=== PATIENT | female | born 1990 ===

== ENCOUNTER 2023-06-24 20:07 | Emergency (ER) | payer OTHER, SELFPAY ==
[2023-06-24 20:19] VITALS: BP 135/95; PULSE 79; RESP 18; TEMP 36.3; O2SAT 100; BMI 30.3
--- NOTE | 2023-06-24 20:20 | ED.GENADULT ---
HPI - General Adult General Chief complaint: Dizziness Stated complaint: High blood pressure Time Seen by Provider: 06/24/23 23:07 Source: patient Mode of arrival: ambulatory Limitations: no limitations History of Present Illness HPI narrative: Patient presents with asymptomatic hypertension. Patient carries a diagnosis of hypertension she is on amlodipine and losartan. Over the past several days she has noted that her blood pressures been significantly elevated particularly her diastolic which has been about 105. She denies any significant headache, nausea, vomiting, chest pain, palpitations, lightheadedness. Patient does not pending salt on her food. She reports doing everything she switched to be doing. She is only eating 1 time per day. There is no clear relieving or exacerbating features. She is taking her medications appropriately. Related Data Allergies Allergy/AdvReac Type Severity Reaction Status Date / Time No Known Allergies Allergy Verified 06/24/23 20:19 [No Known Allergies*] Review of Systems Review of Systems: CONSTITUTIONAL: Denies weight loss, fever and chills. HEENT: Denies changes in vision and hearing. RESPIRATORY: Denies SOB and cough. CV: Denies palpitations no CP. GI: Denies abdominal pain, nausea, vomiting and diarrhea. : Denies dysuria and urinary frequency. MSK: Denies myalgia and joint pain. SKIN: Denies rash and pruritus. NEUROLOGICAL: Denies headache and syncope. PSYCHIATRIC: Denies recent changes in mood. Denies anxiety and depression. All other ROS are negative unless in HPI FORMERLY [facility], [facility]–1983 Social History Social History Alcohol intake: never Smoked in Last 30 Days: No Use of substances other than those prescribed or required for medical reasons: No Advance Directives: No Advance Directives Information Provided: Yes Patient : No Physical Exam ED Vital Signs: Vital Signs - 24 hr 06/24/23 20:19 06/24/23 22:50 Temperature 97.3 F Pulse Rate 79 70 Respiratory Rate 18 16 Blood Pressure 135/95 H 131/78 Pulse Oximetry 100 100 Oxygen Delivery Method Room Air Room Air BMI result Body Mass Index 30.3 GEN: Well developed, no acute distress, alert, oriented HEENT: Normocephalic, atraumatic, normal external ears, nose appears normal, no oropharyngeal edema or exudates Eyes: Normal to appearance Neck: Supple, no lymphadenopathy Respiratory: Talks in complete sentences, no respiratory distress, clear to auscultation bilaterally Cardiovascular: Regular rate and rhythm, no murmurs rubs or gallops Abdomen: Soft, nontender, nondistended, no guarding, no rebound Back: No CVA tenderness Extremities: No clubbing cyanosis or edema Neurologic: No focal neurologic deficits, cranial nerves 2-12 intact, strength is 5/5 bilaterally Skin: No rash Course Course Course Narrative: This is an RME: Additional HPI, ROS, PE not included below will be deferred to primary provider. This is a 8-nzuo-day-female, with a history of hypertension, presenting to the emergency department with complaints of elevated blood pressure readings x several weeks. Pt endorses some right eye blurred vision, and chest tightness. Reports that her blood pressure readings are 140s/110s. I explained had approximately take a blood pressure in she says states that she is very concerned as these are very high levels for her. Will get a basic labs, EKG and troponin given ?chest tightness?. Blood pressure 135/95 Plan: Labs UA. Reevaluation(s) Reevaluation #1: The workup is complete. There is no evidence of kidney damage, EKG is normal. Will slightly increase her losartan to 75 mg daily. She will will follow-up with her primary care provider. We discussed at length the appropriate way to measure blood pressure. Time: 23:36 Medical Decision Making Medical Decision Making [facility] Narrative: Patient presents with a symptomatic elevated blood pressure. She is taking her medications appropriately. Differential diagnosis includes essential hypertension, renovascular hypertension, anxiety, stress. Plan to check renal function. Monitor blood pressure, adjust medications as needed. Differential Diagnosis Differential Diagnoses: The differential diagnosis associated with the presentation includes (See above) Admission/Observation Consideration of admission/observation: Escalation of care including admission/observation considered Lab Data [facility] Lab Attestation statement: I reviewed the patient's lab results. 06/24/23 20:42 06/24/23 20:42 Labs: Lab Results 06/24/23 06/24/23 06/24/23 Range/Units 20:42 20:42 20:42 WBC 6.7 (4.8-10.8) X10*3/uL RBC 4.19 L (4.20-5.50) X10*6/uL Hgb 11.0 L (12.0-16.0) g/dl Hct 32.0 L (37.0-47.0) % MCV 76.4 L (80.0-98.0) fL MCH 26.3 L (27.0-33.0) pg MCHC 34.4 (31.0-35.0) g/dl RDW 13.7 (11.0-16.0) % Plt Count 334 (160-400) X10*3/uL MPV 9.2 L (9.4-12.3) fL Immature Gran % (Auto) 0.3 (0.0-0.4) % Neut % (Auto) 48.9 (45-73) % Lymph % (Auto) 40.6 H (20-40) % Armstrong % (Auto) 7.1 (2-11) % Eos % (Auto) 2.7 (0-4) % Baso % (Auto) 0.4 (0-2) % Lymph # (Auto) 2.7 (1.2-4.9) X10*3/uL Armstrong # (Auto) 0.5 (0.1-1.2) X10*3/uL Eos # (Auto) 0.2 (0.0-0.4) X10*3/uL Baso # (Auto) 0.0 (0.0-0.2) X10*3/uL Abs Immat Gran (auto) 0.02 (0.00-0.03) X10*3/uL Absolute Neuts (auto) 3.3 (2.0-8.3) x10*3/uL Absolute Nucleated RBC 0.000 (0.0-0.012) X10*3/uL Nucleated RBC % (auto) 0.0 (0.0-0.2) /100WBC Sodium 136 (135-145) mmol/L Potassium 3.9 (3.3-5.1) mmol/L Chloride 102 (96-108) mmol/L Carbon Dioxide 22 (22-29) mmol/L Anion Gap 16 (12-20) BUN 9 (9-16) mg/dL Creatinine 0.66 (0.5-1.4) mg/dL Estim Creat Clear Calc 127.4 Estimated GFR > 60 Random Glucose 109 (60-115) mg/dL Calcium 9.7 (8.4-10.2) mg/dL Total Bilirubin 0.5 (0.0-1.0) mg/dL Direct Bilirubin 0.2 (0.0-0.5) mg/dL AST 16 (5-31) U/L ALT 18 (0-31) U/L Alkaline Phosphatase 54 (39-117) U/L Troponin I High Sens < 2.7 (<3.5-17.0) ng/L Total Protein 7.5 (6.5-8.0) g/dL Albumin 4.1 (3.5-5.0) g/dL Urine Color Urine Appearance Urine pH (5.0-9.0) Ur Specific Landrum (1.005-1.025) Urine Protein (Neg-Trace) mg/dL Urine Glucose (UA) (Negative) mg/dL Urine Ketones (Negative) mg/dL Urine Blood (Negative) Urine Nitrite (Negative) Ur Leukocyte Esterase (Negative) Urine RBC (0-2) /HPF Urine WBC (0-5) /HPF Ur Squamous Epith Cells (0-2) /HPF Urine Bacteria (None Seen) Hyaline Casts (0-2) /LPF 06/24/23 Range/Units 20:49 WBC (4.8-10.8) X10*3/uL RBC (4.20-5.50) X10*6/uL Hgb (12.0-16.0) g/dl Hct (37.0-47.0) % MCV (80.0-98.0) fL MCH (27.0-33.0) pg MCHC (31.0-35.0) g/dl RDW (11.0-16.0) % Plt Count (160-400) X10*3/uL MPV (9.4-12.3) fL Immature Gran % (Auto) (0.0-0.4) % Neut % (Auto) (45-73) % Lymph % (Auto) (20-40) % Armstrong % (Auto) (2-11) % Eos % (Auto) (0-4) % Baso % (Auto) (0-2) % Lymph # (Auto) (1.2-4.9) X10*3/uL Armstrong # (Auto) (0.1-1.2) X10*3/uL Eos # (Auto) (0.0-0.4) X10*3/uL Baso # (Auto) (0.0-0.2) X10*3/uL Abs Immat Gran (auto) (0.00-0.03) X10*3/uL Absolute Neuts (auto) (2.0-8.3) x10*3/uL Absolute Nucleated RBC (0.0-0.012) X10*3/uL Nucleated RBC % (auto) (0.0-0.2) /100WBC Sodium (135-145) mmol/L Potassium (3.3-5.1) mmol/L Chloride (96-108) mmol/L Carbon Dioxide (22-29) mmol/L Anion Gap (12-20) BUN (9-16) mg/dL Creatinine (0.5-1.4) mg/dL Estim Creat Clear Calc Estimated GFR Random Glucose (60-115) mg/dL Calcium (8.4-10.2) mg/dL Total Bilirubin (0.0-1.0) mg/dL Direct Bilirubin (0.0-0.5) mg/dL AST (5-31) U/L ALT (0-31) U/L Alkaline Phosphatase (39-117) U/L Troponin I High Sens (<3.5-17.0) ng/L Total Protein (6.5-8.0) g/dL Albumin (3.5-5.0) g/dL Urine Color Yellow Urine Appearance Clear Urine pH 6.0 (5.0-9.0) Ur Specific Landrum 1.010 (1.005-1.025) Urine Protein Negative (Neg-Trace) mg/dL Urine Glucose (UA) Negative (Negative) mg/dL Urine Ketones Negative (Negative) mg/dL Urine Blood Moderate (2+) H (Negative) Urine Nitrite Negative (Negative) Ur Leukocyte Esterase Trace H (Negative) Urine RBC 6-10 H (0-2) /HPF Urine WBC 0-5 (0-5) /HPF Ur Squamous Epith Cells 0-2 (0-2) /HPF Urine Bacteria None Seen (None Seen) Hyaline Casts 0-2 (0-2) /LPF Independent Interpretation I performed an independent interpretation of an: EKG (Normal sinus rhythm heart rate 67, normal intervals, no acute ST elevations or depressions) Discharge Plan Discharge Clinical Impression: Essential hypertension Patient Disposition: Home, Self-Care Instructions: DASH Eating Plan (ED), Chronic Hypertension (DC), How to Take a Blood Pressure (ED) Additional Instructions: Continue amlodipine at 5 mg daily. Increase your losartan to 75 mg daily. Referrals: Maribell Jain MD [Primary Care Provider] - 1 week
--- NOTE | 2023-06-24 20:26 | ECG_ITS ---
Test Reason : dizziness Blood Pressure : / mmHG Vent. Rate : 067 BPM Atrial Rate : 067 BPM P-R Int : 166 ms QRS Dur : 088 ms QT Int : 416 ms P-R-T Axes : 074 035 037 degrees QTc Int : 439 ms Normal sinus rhythm Normal ECG No previous ECGs available Referred By: Yeimy Ponce Electronically Signed By:SILVANO LEONG
--- NOTE | 2023-06-24 20:45 | MHC.EDTECH ---
PATIENT EKG TAKEN AND WAS READ BY PROVIDER ,BLOOD DRAWN AND SENT TO LAB .
[2023-06-24 20:46] LABS: MANUAL DIFF FLAG NO
--- OUTSIDE RECORDS SUMMARY | 2023-06-24 20:48 | XMS_ITS | Continuity of Care Document ---
Author Name Unknown Organization [facility] Address [address] [place] [address]- Care Team Providers Care Chemotherapist Name Role Phone Maribell Jain MD Primary Care Physician [phone] Encounter [facility] Date(s): 05/03/23 - 06/02/23 [facility] [address] [place], [place] [address] Allergies, Adverse Reactions, Alerts Substance Reaction Severity Status Nuts Active Watermelon Active Immunizations Given and Recorded Vaccine Date Status Refusal Reason SARS-CoV-2 mRNA (nxvxhjy-wyls-qlxod) vax 11/23/21 Recorded SARS-CoV-2 (COVID-19) mRNA BNT-162b2 vac 11/02/21 Recorded pneumococcal 23-valent vaccine 1 09/14/19 Given Influenza Virus Vaccine (oldterm) 08/24/19 Recorde d influenza virus vaccine, inactivated 2 07/17/18 Gi danita influenza virus vaccine, inactivated 3 09/30/17 Gi danita influenza virus vaccine, inactivated 4 11/13/10 Gi danita tetanus/diphtheria/pertussis, acel(Tdap) 12/30/16 Given tetanus-diphtheria toxoids (Td) 5 06/19/09 Given Diphth/Pertussis,Acel/Tetanus (oldterm) 89 G iven 1Result Comment: [facility] [id number] 2Result Comment: [07/17/2018] givne /out incident ncd: [id number] 3Result Comment: [09/30/2017] [facility] [id number] 4Admin Note: pt declined 5Admin Note: vis given Medications amLODIPine 5 mg oral tablet 1 tablet, By Mouth, Daily, # 90 tablet, 1 Refills, Maintenance, 05/16/23 23:07:00 EDT, [id number], 165, cm, 05/13/23 16:14:00 EDT, Height, 85.7, kg, 05/04/23 6:01:00 EDT, Dry Weight Start Date: 05/16/23 Status: Ordered Aspirin Enteric Coated 81 mg oral delayed release tablet 1 tablet, By Mouth, Daily, # 90 tablet, 3 Refills, Maintenance, 01/13/23 11:23:00 EDT, [facility]/pharmacy#[id number], 165, cm, 01/13/23 10:56:00 EDT, Height, 88.8, kg, 12/28/22 22:36:00 EST, Dry Weight Start Date: 01/13/23 Stop Date: 01/08/24 Status: Ordered CPAP Machine See Instructions, # 1 each, Maintenance, AutoBiPAP max IPAP 15 min EPAP 5, PS 8 with heated humidification and compliance data to be followed. tubing, mask and supplies, 06/18/16 11:56:34 EDT, Compound Start Date: 06/18/16 Status: Ordered Freestyle Lite Lancets See Instructions, # 100 each, Refills 3, Tot. Refills 3, Maintenance, dx- E11.9 check sugars once daily 28 G lancets, 01/13/23 11:23:00 EDT, Compound, 165, cm, 01/13/23 10:56:00 EDT, Height, 88.8, kg, 12/28/22 22:36:00 EST, Dry Weight Start Date: 01/13/23 Status: Ordered Freestyle Lite Monitor See Instructions, # 1 units, Maintenance, dx- E11.9 check sugars once daily, 10/26/19 11:47:00 EST,Compound Start Date: 10/26/19 Status: Ordered Freestyle Lite Test Strips See Instructions, # 100 each, Refills 3, Tot. Refills 3, Maintenance, dx- E11.9 check sugars once daily, 03/30/21 12:58:00 EDT, Compound, 165, cm, 06/23/20 13:39:00 EDT, Height Start Date: 03/30/21 Status: Ordered losartan 50 mg oral tablet 1 tablet = 50 mg, By Mouth, Daily, # 90 tablet, 1 Refills, Maintenance, 12/10/22 17:16:00 EST, Tablet, [id number], Partial fill upon patient request if the prescription is for a schedule II opioid drug., 165, cm, 11/10/22 11:18:00 EST, Height,... Start Date: 12/10/22 Stop Date: 06/08/23 Status: Ordered MetFORMIN (Eqv-Glucophage XR) 500 mg oral tablet, extended release 2 tablet, By Mouth, Daily, # 180 tablet, 1 Refills, Maintenance, 05/16/23 23:07:00 EDT, [facility], 165, cm, 05/13/23 16:14:00 EDT, Height, 85.7, kg, 05/04/23 6:01:00 EDT, Dry Weight Start Date: 05/16/23 Status: Ordered Multivitamin Daily, 0 Refills, Maintenance, 08/04/21 9:36:00 EDT, Partial fill upon patient request if the prescription is for a schedule II opioid drug. Start Date: 08/04/21 Status: Ordered ondansetron 4 mg oral tablet, disintegrating 1 tablet = 4 mg, By Mouth, Every 8 hours, PRN as needed for nausea/vomiting, # 12 tablet, 0 Refills, Maintenance, 05/04/23 5:50:00 EDT, DIS Tablet, [id number], Partial fill upon patient request if the prescription is for a schedule II opioid d... Start Date: 05/04/23 Status: Ordered Ventolin HFA 108 mcg/inh inhalation aerosol with adapter 2 puffs, Inhalation, Every 6 hours, PRN NEEDED FOR WHEEZING/SHORTNESS OF BREATH, # 18 each, 5 Refills, Maintenance, 05/13/23 17:02:00 EDT, [id number], 165, cm, 05/13/23 16:14:00 EDT, Height, 85.7, kg, 05/04/23 6:01:00 EDT, Dry Weight Start Date: 05/13/23 Status: Ordered Problem List Condition Confirmation Course Effective Dates Status Health St atus Informant Asthma Confirmed Active Depressive Disorder, Not Elsewhere Classified Confirmed 06/17/10 Active Diabetes mellitus Confirmed Active Esophageal reflux (GERD) Confirmed Active Hypertension Confirmed Active Narcolepsy Confirmed Active Obese class I Confirmed Active Obstructive sleep apnea Confirmed Active Sickle cell trait Confirmed Active Social History Social History Type Response Smoking Status Never smoker; Tobacc o user in household: No entered on: 05/09/14 Sex Patient Care team information Care Team Personnel Name: Maribell Jain MD Position: [facility] Physician - Primary Care Member Role: PCP Address: Address: [address] [place] [address] Adult & [place] [address]- Care Team Related Persons Name: JJ NORMAN Address: home [address] [place] [address] Name: RISHABH CASTELLON Address: [place] [address] Name: YEIMY CASTELLON Address: home [address] [place] [address] Name: DONNA ZELAYA Address: home [address] [place] [address] Name: JOSE RAFAEL VINCENT Address: [place] [address] Name: ABHAY SPAULDING Name: SAMANTHA TINEO Address: home [address] [place] [address]
--- OUTSIDE RECORDS SUMMARY | 2023-06-24 20:48 | XMS_ITS | Continuity of Care Document ---
Author Name Unknown Organization [facility] Address [address] [place] [address]- Care Team Providers Care Work Distributor Name Role Phone Maribell Jain MD Primary Care Physician [phone] Encounter [facility] Date(s): 01/06/21 - 02/05/21 [facility] Medicine [address] [place] [id number] Attending Physician: AdmMay coker Admitting Physician: AdmtrMay Referring Physician: Admtr, Ar8 Allergies, Adverse Reactions, Alerts Substance Reaction Severity Status Nuts Active Watermelon Active Immunizations Given and Recorded Vaccine Date Status Refusal Reason pneumococcal 23-valent vaccine 1 09/14/19 Given Influenza Virus Vaccine (oldterm) 08/24/19 Recorde d influenza virus vaccine, inactivated 2 07/17/18 Gi danita influenza virus vaccine, inactivated 3 09/30/17 Gi danita influenza virus vaccine, inactivated 4 11/13/10 Gi danita tetanus/diphtheria/pertussis, acel(Tdap) 12/30/16 Given tetanus-diphtheria toxoids (Td) 5 06/19/09 Given Diphth/Pertussis,Acel/Tetanus (oldterm) 89 G julián 1Result Comment: [facility] [id number] 2Result Comment: [07/17/2018] givne /out incident ncd: [id number] 3Result Comment: [09/30/2017] [facility] [id number] 4Admin Note: pt declined 5Admin Note: vis given Medications albuterol CFC free 90 mcg/inh inhalation aerosol 2, puffs, Inhalation, Every 6 hours, PRN, # 1 each, Refills 0, Tot. Refills 0, Maintenance, 01/06/21 13:55:00 EDT, Aerosol, Route to Pharmacy Electronically, [id number], [facility]/pharmacy #[id number], 165, cm, 06/23/20 13:39:00 EDT, Height Start Date: 01/06/21 Stop Date: 02/05/21 Status: Ordered amLODIPine 5 mg oral tablet 5 mg, 1, tablet, By Mouth, Daily, # 30 tablet, Refills 2, Tot. Refills 2, Maintenance, 12/06/18 14:00:07 EST, Route to Pharmacy Electronically, [id number], [id number] Start Date: 12/06/18 Status: Ordered aspirin 81 mg oral tablet 1 tablet = 81 mg, By Mouth, Daily, # 90 tablet, 3 Refills, Maintenance, 04/23/20 15:01:00 EDT, [id number], 165, cm, 04/23/20 14:42:00 EDT, Height, 93.5, kg, 07/06/18 23:42:00 EDT, Dry Weight Start Date: 04/23/20 Stop Date: 04/18/21 Status: Ordered Azithromycin 5 Day Dose Pack 250 mg oral tablet 1 pack/packet, By Mouth, Once, # 6 tablet, 0 Refills, Soft Stop, 01/06/21 13:55:00 EDT, Tablet, [id number], Partial fill upon patient request if the prescription is for a schedule II opioid drug., 165, cm, 06/23/20 13:39:00 EDT, Height Start Date: 01/06/21 Status: Ordered CPAP Machine See Instructions, # 1 each, Maintenance, AutoBiPAP max IPAP 15 min EPAP 5, PS 8 with heated humidification and compliance data to be followed. tubing, mask and supplies, 06/18/16 11:56:34 EDT, Compound Start Date: 06/18/16 Status: Ordered diclofenac sodium 75 mg oral delayed release tablet 1 tablet = 75 mg, By Mouth, 2 times a day, with food, # 20 tablet, 0 Refills, Maintenance, 12/22/2110:32:00 EST, Tablet, [id number], 165, cm, 06/23/20 13:39:00 EDT, Height Start Date: 12/22/20 Stop Date: 01/01/21 Status: Ordered Freestyle Lite Lancets See Instructions, # 100 each, Maintenance, dx- E11.9 check sugars once daily, 10/26/19 11:47:00 EST, Compound Start Date: 10/26/19 Status: Ordered Freestyle Lite Monitor See Instructions, # 1 units, Maintenance, dx- E11.9 check sugars once daily, 10/26/19 11:47:00 EST,Compound Start Date: 10/26/19 Status: Ordered Freestyle Lite Test Strips See Instructions, # 100 each, Refills 3, Tot. Refills 3, Maintenance, dx- E11.9 check sugars once daily, 03/21/20 10:24:00 EDT, Compound, 165, cm, 12/17/19 8:59:00 EST, Height, 93.5, kg, 07/06/18 23:42:00 EDT, Dry Weight Start Date: 03/21/20 Status: Ordered Glucophage XR 500 mg oral tablet, extended release 2 tablet = 1,000 mg, By Mouth, Daily, # 180 tablet, 0 Refills, Maintenance, 11/25/20 14:53:00 EST, ER Tablet, [facility]/pharmacy #[id number], metformin ER not covered. patient cannot tolerate regular metformin due to GI side effects, 165, cm, 06/23/20 13:39:00 ED... Start Date: 11/25/20 Stop Date: 02/23/21 Status: Ordered Problem List Condition Effective Dates Status Health Status Inform ant Asthma(Confirmed) Active Depressive Disorder, Not Els ewhere Classified(Confirmed) 06/17/10 Active Diabetes mellitus(Confirmed) Active Esophageal reflux (GERD)(Confirmed) Active Hypertension(Confirmed) Active Impaired fasting glucose(Confirmed) Active Narcolepsy(Confirmed) Active Obstructive sleep apnea(Confirmed) Active Sickle cell trait(Confirmed) Active Social History Social History Type Response Smoking Status Never smoker; Tobacc o user in household: No entered on: 05/09/14 Sex
--- OUTSIDE RECORDS SUMMARY | 2023-06-24 20:48 | XMS_ITS | Continuity of Care Document ---
Author Name Unknown Organization [facility] Address [address] [place] [address]- Care Team Providers Care Spanish Moss Picker Name Role Phone Cristobal ROSARIO, Maribell Weldon Primary Care Physician [phone] Encounter [facility] Date(s): 12/17/21 - 12/24/21 [facility] [address] [place], [place] [address] Attending Physician: Natalia TRANSIT SPECIALIST, Jazzy Allergies, Adverse Reactions, Alerts Substance Reaction Severity [...] Diphth/Pertussis,Acel/Tetanus (oldterm) 89 G julián 1Result Comment: [facility] [id number] 2Result Comment: [07/17/2018] givne /out incident ncd: [id number] 3Result Comment: [09/30/2017] [facility] [id number] 4Admin Note: pt declined 5Admin Note: vis given Medications albuterol CFC free 90 mcg/inh inhalation aerosol 2, puffs, Inhalation, Every 6 hours, PRN, # 1 each, Refills 0, Tot. Refills 0, Maintenance, 12/11/21 12:09:00 EST, Aerosol, Route to Pharmacy Electronically, [id number], [id number], 165, cm, 09/27/21 19:50:00 EST, Hei... Start Date: 12/11/21 Stop Date: 01/10/22 Status: Ordered amLODIPine 5 mg oral tablet 5 mg, 1, tablet, By Mouth, Daily, # 30 tablet, Refills 2, Tot. Refills 2, Maintenance, 12/06/18 14:00:07 EST, Route to Pharmacy Electronically, [id number], [facility]/pharmacy #[id number] Start Date: 12/06/18 Status: Ordered Aspirin Enteric Coated 81 mg oral delayed release tablet 1 tablet, By Mouth, Daily, # 90 tablet, 3 Refills, Maintenance, 03/25/21 21:47:00 EDT, [facility], 165, cm, 06/23/20 13:39:00 EDT, Height Start Date: 03/25/21 Status: Ordered CPAP Machine See Instructions, # [...] EDT, Height Start Date: 03/30/21 Status: Ordered Glucophage XR 500 mg oral tablet, extended release 2 tablet = 1,000 mg, By Mouth, Daily, # 180 tablet, 1 Refills, Maintenance, 07/02/21 12:28:00 EDT, ER Tablet, [facility]/pharmacy #[id number], metformin ER not covered. patient cannot tolerate regular metformin due to GI side effects, 165, cm, 06/23/20 13:39:00 ED... Start Date: 07/02/21 Stop Date: 12/29/21 Status: Ordered Hair, Skin, & Nails Gummies Daily, 0 Refills, Maintenance, 08/04/21 9:37:00 EDT, Partial fill upon patient request if the prescription is for a schedule II opioid drug. Start Date: 08/04/21 Status: Ordered Multivitamin Daily, 0 Refills, Maintenance, 08/04/21 9:36:00 EDT, Partial fill upon patient request if the prescription is for a schedule II opioid drug. Start Date: 08/04/21 Status: Ordered VITAMIN D3 2,000 UNIT TABLET Maintenance, 08/04/21 9:36:00 EDT, Supply Start Date: 08/04/21 Status: Ordered Problem List Condition Effective Dates Status Health Status Inform ant Asthma(Confirmed) Active Depressive Disorder, Not Els ewhere Classified(Confirmed) 06/17/10 Active Diabetes mellitus(Confirmed) Active Esophageal reflux (GERD)(Confirmed) Active Hypertension(Confirmed) Active Narcolepsy(Confirmed) Active Obstructive sleep apnea(Confirmed) Active Sickle cell trait(Confirmed) Active Social History Social History Type Response Smoking Status Never smoker; Tobacc o user in household: No entered on: 05/09/14 Sex
--- OUTSIDE RECORDS SUMMARY | 2023-06-24 20:48 | XMS_ITS | Continuity of Care Document ---
Author Name Unknown Organization [facility] Address [address] [place] [address]- Care Team Providers Care It Engineer Name Role Phone Maribell Jain MD Primary Care Physician [facility]): [facility]23 - 02/15/23 [facility] [address] [place], [place] [address] Allergies, Adverse Reactions, Alerts Substance Reaction Severity Status Nuts Active Watermelon Active Immunizations Given and Recorded Vaccine Date Status Refusal Reason SARS-CoV-2 mRNA (rtsjlsi-zxej-ijfkz) vax 11/23/21 Recorded SARS-CoV-2 (COVID-19) mRNA BNT-162b2 [...] Diphth/Pertussis,Acel/Tetanus (oldterm) 89 G julián 1Result Comment: [facility] [id number] 2Result Comment: [07/17/2018] givne /out incident ncd: [id number] 3Result Comment: [09/30/2017] [facility] [id number] 4Admin Note: pt declined 5Admin Note: vis given Medications amLODIPine 5 mg oral tablet 1 tablet = 5 mg, By Mouth, Daily, # 90 tablet, 1 Refills, Maintenance, 12/14/22 10:33:00 EST, Tablet, [facility]/pharmacy #1291, in addition to losartan, 165, cm, 12/14/22 10:08:00 EST, Height, 85, kg, 09/12/22 4:32:00 EST, Dry Weight Start Date: 12/14/22 Stop Date: 06/12/23 Status: Ordered Aspirin Enteric Coated 81 mg oral delayed release tablet 1 tablet, By Mouth, Daily, # 90 tablet, 3 Refills, Maintenance, 01/13/23 11:23:00 EDT, [facility]/pharmacy#1291, 165, cm, 01/13/23 10:56:00 EDT, Height, [...] 1 Refills, Maintenance, 12/10/22 17:16:00 EST, Tablet, [facility]/pharmacy #1291, Partial fill upon patient request if the prescription is for a schedule II opioid drug., 165, cm, 11/10/22 11:18:00 EST, Height,... Start Date: 12/10/22 Stop Date: 06/08/23 Status: Ordered metFORMIN 500 mg oral tablet, extended release 2 tablet = 1,000 mg, By Mouth, Daily, # 180 tablet, 1 Refills, Maintenance, 12/09/22 12:15:00 EST, ER Tablet, [facility]/pharmacy #1291, stop synjardy, 165, cm, 11/10/22 11:18:00 EST, Height, 85, kg, 09/12/22 4:32:00 EST, Dry Weight Start Date: 12/09/22 Stop Date: 06/07/23 Status: Ordered Multivitamin Daily, 0 Refills, Maintenance, 08/04/21 9:36:00 EDT, Partial fill upon patient request if the prescription is for a schedule II opioid drug. Start Date: 08/04/21 Status: Ordered Ventolin HFA 108 mcg/inh inhalation aerosol with adapter 2 puffs, Inhalation, Every 6 hours, PRN NEEDED FOR WHEEZING/SHORTNESS OF BREATH, # 18 each, 5 Refills, Maintenance, 01/14/23 8:57:00 EDT, [facility], 165, cm, 01/13/23 10:56:00 EDT, Height, 88.8, kg, 12/28/22 22:36:00 EST, Dry Weight Start Date: 01/14/23 Status: Ordered VITAMIN D3 2,000 UNIT TABLET VITAMIN D3 2,000 UNIT TABLET, 0 Refills, Maintenance, 09/13/22 9:30:00 EST Start Date: 09/13/22 Status: Ordered Problem List Condition Confirmation Course [...] Care team information Care Team Personnel Name: Cristobal ROSARIO, Maribell Weldon Position: [facility] Primary Care Physician Member Role: PCP Address: Address: [address] [place] [address] Adult [place] [address]- Care Team Related Persons Name: JJ NORMAN Address: home [address] [place] [address] Name: RISHABH CASTELLON Address: [place] [address] Name: YEIMY CASTELLON Address: home [address] [place] [address] Name: DONNA ZELAYA Address: home [address] [place] [address] Name: JOSE RAFAEL VINCENT Address: [place] [address] Name: ABHAY SPAULDING Name: SAMANTHA TINEO Address: home [address] [place] [address]
--- OUTSIDE RECORDS SUMMARY | 2023-06-24 20:48 | XMS_ITS | Continuity of Care Document ---
Author Name Unknown Organization [facility] Address [address] [place] [address]- Care Team Providers Care Undercollar Baster Name Role Phone Maribell Jain MD Primary Care Physician Encounter [facility] R [id number] Date(s): 09/09/21 - 10/09/21 [facility] [address] [address] Attending Physician: Admjohn paul, May Admitting Physician: Admtr, Ar8 Referring Physician: Admtr, Ar8 Allergies, Adverse Reactions, [...] Diphth/Pertussis,Acel/Tetanus (oldterm) 89 G julián 1Result Comment: [facility] [id number] 2Result Comment: [07/17/2018] givne /out incident ncd: [id number] 3Result Comment: [09/30/2017] [facility] [id number] 4Admin Note: pt declined 5Admin Note: vis given Medications albuterol CFC free 90 mcg/inh inhalation aerosol 2, puffs, Inhalation, Every 6 hours, PRN, # 1 each, Refills 0, Tot. Refills 0, Maintenance, 01/06/21 13:55:00 EDT, Aerosol, Route to Pharmacy Electronically, [id number], [facility]/pharmacy #1291, 165, cm, 06/23/20 13:39:00 EDT, Height Start Date: 01/06/21 Stop Date: 02/05/21 Status: Ordered amLODIPine 5 mg oral tablet 5 mg, 1, tablet, By Mouth, Daily, # 30 tablet, Refills 2, Tot. Refills 2, Maintenance, 12/06/18 14:00:07 EST, Route to Pharmacy Electronically, [id number], [facility]/pharmacy #1291 Start Date: 12/06/18 Status: Ordered Aspirin Enteric Coated 81 mg oral delayed release tablet 1 tablet, By Mouth, Daily, # 90 tablet, 3 Refills, Maintenance, 03/25/21 21:47:00 EDT, [facility], 165, cm, 06/23/20 13:39:00 EDT, Height Start [...] Refills, Maintenance, 07/02/21 12:28:00 EDT, ER Tablet, [facility]/pharmacy #1291, metformin ER not covered. patient cannot [...]
--- OUTSIDE RECORDS SUMMARY | 2023-06-24 20:48 | XMS_ITS | Continuity of Care Document ---
Author Name Unknown Organization [facility] Address [address] [place] [address]- Care Team Providers Care Incubator Operator Name Role Phone Cristobal ROSARIO, Maribell Weldon Primary Care Physician [facility]): 10[facility]11[facility]22 - 10/18/22 [facility] [address] [place], [place] [address] Attending Physician: Maribell Jain MD Allergies, Adverse Reactions, Alerts Substance Reaction Severity Status Nuts Active Watermelon Active Immunizations Given and Recorded Vaccine Date Status Refusal Reason SARS-CoV-2 mRNA ([id number]) vax 11/23/21 Recorded SARS-CoV-2 (COVID-19) mRNA BNT-162b2 [...] Diphth/Pertussis,Acel/Tetanus (oldterm) 89 G iven 1Result Comment: [facility] [id number] 2Result Comment: [07/17/2018] givne /out incident ncd: [id number] 3Result Comment: [09/30/2017] [facility] [id number] 4Admin Note: pt declined 5Admin Note: vis given Medications amLODIPine 5 mg oral tablet 1 tablet = 5 mg, By Mouth, Daily, # 90 tablet, 0 Refills, Maintenance, 10/11/22 12:24:00 EST, Tablet, [facility]/pharmacy #1291, in addition to losartan, 165, cm, 10/11/22 11:54:00 EST, Height, 85, kg, 09/12/22 4:32:00 EST, Dry Weight Start Date: 10/11/22 Stop Date: 01/09/23 Status: Ordered Aspirin Enteric Coated 81 mg oral delayed release tablet 1 tablet, By Mouth, Daily, # 90 tablet, 1 Refills, Maintenance, 04/22/22 9:02:00 EDT, [facility]/pharmacy #1291, Please cancel previous order for 3 refills. Pt is only allowed 1 refill, 165, cm, 04/09/22 9:11:00 EDT, Height, 85.8, kg, 04/09/22 9:11:00 EDT, D... Start Date: 04/22/22 Status: Ordered CPAP Machine See Instructions, # 1 each, Maintenance, AutoBiPAP max IPAP 15 min EPAP 5, PS 8 with heated humidification and compliance data to be followed. tubing, mask and supplies, 06/18/16 11:56:34 EDT, Compound Start Date: 06/18/16 Status: Ordered FREESTYLE 28G LANCETS FREESTYLE 28G LANCETS, See Instructions, # 100 Unknown, 0 Refills, Maintenance, CHECK SUGARS ONCE DAILY, 08/01/22 18:43:00 EDT, 165, cm, 05/24/22 13:56:00 EDT, Height, 82.1, kg, 05/24/22 13:56:00 EDT, Dry Weight Start Date: 08/01/22 Status: Ordered Freestyle Lite Monitor See Instructions, [...] Status: Ordered losartan 50 mg oral tablet 0 Refills, Maintenance, 09/13/22 9:30:00 EST, Partial fill upon patient request if the prescriptionis for a schedule II opioid drug. Start Date: 09/13/22 Status: Ordered metFORMIN 500 mg oral tablet, extended release 2 tablet = 1,000 mg, By Mouth, Daily, # 180 tablet, 0 Refills, Maintenance, 09/13/22 9:47:00 EST, ER Tablet, [facility]/pharmacy #1291, stop synjardy, 165, cm, 09/13/22 9:05:00 EST, Height, 85, kg, 224:32:00 EST, Dry Weight Start Date: 09/13/22 Stop Date: 12/12/22 Status: Ordered Multivitamin Daily, 0 Refills, Maintenance, 08/04/21 9:36:00 EDT, Partial fill upon patient request if the prescription is for a schedule II opioid drug. Start Date: 08/04/21 Status: Ordered ProAir HFA 90 mcg/inh inhalation aerosol with adapter 2, puffs, Inhalation, Every 6 hours, PRN, WHEEZING/SHORTNESS OF BREATH., # 8.5 each, Refills 0, Route to Pharmacy Electronically, [id number], [facility], 165, cm, 09/27/21 19:50:00 EST, Height, 89.9, kg, 09/27/21 19:50:0... Start Date: 02/12/22 Status: Ordered VITAMIN D3 2,000 UNIT TABLET [...] Confirmed Active Sickle cell trait Confirmed Active Vital Signs Most recent to oldest [Reference Range]: 1 Height 165 cm (10/11/22 11:54 AM) Weight 86.9 kg (10/11/22 11:54 AM) Oxygen Saturation [94-100 %] 98 % (10/11/22 11:54 AM) Pulse Rate [55-90 bpm] 81 bpm (10/11/22 11:54 AM) Body Mass Index [18.5-24.99 kg/m2] 31.92 kg/m2 *>HHI* (10/11/22 11:54 AM) Blood Pressure [90-138/55-84 mm Hg] 122/ 78mm Hg (10/11/22 11:54 AM) Mode of Delivery (Oxygen) Room air (10/11/22 11:54 AM) Blood pressure sites Arm, left (10/11/22 11:54 AM) Weight Obtained Via Standing scale (10/11/22 11:54 AM) Social History Social History Type Response Smoking Status Never smoker; Tobacc o user in household: No entered on: 05/09/14 Sex Note * Liz Grayson: PERFORM, SIGN, VERIFY Event Display: Patient Education/Instruction Authored Date: [id number] [facility] *[facility] Clinical Summary Name CAROL REDMAN Age 32 Years 1990 PCP Cristobal ROSARIO, Maribell Weldon PCP Visit Date 10/11/2022 11:45:00 Patient Instructions take aspirin 81 mg losartan 50 mg amlodipine 5 mg metformin 2 tab once daily set alarm/ reminder to take all at same time avoid missing doses check suagrs daily check BP 1-2 times a week, goal < 130/80. Additional Instructions: Scheduled Appointments?? Future Appointments ?No Future Appointments Scheduled Follow-Up Instructions ?? Diagnosis Medications: Please continue your medications until treatment is completed or stopped by your provider. Discuss any questions related to medications with your provider. Medications to Continue Taking That Have [facility]anged [id number] [address], [place] [id number], [phone] - Amlodipine (amLODIPine 5 mg oral tablet) 1 tab(s) Oral Daily for 90 Days. Refills: 0. Next Dose: Medications to Continue with No Changes These medications were not printed or sent to your pharmacy Albuterol (ProAir HFA 90 mcg/inh inhalation aerosol with adapter) 2 puff(s) Inhalation every 6 hours as needed. WHEEZING/SHORTNESS OF BREATH.. Refills: 0. Next Dose: Aspirin (Aspirin Enteric Coated 81 mg oral delayed release tablet) 1 tab(s) Oral Daily. Refills: 1. Next Dose: Durable Medical Equipment (CPAP Machine) AutoBiPAP max IPAP 15 min EPAP 5, PS 8 with heated humidification and compliance data to be followed. tubing, mask and supplies. Refills: 0. Next Dose: Durable Medical Equipment (Freestyle Lite Monitor) dx- E11.9 check sugars once daily. Refills: 0. Next Dose: Durable Medical Equipment (Freestyle Lite Test Strips) dx- E11.9 check sugars once daily. Refills: 3. Next Dose: Losartan (losartan 50 mg oral tablet) Next Dose: Metformin (metFORMIN 500 mg oral tablet, extended release) 2 tab(s) Oral Daily for 90 Days. Refills: 0. Next Dose: Miscellaneous Rx (FREESTYLE 28G LANCETS) CHECK SUGARS ONCE DAILY. Refills: 0. Next Dose: Miscellaneous Rx (VITAMIN D3 2,000 UNIT TABLET) Next Dose: Multivitamin Daily. Next Dose: Allergy Info:?? Watermelon; Nuts Medications Given This Visit Future Orders ?Microalbumin Urine? Order Date:10/11/22?- Complete on or after?10/11/22 ?Hemoglobin A1C (Monitoring)? Order Date:10/11/22?- Complete on or after?10/11/22 ?ALT? Order Date:10/11/22?- Complete on or after?10/11/22 ?Renal Panel? Order Date:10/11/22?- Complete on or after?10/11/22 ?AST? Order Date:10/11/22?- Complete on or after?10/11/22 ?Glucose Level? Order Date:10/11/22?- Complete on or after?10/11/22 ?Lipid Panel? Order Date:10/11/22?- Complete on or after?10/11/22 Vital Signs Height 165 cm Weight 86.9 kg BMI 31.92 kg/m2 Blood Pressure 122 mm Hg/78 mm Hg Temperature Pulse Rate 81 bpm Respiratory Rate 02 Sat Mode of Delivery 98 %/Room air You can now view a summary of your hospital visit from the comfort of your home through a free online portal called [employer]. [employer] is a website that allows you to securely view your medical information including discharge summary, medications and follow-up visits. ??You can alsosend a secure electronic message to your doctor???s office to request appointments, renew medications or just ask a question. You can enroll at [email or web address] or register during your next office visit. Disclaimer:?? The information provided is of a general nature and is intended to be used in conjunction with the recommendations and advice of your health care practitioner. ??Every effort has been made to ensure that the information provided is accurate and complete at the time it is provided to you however, as your needs change, or, as new ??information becomes available, different or additional instructions may be required. If you have questions, please consult with your primary care provider or pharmacist, as appropriate. ??This information is not intended to serve as substitution for assessment and evaluation by a qualified health care provider. If you do not have a primary care provider, you may find a [facility] provider by calling [facility] at [phone]. For information about the plan of care including goals and instructions for your diagnosis, please see the patient education orders section of this document. Patient Education Materials?? The content of this educational material or handout may have been modified, supplemented, or adapted from its original content and format to support your individualized medical care. Patient Care team information Care Team Personnel Name: Cristobal ROSARIO, Maribell Weldon Position: [facility] Primary Care Physician Member Role: PCP Address: Address: [address] [place] [address] Adult & [place] [address]- Care Team Related Persons Name: JJ NORMAN Address: home [address] [place] [address] Name: RISHABH CASTELLON Address: [place] [address] Name: YEIMY CASTELLON Address: home [address] [place] [address] Name: DONNA ZELAYA Address: home [address] [place] [address] Name: JOSE RAFAEL VINCENT Address: [place] [address] Name: ABHAY SPAULDING Name: SAMANTHA TINEO Address: home [address] [place] [address]
--- OUTSIDE RECORDS SUMMARY | 2023-06-24 20:48 | XMS_ITS | Continuity of Care Document ---
Author Name Unknown Organization [facility] Address [address] [place] [address]- Care Team Providers Care Licensed Practical Nurse Name Role Phone Cristobal ROSARIO, Maribell Weldon Primary Care Physician [facility]): 10[facility]20 - 11/15/20 [facility] [address] [place], [place] [address] Attending Physician: May Braswell Admitting Physician: AdmMay coker Referring Physician: AdmtrMay Allergies, Adverse Reactions, Alerts Substance Reaction Severity [...] Diphth/Pertussis,Acel/Tetanus (oldterm) 89 G julián 1Result Comment: [facility] [id number] 2Result Comment: [07/17/2018] givne /out incident ncd: [id number] 3Result Comment: [09/30/2017] [facility] [id number] 4Admin Note: pt declined 5Admin Note: vis given Medications albuterol CFC free 90 mcg/inh inhalation aerosol 2, puffs, Inhalation, Every 6 hours, PRN, # 1 each, Refills 0, Tot. Refills 0, Maintenance, 12/19/18 18:17:12 EST, Aerosol, Route to Pharmacy Electronically, [id number], [facility]/pharmacy #[id number] Start Date: 12/19/18 Stop Date: 01/18/19 Status: Ordered amLODIPine 5 mg oral tablet 5 mg, 1, tablet, By Mouth, Daily, # 30 tablet, Refills 2, Tot. Refills 2, Maintenance, 12/06/18 14:00:07 EST, Route to Pharmacy Electronically, [id number], [facility]/pharmacy #[id number] Start Date: 12/06/18 Status: Ordered aspirin 81 mg oral tablet 1 tablet = 81 mg, By Mouth, Daily, # 90 tablet, 3 Refills, Maintenance, 04/23/20 15:01:00 EDT, [facility]/pharmacy #1291, 165, cm, 04/23/20 14:42:00 EDT, Height, 93.5, kg, 07/06/18 23:42:00 EDT, Dry Weight Start Date: 04/23/20 Stop Date: 04/18/21 Status: Ordered CPAP Machine See Instructions, # [...] 07/06/18 23:42:00 EDT, Dry Weight Start Date: 5/29/20 Status: Ordered metFORMIN 1000 mg oral tablet, extended release 1 tablet = 1,000 mg, By Mouth, Daily, with evening meal, # 90 tablet, 3 Refills, Maintenance, 10/19/20 15:59:00 EST, ER Tablet, [id number], dose increased from 500 mg, 165, cm, 06/23/20 13:39:00 EDT, Height Start Date: 10/19/20 Stop Date: 10/14/21 Status: Ordered Problem List Condition Effective Dates [...]
--- OUTSIDE RECORDS SUMMARY | 2023-06-24 20:48 | XMS_ITS | Continuity of Care Document ---
Author Name Unknown Organization [facility] Address [address] [place] [address]- Care Team Providers Care Museum Security Chief Name Role Phone Cristobal ROSARIO, Maribell Weldon Primary Care Physician [phone] [facility] 02[facility]22 - 03/07/22 [facility] [address] [place], [place] [address] Allergies, Adverse Reactions, Alerts Substance Reaction Severity [...] (Td) 5 06/19/09 Given Diphth/Pertussis,Acel/Tetanus (oldterm) 89 Regan gallego 1Result Comment: [facility] [id number] 2Result Comment: [07/17/2018] givne /out incident ncd: [id number] 3Result Comment: [09/30/2017] [facility] [id number] 4Admin Note: pt declined 5Admin Note: vis given Medications amLODIPine 5 mg oral tablet 5 mg, 1, tablet, By Mouth, Daily, # 30 tablet, Refills 2, Tot. Refills 2, Maintenance, 12/06/18 14:00:07 EST, Route to Pharmacy Electronically, [id number], [id number] Start Date: 12/06/18 Status: Ordered Aspirin Enteric Coated 81 mg oral delayed release tablet 1 tablet, By Mouth, Daily, # 90 tablet, 3 Refills, Maintenance, 03/25/21 21:47:00 EDT, [facility], 165, cm, 06/23/20 13:39:00 EDT, Height Start [...] EDT, Height Start Date: 03/30/21 Status: Ordered Hair, Skin, & Nails Gummies Daily, 0 Refills, Maintenance, 08/04/21 9:37:00 EDT, Partial fill upon patient request if the prescription is for a schedule II opioid drug. Start Date: 08/04/21 Status: Ordered MetFORMIN (Eqv-Glucophage XR) 500 mg oral tablet, extended release 2 tablet, By Mouth, Daily, # 180 tablet, 0 Refills, [facility], 165, cm, 09/27/21 19:50:00 EST, Height, 89.9, kg, 09/27/21 19:50:00 EST, Dry Weight Start Date: 01/07/22 Status: Ordered Multivitamin Daily, 0 Refills, Maintenance, 08/04/21 9:36:00 EDT, Partial fill upon patient request if the prescription is for a schedule II opioid drug. Start Date: 08/04/21 Status: Ordered ProAir HFA 90 mcg/inh inhalation aerosol with adapter 2, puffs, Inhalation, Every 6 hours, PRN, WHEEZING/SHORTNESS OF BREATH., # 8.5 each, Refills 0, Route to Pharmacy Electronically, [id number], [facility], 165, cm, 09/27/21 19:50:00 EST, Height, 89.9, [...]
--- OUTSIDE RECORDS SUMMARY | 2023-06-24 20:48 | XMS_ITS | Continuity of Care Document ---
Author Name Unknown Organization [facility] Address [address] [place] [address]- Care Team Providers Care Tape Stringer Name Role Phone Maribell Jain MD Primary Care Physician [phone] [facility] 12[facility]15[facility]22 - 04/14/23 [facility] [address] [place], [place] [address] Attending Physician: Maribell Jain MD Allergies, Adverse Reactions, Alerts Substance Reaction Severity Status Nuts Active Watermelon Active Immunizations Given and Recorded Vaccine Date Status Refusal Reason SARS-CoV-2 mRNA (tpfxong-qtmw-nqjxv) vax 11/23/21 Recorded SARS-CoV-2 (COVID-19) mRNA BNT-162b2 vac 11/02/21 Recorded pneumococcal 23-valent vaccine 1 09/14/19 Given Influenza Virus Vaccine (oldterm) 08/24/19 Recorde d influenza virus vaccine, inactivated 2 07/17/18 Gi danita influenza virus vaccine, inactivated 3 09/30/17 Gi danita influenza virus vaccine, inactivated 4 11/13/10 Gi danita tetanus/diphtheria/pertussis, acel(Tdap) 12/30/16 Given tetanus-diphtheria toxoids (Td) 5 06/19/09 Given Diphth/Pertussis,Acel/Tetanus (oldterm) 89 G ezeen 1Result Comment: [facility] [id number] 2Result Comment: [07/17/2018] givne /out incident ncd: [id number] 3Result Comment: [09/30/2017] [facility] [id number] 4Admin Note: pt declined 5Admin Note: vis given Medications amLODIPine 5 mg oral tablet 1 tablet = 5 mg, By Mouth, Daily, # 90 tablet, 1 Refills, Maintenance, 12/14/22 10:33:00 EST, Tablet, [facility]/pharmacy #1291, in addition to losartan, 165, cm, 12/14/22 10:08:00 EST, Height, 85, kg, 09/12/22 4:32:00 EST, Dry Weight Start Date: 12/14/22 Stop Date: 06/12/23 Status: Ordered Aspirin Enteric Coated 81 mg oral delayed release tablet 1 tablet, By Mouth, Daily, # 90 tablet, 3 Refills, Maintenance, 01/13/23 11:23:00 EDT, [facility]/pharmacy#1291, 165, cm, 01/13/23 10:56:00 EDT, Height, 88.8, [...] 1 Refills, Maintenance, 12/10/22 17:16:00 EST, Tablet, [facility]/pharmacy #1291, Partial fill upon patient request if the prescription is for a schedule II opioid drug., 165, cm, 11/10/22 11:18:00 EST, Height,... Start Date: 12/10/22 Stop Date: 06/08/23 Status: Ordered metFORMIN 500 mg oral tablet, extended release 2 tablet = 1,000 mg, By Mouth, Daily, # 180 tablet, 1 Refills, Maintenance, 12/09/22 12:15:00 EST, ER Tablet, [facility]/pharmacy #1291, stop synjardy, 165, cm, 11/10/22 11:18:00 [...] Refills, Maintenance, 01/14/23 8:57:00 EDT, [facility], 165, cm, 01/13/23 10:56:00 EDT, Height, 88.8, [...] Personnel Name: Cristobal ROSARIO, Maribell Weldon Position: [facility] Physician - Primary Care Member Role: PCP Address: Address: [address] [place] [address] Adult & [place] [address]- Care Team Related Persons Name: JJ NORMAN Address: home [address] [place] [address] Name: RISHABH CASTELLON Address: [place] [address] Name: YEIMY CASTELLON Address: [address] [place] [address] Name: DONNA ZELAYA Address: home [address] [place] [address] Name: JOSE RAFAEL VINCENT Address: [place] [address] Name: ABHAY SPAULDING Name: SAMANTHA TINEO Address: home [address] [place] [address]
--- OUTSIDE RECORDS SUMMARY | 2023-06-24 20:48 | XMS_ITS | Continuity of Care Document ---
Author Name Unknown Organization [facility] Address [address] [place] [address]- Care Team Providers Care Aquatic Instructor Name Role Phone Maribell Jain MD Primary Care Physician [facility] Date(s): 01/14/21 - 02/13/21 [facility] [address], [place] [address] Allergies, Adverse Reactions, Alerts Substance Reaction [...] (oldterm) 89 G julián 1Result Comment: [facility] [id number] 2Result Comment: [07/17/2018] givne /out incident ncd: [id number] 3Result Comment: [09/30/2017] [facility] [id number] 4Admin Note: pt declined 5Admin Note: vis given Medications albuterol CFC free 90 mcg/inh inhalation aerosol 2, puffs, Inhalation, Every 6 hours, PRN, # 1 each, Refills 0, Tot. Refills 0, Maintenance, 01/06/21 13:55:00 EDT, Aerosol, Route to Pharmacy Electronically, [id number], [facility]/pharmacy #[id number], 165, cm, 06/23/20 13:39:00 EDT, Height Start Date: 01/06/21 Stop Date: 02/05/21 Status: Ordered amLODIPine 5 mg oral tablet 5 mg, 1, tablet, By Mouth, Daily, # 30 tablet, Refills 2, Tot. Refills 2, Maintenance, 12/06/18 14:00:07 EST, Route to Pharmacy Electronically, [id number], [facility]/pharmacy #[id number] Start Date: 12/06/18 Status: Ordered aspirin 81 mg oral tablet 1 tablet = 81 mg, By Mouth, Daily, # 90 tablet, 3 Refills, Maintenance, 04/23/20 15:01:00 EDT, [facility]/pharmacy #[id number], 165, cm, 04/23/20 14:42:00 EDT, Height, 93.5, kg, 07/06/18 23:42:00 EDT, Dry Weight Start Date: 04/23/20 Stop Date: 04/18/21 Status: Ordered Azithromycin 5 Day Dose Pack 250 mg oral tablet 1 pack/packet, By Mouth, Once, # 6 tablet, 0 Refills, Soft Stop, 01/06/21 13:55:00 EDT, Tablet, [facility]/pharmacy #[id number], Partial fill upon patient request if [...] tablet, 0 Refills, Maintenance, 12/22/2110:32:00 EST, Tablet, [facility]/pharmacy #[id number], 165, cm, 06/23/20 13:39:00 EDT, Height [...] Refills, Maintenance, 11/25/20 14:53:00 EST, ER Tablet, [facility]/pharmacy #[id number], metformin ER not covered. patient cannot [...]
--- OUTSIDE RECORDS SUMMARY | 2023-06-24 20:48 | XMS_ITS | Continuity of Care Document ---
Author Name Unknown Organization [facility] Address [address] [place] [address]- Care Team Providers Care Front Office Secretary Name Role Phone Maribell Jain MD Primary Care Physician [place] [facility] Date(s): 02/13/21 - 03/15/[address] [address] Attending Physician: AdmMay coker Admitting Physician: AdmtrMay [...] Diphth/Pertussis,Acel/Tetanus (oldterm) 89 G julián 1Result Comment: [facility] [id number] 2Result Comment: [07/17/2018] givne /out incident ncd: [id number] 3Result Comment: [09/30/2017] [facility] [id number] 4Admin Note: pt declined 5Admin Note: vis given Medications albuterol CFC free 90 mcg/inh inhalation aerosol 2, puffs, Inhalation, Every 6 hours, PRN, # 1 each, Refills 0, Tot. Refills 0, Maintenance, 01/06/21 13:55:00 EDT, Aerosol, Route to Pharmacy Electronically, [id number], [facility]/pharmacy #[id number], 165, cm, 06/23/20 13:39:00 EDT, Height Start Date: 01/06/21 Stop Date: 02/05/21 Status: Ordered amLODIPine 5 mg oral tablet 5 mg, 1, tablet, By Mouth, Daily, # 30 tablet, Refills 2, Tot. Refills 2, Maintenance, 12/06/18 14:00:07 EST, Route to Pharmacy Electronically, [id number], [facility]/pharmacy #[id number] Start Date: 12/06/18 Status: Ordered aspirin 81 mg oral tablet 1 tablet = 81 mg, By Mouth, Daily, # 90 tablet, 3 Refills, Maintenance, 04/23/20 15:01:00 EDT, [facility]/pharmacy #[id number], 165, cm, 04/23/20 14:42:00 EDT, Height, 93.5, kg, 07/06/18 23:42:00 EDT, Dry Weight Start Date: 04/23/20 Stop Date: 04/18/21 Status: Ordered Azithromycin 5 Day Dose Pack 250 mg oral tablet 1 pack/packet, By Mouth, Once, # 6 tablet, 0 Refills, Soft Stop, 01/06/21 13:55:00 EDT, Tablet, [facility]/pharmacy #[id number], Partial fill upon patient request if [...] Refills, Maintenance, 11/25/20 14:53:00 EST, ER Tablet, [facility]/pharmacy #[id number], metformin ER not covered. patient cannot [...]
--- OUTSIDE RECORDS SUMMARY | 2023-06-24 20:48 | XMS_ITS | Continuity of Care Document ---
Author Name Unknown Organization [facility] Address [address] [place] [address]- Care Team Providers Care Kelly Machine Operator Name Role Phone Maribell Jain MD Primary Care Physician [phone] [facility]counter [facility] Date(s): 01/18/23 - 02/17/23 [facility] [address] [place], [place] [address] Allergies, Adverse Reactions, Alerts Substance Reaction Severity Status Nuts Active Watermelon Active Immunizations Given and Recorded Vaccine Date Status Refusal Reason SARS-CoV-2 mRNA (blbxtei-qnmh-tfyac) vax 11/23/21 Recorded SARS-CoV-2 (COVID-19) mRNA BNT-162b2 [...] Diphth/Pertussis,Acel/Tetanus (oldterm) 89 G julián 1Result Comment: [facility] [id number] 2Result Comment: [07/17/2018] givne /out incident ncd: [id number] 3Result Comment: [09/30/2017] [facility] [id number] 4Admin Note: pt declined 5Admin Note: vis given Medications amLODIPine 5 mg oral tablet 1 tablet = 5 mg, By Mouth, Daily, # 90 tablet, 1 Refills, Maintenance, 12/14/22 10:33:00 EST, Tablet, [facility]/pharmacy #[id number], in addition to losartan, 165, cm, 12/14/22 10:08:00 EST, Height, 85, kg, 09/12/22 4:32:00 EST, Dry Weight Start Date: 12/14/22 Stop Date: 06/12/23 Status: Ordered Aspirin Enteric Coated 81 mg oral delayed release tablet 1 tablet, By Mouth, Daily, # 90 tablet, 3 Refills, Maintenance, 01/13/23 11:23:00 EDT, [facility]/pharmacy#1291, 165, cm, 01/13/23 10:56:00 EDT, Height, 88.8, [...] 1 Refills, Maintenance, 12/10/22 17:16:00 EST, Tablet, [facility]/pharmacy #1291, Partial fill upon patient request if the prescription is for a schedule II opioid drug., 165, cm, 11/10/22 11:18:00 EST, Height,... Start Date: 12/10/22 Stop Date: 06/08/23 Status: Ordered metFORMIN 500 mg oral tablet, extended release 2 tablet = 1,000 mg, By Mouth, Daily, # 180 tablet, 1 Refills, Maintenance, 12/09/22 12:15:00 EST, ER Tablet, [facility]/pharmacy #1291, stop synjardy, 165, cm, 11/10/22 11:18:00 [...] Refills, Maintenance, 01/14/23 8:57:00 EDT, [id number], 165, cm, 01/13/23 10:56:00 EDT, Height, 88.8, [...] Personnel Name: Cristobal ROSARIO, Maribell Weldon Position: [facility] Primary Care Physician Member Role: PCP Address: Address: [address] [place] [address] Adult & [place] [address]- Care Team Related Persons Name: JJ NORMAN Address: home [address] [place] [address] Name: RISHABH CASTELLON Address: [place] [address] Name: YEIMY CASTELLON Address: home [address] [place] [address] Name: DONNA ZELAYA Address: home [address] [place] [address] Name: JOSE RAFAEL VINCENT Address: [place] [address] Name: ABHAY SPAULDING Name: SAMANTHA TINEO Address: home [address] [place] [address]
--- OUTSIDE RECORDS SUMMARY | 2023-06-24 20:48 | XMS_ITS | Continuity of Care Document ---
Author Name Unknown Organization [facility] Address [address] [place] [address]- Care Team Providers Care Advertising Specialist Name Role Phone Cristobal ROSARIO, Maribell Weldon Primary Care Physician [phone] Encounter [facility] Date(s): 11/10/22 - 12/10/22 [facility] [address] [place], [place] [address] Attending Physician: May Braswell Admitting Physician: AdmMay coker Referring Physician: AdmtrMay Allergies, Adverse Reactions, Alerts Substance Reaction Severity Status Nuts Active Watermelon Active Immunizations Given and Recorded Vaccine Date Status Refusal Reason SARS-CoV-2 mRNA (lpygjue-aoga-dpify) vax 11/23/21 Recorded SARS-CoV-2 (COVID-19) mRNA BNT-162b2 [...] Diphth/Pertussis,Acel/Tetanus (oldterm) 89 G julián 1Result Comment: [facility] [id number] 2Result Comment: [07/17/2018] givne /out incident ncd: [id number] 3Result Comment: [09/30/2017] [facility] [id number] 4Admin Note: pt declined 5Admin Note: vis given Medications amLODIPine 5 mg oral tablet 1 tablet = 5 mg, By Mouth, Daily, # 90 tablet, 0 Refills, Maintenance, 10/11/22 12:24:00 EST, Tablet, [id number], in addition to losartan, 165, cm, 10/11/22 11:54:00 EST, Height, 85, kg, 09/12/22 4:32:00 EST, Dry Weight Start Date: 10/11/22 Stop Date: 01/09/23 Status: Ordered Aspirin Enteric Coated 81 mg oral delayed release tablet 1 tablet, By Mouth, Daily, # 90 tablet, 1 Refills, Maintenance, 04/22/22 9:02:00 EDT, [id number], Please cancel previous order for 3 [...] Start Date: 06/18/16 Status: Ordered diclofenac sodium 50 mg oral delayed release tablet 1 tablet = 50 mg, By Mouth, 2 times a day, with food, # 28 tablet, 0 Refills, Maintenance, 11/10/2310:57:00 EST, [facility], Partial fill upon patient request if the prescription is for a schedule II opioid drug., 165, cm, 11/10/22 11:18:00 E... Start Date: 11/10/22 Stop Date: 11/24/22 Status: Ordered FREESTYLE 28G LANCETS FREESTYLE 28G LANCETS, See Instructions, # 100 Unknown, 0 Refills, Maintenance, CHECK SUGARS ONCE DAILY, 08/01/22 18:43:00 EDT, 165, cm, 05/24/22 13:56:00 EDT, Height, 82.1, kg, 05/24/22 13:56:00 EDT, Dry Weight Start Date: 08/01/22 Status: Ordered Freestyle Lite Lancets See Instructions, # 100 each, Refills 3, Tot. Refills 3, Maintenance, dx- E11.9 check sugars once daily 28 G lancets, 10/22/22 17:06:00 EST, Compound, 165, cm, 10/11/22 11:54:00 EST, Height, 85, kg, 09/12/22 4:32:00 EST, Dry Weight Start Date: 10/22/22 Status: Ordered Freestyle Lite Monitor See Instructions, [...] 1 Refills, Maintenance, 12/10/22 17:16:00 EST, Tablet, [facility]/pharmacy #1291, Partial fill upon patient request if the prescription is for a schedule II opioid drug., 165, cm, 11/10/22 11:18:00 EST, Height,... Start Date: 12/10/22 Stop Date: 06/08/23 Status: Ordered metFORMIN 500 mg oral tablet, extended release 2 tablet = 1,000 mg, By Mouth, Daily, # 180 tablet, 1 Refills, Maintenance, 12/09/22 12:15:00 EST, ER Tablet, [facility]/pharmacy #1291, stop synjardy, 165, cm, 11/10/22 11:18:00 [...] each, Refills 0, Route to Pharmacy Electronically, [id number], [facility], 165, cm, 09/27/21 19:50:00 EST, Height, 89.9, [...] in household: No entered on: 05/09/14 Sex EKG study * Event Display: EKG Authored Date: Note * Event Display: Laboratory Result Scanned Authored Date: * Event Display: Cardiology Office Note, Non-BH Authored Date: * Maribell Jain MD: PERFORM, SIGN, VERIFY Event Display: Patient Education/Instruction Authored Date: [id number] [facility] Clinical Summary Person Information Visit Date 12/06/2018 1:00 PM Name CAROL REDMAN Age 28 Years 1990 12:00 AM PCP Maribell Jain MD PCP Sex Female Race Black Ethnicity Non-/Non- Language Ugandan You can now view a summary of your hospital visit from the comfort of your home through a free online portal called [employer]. [employer] is a website that allows you to securely view your medical information including discharge summary, medications and follow-up visits. You can also send a secure electronic message to your doctor???s office to request appointments, renew medicationsor just ask a question. You can enroll at [email or web address] or register during your next office visit. Smoking can increase your chances of developing chronic health problems and can cause harmful effects to other family members in your house. If you smoke, you are strongly encouraged to quit. Please call the [place] Smokers??? Helpline at 9-427-TTMZNOW (or ) or log on to [email or web address] for more information. The National Suicide Prevention Hotline is available 16/05 if you or someone you know needs to find a reason to keep living. By calling 9-432-983-Health Integrated (1660) you'll be connected to a skilled, trained counselor at a crisis center in your area. Reason for Visit: Allergy Info: Watermelon; Nuts Smoking Status Never smoker Vital Signs Height Weight BMI Blood Pressure / Temperature Pulse Rate Respiratory Rate 02 Sat Mode of Delivery / Medication Information Albuterol (albuterol CFC free 90 mcg/inh inhalation aerosol) 2 puff(s) Inhalation every 6 hours as needed Wheezing/Shortness of Breath for 30 Days. Refills: 0. Amlodipine (amLODIPine 5 mg oral tablet) 1 tab(s) Oral Daily. Cholecalciferol (Vitamin D3 2000 intl units oral capsule) 1 capsule Oral Daily. Durable Medical Equipment (CPAP Machine) BiPAP 15/5 with heated humidification and compliance data to be followed. tubing, mask and supplies. Refills: 0. Modafinil (modafinil 100 mg oral tablet) 1 tab(s) Oral Daily in the morning. Start with 1/2 pill and increase to 1 pill if needed. Refills: 5. Future Orders No future orders Orders Completed this Visit No visit orders documented Problem List Problem Depressive Disorder, Not Elsewhere Classified Asthma Sickle cell trait Esophageal reflux (GERD) Obstructive sleep apnea syndrome Narcolepsy Hypertensive disorder Impaired fasting glycaemia Diagnosis Procedures No Procedures Documented If the following labs have been performed in the last year, the most recent result is displayed below. Diagnostic Results Lab Result Value Date Lead Hemoglobin A1C 7.1 06/14/18 LDL HDL Triglycerides Total Cholesterol Disclaimer: The information provided is of a general nature and is intended to be used in conjunction with the recommendations and advice of your health care practitioner. Every effort has been made to ensure that the information provided is accurate and complete at the time it is provided to you however, as your needs change, or, as new information becomes available, different or additional instructions may be required. If you have questions, please consult with your primary care provider or pharmacist, as appropriate. This information is not intended to serve as substitution for assessment and evaluation by a qualified health care provider. If you do not have a primary care provider, you may find a [facility] provider by calling [facility] at [phone]. For information about the plan of care including goals and instructions for your diagnosis, please see the patient education orders section of this document. Patient Visit Summary: Future Appointments: Follow-Up Instructions Patient Education Materials 379 Metformin Hydrochloride Oral tablet What is this medicine? METFORMIN (met FOR min) is used to treat type 2 diabetes. It helps to control blood sugar. Treatment is combined with diet and exercise. This medicine can be used alone or with other medicines for diabetes. This medicine may be used for other purposes; ask your health care provider or pharmacist if you have questions. What should I tell my health care provider before I take this medicine? They need to know if you have any of these conditions: ??? anemia ??? frequently drink alcohol-containing beverages ??? become easily dehydrated ??? heart attack ??? heart failure that is treated with medications ??? kidney disease ??? liver disease ??? polycystic ovary syndrome ??? serious infection or injury ??? vomiting ??? an unusual or allergic reaction to metformin, other medicines, foods, dyes, or preservatives ??? or trying to get ??? breast-feeding How should I use this medicine? Take this medicine by mouth. Take it with meals. Swallow the tablets with a drink of water. Follow the directions on the prescription label. Take your medicine at regular intervals. Do not take your medicine more often than directed. Talk to your chro regarding the use of this medicine in children. While this drug may be prescribed for children as young as 10 years of age for selected conditions, precautions do apply. Overdosage: If you think you have taken too much of this medicine contact a poison control center or emergency room at once. NOTE: This medicine is only for you. Do not share this medicine with others. What if I miss a dose? If you miss a dose, take it as soon as you can. If it is almost time for your next dose, take only that dose. Do not take double or extra doses. What may interact with this medicine? Do not take this medicine with any of the following medications: ??? dofetilide ??? gatifloxacin ??? certain contrast medicines given before X-rays, CT scans, MRI, or other procedures This medicine may also interact with the following medications: ??? digoxin ??? diuretics ??? female hormones, like estrogens or progestins and control pills ??? isoniazid ??? medicines for blood pressure, heart disease, irregular heart beat ??? morphine ??? nicotinic acid ??? phenothiazines like chlorpromazine, mesoridazine, prochlorperazine, thioridazine ??? phenytoin ??? procainamide ??? quinidine ??? quinine ??? ranitidine ??? steroid medicines like prednisone or cortisone ??? stimulant medicines for attention disorders, weight loss, or to stay awake ??? thyroid medicines ??? trimethoprim ??? vancomycin This list may not describe all possible interactions. Give your health care provider a list of all the medicines, herbs, non-prescription drugs, or dietary supplements you use. Also tell them if you smoke, drink alcohol, or use illegal drugs. Some items may interact with your medicine. What should I watch for while using this medicine? Visit your doctor or health school child care attendant for regular checks on your progress. Learn how to check your blood sugar. Learn the symptoms of low and high blood sugar and how to manage them. If you have low blood sugar, eat or drink something that has sugar. Make sure others know to get medical help quickly if you have serious symptoms of low blood sugar, like if you become unconscious or have a seizure. If you need surgery or if you will need a procedure with contrast drugs, tell your doctor or healthcare professional that you are taking this medicine. Wear a medical identification bracelet or chain to say you have diabetes, and carry a card that lists all your medications. What side effects may I notice from receiving this medicine? Side effects that you should report to your doctor or health school child care attendant as soon as possible: ??? allergic reactions like skin rash, itching or hives, swelling of the face, lips, or tongue ??? breathing problems ??? feeling faint or lightheaded, falls ??? low blood sugar (ask your doctor or health school child care attendant for a list of these symptoms) ??? muscle aches or pains ??? slow or irregular heartbeat ??? unusual stomach pain or discomfort ??? unusually tired or weak Side effects that usually do not require medical attention (report to your doctor or health school child care attendant if they continue or are bothersome): ??? diarrhea ??? headache ??? heartburn ??? metallic taste in mouth ??? nausea ??? stomach gas, upset This list may not describe all possible side effects. Call your doctor for medical advice about side effects. You may report side effects to FDA at 5-696-OQR-0087. Where should I keep my medicine? Keep out of the reach of children. Store at room temperature between 15 and 30 degrees C (59 and 86 degrees F). Protect from moisture and light. Throw away any unused medicine after the expiration date. NOTE:This sheet is a summary. It may not cover all possible information. If you have questions about this medicine, talk to your doctor, pharmacist, or health care provider. Copyright?? 2012 Gold Standard Additional Instructions: * Event Display: Laboratory Result Scanned Authored Date: * Event Display: X-Ray Chest, Non- BH Authored Date: * Event Display: X-Ray Chest, Non- BH Authored Date: * Event Display: X-Ray Chest, Non- BH Authored Date: * Event Display: Laboratory Result Scanned Authored Date: * Balwinder Mcghee: PERFORM Event Display: Radiology Results Scanned Authored Date: [id number] * Cesia Shelton: PERFORM Event Display: Radiology Results Scanned Authored Date: * Haydee Ovalle: PERFORM Event Display: Radiology Results Scanned Authored Date: [id number] Patient Care team information Care Team Personnel Name: Maribell Jain MD Position: [facility] Primary Care Physician Member Role: PCP Address: Address: [facility] Adult [place] [address]- [place] Care Team Related Persons Name: ESTERNELLYGACande Address: home [address] [place] [address] Name: RISHABH CASTELLON Address: [place] [address] Name: YEIMY CASTELLON Address: home [address] [place] [address] Name: DONNA ZELAYA Address: home [address] [place] [address] Name: JOSE RAFAEL VINCENT Address: [place] [address] Name: ABHAY SPAULDING Name: SAMANTHA TINEO Address: home [address] [place] [address]
--- OUTSIDE RECORDS SUMMARY | 2023-06-24 20:48 | XMS_ITS | Continuity of Care Document ---
Author Name Unknown Organization [facility] Address [address] [place] [address]- Care Team Providers Care Nailing Machine Operator Automatic Name Role Phone Cristobal ROSARIO, Maribell Weldon Primary Care Physician [phone] [facility] Date(s): 07/26/21 - 08/25/21 [facility] [address] [place], [place] [address] Allergies, Adverse Reactions, Alerts Substance Reaction Severity [...] Diphth/Pertussis,Acel/Tetanus (oldterm) 89 G julián 1Result Comment: [facility] [id number] 2Result Comment: [07/17/2018] givne /out incident ncd: [id number] 3Result Comment: [09/30/2017] [facility] [id number] 4Admin Note: pt declined 5Admin Note: vis given Medications albuterol CFC free 90 mcg/inh inhalation aerosol 2, puffs, Inhalation, Every 6 hours, PRN, # 1 each, Refills 0, Tot. Refills 0, Maintenance, 01/06/21 13:55:00 EDT, Aerosol, Route to Pharmacy Electronically, [id number], [facility]/pharmacy #1291, 165, cm, 06/23/20 13:39:00 EDT, Height Start Date: 01/06/21 Stop Date: 02/05/21 Status: Ordered amLODIPine 5 mg oral tablet 5 mg, 1, tablet, By Mouth, Daily, # 30 tablet, Refills 2, Tot. Refills 2, Maintenance, 12/06/18 14:00:07 EST, Route to Pharmacy Electronically, [id number], [facility]/pharmacy #1291 Start Date: 12/06/18 Status: Ordered Aspirin Enteric Coated 81 mg oral delayed release tablet 1 tablet, By Mouth, Daily, # 90 tablet, 3 Refills, Maintenance, 03/25/21 21:47:00 EDT, [facility], 165, cm, 06/23/20 13:39:00 EDT, Height Start [...] Refills, Maintenance, 07/02/21 12:28:00 EDT, ER Tablet, [facility]/pharmacy #1291, metformin ER not covered. patient [...]
--- OUTSIDE RECORDS SUMMARY | 2023-06-24 20:48 | XMS_ITS | Continuity of Care Document ---
Author Name Unknown Organization [facility] Address [address] [place] [address]- Care Team Providers Care Vocational Rehabilitation Supervisor Name Role Phone Maribell Jain MD Primary Care Physician [facility] Date[facility]): 07/02/21 - 08/01/21 [facility] [address] [place], [place] [address] Allergies, Adverse Reactions, Alerts Substance Reaction [...] Diphth/Pertussis,Acel/Tetanus (oldterm) 89 G julián 1Result Comment: [facility] [id number] 2Result Comment: [07/17/2018] givne /out incident ncd: [id number] 3Result Comment: [09/30/2017] [facility] [id number] 4Admin Note: pt declined 5Admin Note: vis given Medications albuterol CFC free 90 mcg/inh inhalation aerosol 2, puffs, Inhalation, Every 6 hours, PRN, # 1 each, Refills 0, Tot. Refills 0, Maintenance, 01/06/21 13:55:00 EDT, Aerosol, Route to Pharmacy Electronically, [id number], [id number], 165, cm, 06/23/20 13:39:00 EDT, Height Start Date: 01/06/21 Stop Date: 02/05/21 Status: Ordered amLODIPine 5 mg oral tablet 5 mg, 1, tablet, By Mouth, Daily, # 30 tablet, Refills 2, Tot. Refills 2, Maintenance, 12/06/18 14:00:07 EST, Route to Pharmacy Electronically, [id number], [facility]/pharmacy #[id number] Start Date: 12/06/18 Status: Ordered Aspirin Enteric Coated 81 mg oral delayed release tablet 1 tablet, By Mouth, Daily, # 90 tablet, 3 Refills, Maintenance, 03/25/21 21:47:00 EDT, [facility] STORE [id number], 165, cm, 06/23/20 13:39:00 EDT, Height Start Date: 03/25/21 Status: Ordered Azithromycin 5 Day Dose Pack 250 mg oral tablet 1 pack/packet, By Mouth, Once, # 6 tablet, 0 Refills, Soft Stop, 01/06/21 13:55:00 EDT, Tablet, [facility]/pharmacy #[id number], Partial fill upon patient [...] tablet, 0 Refills, Maintenance, 12/22/2110:32:00 EST, Tablet, [facility]/pharmacy #1291, 165, cm, 06/23/20 13:39:00 EDT, Height [...] Refills, Maintenance, 07/02/21 12:28:00 EDT, ER Tablet, [facility], metformin ER not covered. patient cannot tolerate regular metformin due to GI side effects, 165, cm, 06/23/20 13:39:00 ED... Start Date: 07/02/21 Stop Date: 12/29/21 Status: Ordered Problem List Condition Effective Dates [...]
--- OUTSIDE RECORDS SUMMARY | 2023-06-24 20:48 | XMS_ITS | Continuity of Care Document ---
Author Name Unknown Organization [facility] Address [address] [place] [address]- Care Team Providers Care Surface Plate Inspector Name Role Phone Maribell Jain MD Primary Care Physician [facility] Date[facility]s): 12/28/20 - 01/27/21 [facility] [address] [place], [place] [address] Allergies, Adverse Reactions, Alerts Substance Reaction [...] Diphth/Pertussis,Acel/Tetanus (oldterm) 89 G julián 1Result Comment: [facility] [id number] 2Result Comment: [07/17/2018] givne /out incident ncd: [id number] 3Result Comment: [09/30/2017] [facility] [id number] 4Admin Note: pt declined 5Admin Note: vis given Medications albuterol CFC free 90 mcg/inh inhalation aerosol 2, puffs, Inhalation, Every 6 hours, PRN, # 1 each, Refills 0, Tot. Refills 0, Maintenance, 01/06/21 13:55:00 EDT, Aerosol, Route to Pharmacy Electronically, [id number], [facility]pharm[facility] #1291, 165, cm, 06/23/20 13:39:00 EDT, Height Start Date: 01/06/21 Stop Date: 02/05/21 Status: Ordered amLODIPine 5 mg oral tablet 5 mg, 1, tablet, By Mouth, Daily, # 30 tablet, Refills 2, Tot. Refills 2, Maintenance, 12/06/18 14:00:07 EST, Route to Pharmacy Electronically, [id number], [facility]/pharmacy #1291 Start Date: 12/06/18 Status: Ordered aspirin 81 mg oral tablet 1 tablet = 81 mg, By Mouth, Daily, # 90 tablet, 3 Refills, Maintenance, 04/23/20 15:01:00 EDT, [facility]/pharmacy #1291, 165, cm, 04/23/20 14:42:00 EDT, Height, 93.5, kg, 07/06/18 23:42:00 EDT, Dry Weight Start Date: 04/23/20 Stop Date: 04/18/21 Status: Ordered Azithromycin 5 Day Dose Pack 250 mg oral tablet 1 pack/packet, By Mouth, Once, # 6 tablet, 0 Refills, Soft Stop, 01/06/21 13:55:00 EDT, Tablet, [facility]/pharmacy #1291, Partial fill upon patient request [...] Refills, Maintenance, 11/25/20 14:53:00 EST, ER Tablet, [facility]/pharmacy #1291, metformin ER not covered. patient [...]
--- OUTSIDE RECORDS SUMMARY | 2023-06-24 20:49 | XMS_ITS | Continuity of Care Document ---
Author Name Unknown Organization [facility] Address [address] [place] [address]- Care Team Providers Care Sales And Operations Trainee Name Role Phone Maribell Jain MD Primary Care Physician [phone] [facility] Date[facility]s): 01/18/23 - 02/17/23 [facility] [address] [address] Allergies, Adverse Reactions, Alerts Substance Reaction Severity Status Nuts Active Watermelon Active Immunizations Given and Recorded Vaccine Date Status Refusal Reason SARS-CoV-2 mRNA (jiqossv-snlb-jrafy) vax 11/23/21 Recorded SARS-CoV-2 (COVID-19) mRNA BNT-162b2 [...] Diphth/Pertussis,Acel/Tetanus (oldterm) 89 G julián 1Result Comment: [facility] [id number] 2Result Comment: [07/17/2018] givne /out incident ncd: [id number] 3Result Comment: [09/30/2017] [facility] [id number] 4Admin Note: pt declined 5Admin Note: vis given Medications amLODIPine 5 mg oral tablet 1 tablet = 5 mg, By Mouth, Daily, # 90 tablet, 1 Refills, Maintenance, 12/14/22 10:33:00 EST, Tablet, [facility]/pharmacy #[id number], in addition to losartan, 165, cm, 12/14/22 10:08:00 EST, Height, 85, kg, 09/12/22 4:32:00 EST, Dry Weight Start Date: 12/14/22 Stop Date: 06/12/23 Status: Ordered Aspirin Enteric Coated 81 mg oral delayed release tablet 1 tablet, By Mouth, Daily, # 90 tablet, 3 Refills, Maintenance, 01/13/23 11:23:00 EDT, [facility]/pharmacy#1291, 165, cm, 01/13/23 10:56:00 EDT, [...] 1 Refills, Maintenance, 12/10/22 17:16:00 EST, Tablet, [facility]/pharmacy #1291, Partial fill upon patient request if the prescription is for a schedule II opioid drug., 165, cm, 11/10/22 11:18:00 EST, Height,... Start Date: 12/10/22 Stop Date: 06/08/23 Status: Ordered metFORMIN 500 mg oral tablet, extended release 2 tablet = 1,000 mg, By Mouth, Daily, # 180 tablet, 1 Refills, Maintenance, 12/09/22 12:15:00 EST, ER Tablet, [facility]/pharmacy #1291, stop synjardy, 165, cm, [...] Refills, Maintenance, 01/14/23 8:57:00 EDT, [facility], 165, cm, 01/13/23 10:56:00 EDT, Height, 88.8, [...] Personnel Name: Cristobal ROSARIO, Maribell Weldon Position: [facility] Primary Care Physician Member Role: PCP Address: Address: [address] [place] [address] Adult & [place] [address]- Care Team Related Persons Name: JJ NORMAN Address: home [address] [place] [address] Name: RISHABH CASTELLON Address: [place] [address] Name: YEIMY CASTELLON Address: home [address] [place] [address] Name: DONNA ZELAYA Address: home [address] [place] [address] Name: JOSE RAFAEL VINCENT Address: [place] [address] Name: ABHAY SPAULDING Name: SAMANTHA TINEO Address: home [address] [place] [address]
--- OUTSIDE RECORDS SUMMARY | 2023-06-24 20:49 | XMS_ITS | Continuity of Care Document ---
Author Name Unknown Organization [facility] Address [address] [place] [address]- Care Team Providers Care Director Of Outpatient Services Name Role Phone Maribell Jain MD Primary Care Physician [place] [facility] [place]s): 10/29/20 - 11/28/20 [facility] [address] [place] [address] Attending Physician: May Braswell Admitting Physician: May Braswell Referring Physician: AdmtrMay Allergies, Adverse Reactions, Alerts [...] (oldterm) 89 G julián 1Result Comment: [facility] [id number] 2Result Comment: [07/17/2018] givne /out incident ncd: [id number] 3Result Comment: [09/30/2017] [facility] [id number] 4Admin Note: pt declined 5Admin Note: vis given Medications albuterol CFC free 90 mcg/inh inhalation aerosol 2, puffs, Inhalation, Every 6 hours, PRN, # 1 each, Refills 0, Tot. Refills 0, Maintenance, 12/19/18 18:17:12 EST, Aerosol, Route to Pharmacy Electronically, [id number], [facility]/pharmacy #1291 Start Date: 12/19/18 Stop Date: 01/18/19 Status: Ordered amLODIPine 5 mg oral tablet 5 mg, 1, tablet, By Mouth, Daily, # 30 tablet, Refills 2, Tot. Refills 2, Maintenance, 12/06/18 14:00:07 EST, Route to Pharmacy Electronically, [id number], [facility]/pharmacy #1291 Start Date: 12/06/18 Status: Ordered aspirin 81 mg oral tablet 1 tablet = 81 mg, By Mouth, Daily, # 90 tablet, 3 Refills, Maintenance, 04/23/20 15:01:00 EDT, [facility]/pharmacy #1291, 165, cm, 04/23/20 14:42:00 EDT, Height, [...] Refills, Maintenance, 11/25/20 14:53:00 EST, ER Tablet, [facility], metformin ER not [...]
--- OUTSIDE RECORDS SUMMARY | 2023-06-24 20:49 | XMS_ITS | Continuity of Care Document ---
Author Name Unknown Organization [facility] Address [address] [place] [address]- Care Team Providers Care Waterproofing Supervisor Name Role Phone Maribell Jain MD Primary Care Physician [phone] Encounter [facility] Date(s): 12/28/22 - 12/29/[address] [address]- Discharge Disposition: A-D/C Home Attending Physician: Shilo Nj MD Admitting Physician: Shilo Nj MD Referring Physician: Not on Staff, Referring MD Allergies, Adverse Reactions, Alerts Substance Reaction Severity Status Nuts Active Watermelon Active Immunizations Given and Recorded Vaccine Date Status Refusal Reason SARS-CoV-2 mRNA (qnzheeb-ldgj-vfqhp) vax 11/23/21 Recorded SARS-CoV-2 (COVID-19) mRNA BNT-162b2 [...] (oldterm) 89 G iven 1Result Comment: [facility] [id number] 2Result Comment: [07/17/2018] givne /out incident ncd: [id number] 3Result Comment: [09/30/2017] [facility] [id number] 4Admin Note: pt declined 5Admin Note: vis given Medications albuterol CFC free 90 mcg/inh inhalation aerosol 2, puffs, Inhalation, Every 6 hours, PRN, # 8.5 Gm, Refills 0, Tot. Refills 0, Maintenance, 12/14/22 10:33:00 EST, Aerosol, Route to Pharmacy Electronically, [id number], [facility]/pharmacy #1291, 165, cm, 12/14/22 10:08:00 EST, Hei... Start Date: 12/14/22 Status: Ordered amLODIPine 5 mg oral tablet 1 tablet = 5 mg, By Mouth, Daily, # 90 tablet, 1 Refills, Maintenance, 12/14/22 10:33:00 EST, Tablet, [facility]/pharmacy #1291, in addition to losartan, 165, cm, 12/14/22 10:08:00 EST, Height, 85, kg, 09/12/22 4:32:00 EST, Dry Weight Start Date: 12/14/22 Stop Date: 06/12/23 Status: Ordered Aspirin Enteric Coated 81 mg oral delayed release tablet 1 tablet, By Mouth, Daily, # 90 tablet, 1 Refills, Maintenance, 04/22/22 9:02:00 EDT, [facility]/pharmacy #1291, Please cancel previous order for 3 refills. Pt is only allowed 1 refill, 165, cm, 04/09/22 9:11:00 EDT, Height, 85.8, kg, 04/09/22 9:11:00 EDT, DKumar.. Start Date: 04/22/22 Status: Ordered CPAP Machine [...] 1 Refills, Maintenance, 12/10/22 17:16:00 EST, Tablet, [facility]/pharmacy #[id number], Partial fill upon patient request if the prescription is for a schedule II opioid drug., 165, cm, 11/10/22 11:18:00 EST, Height,... Start Date: 12/10/22 Stop Date: 06/08/23 Status: Ordered metFORMIN 500 mg oral tablet, extended release 2 tablet = 1,000 mg, By Mouth, Daily, # 180 tablet, 1 Refills, Maintenance, 12/09/22 12:15:00 EST, ER Tablet, [facility]/pharmacy #1291, stop synjardy, 165, cm, 11/10/22 [...] Most recent to oldest [Reference Range]: 1 2 Height 165 cm (12/28/22 10:36 PM) 165 cm (12/28/22 10:04 PM) Weight 88.8 kg (12/28/22 10:36 PM) 88.8 kg (12/28/22 10:04 PM) Oxygen Saturation [94-100 %] 100 % (12/28/22 10:36 PM) 99 % (12/28/22 10:03 PM) Pulse Rate [55-90 bpm] 78 bpm (12/28/22 10:03 PM) Body Mass Index [18.5-24.99 kg/m2] 32.62 kg/m2 *>HHI* (12/28/22 10:36 PM) Blood Pressure [90-138/55-84 mm Hg] 130/ 84mm Hg (12/28/22 10:36 PM) Temperature [96.8-100.4 DegF] 97.9 DegF (12/28/22 10:36 PM) Mode of Delivery (Oxygen) Room air (12/28/22 10:03 PM) Blood pressure sites Arm, left (12/28/22 10:36 PM) Dry Weight 88.8 kg (12/28/22 10:36 PM) 88.8 kg (12/28/22 10:04 PM) Weight Obtained Via Standing scale (12/28/22 10:04 PM) Dry Weight Obtained Via Standing scale (12/28/22 10:04 PM) Social History Social History Type Response Smoking Status Never smoker; Tobacc o user in household: No entered on: 05/09/14 Sex EKG study * Event Display: ECG 12-Lead Authored Date: [id number] Please click on pdf link to open report * Event Display: ECG 12-Lead Authored Date: [id number] Ventricular Rate: 68 BPM Atrial Rate: 68 BPM P-R Interval: 164 ms QRS Duration: 92 ms Q-T Interval: 434 ms QTC Calculation(Bazett): 461 ms P [place]: 59 degrees R [place]: 47 degrees T [place]: 41 degrees Normal sinus rhythm Normal ECG When compared with ECG of 27-SEP-2021 19:53, T wave inversion no longer evident in Anterior leads Confirmed by LAURA ROWELL MD ([id number]) on 12/29/2022 5:57:53 PM [place]: LAURA ROWELL MD Note * Shilo Nj MD: PERFORM Event Display: Patient Education Leaflets Authored Date: [id number] Near-Fainting with Uncertain Cause ?? [id number] Near-Fainting with Uncertain Cause Fainting (syncope) is a temporary loss of consciousness. It's often called passing out. It happens when blood flow to the brain is reduced. Near-fainting (near-syncope) is like fainting, but you don't fully pass out. Instead, you feel like you are going to pass out, but don't actually lose consciousness. Signs and symptoms These are symptoms of near-fainting or symptoms that can be associated with near-fainting: ??? Feeling lightheaded or??like you are going to faint ??? Weak pulse ??? Nausea ??? Sweating ??? Blurred vision or feeling like your vision is fading ??? Palpitations ??? Chest pain ??? Trouble breathing ??? Feeling cool and clammy ?? Causes Fainting typically happens when your blood pressure or heart rate suddenly drops, and not enough blood flows to your brain. Common minor causes include: ??? Sudden emotional stress such as fear, pain, panic, or the sight of blood ??? Straining or overexertion, such as straining while using the toilet, vomiting, coughing, or sneezing ??? Standing up too quickly, or standing up for too long a time More serious causes include: ??? Very slow, fast, or irregular heart rate (arrhythmia) ??? Dehydration ??? Significant blood loss ??? Medicines, or a recent change in medicines. Medicines that can cause fainting include blood pressure or heart medicines. ??? Heart attack ??? Heart valve problems Remember, even minor causes can become serious if you fall and injure yourself, or are driving. Youmay need more tests. It's very important that you follow up with your doctor as advised. ?? Home care These guidelines will help you care for yourself at home: ??? Rest today. You can resume most of your normal activities as soon as you are feeling back to normal. ??? If you become lightheaded or dizzy, lie down right away or sit with your head between yourknees. ??? Drink plenty of fluids and don't skip meals. Because the exact cause of your near fainting spell is not known, another spell could occur withoutwarning. To stay safe, don't drive a car or use dangerous equipment. Don't take a bath alone. Don'tswim alone. You can resume these activities when your healthcare provider says that you are no longer in danger of having a near-fainting spell. ?? Follow-up care Follow up with your healthcare provider, or as advised. Call 911 Call 911 or get emergency care if any of the following occur: ??? Another near- fainting or full fainting spell occurs, and it's not explained by the common minor causes listed above ??? Chest, arm, neck, jaw, back or abdominal pain ??? Shortness of breath ??? Weakness, tingling, or numbness in one side of the face, or in one arm or leg ??? Slurred speech, confusion, trouble walking or seeing ??? Seizure ?? When to get medical advice Call your healthcare provider for advice if any of these occur: ??? Changes in your medicines ??? You start to have near fainting on a more frequent basis ?? Last Reviewed Date: 2021 ?? 3109-4951 The [employer]. All rights reserved. This information is not intended as a substitute for professional medical care. Always follow your healthcare professional's instructions. ?? Patient Care team information Care Team Personnel Name: Maribell Jain MD Position: [facility] Primary Care Physician Member Role: PCP Address: Address: [address] [facility] [place] [address]- [place] Name: Shilo Nj MD Position: [facility] ED Medicine MD Member Role: ED Attending Physician Address: Address: [address] [place] [address]- [place] [address]- Name: Aileen Mason Position: [facility] ED OA Name: [address] RN Position: [facility] ED RN W/OE and Tasks Member Role: Patient Care Provider Care Team Related Persons Name: JJ NORMAN Address: home [address] [place] [address] Name: RISHABH CASTELLON Address: [place] [address] Name: YEIMY CASTELLON Address: home [address] [place] [address] Name: DONNA ZELAYA Address: home [address] [place] [address] Name: JOSE RAFAEL VINCENT Address: [place] [address] Name: ABHAY SPAULDING Name: SAMANTHA TINEO Address: home [address] [place] [address]
--- OUTSIDE RECORDS SUMMARY | 2023-06-24 20:49 | XMS_ITS | Continuity of Care Document ---
Author Name Unknown Organization [facility] Address [address] [place] [address]- Care Team Providers Care Motor Express Clerk Name Role Phone Cristobal ROSARIO, Maribell Weldon Primary Care Physician [phone] [facility] Date(s): 10/16/20 - 10/23/20 [facility] [address] [place] [address]- Encounter Diagnosis Diabetes mellitus(Discharge Diagnosis) - 10/19/20 Hypertension(Discharge Diagnosis) - 10/19/20 Narcolepsy(Discharge Diagnosis) - 10/19/20 Obstructive sleep apnea(Discharge Diagnosis) - 10/19/20 Attending Physician: Maribell Jain MD Allergies, Adverse [...] Diphth/Pertussis,Acel/Tetanus (oldterm) 89 G iven 1Result Comment: [facility] [id number] 2Result Comment: [07/17/2018] givne /out incident ncd: [id number] 3Result Comment: [09/30/2017] [facility] [id number] 4Admin Note: pt declined 5Admin Note: vis given Medications albuterol CFC free 90 mcg/inh inhalation aerosol 2, puffs, Inhalation, Every 6 hours, PRN, # 1 each, Refills 0, Tot. Refills 0, Maintenance, 12/19/18 18:17:12 EST, Aerosol, Route to Pharmacy Electronically, [id number], [facility]/pharmacy #1291 Start Date: 12/19/18 Stop Date: 01/18/19 Status: Ordered amLODIPine 5 mg oral tablet 5 mg, 1, tablet, By Mouth, Daily, # 30 tablet, Refills 2, Tot. Refills 2, Maintenance, 12/06/18 14:00:07 EST, Route to Pharmacy Electronically, [id number], [facility]/pharmacy #1291 Start Date: 12/06/18 Status: Ordered aspirin 81 mg oral tablet 1 tablet = 81 mg, By Mouth, Daily, # 90 tablet, 3 Refills, Maintenance, 04/23/20 15:01:00 EDT, [facility]/pharmacy #1291, 165, cm, 04/23/20 14:42:00 EDT, Height, [...] Dry Weight Start Date: 03/21/20 Status: Ordered metFORMIN 1000 mg oral tablet, extended release 1 tablet = 1,000 mg, By Mouth, Daily, with evening meal, # 90 tablet, 3 Refills, Maintenance, 10/19/20 15:59:00 EST, ER Tablet, [facility]/pharmacy #1291, dose increased from 500 mg, 165, cm, 06/23/20 13:39:00 EDT, Height Start Date: 10/19/20 Stop Date: 10/14/21 Status: Ordered Problem List Condition Effective Dates Status Health Status Inform ant Asthma(Confirmed) Active Depressive Disorder, Not Els ewhere Classified(Confirmed) 06/17/10 Active Diabetes mellitus(Confirmed) Active Esophageal reflux (GERD)(Confirmed) Active Hypertension(Confirmed) Active Impaired fasting glucose(Confirmed) Active Narcolepsy(Confirmed) Active Obstructive sleep apnea(Confirmed) Active Sickle cell trait(Confirmed) Active Diagnosis Diagnosis Type Effective Dates Health Status Clinical Service Informant Diabetes mellitus Discharge Diagnosis 10/19/20 Hypertension Discharge Diagnosis 10/19/20 Narcolepsy Discharge Diagnosis 10/19/20 Obstructive sleep apnea Discharge Diagnosis 10/19/20 Social History Social History Type Response Smoking Status Never smoker; Tobacc o user in household: No entered on: 05/09/14 Sex
--- OUTSIDE RECORDS SUMMARY | 2023-06-24 20:49 | XMS_ITS | Continuity of Care Document ---
Author Name Unknown Organization [facility] Address [address] [place] [address]- Care Team Providers Care Assistant Auditor Name Role Phone Maribell Jain MD Primary Care Physician [phone] Encounter [facility] Date(s): 01/13/23 - 01/20/23 [facility] [address] [place], [place] [address] Attending Physician: Maribell Jain MD Allergies, Adverse Reactions, Alerts Substance Reaction Severity Status Nuts Active Watermelon Active Immunizations Given and Recorded Vaccine Date Status Refusal Reason SARS-CoV-2 mRNA (sfudtvi-auqp-khrvm) vax 11/23/21 Recorded SARS-CoV-2 (COVID-19) mRNA BNT-162b2 [...] Diphth/Pertussis,Acel/Tetanus (oldterm) 89 G ezeen 1Result Comment: [facility] [id number] 2Result Comment: [07/17/2018] givne /out incident ncd: [id number] 3Result Comment: [09/30/2017] [facility] [phone] 4Admin Note: pt declined 5Admin Note: vis given Medications amLODIPine 5 mg oral tablet 1 tablet = 5 mg, By Mouth, Daily, # 90 tablet, 1 Refills, Maintenance, 12/14/22 10:33:00 EST, Tablet, [facility]/pharmacy #[id number], in addition to losartan, 165, cm, 12/14/22 10:08:00 EST, Height, 85, kg, 09/12/22 4:32:00 EST, Dry Weight Start Date: 12/14/22 Stop Date: 06/12/23 Status: Ordered Aspirin Enteric Coated 81 mg oral delayed release tablet 1 tablet, By Mouth, Daily, # 90 tablet, 3 Refills, Maintenance, 01/13/23 11:23:00 EDT, [facility]/pharmacy#1291, 165, cm, 01/13/23 10:56:00 EDT, [...] 1 Refills, Maintenance, 12/10/22 17:16:00 EST, Tablet, [facility]/pharmacy #[id number], Partial fill upon patient request if the prescription is for a schedule II opioid drug., 165, cm, 11/10/22 11:18:00 EST, Height,... Start Date: 12/10/22 Stop Date: 06/08/23 Status: Ordered metFORMIN 500 mg oral tablet, extended release 2 tablet = 1,000 mg, By Mouth, Daily, # 180 tablet, 1 Refills, Maintenance, 12/09/22 12:15:00 EST, ER Tablet, [facility]/pharmacy #[id number], stop synjardy, 165, cm, [...] Refills, Maintenance, 01/14/23 8:57:00 EDT, [id number], 165, cm, 01/13/23 10:56:00 EDT, Height, 88.8, [...] oldest [Reference Range]: 1 Height 165 cm (01/13/23 10:56 AM) Weight 87.5 kg (01/13/23 10:56 AM) Oxygen Saturation [94-100 %] 96 % (01/13/23 10:56 AM) Pulse Rate [55-90 bpm] 88 bpm (01/13/23 10:56 AM) Body Mass Index [18.5-24.99 kg/m2] 32.14 kg/m2 *>HHI* (01/13/23 10:56 AM) Blood Pressure [90-138/55-84 mm Hg] 120/ 84mm Hg (01/13/23 10:56 AM) Mode of Delivery (Oxygen) Room air (01/13/23 10:56 AM) Blood pressure sites Arm, left (01/13/23 10:56 AM) Weight Obtained Via Standing scale (01/13/23 10:56 AM) Social History Social History Type Response Smoking Status Never smoker; Tobacc o user in household: No entered on: 05/09/14 Sex Patient Care team information Care Team Personnel Name: Cristobal ROSARIO, Maribell Weldon Position: [facility] Primary Care Physician Member Role: PCP Address: Address: [address] [place] [address] Adult & [place] [address]- Care Team Related Persons Name: JJ NORMAN Address: home [address] [place] [address] Name: RISHABH CASTELLON Address: [place] [address] Name: YEIMY CASTELLON Address: home [address] [place] [address] Name: DONNA ZELAYA Address: home [address] [place] [address] Name: JOSE RAFAEL VINCENT Address: [place] [address] Name: ABHAY SPAULDING Name: SAMANTHA TINEO Address: home [address] [place] [address]
--- OUTSIDE RECORDS SUMMARY | 2023-06-24 20:49 | XMS_ITS | Continuity of Care Document ---
Author Name Unknown Organization [facility] Address [address] [place] [address]- Care Team Providers Care Motor Polarizer Name Role Phone Cristobal ROSARIO, Maribell Weldon Primary Care Physician [phone] Encounter [facility] Date(s): 01/22/21 - 03/09/[address] [address] Discharge Disposition: A-D/C Home Attending Physician: Maribell Jain MD Admitting Physician: Maribell Jain MD Referring Physician: Maribell Jain MD Allergies, Adverse Reactions, [...] Diphth/Pertussis,Acel/Tetanus (oldterm) 89 G ezeen 1Result Comment: [facility] [id number] 2Result Comment: [07/17/2018] givne /out incident ncd: [id number] 3Result Comment: [09/30/2017] [facility] [id number] 4Admin Note: pt declined 5Admin Note: vis given Medications albuterol CFC free 90 mcg/inh inhalation aerosol 2, puffs, Inhalation, Every 6 hours, PRN, # 1 each, Refills 0, Tot. Refills 0, Maintenance, 01/06/21 13:55:00 EDT, Aerosol, Route to Pharmacy Electronically, [id number], [facility]/pharmacy #[id number], 165, cm, 06/23/20 13:39:00 EDT, Height Start Date: 01/06/21 Stop Date: 02/05/21 Status: Ordered amLODIPine 5 mg oral tablet 5 mg, 1, tablet, By Mouth, Daily, # 30 tablet, Refills 2, Tot. Refills 2, Maintenance, 12/06/18 14:00:07 EST, Route to Pharmacy Electronically, [id number], [id number] Start Date: 12/06/18 Status: Ordered [...] Refills, Maintenance, 11/25/20 14:53:00 EST, ER Tablet, [facility]/pharmacy #[id number], metformin ER not covered. patient [...]
--- OUTSIDE RECORDS SUMMARY | 2023-06-24 20:49 | XMS_ITS | Continuity of Care Document ---
Author Name Unknown Organization [facility] Address [address] [place] [address]- Care Team Providers Care Safety Associate Name Role Phone Cristobal ROSARIO, Maribell Weldon Primary Care Physician Encounter [facility] Date(s): 02/24/23 - 03/26/23 [facility] [address] [place], [place] [address] Attending Physician: Admjohn paul, May Admitting Physician: Admtr, May Referring Physician: Admtr, Ar8 Allergies, Adverse Reactions, Alerts Substance Reaction Severity Status Nuts Active Watermelon Active Immunizations Given and Recorded Vaccine Date Status Refusal Reason SARS-CoV-2 mRNA (qpvkezl-jyey-mjxpz) vax 11/23/21 Recorded SARS-CoV-2 (COVID-19) mRNA BNT-162b2 [...] Diphth/Pertussis,Acel/Tetanus (oldterm) 89 G iven 1Result Comment: [facility] [id number] 2Result Comment: [07/17/2018] givne /out incident ncd: [id number] 3Result Comment: [09/30/2017] [facility] [id number] 4Admin Note: pt declined 5Admin Note: vis given Medications amLODIPine 5 mg oral tablet 1 tablet = 5 mg, By Mouth, Daily, # 90 tablet, 1 Refills, Maintenance, 12/14/22 10:33:00 EST, Tablet, [id number], in addition to losartan, 165, cm, 12/14/22 10:08:00 EST, Height, 85, kg, 09/12/22 4:32:00 EST, Dry Weight Start Date: 12/14/22 Stop Date: 06/12/23 Status: Ordered Aspirin Enteric Coated 81 mg oral delayed release tablet 1 tablet, By Mouth, Daily, # 90 tablet, 3 Refills, Maintenance, 01/13/23 11:23:00 EDT, [facility], 165, cm, 01/13/23 10:56:00 EDT, Height, 88.8, [...] Refills, Maintenance, 12/10/22 17:16:00 EST, Tablet, [facility]/pharmacy #1291, Partial fill upon patient request if the prescription is for a schedule II opioid drug., 165, cm, 11/10/22 11:18:00 EST, Height,... Start Date: 12/10/22 Stop Date: 06/08/23 Status: Ordered metFORMIN 500 mg oral tablet, extended release 2 tablet = 1,000 mg, By Mouth, Daily, # 180 tablet, 1 Refills, Maintenance, 12/09/22 12:15:00 EST, ER Tablet, [facility]/pharmacy #1291, stop synjardy, 165, cm, 11/10/22 11:18:00 [...] each, 5 Refills, Maintenance, 01/14/23 8:57:00 EDT, [facility] STORE [facility]45[facility], 165, cm, 01/13/23 10:56:00 EDT, Height, 88.8, [...] Team Personnel Name: Maribell Jain MD Position: [facility] Physician - Primary Care Member Role: PCP Address: Address: [address] [place] [address] Adult & [place] [address]- Care Team Related Persons Name: JJ NORMAN Address: home [address] [place] [address] Name: RISHABH CASTELLON Address: [place] [address] Name: YEIMY CASTELLON Address: home [address] [place] [address] Name: DONNA ZELAYA Address: home [address] [place] [address] Name: JOSE RAFAEL VINCENT Address: [place] [address] Name: ABHAY SPAULDING Name: SAMANTHA TINEO Address: home [address] [place] [address]
--- OUTSIDE RECORDS SUMMARY | 2023-06-24 20:49 | XMS_ITS | Continuity of Care Document ---
Author Name Unknown Organization [facility] Address [address] [place] [address]- Care Team Providers Care Dean Of Faculty Name Role Phone Maribell Jain MD Primary Care Physician [phone] Encounter [facility] Date(s): 09/12/22 - 09/12/[address] [address]- Encounter Diagnosis Encounter for removal of nasal packing(Final) - 09/12/22 Discharge Disposition: A-D/C Home Attending Physician: Joseph Cruz DO Admitting Physician: Joseph Cruz DO Referring Physician: Not on Staff, Referring MD Allergies, Adverse Reactions, Alerts Substance Reaction Severity Status Nuts Active Watermelon Active Immunizations Given and Recorded Vaccine Date Status Refusal Reason SARS-CoV-2 mRNA ([id number]-mufr-yowxz) vax 11/23/21 Recorded SARS-CoV-2 (COVID-19) mRNA BNT-162b2 [...] Diphth/Pertussis,Acel/Tetanus (oldterm) 89 G iven 1Result Comment: [facility] [id number] 2Result Comment: [07/17/2018] givne /out incident ncd: [id number] 3Result Comment: [09/30/2017] [facility] [id number] 4Admin Note: pt declined 5Admin Note: vis given Medications Aspirin Enteric Coated 81 mg oral delayed release tablet 1 tablet, By Mouth, Daily, # 90 tablet, 1 Refills, Maintenance, 04/22/22 9:02:00 EDT, [facility]/pharmacy #[id number], Please cancel previous order for 3 [...] EDT, Compound Start Date: 06/18/16 Status: Ordered Diflucan 150 mg oral tablet 1 tablet = 150 mg, By Mouth, Once, May be repeat in 48 hours, if needed, # 2 tablet, 0 Refills, Soft Stop, 05/24/22 14:17:00 EDT, Tablet, [facility]/pharmacy #[id number], Partial fill upon patient request if the prescription is for a schedule II opioid drug., 165,... Start Date: 05/24/22 Status: Ordered FREESTYLE 28G LANCETS FREESTYLE 28G LANCETS, See Instructions, # 100 Unknown, 0 Refills, Maintenance, CHECK SUGARS ONCE DAILY, 08/01/22 18:43:00 EDT, 165, cm, 05/24/22 13:56:00 EDT, Height, 82.1, kg, 05/24/22 13:56:00 EDT, Dry Weight Start Date: 08/01/22 Status: Ordered Freestyle Lite Lancets See Instructions, # 100 each, Refills 0, Tot. Refills 0, Maintenance, dx- E11.9 check sugars once daily, 06/10/22 13:17:00 EDT, Compound, 165, cm, 05/24/22 13:56:00 EDT, Height, 82.1, kg, 05/24/22 13:56:00 EDT, Dry Weight Start Date: 06/10/22 Status: Ordered Freestyle Lite Monitor See Instructions, # 1 units, Maintenance, dx- E11.9 check sugars once daily, 10/26/19 11:47:00 EST,Compound Start Date: 10/26/19 Status: Ordered FREESTYLE LITE TEST STRIP FREESTYLE LITE TEST STRIP, See Instructions, # 100 Unknown, 3 Refills, DX- E11.9 CHECK SUGARS ONCE DAILY, 165, cm, 04/09/22 9:11:00 EDT, Height, 85.8, kg, 04/09/22 9:11:00 EDT, Dry Weight Start Date: 04/13/22 Status: Ordered Freestyle Lite Test Strips See [...] opioid drug. Start Date: 08/04/21 Status: Ordered Losartan By Mouth, Daily, 0 Refills, Maintenance, 04/09/22 9:28:00 EDT, Partial fill upon patient request ifthe prescription is for a schedule II opioid drug. Start Date: 04/09/22 Status: Ordered Multivitamin Daily, 0 Refills, Maintenance, 08/04/21 9:36:00 EDT, Partial fill upon patient request if the prescription is for a schedule II opioid drug. Start Date: 08/04/21 Status: Ordered ProAir HFA 90 mcg/inh inhalation aerosol with adapter 2, puffs, Inhalation, Every 6 hours, PRN, WHEEZING/SHORTNESS OF BREATH., # 8.5 each, Refills 0, Route to Pharmacy Electronically, [id number], [facility] STORE 61417, 165, cm, 09/27/21 19:50:00 EST, Height, 89.9, kg, 09/27/21 19:50:0... Start Date: 02/12/22 Status: Ordered Vitamin D 27891 iu oral capsule 50,000 International_Units, By Mouth, Daily, Refills 0, Maintenance, 04/09/22 9:36:00 EDT, Partial fill upon patient request if the prescription is for a schedule II opioid drug. Start Date: 04/09/22 Status: Ordered VITAMIN D3 2,000 UNIT TABLET Maintenance, 08/04/21 9:36:00 EDT, Supply Start Date: 08/04/21 Status: Ordered Problem List Condition Confirmation Course [...] [Reference Range]: 1 2 Height 165 cm (09/12/22 4:32 AM) 165 cm (09/12/22 4:30 AM) Weight 85 kg (09/12/22 4:32 AM) 85 kg (09/12/22 4:30 AM) Oxygen Saturation [94-100 %] 93 % *L* (09/12/22 4:30 AM) Pulse Rate [55-90 bpm] 80 bpm (09/12/22 4:30 AM) Body Mass Index [18.5-24.99 kg/m2] 31.22 kg/m2 *>HHI* (09/12/22 4:30 AM) Blood Pressure [90-138/55-84 mm Hg] 166/ 121mm Hg *H* (09/12/22 4:54 AM) 180/128mm Hg *H* (09/12/22 4:32 AM) Respiratory Rate [16-30 br/min] 18 br/mi n (09/12/22 4:30 AM) Temperature [96.8-100.4 DegF] 97.7 DegF (09/12/22 4:30 AM) Mode of Delivery (Oxygen) Room air (09/12/22 4:30 AM) Temperature Route Temporal (09/12/22 4:30 AM) Dry Weight 85 kg (09/12/22 4:32 AM) 85 kg (09/12/22 4:30 AM) Weight Obtained Via Standing scale (09/12/22 4:30 AM) Social History Social History Type Response Smoking Status Never smoker; Tobacc o user in household: No entered on: 05/09/14 Sex Patient Care team information Care Team Personnel Name: Cristobal ROSARIO, Maribell Weldon Position: [facility] Primary Care Physician Member Role: PCP Address: Address: [address] [place] [address] Adult & [place] [address]- Name: Fabienne Pardeep Position: [facility] ED OA Member Role: Patient Care Provider Name: Giulia LOPEZ, Alisha Position: [facility] ED RN W/OE and Tasks Member Role: Patient Care Provider Name: Joseph Cruz DO Position: [facility] ED Medicine MD Member Role: Admitting Physician Address: Address: [address] [place] [address] [place] [address]- Care Team Related Persons Name: JJ NORMAN Address: home [address] [place] [address] Name: RISHABH CASTELLON Address: [place] [address] Name: YEIMY CASTELLON Address: home [address] [place] [address] Name: DONNA ZELAYA Address: home [address] [place] [address] Name: JOSE RAFAEL VINCENT Address: [place] [address] Name: ABHAY SPAULDING Name: SAMANTHA TINEO Address: home [address] [place] [address]
--- OUTSIDE RECORDS SUMMARY | 2023-06-24 20:49 | XMS_ITS | Continuity of Care Document ---
Author Name Unknown Organization [facility] Address [address] [place] [address]- Care Team Providers Care Receptionist Name Role Phone Cristobal ROSARIO, Maribell Weldon Primary Care Physician Encounter [facility] Date(s): 08/25/21 - 09/24/21 [facility] [address] [place], [place] [address] Allergies, Adverse Reactions, Alerts Substance [...] (oldterm) 89 G julián 1Result Comment: [facility] [id number] 2Result Comment: [07/17/2018] givne /out incident ncd: [id number] 3Result Comment: [09/30/2017] [facility] [id number] 4Admin Note: pt declined 5Admin Note: vis given Medications albuterol CFC free 90 mcg/inh inhalation aerosol 2, puffs, Inhalation, Every 6 hours, PRN, # 1 each, Refills 0, Tot. Refills 0, Maintenance, 01/06/21 13:55:00 EDT, Aerosol, Route to Pharmacy Electronically, [id number], [facility]/pharmacy #1291, 165, cm, 06/23/20 13:39:00 EDT, Height Start Date: 01/06/21 Stop Date: 02/05/21 Status: Ordered amLODIPine 5 mg oral tablet 5 mg, 1, tablet, By Mouth, Daily, # 30 tablet, Refills 2, Tot. Refills 2, Maintenance, 12/06/18 14:00:07 EST, Route to Pharmacy Electronically, [id number], [facility]/pharmacy #1291 Start Date: 12/06/18 Status: Ordered Aspirin Enteric Coated 81 mg oral delayed release tablet 1 tablet, By Mouth, Daily, # 90 tablet, 3 Refills, Maintenance, 03/25/21 21:47:00 EDT, [facility] STORE 40782, 165, cm, 06/23/20 13:39:00 EDT, Height Start [...] Refills, Maintenance, 07/02/21 12:28:00 EDT, ER Tablet, [facility]/pharmacy #1291, metformin ER not covered. [...]
--- OUTSIDE RECORDS SUMMARY | 2023-06-24 20:49 | XMS_ITS | Continuity of Care Document ---
Author Name Unknown Organization [facility] Address [address] [place] [address]- Care Team Providers Care Gis Database Administrator Name Role Phone Maribell Jain MD Primary Care Physician Encounter [facility] Date(s): 04/23/20 - 04/30/20 [facility] [address] [place] [address]- [facility] Encounter Diagnosis Back pain(Discharge Diagnosis) - 04/23/20 Unprotected sex(Discharge Diagnosis) - 04/23/20 Dysuria(Discharge Diagnosis) - 04/23/20 Attending Physician: Maribell Jain MD Allergies, Adverse [...] 89 G iven 1Result Comment: [facility] [id number] 2Result Comment: [07/17/2018] givne /out incident ncd: [id number] 3Result Comment: [09/30/2017] [facility] [id number] 4Admin Note: pt declined 5Admin Note: vis given Medications albuterol CFC free 90 mcg/inh inhalation aerosol 2, puffs, Inhalation, Every 6 hours, PRN, # 1 each, Refills 0, Tot. Refills 0, Maintenance, 12/19/18 18:17:12 EST, Aerosol, Route to Pharmacy Electronically, [id number], [facility]/pharmacy #1291 Start Date: 12/19/18 Stop Date: 01/18/19 Status: Ordered amLODIPine 5 mg oral tablet 5 mg, 1, tablet, By Mouth, Daily, # 30 tablet, Refills 2, Tot. Refills 2, Maintenance, 12/06/18 14:00:07 EST, Route to Pharmacy Electronically, [id number], [facility]/pharmacy #1291 Start Date: 12/06/18 Status: Ordered aspirin 81 mg oral tablet 1 tablet = 81 mg, By Mouth, Daily, # 90 tablet, 3 Refills, Maintenance, 04/23/20 15:01:00 EDT, [facility]/pharmacy #1291, 165, cm, 04/23/20 14:42:00 EDT, Height, 93.5, kg, 07/06/18 23:42:00 EDT, Dry Weight Start Date: 04/23/20 Stop Date: 04/18/21 Status: Ordered CPAP Machine See Instructions, # 1 each, Maintenance, BiPAP 15/ with heated humidification and compliance data to be followed. tubing, mask and supplies, 06/18/16 11:56:34, Compound Start Date: 06/18/16 Status: Ordered Freestyle [...] Weight Start Date: 03/21/20 Status: Ordered metFORMIN 500 mg oral tablet 1 tablet = 500 mg, By Mouth, 2 times a day, # 60 tablet, 5 Refills, Maintenance, 01/16/20 9:40:00 EDT, [facility]t, [id number], 165, cm, 12/17/19 8:59:00 EST, Height, 93.5, kg, 07/06/18 23:42:00 EDT, Dry Weight Start Date: 01/16/20 Status: Ordered Morning After 1.5 mg oral tablet 1 tablet = 1.5 mg, By Mouth, Once, # 1 tablet, 0 Refills, Soft Stop, 04/23/20 15:02:00 EDT, [id number], 165, cm, 04/23/20 14:42:00 EDT, Height, 93.5, kg, 07/06/18 23:42:00 EDT, Dry Weight Start Date: 04/23/20 Status: Ordered Problem List Condition Effective Dates Status Health Status Inform ant Asthma(Confirmed) Active Depressive Disorder, Not Els ewhere Classified(Confirmed) 06/17/10 Active Diabetes mellitus(Confirmed) Active Esophageal reflux (GERD)(Confirmed) Active Hypertension(Confirmed) Active Impaired fasting glucose(Confirmed) Active Narcolepsy(Confirmed) Active Obstructive sleep apnea(Confirmed) Active Sickle cell trait(Confirmed) Active Diagnosis Diagnosis Type Effective Dates Health Status Cl inical Service Informant Back pain Discharge Diagnosis 04/23/20 Unprotected sex Discharge Diagnosis 04/23/20 Dysuria Discharge Diagnosis 04/23/20 Vital Signs Most recent to oldest [Reference Range]: 1 Height 165 cm (04/23/20 2:42 PM) Weight 90.5 kg (04/23/20 2:42 PM) Oxygen Saturation [94-100 %] 98 % (04/23/20 2:42 PM) Pulse Rate [55-90 bpm] 74 bpm (04/23/20 2:42 PM) Body Mass Index [18.5-24.99] 33.24 *>HHI* (04/23/20 2:42 PM) Blood Pressure [90-138/55-84 mm Hg] 118/ 72mm Hg (04/23/20 2:42 PM) Temperature [96.8-100.4 DegF] 96.7 DegF *L* (04/23/20 2:42 PM) Mode of Delivery (Oxygen) Room air (04/23/20 2:42 PM) Blood pressure sites Arm, left (04/23/20 2:42 PM) Temperature Route Temporal (04/23/20 2:42 PM) Weight Obtained Via Standing scale (04/23/20 2:42 PM) Social History Social History Type Response Smoking Status Never smoker; Tobacc o user in household: No entered on: 05/09/14 Sex
--- OUTSIDE RECORDS SUMMARY | 2023-06-24 20:49 | XMS_ITS | Continuity of Care Document ---
Author Name Unknown Organization [facility] Address [address] [place] [address]- Care Team Providers Care Robotic Machine Tender Production Name Role Phone Maribell Jain MD Primary Care Physician Encounter [facility] Date(s): 09/03/21 - 09/03/[address] [address]- Discharge Disposition: A-D/C Home Attending Physician: Shilo [...] Diphth/Pertussis,Acel/Tetanus (oldterm) 89 G julián 1Result Comment: [facility] [id number] 2Result Comment: [07/17/2018] givne /out incident ncd: [id number] 3Result Comment: [09/30/2017] [facility] [id number] 4Admin Note: pt declined 5Admin Note: vis given Medications albuterol CFC free 90 mcg/inh inhalation aerosol 2, puffs, Inhalation, Every 6 hours, PRN, # 1 each, Refills 0, Tot. Refills 0, Maintenance, 01/06/21 13:55:00 EDT, Aerosol, Route to Pharmacy Electronically, [id number], [facility]/pharmacy #1291, 165, cm, 06/23/20 13:39:00 EDT, Height Start Date: 01/06/21 Stop Date: 02/05/21 Status: Ordered amLODIPine 5 mg oral tablet 5 mg, 1, tablet, By Mouth, Daily, # 30 tablet, Refills 2, Tot. Refills 2, Maintenance, 12/06/18 14:00:07 EST, Route to Pharmacy Electronically, [id number], [facility]/pharmacy #[id number] Start Date: 12/06/18 Status: Ordered Aspirin Enteric Coated 81 mg oral delayed release tablet 1 tablet, By Mouth, Daily, # 90 tablet, 3 Refills, Maintenance, 03/25/21 21:47:00 EDT, [facility], 165, cm, 06/23/20 13:39:00 EDT, Height Start [...] Refills, Maintenance, 07/02/21 12:28:00 EDT, ER Tablet, [facility]/pharmacy #[id number], metformin ER not covered. patient cannot [...] sleep apnea(Confirmed) Active Sickle cell trait(Confirmed) Active Results Radiology Reports * Exam Date Time Procedure Performing Provider Status 09/03/21 3:13 PM Chest 2 Views Frontal and Lat Ami Ott; Auth (Verified) Notes: (Chest 2 Views Frontal and Lat) Reason For Exam: Shortness of Breath RESULT: Chest 2 Views Frontal and Lat Chest 2 Views Frontal and Lat Hx of Present Illness: SOB, upper back pain with cough and headache. Similar to Hx pneumonia. Had covid last december; Reason: Shortness of Breath; Clinical Question(s): Pneumonia COMPARISON: Chest radiograph 09/22/2018 FINDINGS: LINES AND TUBES: None. LUNGS AND PLEURA: Clear lungs. Normal pulmonary vascularity. No pleural effusion. No pneumothorax. HEART, MEDIASTINUM AND COURTNEY: Heart is normal in size. Normal upper mediastinal and hilar contour. BONES AND SOFT TISSUES: No acute abnormality. IMPRESSION: No acute abnormality. WSN: [id number] Ordering Physician: Shilo Nj Dictated By: Deb Mooney MD Dictated Date/Time: 09/03/21 3:22 pm Reviewed By: Deb Mooney MD Signed By: Deb Mooney MD Signed Date/Time: 09/03/21 3:22 pm Transcribed By: TAMMIE Transcribed Date/Time: 09/03/21 3:22 pm Vital Signs Most recent to oldest [Reference Range]: 1 Height 165 cm (09/03/21 2:49 PM) Weight 90 kg (09/03/21 2:49 PM) Oxygen Saturation [94-100 %] 99 % (09/03/21 2:49 PM) Pulse Rate [55-90 bpm] 90 bpm (09/03/21 2:49 PM) Blood Pressure [90-138/55-84 mm Hg] 134/ 83mm Hg (09/03/21 2:49 PM) Respiratory Rate [16-30 br/min] 18 br/mi n (09/03/21 2:49 PM) Temperature [96.8-100.4 DegF] 99.1 DegF (09/03/21 2:49 PM) Mode of Delivery (Oxygen) Room air (09/03/21 2:49 PM) Blood pressure sites Arm, left (09/03/21 2:49 PM) Temperature Route Temporal (09/03/21 2:49 PM) Dry Weight 90 kg (09/03/21 2:49 PM) Dry Weight Obtained Via Standing scale (09/03/21 2:49 PM) Social History Social History Type Response Smoking Status Never smoker; Tobacc o user in household: No entered on: 05/09/14 Sex
--- OUTSIDE RECORDS SUMMARY | 2023-06-24 20:49 | XMS_ITS | Continuity of Care Document ---
Author Name Unknown Organization [facility] Address [address] [place] [address]- Care Team Providers Care Pharmaceutical Detailer Name Role Phone Maribell Jain MD Primary Care Physician [facility] Date(s): 06/14/20 - 07/14/20 [facility] [address] [place] [address]- [facility] Allergies, Adverse Reactions, Alerts Substance Reaction Severity [...] Diphth/Pertussis,Acel/Tetanus (oldterm) 89 G julián 1Result Comment: [facility] [id number] 2Result Comment: [07/17/2018] givne /out incident ncd: [id number] 3Result Comment: [09/30/2017] [facility] [id number] 4Admin Note: pt declined 5Admin Note: vis given Medications albuterol CFC free 90 mcg/inh inhalation aerosol 2, puffs, Inhalation, Every 6 hours, PRN, # 1 each, Refills 0, Tot. Refills 0, Maintenance, 12/19/18 18:17:12 EST, Aerosol, Route to Pharmacy Electronically, [id number], [facility]/pharmacy #[id number] Start Date: 12/19/18 Stop Date: 01/18/19 Status: Ordered amLODIPine 5 mg oral tablet 5 mg, 1, tablet, By Mouth, Daily, # 30 tablet, Refills 2, Tot. Refills 2, Maintenance, 12/06/18 14:00:07 EST, Route to Pharmacy Electronically, [id number], [facility]/pharmacy #[id number] Start Date: 12/06/18 Status: Ordered aspirin 81 mg oral tablet 1 tablet = 81 mg, By Mouth, Daily, # 90 tablet, 3 Refills, Maintenance, 04/23/20 15:01:00 EDT, [facility]/pharmacy #1291, 165, cm, 04/23/20 14:42:00 EDT, Height, [...] 5 Refills, Maintenance, 01/16/20 9:40:00 EDT, Tablet, [facility]/pharmacy #1291, 165, cm, 12/17/19 8:59:00 EST, Height, 93.5, kg, 07/06/18 23:42:00 EDT, Dry Weight Start Date: 01/16/20 Status: Ordered metFORMIN 500 mg oral tablet, extended release 1 tablet = 500 mg, By Mouth, Daily, # 30 tablet, 0 Refills, Maintenance, 06/23/20 14:41:00 EDT, ER Tablet, [facility]/pharmacy #[id number], metformin caused diarrhea/ bloating, 165, cm, 06/23/20 13:39:00 EDT, Height, 93.5, kg, 07/06/18 23:42:00 EDT, Dry Weight Start Date: 06/23/20 Stop Date: 07/23/20 Status: Ordered Problem List Condition Effective Dates [...]
--- OUTSIDE RECORDS SUMMARY | 2023-06-24 20:49 | XMS_ITS | Continuity of Care Document ---
Author Name Unknown Organization [facility] Address [address] [place] [address]- Care Team Providers Care Director Of Knowledge Management Name Role Phone Maribell Jain MD Primary Care Physician [phone] [facility]counter [facility] Date(s): 06/23/20 - 07/23/20 [facility] [address] [address]- [facility] Allergies, Adverse Reactions, Alerts Substance Reaction Severity [...] Diphth/Pertussis,Acel/Tetanus (oldterm) 89 G julián 1Result Comment: [facility] [id number] 2Result Comment: [07/17/2018] givne /out incident ncd: [id number] 3Result Comment: [09/30/2017] [facility] [id number] 4Admin Note: pt declined 5Admin Note: vis given Medications albuterol CFC free 90 mcg/inh inhalation aerosol 2, puffs, Inhalation, Every 6 hours, PRN, # 1 each, Refills 0, Tot. Refills 0, Maintenance, 12/19/18 18:17:12 EST, Aerosol, Route to Pharmacy Electronically, [id number], [facility]/pharmacy #1291 Start Date: 12/19/18 Stop Date: 01/18/19 Status: Ordered amLODIPine 5 mg oral tablet 5 mg, 1, tablet, By Mouth, Daily, # 30 tablet, Refills 2, Tot. Refills 2, Maintenance, 12/06/18 14:00:07 EST, Route to Pharmacy Electronically, [id number], [facility]/pharmacy #1291 Start Date: 12/06/18 Status: Ordered aspirin 81 mg oral tablet 1 tablet = 81 mg, By Mouth, Daily, # 90 tablet, 3 Refills, Maintenance, 04/23/20 15:01:00 EDT, [facility]/pharmacy #1291, 165, cm, 04/23/20 14:42:00 EDT, [...] Weight Start Date: 5/29/20 Status: Ordered metFORMIN 500 mg oral tablet, extended release 1 tablet = 500 mg, By Mouth, Daily, # 30 tablet, 11 Refills, Maintenance, 07/22/20 15:22:00 EDT, ERTablet, [facility]/pharmacy #1291, metformin caused diarrhea/ bloating, 165, cm, 06/23/20 13:39:00 EDT, Height, Dry Weight Start Date: 07/22/20 Stop Date: 07/17/21 Status: Ordered Problem List Condition Effective Dates [...]
--- OUTSIDE RECORDS SUMMARY | 2023-06-24 20:49 | XMS_ITS | Continuity of Care Document ---
Author Name Unknown Organization [facility] Address [address] [place] [address]- Care Team Providers Care Machine Ironer Name Role Phone Cristobal ROSARIO, Maribell Weldon Primary Care Physician [facility] Date[facility]s): 09/19/22 - 10/19/22 [facility] [address] [place], [place] [address] Allergies, Adverse Reactions, Alerts Substance Reaction Severity Status Nuts Active Watermelon Active Immunizations Given and Recorded Vaccine Date Status Refusal Reason SARS-CoV-2 mRNA (nmpimjq-xboz-uorls) vax 11/23/21 Recorded SARS-CoV-2 (COVID-19) mRNA BNT-162b2 [...] (oldterm) 89 G iven 1Result Comment: [facility] [id number] 2Result Comment: [07/17/2018] givne /out incident ncd: [id number] 3Result Comment: [09/30/2017] [facility] [id number] 4Admin Note: pt declined 5Admin Note: vis [...] tablet, 1 Refills, Maintenance, 04/22/22 9:02:00 EDT, [facility]/pharmacy #1291, Please cancel previous order for [...] Refills, Maintenance, 09/13/22 9:47:00 EST, ER Tablet, [facility]/pharmacy #1291, stop synjardy, 165, cm, 09/13/22 9:05:00 EST, Height, 85, kg, :32:00 EST, Dry Weight Start Date: 09/13/22 Stop [...] each, Refills 0, Route to Pharmacy Electronically, [id number], [facility], 165, cm, 09/27/21 19:50:00 EST, Height, 89.9, [...] Team Personnel Name: Maribell Jain MD Position: S Primary Care Physician Member Role: PCP Address: Address: [facility] [place], [place] [address] Care Team Related Persons Name: JJ NORMAN Address: home [address] [place] [address] Name: RISHABH CASTELLON Address: [place] [address] Name: YEIMY CASTELLON Address: home [address] [place] [address] Name: DONNA ZELAYA Address: home [address] [place] [address] Name: JOSE RAFAEL VINCENT Address: [place] [address] Name: ABHAY SPAULDING Name: SAMANTHA TINEO Address: home [address] [place] [address]
--- OUTSIDE RECORDS SUMMARY | 2023-06-24 20:49 | XMS_ITS | Continuity of Care Document ---
Author Name Unknown Organization [facility] Address [address] [place] [address]- Care Team Providers Care Day Care Teacher Name Role Phone Cristobal ROSARIO, Maribell Weldon Primary Care Physician [phone] [facility] Date[facility]s): 07/07/21 - 08/06/21 [facility] [address] [place], [place] [address] Allergies, Adverse Reactions, Alerts Substance [...] Diphth/Pertussis,Acel/Tetanus (oldterm) 89 G julián 1Result Comment: [facility] [id number] 2Result Comment: [07/17/2018] givne /out incident ncd: [id number] 3Result Comment: [09/30/2017] [facility] [id number] 4Admin Note: pt declined 5Admin Note: vis given Medications albuterol CFC free 90 mcg/inh inhalation aerosol 2, puffs, Inhalation, Every 6 hours, PRN, # 1 each, Refills 0, Tot. Refills 0, Maintenance, 01/06/21 13:55:00 EDT, Aerosol, Route to Pharmacy Electronically, [id number], [facility]/pharmacy #1291, 165, cm, 06/23/20 13:39:00 EDT, Height Start Date: 01/06/21 Stop Date: 02/05/21 Status: Ordered amLODIPine 5 mg oral tablet 5 mg, 1, tablet, By Mouth, Daily, # 30 tablet, Refills 2, Tot. Refills 2, Maintenance, 12/06/18 14:00:07 EST, Route to Pharmacy Electronically, [id number], [facility]/pharmacy #1291 Start Date: 12/06/18 Status: Ordered Aspirin Enteric Coated 81 mg oral delayed release tablet 1 tablet, By Mouth, Daily, # 90 tablet, 3 Refills, Maintenance, 03/25/21 21:47:00 EDT, [facility], 165, cm, 06/23/20 13:39:00 EDT, Height Start [...] Refills, Maintenance, 07/02/21 12:28:00 EDT, ER Tablet, [facility]/pharmacy #1291, metformin ER not covered. patient cannot [...]
--- OUTSIDE RECORDS SUMMARY | 2023-06-24 20:49 | XMS_ITS | Continuity of Care Document ---
Author Name Unknown Organization [facility] Address [address] [place] [address]- Care Team Providers Care Electric Serviceman Name Role Phone Maribell Jain MD Primary Care Physician [phone] Encounter [facility] Date(s): 06/14/23 - 06/21/23 [facility] [address] [place], [place] [address] Encounter Diagnosis Chest tightness(Discharge Diagnosis) - 06/14/23 Asthma(Discharge Diagnosis) - 06/14/23 Attending Physician: Maribell Jain MD Allergies, Adverse Reactions, Alerts Substance Reaction Severity Status Nuts Active Watermelon Active Immunizations Given and Recorded Vaccine Date Status Refusal Reason SARS-CoV-2 mRNA (miplzca-alnb-fdihs) vax 11/23/21 Recorded SARS-CoV-2 (COVID-19) mRNA BNT-162b2 [...] Diphth/Pertussis,Acel/Tetanus (oldterm) 89 G iven 1Result Comment: [facility] [id number] 2Result Comment: [07/17/2018] givne /out incident ncd: [id number] 3Result Comment: [09/30/2017] [facility] [id number] 4Admin Note: pt declined 5Admin Note: vis given Medications albuterol CFC free 90 mcg/inh inhalation aerosol 2, puffs, Inhalation, Every 6 hours, PRN, # 8.5 Gm, Refills 0, Tot. Refills 0, Maintenance, 06/14/23 11:59:00 EDT, Aerosol, Route to Pharmacy Electronically, [id number], [facility]/pharmacy #1291, 165, cm, 06/14/23 11:27:00 EDT, Hei... Start Date: 06/14/23 Status: Ordered amLODIPine 5 mg oral tablet 1 tablet, By Mouth, Daily, # 90 tablet, 1 Refills, Maintenance, 05/16/23 23:07:00 EDT, [facility], 165, cm, 05/13/23 16:14:00 EDT, Height, 85.7, kg, 05/04/23 6:01:00 EDT, Dry Weight Start Date: 05/16/23 Status: Ordered Aspirin Enteric Coated 81 mg oral delayed release tablet 1 tablet, By Mouth, Daily, # 90 tablet, 3 Refills, Maintenance, 01/13/23 11:23:00 EDT, [facility]/pharmacy#1291, 165, cm, 01/13/23 10:56:00 EDT, [...] 1 Refills, Maintenance, 12/10/22 17:16:00 EST, Tablet, [facility]/pharmacy #1291, Partial fill upon patient request if the prescription is for a schedule II opioid drug., 165, cm, 11/10/22 11:18:00 EST, Height,... Start Date: 12/10/22 Stop Date: 06/08/23 Status: Ordered MetFORMIN (Eqv-Glucophage XR) 500 mg oral tablet, extended release 2 tablet, By Mouth, Daily, # 180 tablet, 1 Refills, Maintenance, 05/16/23 23:07:00 EDT, [facility], 165, cm, 05/13/23 16:14:00 EDT, Height, 85.7, [...] Confirmed Active Sickle cell trait Confirmed Active Diagnosis Diagnosis Type Effective Dates Health Status inical Service Informant Chest tightness Discharge Diagnosis 06/14/23 Asthma Discharge Diagnosis 06/14/23 Vital Signs Most recent to oldest [Reference Range]: 1 Height 165 cm (06/14/23 11:27 AM) Weight 83.5 kg (06/14/23 11:27 AM) Oxygen Saturation [94-100 %] 100 % (06/14/23 11:27 AM) Pulse Rate [55-90 bpm] 76 bpm (06/14/23 11:27 AM) Body Mass Index [18.5-24.99 kg/m2] 30.67 kg/m2 *>HHI* (06/14/23 11:27 AM) Blood Pressure [90-138/55-84 mm Hg] 130/ 90mm Hg (06/14/23 11:27 AM) Mode of Delivery (Oxygen) Room air (06/14/23 11:27 AM) Blood pressure sites Arm, left (06/14/23 11:27 AM) Weight Obtained Via Standing scale (06/14/23 11:27 AM) Social History Social History Type Response Smoking Status Never smoker; Tobacc o user in household: No entered on: 05/09/14 Sex Note * Elsa Masters: PERFORM, SIGN, VERIFY Event Display: Patient Education/Instruction Authored Date: [id number] [facility] Clinical Summary Name CAROL REDMAN Age 33 Years 1990 PCP Cristobal ROSARIO, Maribell Weldon PCP Visit Date 06/14/2023 11:18:00 Patient Instructions push fluids low salt continue diet plan as you are sleep hygiene and use of cpap check potassium today use inhaler when chest tightness occurs plan for echo/ stress if flushing/ chest tightness are nor better Additional Instructions: Scheduled Appointments?? Future Appointments ?*[place] ?Phone:??--?Fax:??-- ?Appt. Date:??06/17/2023?9:30 AM ?Scheduled Provider:??Bam FIGHTING VEHICLE SYSTEMS MAINTAINER , Arleth Levy Follow-Up Instructions ?? Diagnosis Medications: Please continue your medications until treatment is completed or stopped by your provider. Discuss any questions related to medications with your provider. Medications to Continue Taking That Have [facility]anged [id number] [address], [place] [id number], [phone] - Albuterol (albuterol CFC free 90 mcg/inh inhalation aerosol) 2 puff(s) Inhalation every 6 hours as needed Wheezing/Shortness of Breath. Refills: 0. Next Dose: These medications were not printed or sent to your pharmacy - Albuterol (Ventolin HFA 108 mcg/inh inhalation aerosol with adapter) 2 puff(s) Inhalation every 6hours as needed NEEDED FOR WHEEZING/SHORTNESS OF BREATH. Refills: 5. Next Dose: Medications to Continue with No Changes These medications were not printed or sent to your pharmacy Amlodipine (amLODIPine 5 mg oral tablet) 1 tab(s) Oral Daily. Refills: 1. Next Dose: Aspirin (Aspirin Enteric Coated 81 mg oral delayed release tablet) 1 tab(s) Oral Daily for 90 Days.Refills: 3. Next Dose: Durable Medical Equipment (CPAP Machine) AutoBiPAP max IPAP 15 min EPAP 5, PS 8 with heated humidification and compliance data to be followed. tubing, mask and supplies. Refills: 0. Next Dose: Durable Medical Equipment (Freestyle Lite Lancets) dx- E11.9 check sugars once daily 28 G lancets. Refills: 3. Next Dose: Durable Medical Equipment (Freestyle Lite Monitor) dx- E11.9 check sugars once daily. Refills: 0. Next Dose: Durable Medical Equipment (Freestyle Lite Test Strips) dx- E11.9 check sugars once daily. Refills: 3. Next Dose: Losartan (losartan 50 mg oral tablet) 1 tab(s) Oral Daily for 90 Days. Refills: 1. Next Dose: Metformin (MetFORMIN (Eqv-Glucophage XR) 500 mg oral tablet, extended release) 2 tab(s) Oral Daily.Refills: 1. Next Dose: Multivitamin Daily. Next Dose: Ondansetron (ondansetron 4 mg oral tablet, disintegrating) 1 tab(s) Oral every 8 hours as needed asneeded for nausea/vomiting. Refills: 0. Next Dose: Allergy Info:?? Watermelon; Nuts Medications Given This Visit Future Orders ?No future orders Vital Signs Height 165 cm Weight 83.5 kg BMI 30.67 kg/m2 Blood Pressure 130 mm Hg/90 mm Hg Temperature Pulse Rate 76 bpm Respiratory Rate 02 Sat Mode of Delivery 100 %/Room air You can now view a summary of your hospital visit from the comfort of your home through a free online portal called [facility] Me. [facility] Me is a website that allows you to securely view your medical information including discharge summary, medications and follow-up visits. ??You can alsosend a secure electronic message to your doctor???s office to request appointments, renew medications or just ask a question. You can enroll at [email or web address] or register during your next office visit. [...] primary care provider, you may find a [facility] provider by calling [facility] Link at [phone]. For information about the plan of care [...] Personnel Name: Cristobal ROSARIO, Maribell Weldon Position: [facility] Physician - Primary Care Member Role: PCP Address: Address: [address] [place] [address] Adult & [place] [address]- Care Team Related Persons Name: JJ NORMAN Address: home [address] [place] [address] Name: RISHABH CASTELLON Address: [place] [address] Name: YEIMY CASTELLON Address: home [address] [place] [address] Name: DONNA ZELAYA Address: home [address] [place] [address] Name: JOSE RAFAEL VINCENT Address: [place] [address] Name: ABHAY SPAULDING Name: SAMANTHA TINEO Address: home [address] [place] [address]
--- OUTSIDE RECORDS SUMMARY | 2023-06-24 20:49 | XMS_ITS | Continuity of Care Document ---
Author Name Unknown Organization [facility] Address [address] [place] [address]- Care Team Providers Care Drier And Grinder Tender Name Role Phone Maribell Jain MD Primary Care Physician [phone] [facility] Date[facility]s): 01/08/21 - 02/07/21 [facility] [address] [place], [place] [address] Allergies, Adverse Reactions, Alerts [...] (oldterm) 89 G julián 1Result Comment: [facility] [id number] 2Result Comment: [07/17/2018] givne /out incident ncd: [id number] 3Result Comment: [09/30/2017] [facility] [id number] 4Admin Note: pt declined 5Admin Note: vis given Medications albuterol CFC free 90 mcg/inh inhalation aerosol 2, puffs, Inhalation, Every 6 hours, PRN, # 1 each, Refills 0, Tot. Refills 0, Maintenance, 01/06/21 13:55:00 EDT, Aerosol, Route to Pharmacy Electronically, [id number], [facility]/pharmacy #1291, 165, cm, 06/23/20 13:39:00 EDT, Height Start Date: 01/06/21 Stop Date: 02/05/21 Status: Ordered amLODIPine 5 mg oral tablet 5 mg, 1, tablet, By Mouth, Daily, # 30 tablet, Refills 2, Tot. Refills 2, Maintenance, 12/06/18 14:00:07 EST, Route to Pharmacy Electronically, [id number], [facility]/pharmacy #1291 Start Date: 12/06/18 Status: Ordered aspirin 81 mg oral tablet 1 tablet = 81 mg, By Mouth, Daily, # 90 tablet, 3 Refills, Maintenance, 04/23/20 15:01:00 EDT, [facility]/pharmacy #1291, 165, cm, 04/23/20 14:42:00 [...] Refills, Maintenance, 11/25/20 14:53:00 EST, ER Tablet, [facility]/pharmacy #1291, metformin ER not covered. [...]
--- OUTSIDE RECORDS SUMMARY | 2023-06-24 20:49 | XMS_ITS | Continuity of Care Document ---
Author Name Unknown Organization [facility] Address [address] [place] [address]- Care Team Providers Care Occupational Therapy Professor Name Role Phone Maribell Jain MD Primary Care Physician [facility] Date[facility]s): 01/18/23 - 02/17/23 [facility] [address] [address] [[email or web address]] Allergies, Adverse Reactions, Alerts Substance Reaction Severity Status Nuts Active Watermelon Active Immunizations Given and Recorded Vaccine Date Status Refusal Reason SARS-CoV-2 mRNA (qxfkvtr-mjxr-ahssg) vax 11/23/21 Recorded SARS-CoV-2 (COVID-19) mRNA BNT-162b2 [...] julián 1Result Comment: [facility] [id number] 2Result Comment: [07/17/2018] givne /out incident ncd: [id number] 3Result Comment: [09/30/2017] [facility] [id number] 4Admin Note: pt declined 5Admin Note: vis given Medications amLODIPine 5 mg oral tablet 1 tablet = 5 mg, By Mouth, Daily, # 90 tablet, 1 Refills, Maintenance, 12/14/22 10:33:00 EST, Tablet, [facility]/pharmacy #1291, in addition to losartan, 165, cm, 12/14/22 10:08:00 EST, Height, 85, kg, 09/12/22 4:32:00 EST, Dry Weight Start Date: 12/14/22 Stop Date: 06/12/23 Status: Ordered Aspirin Enteric Coated 81 mg oral delayed release tablet 1 tablet, By Mouth, Daily, # 90 tablet, 3 Refills, Maintenance, 01/13/23 11:23:00 EDT, [facility]/pharmacy#1291, 165, cm, 01/13/23 10:56:00 EDT, Height, [...] 1 Refills, Maintenance, 12/10/22 17:16:00 EST, Tablet, [facility]/pharmacy #1291, Partial fill upon patient request if the prescription is for a schedule II opioid drug., 165, cm, 11/10/22 11:18:00 EST, Height,... Start Date: 12/10/22 Stop Date: 06/08/23 Status: Ordered metFORMIN 500 mg oral tablet, extended release 2 tablet = 1,000 mg, By Mouth, Daily, # 180 tablet, 1 Refills, Maintenance, 12/09/22 12:15:00 EST, ER Tablet, [facility]/pharmacy #1291, stop synjardy, 165, cm, [...] Refills, Maintenance, 01/14/23 8:57:00 EDT, [facility], 165, cm, 01/13/23 10:56:00 EDT, Height, 88.8, [...] Personnel Name: Cristobal ROSARIO, Maribell Weldon Position: [facility] Primary Care Physician Member Role: PCP Address: Address: [address] [place] [address] Adult [place] [address]- Care Team Related Persons Name: JJ NORMAN Address: home [address] [place] [address] Name: RISHABH CASTELLON Address: [place] [address] Name: YEIMY CASTELLON Address: home [address] [place] [address] Name: DONNA ZELAYA Address: home [address] [place] [address] Name: JOSE RAFAEL VINCENT Address: [place] [address] Name: ABHAY SPAULDING Name: SAMANTHA TINEO Address: home [address] [place] [address]
--- OUTSIDE RECORDS SUMMARY | 2023-06-24 20:49 | XMS_ITS | Continuity of Care Document ---
Author Name Unknown Organization [facility] Address [address] [place] [address]- Care Team Providers Care Locate Technician Name Role Phone Maribell Jain MD Primary Care Physician [facility] Date(s): 12/29/20 - 01/28/21 [facility] [address] [place], [place] [address] Allergies, Adverse Reactions, Alerts Substance [...] Diphth/Pertussis,Acel/Tetanus (oldterm) 89 G julián 1Result Comment: [facility] [id number] 2Result Comment: [07/17/2018] givne /out incident ncd: [id number] 3Result Comment: [09/30/2017] [facility] [id number] 4Admin Note: pt declined 5Admin Note: vis given Medications albuterol CFC free 90 mcg/inh inhalation aerosol 2, puffs, Inhalation, Every 6 hours, PRN, # 1 each, Refills 0, Tot. Refills 0, Maintenance, 01/06/21 13:55:00 EDT, Aerosol, Route to Pharmacy Electronically, [id number], [facility]/pharmacy #1291, 165, cm, 06/23/20 13:39:00 EDT, Height Start Date: 01/06/21 Stop Date: 02/05/21 Status: Ordered amLODIPine 5 mg oral tablet 5 mg, 1, tablet, By Mouth, Daily, # 30 tablet, Refills 2, Tot. Refills 2, Maintenance, 12/06/18 14:00:07 EST, Route to Pharmacy Electronically, [id number], [facility]/pharmacy #1291 Start Date: 12/06/18 Status: Ordered aspirin 81 mg oral tablet 1 tablet = 81 mg, By Mouth, Daily, # 90 tablet, 3 Refills, Maintenance, 04/23/20 15:01:00 EDT, [facility]/pharmacy #1291, 165, cm, 04/23/20 14:42:00 EDT, Height, 93.5, kg, 07/06/18 23:42:00 EDT, Dry Weight Start Date: 04/23/20 Stop Date: 04/18/21 Status: Ordered Azithromycin 5 Day Dose Pack 250 mg oral tablet 1 pack/packet, By Mouth, Once, # 6 tablet, 0 Refills, Soft Stop, 01/06/21 13:55:00 EDT, Tablet, [facility]/pharmacy #1291, Partial fill upon patient request [...] tablet, 0 Refills, Maintenance, 12/22/2110:32:00 EST, Tablet, [facility]/pharmacy #1291, 165, cm, 06/23/20 13:39:00 EDT, [...] Refills, Maintenance, 11/25/20 14:53:00 EST, ER Tablet, [facility]/pharmacy #1291, metformin ER not [...]
--- OUTSIDE RECORDS SUMMARY | 2023-06-24 20:49 | XMS_ITS | Continuity of Care Document ---
Author Name Unknown Organization [facility] Jonathon Turner [facility] Address [address], [address] [place] [address]- Care Team Providers Care Product Merchandiser Name Role Phone Maribell Jain MD Primary Care Physician Encounter [facility] Date(s): 09/27/22 - 10/27/22 [facility] Jon[facility] [address], [address] [place], [place] [address] Attending Physician: Admtr, Fer8 Admitting Physician: Admtr, Ar8 Referring Physician: Admtr, Ar8 Allergies, Adverse Reactions, Alerts Substance Reaction Severity Status Nuts Active Watermelon Active Immunizations Given and Recorded Vaccine Date Status Refusal Reason SARS-CoV-2 mRNA (ccolouv-bhhi-pyjiv) vax 11/23/21 Recorded SARS-CoV-2 (COVID-19) mRNA BNT-162b2 [...] Diphth/Pertussis,Acel/Tetanus (oldterm) 89 G iven 1Result Comment: [facility] [id number] 2Result Comment: [07/17/2018] givne /out incident ncd: [id number] 3Result Comment: [09/30/2017] [facility] [id number] 4Admin Note: pt declined 5Admin Note: vis [...] Refills, Maintenance, 09/13/22 9:47:00 EST, ER Tablet, [facility]/pharmacy #1291, stop synjardy, 165, cm, 09/13/22 [...] each, Refills 0, Route to Pharmacy Electronically, [id number], [facility], 165, cm, 09/27/21 19:50:00 EST, Height, 89.9, [...] Personnel Name: Cristobal ROSARIO, Maribell Weldon Position: [facility] Primary Care Physician Member Role: PCP Address: Address: [address] [place] [address] Adult & [place] [address]- Care Team Related Persons Name: JJ NORMAN Address: home [address] [place] [address] Name: RISHABH CASTELLON Address: [place] [address] Name: YEIMY CASTELLON Address: home [address] [place] [address] Name: DONNA ZELAYA Address: home [address] [place] [address] Name: JOSE RAFAEL VINCENT Address: [place] [address] Name: ABHAY SPAULDING Name: SAMANTHA TINEO Address: home [address] [place] [address]
--- OUTSIDE RECORDS SUMMARY | 2023-06-24 20:49 | XMS_ITS | Continuity of Care Document ---
Author Name Unknown Organization [facility] Address [address] [place] [address]- Care Team Providers Care Chief Operator Hydroformer Name Role Phone Cristobal ROSARIO, Maribell Weldon Primary Care Physician [phone] [facility]counter [facility] Date(s): 09/27/22 - 10/27/22 [facility] [address] [place], [place] [address] Allergies, Adverse Reactions, Alerts Substance Reaction Severity Status Nuts Active Watermelon Active Immunizations Given and Recorded Vaccine Date Status Refusal Reason SARS-CoV-2 mRNA (buavvee-omga-blhoh) vax 11/23/21 Recorded SARS-CoV-2 (COVID-19) mRNA BNT-162b2 [...] Diphth/Pertussis,Acel/Tetanus (oldterm) 89 G julián 1Result Comment: [facility] [id number] 2Result Comment: [07/17/2018] givne /out incident ncd: [id number] 3Result Comment: [09/30/2017] [facility] [id number] 4Admin Note: pt declined 5Admin Note: vis [...] tablet, 1 Refills, Maintenance, 04/22/22 9:02:00 EDT, [facility]/pharmacy #1291, Please cancel previous order for [...] once daily, 10/26/19 11:47:00 EST,Compound Start Date: 1/3/20 Status: Ordered Freestyle Lite Test Strips See [...] Refills, Maintenance, 09/13/22 9:47:00 EST, ER Tablet, [facility]/pharmacy #1291, stop synjardy, 165, cm, 09/13/22 [...] each, Refills 0, Route to Pharmacy Electronically, [id number], [facility], 165, cm, 09/27/21 19:50:00 EST, Height, 89.9, [...] Team Personnel Name: Maribell Jain MD Position: [facility] Primary Care Physician Member Role: PCP Address: Address: [address] [place] [address] Adult [place] [address]- Care Team Related Persons Name: JJ NORMAN Address: home [address] [place] [address] Name: RISHABH CASTELLON Address: [place] [address] Name: YEIMY CASTELLON Address: home [address] [place] [address] Name: DONNA ZELAYA Address: home [address] [place] [address] Name: JOSE RAFAEL VINCENT Address: [place] [address] Name: ABHAY SPAULDING Name: SAMANTHA TINEO Address: home [address] [place] [address]
--- OUTSIDE RECORDS SUMMARY | 2023-06-24 20:49 | XMS_ITS | Continuity of Care Document ---
Author Name Unknown Organization [facility] Jonathon holley's [facility] Address [address], [address] [address]- Care Team Providers Care Sugar Boiler Name Role Phone Maribell Jain MD Primary Care Physician Encounter [facility] Date(s): 04/21/22 - [facility] [address], [address] [place], [place] [address] Allergies, Adverse Reactions, Alerts Substance Reaction [...] [facility] [id number] 2Result Comment: [07/17/2018] givne /out incident ncd: [id number] 3Result Comment: [09/30/2017] [facility] [id number] 4Admin Note: pt declined 5Admin Note: vis [...] each, Refills 0, Route to Pharmacy Electronically, [id number], [facility], 165, cm, 09/27/21 19:50:00 EST, Height, 89.9, kg, 09/27/21 19:50:0... Start Date: 02/12/22 Status: Ordered Vitamin D 93308 iu oral capsule 50,000 International_Units, By Mouth, [...] reflux (GERD)(Confirmed) Active Hypertension(Confirmed) Active Narcolepsy(Confirmed) Active Obese class I(Confirmed) Active Obstructive sleep apnea(Confirmed) Active Sickle cell trait(Confirmed) Active Social History Social History Type Response Smoking Status Never smoker; Tobacc o user in household: No entered on: 05/09/14 Sex
--- OUTSIDE RECORDS SUMMARY | 2023-06-24 20:49 | XMS_ITS | Continuity of Care Document ---
Author Name Unknown Organization [facility] Address [address] [place] [address]- Care Team Providers Care Summer Babysitter Name Role Phone Maribell Jain MD Primary Care Physician Encounter [facility] Date(s): 07/16/20 - 07/23/20 [facility] [address] [address] [facility] Attending Physician: Leidy Sinclair MD Admitting Physician: Leidy Sinclair MD Referring Physician: Maribell Jain MD Allergies, [...] 1Result Comment: [facility] [id number] 2Result Comment: [07/17/2018] givne /out incident ncd: [id number] 3Result Comment: [09/30/2017] [facility] [id number] 4Admin Note: pt declined 5Admin Note: vis given Medications albuterol CFC free 90 mcg/inh inhalation aerosol 2, puffs, Inhalation, Every 6 hours, PRN, # 1 each, Refills 0, Tot. Refills 0, Maintenance, 12/19/18 18:17:12 EST, Aerosol, Route to Pharmacy Electronically, [id number], [facility]/pharmacy #1291 Start Date: 12/19/18 Stop Date: 01/18/19 Status: Ordered amLODIPine 5 mg oral tablet 5 mg, 1, tablet, By Mouth, Daily, # 30 tablet, Refills 2, Tot. Refills 2, Maintenance, 12/06/18 14:00:07 EST, Route to Pharmacy Electronically, [id number], [facility]/pharmacy #1291 Start Date: 12/06/18 Status: Ordered aspirin 81 mg oral tablet 1 tablet = 81 mg, By Mouth, Daily, # 90 tablet, 3 Refills, Maintenance, 04/23/20 15:01:00 EDT, [facility]/pharmacy #1291, 165, cm, 04/23/20 14:42:00 [...] 03/21/20 Status: Ordered metFORMIN 500 mg oral tablet, extended release 1 tablet = 500 mg, By Mouth, Daily, # 30 tablet, 11 Refills, Maintenance, 07/22/20 15:22:00 EDT, [facility]t, [facility], metformin caused diarrhea/ bloating, 165, cm, [...]
--- OUTSIDE RECORDS SUMMARY | 2023-06-24 20:49 | XMS_ITS | Continuity of Care Document ---
Author Name Unknown Organization [facility] Address [address] [place] [address]- Care Team Providers Care Edge Plugger Name Role Phone Cristobal ROSARIO, Maribell Weldon Primary Care Physician [facility] Date(s): 12/19/22 - 01/18/23 [facility] [address] [place], [place] [address] Allergies, Adverse Reactions, Alerts Substance Reaction Severity Status Nuts Active Watermelon Active Immunizations Given and Recorded Vaccine Date Status Refusal Reason SARS-CoV-2 mRNA (eqyvsdx-jzzz-wuhgg) vax 11/23/21 Recorded SARS-CoV-2 (COVID-19) mRNA BNT-162b2 [...] Diphth/Pertussis,Acel/Tetanus (oldterm) 89 G iven 1Result Comment: [facility] [id number] 2Result Comment: [07/17/2018] givne /out incident ncd: [id number] 3Result Comment: [09/30/2017] [facility] [id number] 4Admin Note: pt declined 5Admin Note: vis given Medications amLODIPine 5 mg oral tablet 1 tablet = 5 mg, By Mouth, Daily, # 90 tablet, 1 Refills, Maintenance, 12/14/22 10:33:00 EST, Tablet, [facility]/pharmacy #1291, in addition to losartan, 165, cm, 12/14/22 10:08:00 EST, Height, 85, kg, 09/12/22 4:32:00 EST, Dry Weight Start Date: 12/14/22 Stop Date: 06/12/23 Status: Ordered Aspirin Enteric Coated 81 mg oral delayed release tablet 1 tablet, By Mouth, Daily, # 90 tablet, 3 Refills, Maintenance, 01/13/23 11:23:00 EDT, [facility]/pharmacy#1291, 165, cm, 01/13/23 10:56:00 [...] 1 Refills, Maintenance, 12/10/22 17:16:00 EST, Tablet, [facility]/pharmacy #1291, Partial fill upon patient request if the prescription is for a schedule II opioid drug., 165, cm, 11/10/22 11:18:00 EST, Height,... Start Date: 12/10/22 Stop Date: 06/08/23 Status: Ordered metFORMIN 500 mg oral tablet, extended release 2 tablet = 1,000 mg, By Mouth, Daily, # 180 tablet, 1 Refills, Maintenance, 12/09/22 12:15:00 EST, ER Tablet, [facility]/pharmacy #1291, stop synjardy, 165, [...] Refills, Maintenance, 01/14/23 8:57:00 EDT, [facility], 165, cm, 01/13/23 10:56:00 EDT, Height, 88.8, [...] Personnel Name: Cristobal ROSARIO, Maribell Weldon Position: [facility] Primary Care Physician Member Role: PCP Address: Address: [address] [place] [address] Adult [place] [address]- Care Team Related Persons Name: JJ NORMAN Address: home [address] [place] [address] Name: RISHABH CASTELLON Address: [place] [address] Name: YEIMY CASTELLON Address: home [address] [place] [address] Name: DONNA ZELAYA Address: home [address] [place] [address] Name: JOSE RAFAEL VINCENT Address: [place] [address] Name: ABHAY SPAULDING Name: SAMANTHA TINEO Address: home [address] [place] [address]
--- OUTSIDE RECORDS SUMMARY | 2023-06-24 20:50 | XMS_ITS | Continuity of Care Document ---
Author Name Unknown Organization [facility] Address [address] [place] [address]- Care Team Providers Care Vegetable Ii Farmworker Name Role Phone Cristobal ROSARIO, Maribell Weldon Primary Care Physician Encounter [facility] Date(s): 04/22/22 - 05/22/[address] [facility] [place] [address] [place], [place] [address] Allergies, Adverse Reactions, Alerts Substance [...] G julián 1Result Comment: [facility] [id number] 2Result Comment: [07/17/2018] givne /out incident ncd: [id number] 3Result Comment: [09/30/2017] [facility] [id number] 4Admin Note: pt declined 5Admin Note: vis [...] each, Refills 0, Route to Pharmacy Electronically, [id number], [facility], 165, cm, 09/27/21 19:50:00 EST, Height, 89.9, kg, 09/27/21 19:50:0... Start Date: 02/12/22 Status: Ordered Vitamin D 21714 iu oral capsule 50,000 International_Units, By Mouth, [...]
--- OUTSIDE RECORDS SUMMARY | 2023-06-24 20:50 | XMS_ITS | Continuity of Care Document ---
Author Name Unknown Organization [facility] Address [address] [place] [address]- Care Team Providers Care Db2 Developer Name Role Phone Maribell Jain MD Primary Care Physician [phone] [facility] Date(s): 05/30/20 - 06/29/20 [facility] [address] [place] [address]- [facility] Allergies, Adverse Reactions, Alerts Substance Reaction [...] Diphth/Pertussis,Acel/Tetanus (oldterm) 89 G julián 1Result Comment: [facility] [id number] 2Result Comment: [07/17/2018] givne /out incident ncd: [id number] 3Result Comment: [09/30/2017] [facility] [id number] 4Admin Note: pt declined 5Admin Note: vis given Medications albuterol CFC free 90 mcg/inh inhalation aerosol 2, puffs, Inhalation, Every 6 hours, PRN, # 1 each, Refills 0, Tot. Refills 0, Maintenance, 12/19/18 18:17:12 EST, Aerosol, Route to Pharmacy Electronically, [id number], [facility]/pharmacy #1291 Start Date: 12/19/18 Stop Date: 01/18/19 Status: Ordered amLODIPine 5 mg oral tablet 5 mg, 1, tablet, By Mouth, Daily, # 30 tablet, Refills 2, Tot. Refills 2, Maintenance, 12/06/18 14:00:07 EST, Route to Pharmacy Electronically, [id number], [facility]/pharmacy #1291 Start Date: 12/06/18 Status: Ordered aspirin 81 mg oral tablet 1 tablet = 81 mg, By Mouth, Daily, # 90 tablet, 3 Refills, Maintenance, 04/23/20 15:01:00 EDT, [facility]/pharmacy #1291, 165, cm, 04/23/20 14:42:00 EDT, [...] 5 Refills, Maintenance, 01/16/20 9:40:00 EDT, Tablet, [facility]/pharmacy #1291, 165, cm, 12/17/19 8:59:00 EST, Height, 93.5, kg, 07/06/18 23:42:00 EDT, Dry Weight Start Date: 01/16/20 Status: Ordered metFORMIN 500 mg oral tablet, extended release 1 tablet = 500 mg, By Mouth, Daily, # 30 tablet, 0 Refills, Maintenance, 06/23/20 14:41:00 EDT, ER Tablet, [facility]/pharmacy #1291, metformin caused diarrhea/ bloating, 165, [...]
--- OUTSIDE RECORDS SUMMARY | 2023-06-24 20:50 | XMS_ITS | Continuity of Care Document ---
Author Name Unknown Organization [facility] Address [address] [place] [address]- Care Team Providers Care Senior Solutions Engineer Name Role Phone Cristobal ROSARIO, Maribell Weldon Primary Care Physician [facility] Date[facility]s): 12/22/20 - 12/29/20 [facility] [address] [place], [place] [address] Encounter Diagnosis Left knee pain(Discharge Diagnosis) - 12/22/20 Dysuria(Discharge Diagnosis) - 12/22/20 Attending Physician: Maribell Jain MD Allergies, Adverse [...] 89 G julián 1Result Comment: [facility] [id number] 2Result Comment: [07/17/2018] givne /out incident ncd: [id number] 3Result Comment: [09/30/2017] [facility] [id number] 4Admin Note: pt declined 5Admin Note: vis given Medications albuterol CFC free 90 mcg/inh inhalation aerosol 2, puffs, Inhalation, Every 6 hours, PRN, # 1 each, Refills 0, Tot. Refills 0, Maintenance, 12/19/18 18:17:12 EST, Aerosol, Route to Pharmacy Electronically, [id number], [facility]/pharmacy #1291 Start Date: 12/19/18 Stop Date: 01/18/19 Status: Ordered amLODIPine 5 mg oral tablet 5 mg, 1, tablet, By Mouth, Daily, # 30 tablet, Refills 2, Tot. Refills 2, Maintenance, 12/06/18 14:00:07 EST, Route to Pharmacy Electronically, [id number], [facility]/pharmacy #1291 Start Date: 12/06/18 Status: Ordered aspirin [...] Maintenance, 11/25/20 14:53:00 EST, ER Tablet, [facility]/pharmacy #1291, metformin ER not covered. patient cannot [...] Dates Health Status Cl inical Service Informant Left knee pain Discharge Diagnosis 12/22/20 Dysuria Discharge Diagnosis 12/22/20 Social History Social History Type Response Smoking Status Never smoker; Tobacc o user in household: No entered on: 05/09/14 Sex
--- OUTSIDE RECORDS SUMMARY | 2023-06-24 20:50 | XMS_ITS | Continuity of Care Document ---
Author Name Unknown Organization [facility] Address [address] [place] [address]- Care Team Providers Care Investigation Specialist Name Role Phone Cristobal ROSARIO, Maribell Weldon Primary Care Physician [phone] [facility]counter [facility] Date(s): 08/02/22 - 09/01/22 [facility] [address] [place], [place] [address] Attending Physician: Teja Monteiro MD Allergies, Adverse Reactions, Alerts Substance Reaction Severity Status Nuts Active Watermelon Active Immunizations Given and Recorded Vaccine Date Status Refusal Reason SARS-CoV-2 mRNA (gatpimw-iwnn-rvevc) vax 11/23/21 Recorded SARS-CoV-2 (COVID-19) mRNA BNT-162b2 [...] Diphth/Pertussis,Acel/Tetanus (oldterm) 89 G iven 1Result Comment: [facility] [id number] 2Result Comment: [07/17/2018] givne /out incident ncd: [id number] 3Result Comment: [09/30/2017] [facility] [id number] 4Admin Note: pt declined 5Admin Note: vis given Medications Aspirin Enteric Coated 81 mg oral delayed release tablet 1 tablet, By Mouth, Daily, # 90 tablet, 1 Refills, Maintenance, 04/22/22 9:02:00 EDT, [facility]/pharmacy #1291, Please cancel previous order [...] Refills, Soft Stop, 05/24/22 14:17:00 EDT, Tablet, [facility]/pharmacy #1291, Partial fill upon [...] each, Refills 0, Route to Pharmacy Electronically, [id number], [facility] 18987, 165, cm, 09/27/21 19:50:00 EST, Height, 89.9, kg, 09/27/21 19:50:0... Start Date: 02/12/22 Status: Ordered Vitamin D 44906 iu oral capsule 50,000 International_Units, By Mouth, [...] Personnel Name: Cristobal ROSARIO, Maribell Weldon Position: [facility] Primary Care Physician Member Role: PCP Address: Address: [address] [place] [address] Adult & [place] [address]- Care Team Related Persons Name: JJ NORMAN Address: home [address] [place] [address] Name: RISHABH CASTELLON Address: [place] [address] Name: YEIMY CASTELLON Address: home [address] [place] [address] Name: DONNA ZELAYA Address: home [address] [place] [address] Name: JOSE RAFAEL VINCENT Address: [place] [address] Name: ABHAY SPAULDING Name: SAMANTHA TINEO Address: home [address] [place] [address]
--- OUTSIDE RECORDS SUMMARY | 2023-06-24 20:50 | XMS_ITS | Continuity of Care Document ---
Author Name Unknown Organization [facility] Address [address] [place] [address]- Care Team Providers Care Computer Networking Instructor Adjunct Name Role Phone Maribell Jain MD Primary Care Physician [facility]): 10[facility]/19 - 11/02/19 [facility] [address] [place] [address]- [facility] Attending Physician: Maribell Jain MD Allergies, Adverse [...] Comment: [facility] [id number] 2Result Comment: [07/17/2018] givne /out incident ncd: [id number] 3Result Comment: [09/30/2017] [facility] [id number] 4Admin Note: pt declined 5Admin Note: vis given Medications albuterol CFC free 90 mcg/inh inhalation aerosol 2, puffs, Inhalation, Every 6 hours, PRN, # 1 each, Refills 0, Tot. Refills 0, Maintenance, 12/19/18 18:17:12 EST, Aerosol, Route to Pharmacy Electronically, [id number], [facility]/pharmacy #1291 Start Date: 12/19/18 Stop Date: 01/18/19 Status: Ordered amLODIPine 5 mg oral tablet 5 mg, 1, tablet, By Mouth, Daily, # 30 tablet, Refills 2, Tot. Refills 2, Maintenance, 12/06/18 14:00:07 EST, Route to Pharmacy Electronically, [id number], [facility]/pharmacy #[id number] Start Date: 12/06/18 Status: Ordered aspirin 81 mg oral tablet 1 tablet = 81 mg, By Mouth, Daily, # 30 tablet, 2 Refills, Maintenance, 09/14/19 14:06:20 EST Start Date: 09/14/19 Status: Ordered CPAP Machine See Instructions, # [...] Lite Test Strips See Instructions, # 100 strip(s), Maintenance, dx- E11.9 check sugars once daily, 10/26/19 11:47:00EST, Compound Start Date: 10/26/19 Status: Ordered metFORMIN 500 mg oral tablet 1 tablet = 500 mg, By Mouth, 2 times a day, # 60 tablet, 2 Refills, Maintenance, 09/14/19 14:06:08 EST, Tablet Start Date: 09/14/19 Status: Ordered Problem List Condition Effective Dates Status Health Status Inform ant Asthma(Confirmed) Active Depressive Disorder, Not Els ewhere Classified(Confirmed) 06/17/10 Active Diabetes mellitus(Confirmed) Active Esophageal reflux (GERD)(Confirmed) Active Hypertension(Confirmed) Active Impaired fasting glucose(Confirmed) Active Narcolepsy(Confirmed) Active Obstructive sleep apnea(Confirmed) Active Sickle cell trait(Confirmed) Active Vital Signs Most recent to oldest [Reference Range]: 1 Height 165 cm (10/26/19 11:26 AM) Weight 88.5 kg (10/26/19 11:26 AM) Oxygen Saturation [94-100 %] 98 % (10/26/19 11:26 AM) Pulse Rate [55-90 bpm] 76 bpm (10/26/19 11:26 AM) Body Mass Index [18.5-24.99] 32.51 *>HHI* (10/26/19 11:26 AM) Blood Pressure [90-138/55-84 mm Hg] 120/ 82mm Hg (10/26/19 11:26 AM) Mode of Delivery (Oxygen) Room air (10/26/19 11:26 AM) Blood pressure sites Arm, left (10/26/19 11:26 AM) Social History Social History Type Response Smoking Status Never smoker; Tobacc o user in household: No entered on: 05/09/14 Sex
--- OUTSIDE RECORDS SUMMARY | 2023-06-24 20:50 | XMS_ITS | Continuity of Care Document ---
Author Name Unknown Organization [facility] Address [address] [place] [address]- Care Team Providers Care Superintendent Radio Communications Name Role Phone Maribell Jain MD Primary Care Physician [phone] Encounter [facility] Date(s): 01/05/23 - 02/04/23 [facility] [address] [place] [address]- [place] Allergies, Adverse Reactions, Alerts Substance Reaction Severity Status Nuts Active Watermelon Active Immunizations Given and Recorded Vaccine Date Status Refusal Reason SARS-CoV-2 mRNA (xtjiaiw-umsi-quqbk) vax 11/23/21 Recorded SARS-CoV-2 (COVID-19) mRNA BNT-162b2 [...] Diphth/Pertussis,Acel/Tetanus (oldterm) 89 G julián 1Result Comment: [facility] [id number] 2Result Comment: [07/17/2018] givne /out incident ncd: [id number] 3Result Comment: [09/30/2017] [facility] [id number] 4Admin Note: pt declined 5Admin Note: vis [...] 1 Refills, Maintenance, 12/10/22 17:16:00 EST, Tablet, [facility]/pharmacy #[id number], Partial fill upon patient request if the prescription is for a schedule II opioid drug., 165, cm, 11/10/22 11:18:00 EST, Height,... Start Date: 12/10/22 Stop Date: 06/08/23 Status: Ordered metFORMIN 500 mg oral tablet, extended release 2 tablet = 1,000 mg, By Mouth, Daily, # 180 tablet, 1 Refills, Maintenance, 12/09/22 12:15:00 EST, ER Tablet, [facility]/pharmacy #[id number], stop synjardy, 165, cm, 11/10/22 [...] Refills, Maintenance, 01/14/23 8:57:00 EDT, [facility], 165, cm, 01/13/23 10:56:00 EDT, Height, 88.8, [...] Team Personnel Name: Maribell Jain MD Position: [facility] Primary Care Physician Member Role: PCP Address: Address: [address] [place] [address] Adult [place] [address]- [place] Care Team Related Persons Name: JJ NORMAN Address: home [address] [place] [address] Name: RISHABH CASTELLON Address: [place] [address] Name: YEIMY CASTELLON Address: home [address] [place] [address] Name: DONNA ZELAYA Address: home [address] [place] [address] Name: JOSE RAFAEL VINCENT Address: [place] [address] Name: ABHAY SPAULDING Name: SAMANTHA TINEO Address: home [address] [place] [address]
--- OUTSIDE RECORDS SUMMARY | 2023-06-24 20:50 | XMS_ITS | Continuity of Care Document ---
Author Name Unknown Organization [facility] Address [address] [place] [address]- Care Team Providers Care Canopy Inspector Name Role Phone Cristobal ROSARIO, Maribell Weldon Primary Care Physician [facility] Date[facility]s): 12/22/20 - 01/21/21 [facility] [address] [place], [place] [address] Attending Physician: May Braswell Admitting Physician: [...] Diphth/Pertussis,Acel/Tetanus (oldterm) 89 G julián 1Result Comment: [facility] [id number] 2Result Comment: [07/17/2018] givne /out incident ncd: [id number] 3Result Comment: [09/30/2017] [facility] [id number] 4Admin Note: pt declined 5Admin Note: vis given Medications albuterol CFC free 90 mcg/inh inhalation aerosol 2, puffs, Inhalation, Every 6 hours, PRN, # 1 each, Refills 0, Tot. Refills 0, Maintenance, 01/06/21 13:55:00 EDT, Aerosol, Route to Pharmacy Electronically, [id number], [facility]/pharmacy #1291, 165, cm, 06/23/20 13:39:00 EDT, Height Start Date: 01/06/21 Stop Date: 02/05/21 Status: Ordered amLODIPine 5 mg oral tablet 5 mg, 1, tablet, By Mouth, Daily, # 30 tablet, Refills 2, Tot. Refills 2, Maintenance, 12/06/18 14:00:07 EST, Route to Pharmacy Electronically, [id number], [facility]/pharmacy #1291 Start Date: 12/06/18 Status: [...] Refills, Soft Stop, 01/06/21 13:55:00 EDT, Tablet, [facility]/pharmacy #1291, Partial fill [...] Refills, Maintenance, 11/25/20 14:53:00 EST, ER Tablet, [facility]/pharmacy #1291, metformin ER not covered. [...]
--- OUTSIDE RECORDS SUMMARY | 2023-06-24 20:50 | XMS_ITS | Continuity of Care Document ---
Author Name Unknown Organization [facility] Address [address] [place] [address]- Care Team Providers Care Cloth Grader Supervisor Name Role Phone Cristobal ROSARIO, Maribell Weldon Primary Care Physician [facility] Date(s): 07/23/20 - 07/30/20 [facility] [address] [place] [address]- [facility] Encounter Diagnosis Depressive Disorder, Not Elsewhere Classified(Discharge Diagnosis) - 07/24/20 Diabetes mellitus(Discharge Diagnosis) - 07/24/20 Esophageal reflux (GERD)(Discharge Diagnosis) - 07/24/20 Narcolepsy(Discharge Diagnosis) - 07/24/20 Obstructive sleep apnea(Discharge Diagnosis) - 07/24/20 Obesity(Discharge Diagnosis) - 07/24/20 Attending Physician: Maribell Jain MD Allergies, Adverse [...] Diphth/Pertussis,Acel/Tetanus (oldterm) 89 G iven 1Result Comment: [facility] [id number] 2Result Comment: [07/17/2018] givne /out incident ncd: [id number] 3Result Comment: [09/30/2017] [facility] [phone] 4Admin Note: pt declined 5Admin Note: vis given Medications albuterol CFC free 90 mcg/inh inhalation aerosol 2, puffs, Inhalation, Every 6 hours, PRN, # 1 each, Refills 0, Tot. Refills 0, Maintenance, 12/19/18 18:17:12 EST, Aerosol, Route to Pharmacy Electronically, [id number], [facility]/pharmacy #1291 Start Date: 12/19/18 Stop Date: 01/18/19 Status: Ordered amLODIPine 5 mg oral tablet 5 mg, 1, tablet, By Mouth, Daily, # 30 tablet, Refills 2, Tot. Refills 2, Maintenance, 12/06/18 14:00:07 EST, Route to Pharmacy Electronically, [id number], [facility]/pharmacy #1291 Start Date: 12/06/18 Status: Ordered aspirin 81 mg oral tablet 1 tablet = 81 mg, By Mouth, Daily, # 90 tablet, 3 Refills, Maintenance, 04/23/20 15:01:00 EDT, [facility]/pharmacy #1291, 165, cm, 04/23/20 14:42:00 EDT, [...] Effective Dates Health Status Clinical Service Informant Depressive Disorder, Not Elsewhere Classified Discharge Diagnosis 07/24/20 Diabetes mellitus Discharge Diagnosis 07/24/20 Esophageal reflux (GERD) Discharge Diagnosis 07/24/20 Narcolepsy Discharge Diagnosis 07/24/20 Obstructive sleep apnea Discharge Diagnosis 07/24/20 Obesity Discharge Diagnosis 07/24/20 Social History Social History Type Response Smoking Status Never smoker; Tobacc o user in household: No entered on: 05/09/14 Sex
--- OUTSIDE RECORDS SUMMARY | 2023-06-24 20:50 | XMS_ITS | Continuity of Care Document ---
Author Name Unknown Organization [facility] Address [address] [place] [address]- Care Team Providers Care Steam Conditioner Filling Name Role Phone Maribell Jain MD Primary Care Physician [phone] [facility]counter [facility] Date(s): 08/04/21 - 08/11/21 [facility] [address] [place], [place] [address] Attending Physician: Maribell Jain MD Allergies, [...] Comment: [facility] [id number] 2Result Comment: [07/17/2018] givne /out incident ncd: [id number] 3Result Comment: [09/30/2017] [facility] [id number] 4Admin Note: pt declined 5Admin Note: vis given Medications albuterol CFC free 90 mcg/inh inhalation aerosol 2, puffs, Inhalation, Every 6 hours, PRN, # 1 each, Refills 0, Tot. Refills 0, Maintenance, 01/06/21 13:55:00 EDT, Aerosol, Route to Pharmacy Electronically, [id number], [facility]/pharmacy #1291, 165, cm, 06/23/20 13:39:00 EDT, Height Start Date: 01/06/21 Stop Date: 02/05/21 Status: Ordered amLODIPine 5 mg oral tablet 5 mg, 1, tablet, By Mouth, Daily, # 30 tablet, Refills 2, Tot. Refills 2, Maintenance, 12/06/18 14:00:07 EST, Route to Pharmacy Electronically, [id number], [facility]/pharmacy #1291 Start Date: 12/06/18 Status: Ordered Aspirin Enteric Coated 81 mg oral delayed release tablet 1 tablet, By Mouth, Daily, # 90 tablet, 3 Refills, Maintenance, 03/25/21 21:47:00 EDT, [facility], 165, cm, 06/23/20 13:39:00 EDT, Height Start [...] Refills, Maintenance, 07/02/21 12:28:00 EDT, ER Tablet, [facility]/pharmacy #1291, metformin ER not covered. [...] oldest [Reference Range]: 1 Height 165 cm (08/04/21 9:05 AM) Weight 88.1 kg (08/04/21 9:05 AM) Oxygen Saturation [94-100 %] 98 % (08/04/21 9:05 AM) Pulse Rate [55-90 bpm] 80 bpm (08/04/21 9:05 AM) Body Mass Index [18.5-24.99] 32.36 *>HHI* (08/04/21 9:05 AM) Blood Pressure [90-138/55-84 mm Hg] 122/ 82mm Hg (08/04/21 9:05 AM) Temperature [96.8-100.4 DegF] 98 DegF (08/04/21 9:05 AM) Mode of Delivery (Oxygen) Room air (08/04/21 9:05 AM) Blood pressure sites Arm, left (08/04/21 9:05 AM) Temperature Route Temporal (08/04/21 9:05 AM) Weight Obtained Via Standing scale (08/04/21 9:05 AM) Social History Social History Type Response Smoking Status Never smoker; Tobacc o user in household: No entered on: 05/09/14 Sex
--- OUTSIDE RECORDS SUMMARY | 2023-06-24 20:50 | XMS_ITS | Continuity of Care Document ---
Author Name Unknown Organization [facility] Address [address] [place] [address]- Care Team Providers Care Machine Heddle Cleaner Name Role Phone Maribell Jain MD Primary Care Physician [phone] Encounter [facility] Date(s): 06/07/23 - 06/08/[address] [address]- Discharge Disposition: A-D/C Home Attending Physician: Joseph Cruz DO Admitting Physician: Joseph Cruz DO Referring Physician: Not on Staff, Referring MD Allergies, Adverse Reactions, Alerts Substance Reaction Severity Status Nuts Active Watermelon Active Immunizations Given and Recorded Vaccine Date Status Refusal Reason SARS-CoV-2 mRNA (fpcyatj-zria-jzasw) vax 11/23/21 Recorded SARS-CoV-2 (COVID-19) mRNA BNT-162b2 vac 11/02/21 Recorded pneumococcal 23-valent vaccine 1 09/14/19 Given Influenza Virus Vaccine (oldterm) 08/24/19 Recorde d influenza virus vaccine, inactivated 2 07/17/18 Gi danita influenza virus vaccine, inactivated 3 09/30/17 Gi dnaita influenza virus vaccine, inactivated 4 11/13/10 Gi danita tetanus/diphtheria/pertussis, acel(Tdap) 12/30/16 Given tetanus-diphtheria toxoids (Td) 5 06/19/09 Given Diphth/Pertussis,Acel/Tetanus (oldterm) 89 G iven 1Result Comment: [facility] [id number] 2Result Comment: [07/17/2018] givne /out incident ncd: [id number] 3Result Comment: [09/30/2017] [facility] [id number] 4Admin Note: pt declined 5Admin Note: vis given Medications amLODIPine 5 mg oral tablet 1 tablet, By Mouth, Daily, # 90 tablet, 1 Refills, Maintenance, 05/16/23 23:07:00 EDT, [facility], 165, cm, 05/13/23 16:14:00 EDT, Height, 85.7, kg, 05/04/23 6:01:00 EDT, Dry Weight Start Date: 05/16/23 Status: Ordered Aspirin Enteric Coated 81 mg oral delayed release tablet 1 tablet, By Mouth, Daily, # 90 tablet, 3 Refills, Maintenance, 01/13/23 11:23:00 EDT, [facility]/pharmacy#1291, 165, cm, 01/13/23 10:56:00 EDT, Height, [...] Refills, Maintenance, 05/16/23 23:07:00 EDT, [facility], 165, cm, 05/13/23 16:14:00 EDT, Height, 85.7, [...] Confirmed Active Sickle cell trait Confirmed Active Results Radiology Reports * Exam Date Time Procedure Performing Provider Status 06/07/23 11:41 PM Chest 2 Views Frontal and Lat Gin Haile; Olvin (Verified) Notes: (Chest 2 Views Frontal and Lat) Reason For Exam: Shortness of Breath RESULT: Chest 2 Views Frontal and Lat Chest 2 Views Frontal and Lat Hx of Present Illness: Chest tightness starting tonight x couple hours, with feeling fo SOB. COMPARISON: 08/02/2022 FINDINGS: LINES AND TUBES: None. LUNGS AND PLEURA: Clear lungs. Normal pulmonary vascularity. No pleural effusion. No pneumothorax. HEART, MEDIASTINUM AND COURTNEY: Heart is normal in size. Normal mediastinal and hilar contour. BONES AND SOFT TISSUES: Normal. IMPRESSION: Normal. WSN: [id number] Ordering Physician: Joseph Cruz Dictated By: Garret Hill MD Dictated Date/Time: 06/07/23 11:44 p Reviewed By: Garret Hill MD Signed By: Garret Hill MD Signed Date/Time: 06/07/23 11:44 pm Transcribed By: TAMMIE Transcribed Date/Time: 06/07/23 11:44 pm Vital Signs Most recent to oldest [Reference Range]: 1 Height 165 cm (06/07/23 9:13 PM) Weight 86.1 kg (06/07/23 9:13 PM) Oxygen Saturation [94-100 %] 100 % (06/07/23 9:13 PM) Pulse Rate [55-90 bpm] 84 bpm (06/07/23 9:13 PM) Blood Pressure [90-138/55-84 mm Hg] 153/ 95mm Hg *H* (06/07/23 9:13 PM) Respiratory Rate [16-30 br/min] 16 br/mi n (06/07/23 9:13 PM) Temperature [96.8-100.4 DegF] 97.5 DegF (06/07/23 9:13 PM) Mode of Delivery (Oxygen) Room air (06/07/23 9:13 PM) Blood pressure sites Arm, right (06/07/23 9:13 PM) Temperature Route Temporal (06/07/23 9:13 PM) Dry Weight 86.1 kg (06/07/23 9:13 PM) Weight Obtained Via Standing scale (06/07/23 9:13 PM) Dry Weight Obtained Via Standing scale (06/07/23 9:13 PM) Social History Social History Type Response Smoking Status Never smoker; Tobacc o user in household: No entered on: 05/09/14 Sex Patient Care team information Care Team Personnel Name: Maribell Jain MD Position: [facility] Physician - Primary Care Member Role: PCP Address: Address: [address] [place] [address] Adult & [place] [address]- Name: Nelson RN, Sebas Position: [facility] ED RN W/OE and Tasks Member Role: Patient Care Provider Name: Mahogany Melendez Position: [facility] ED OA Name: Lorrie Ness Position: [facility] ED TA [facility] Member Role: Patient Care Provider Name: Joseph Cruz DO Position: [facility] ED Medicine MD Member Role: ED Attending Physician Address: Address: [address] [place] [address] [place] [address]- Care Team Related Persons Name: JJ NORMAN Address: home [address] [place] [address] Name: RISHABH CASTELLON Address: [place] [address] Name: YEIMY CASTELLON Address: home [address] [place] [address] Name: DONNA ZELAYA Address: home [address] [place] [address] Name: JOSE RAFAEL VINCENT Address: [place] [address] Name: ABHAY SPAULDING Name: SAMANTHA TINEO Address: home [address] [place] [address]
--- OUTSIDE RECORDS SUMMARY | 2023-06-24 20:50 | XMS_ITS | Continuity of Care Document ---
Author Name Unknown Organization [facility] Address [address] [place] [address]- Care Team Providers Care Building Analyst/Supervisor Name Role Phone Cristobal ROSARIO, Maribell Weldon Primary Care Physician [facility] Date[facility]s): 09/19/22 - 10/19/22 [facility] [address] [place], [place] [address] Allergies, Adverse Reactions, Alerts Substance Reaction Severity Status Nuts Active Watermelon Active Immunizations Given and Recorded Vaccine Date Status Refusal Reason SARS-CoV-2 mRNA (deycoxs-mnqe-evvdf) vax 11/23/21 Recorded SARS-CoV-2 (COVID-19) mRNA BNT-162b2 [...] Diphth/Pertussis,Acel/Tetanus (oldterm) 89 G julián 1Result Comment: [facility] [id number] 2Result Comment: [07/17/2018] givne /out incident ncd: [id number] 3Result Comment: [09/30/2017] [facility] [id number] 4Admin Note: pt declined 5Admin Note: vis [...] tablet, 1 Refills, Maintenance, 04/22/22 9:02:00 EDT, [facility]/pharmacy #1291, Please cancel previous order for [...] Refills, Maintenance, 09/13/22 9:47:00 EST, ER Tablet, [facility]/pharmacy #1291, stop synjardy, 165, cm, 09/13/22 9:05:00 [...] each, Refills 0, Route to Pharmacy Electronically, [id number], [facility], 165, cm, 09/27/21 19:50:00 EST, Height, 89.9, [...] Care Physician Member Role: PCP Address: Address: [address] [place] [address] Adult & Pediatric [place], [place] [address] Care Team Related Persons Name: JJ NORMAN Address: home [address] [place] [address] Name: RISHABH CASTELLON Address: [place] [address] Name: YEIMY CASTELLON Address: home [address] [place] [address] Name: DONNA ZELAYA Address: home [address] [place] [address] Name: JOSE RAFAEL VINCENT Address: [place] [address] Name: ABHAY SPAUDLING Name: SAMANTHA TINEO Address: home [address] [place] [address]
--- OUTSIDE RECORDS SUMMARY | 2023-06-24 20:50 | XMS_ITS | Continuity of Care Document ---
Author Name Unknown Organization [facility] Address [address] [place] [address]- Care Team Providers Care Facing Grinder Name Role Phone Maribell Jain MD Primary Care Physician [phone] Encounter [facility] Date(s): 09/09/21 - 09/16/[address] [address]- Attending Physician: Arleth Kuhn NP Admitting Physician: Arleth Kuhn NP Referring Physician: Maribell Jain MD Allergies, Adverse [...] Diphth/Pertussis,Acel/Tetanus (oldterm) 89 G julián 1Result Comment: [facility] [id number] 2Result Comment: [07/17/2018] givne /out incident ncd: [id number] 3Result Comment: [09/30/2017] [facility] [id number] 4Admin Note: pt declined 5Admin Note: vis given Medications albuterol CFC free 90 mcg/inh inhalation aerosol 2, puffs, Inhalation, Every 6 hours, PRN, # 1 each, Refills 0, Tot. Refills 0, Maintenance, 01/06/21 13:55:00 EDT, Aerosol, Route to Pharmacy Electronically, [id number], [facility]/pharmacy #1291, 165, cm, 06/23/20 13:39:00 EDT, Height Start Date: 01/06/21 Stop Date: 02/05/21 Status: Ordered amLODIPine 5 mg oral tablet 5 mg, 1, tablet, By Mouth, Daily, # 30 tablet, Refills 2, Tot. Refills 2, Maintenance, 12/06/18 14:00:07 EST, Route to Pharmacy Electronically, [id number], [facility]/pharmacy #1291 Start Date: 12/06/18 Status: Ordered Aspirin Enteric Coated 81 mg oral delayed release tablet 1 tablet, By Mouth, Daily, # 90 tablet, 3 Refills, Maintenance, 03/25/21 21:47:00 EDT, [facility], 165, cm, 06/23/20 13:39:00 EDT, Height Start [...] Refills, Maintenance, 07/02/21 12:28:00 EDT, ER Tablet, [facility]/pharmacy #1291, metformin ER [...]
--- OUTSIDE RECORDS SUMMARY | 2023-06-24 20:50 | XMS_ITS | Continuity of Care Document ---
Author Name Unknown Organization [facility] Address [address] [place] [address]- Care Team Providers Care Biomedical Equipment Specialist Name Role Phone Maribell Jain MD Primary Care Physician [facility] Date(s): 04/24/23 - 05/24/23 [facility] [address] [place], [place] [address] Allergies, Adverse Reactions, Alerts Substance Reaction Severity Status Nuts Active Watermelon Active Immunizations Given and Recorded Vaccine Date Status Refusal Reason SARS-CoV-2 mRNA (dnnxliq-qteb-yxcpc) vax 11/23/21 Recorded SARS-CoV-2 (COVID-19) mRNA BNT-162b2 [...] Diphth/Pertussis,Acel/Tetanus (oldterm) 89 G iven 1Result Comment: [facility] [id number] 2Result Comment: [07/17/2018] givne /out incident ncd: [id number] 3Result Comment: [09/30/2017] [facility] [id number] 4Admin Note: pt declined 5Admin Note: vis given Medications amLODIPine 5 mg oral tablet 1 tablet, By Mouth, Daily, # 90 tablet, 1 Refills, Maintenance, 05/16/23 23:07:00 EDT, [facility] STORE [address]3810, 165, cm, 05/13/23 16:14:00 EDT, Height, 85.7, kg, 05/04/23 6:01:00 EDT, Dry Weight Start Date: 05/16/23 Status: Ordered Aspirin Enteric Coated 81 mg oral delayed release tablet 1 tablet, By Mouth, Daily, # 90 tablet, 3 Refills, Maintenance, 01/13/23 11:23:00 EDT, [facility]/pharmacy#1291, 165, cm, 01/13/23 10:56:00 EDT, [...] Refills, Maintenance, 05/16/23 23:07:00 EDT, [facility], 165, cm, 05/13/23 16:14:00 EDT, Height, 85.7, [...] Team Personnel Name: Maribell Jain MD Position: [facility] Physician - Primary Care Member Role: PCP Address: Address: [address] [place] [address] Adult & [place] [address]- Care Team Related Persons Name: JJ NORMAN Address: home [address] [place] [address] Name: RISHABH CASTELLON Address: [place] [address] Name: YEIMY CASTELLON Address: home [address] [place] [address] Name: DONNA ZELAYA Address: home [address] [place] [address] Name: JOSE RAFAEL VINCENT Address: [place] [address] Name: ABHAY SPAULDING Name: SAMANTHA TINEO Address: home [address] [place] [address]
--- OUTSIDE RECORDS SUMMARY | 2023-06-24 20:50 | XMS_ITS | Continuity of Care Document ---
Author Name Unknown Organization [facility] Address [address] [place] [address]- Care Team Providers Care Wind Farm Engineer Name Role Phone Maribell Jain MD Primary Care Physician [phone] [facility] Date[facility]): 04/[facility]/21 - 05/06/21 [facility] [address] [place], [place] [address] Allergies, Adverse Reactions, Alerts [...] [facility] [id number] 2Result Comment: [07/17/2018] givne /out incident ncd: [id number] 3Result Comment: [09/30/2017] [facility] [id number] 4Admin Note: pt declined 5Admin Note: vis given Medications albuterol CFC free 90 mcg/inh inhalation aerosol 2, puffs, Inhalation, Every 6 hours, PRN, # 1 each, Refills 0, Tot. Refills 0, Maintenance, 01/06/21 13:55:00 EDT, Aerosol, Route to Pharmacy Electronically, [id number], [facility], 165, cm, 06/23/20 13:39:00 EDT, Height Start Date: 01/06/21 Stop Date: 02/05/21 Status: Ordered amLODIPine 5 mg oral tablet 5 mg, 1, tablet, By Mouth, Daily, # 30 tablet, Refills 2, Tot. Refills 2, Maintenance, 12/06/18 14:00:07 EST, Route to Pharmacy Electronically, [id number], [facility]1291 Start Date: 12/06/18 Status: Ordered Aspirin Enteric Coated 81 mg oral delayed release tablet 1 tablet, By Mouth, Daily, # 90 tablet, 3 Refills, Maintenance, 03/25/21 21:47:00 EDT, [facility] STORE [facility], 165, cm, 06/23/20 13:39:00 EDT, Height Start Date: 03/25/21 Status: Ordered Azithromycin 5 Day Dose Pack 250 mg oral tablet 1 pack/packet, By Mouth, Once, # 6 tablet, 0 Refills, Soft Stop, 01/06/21 13:55:00 EDT, Tablet, [facility]acy #1291, Partial fill upon patient request if [...] tablet, 0 Refills, Maintenance, 12/22/2110:32:00 EST, Tablet, [facility] #1291, 165, cm, 06/23/20 13:39:00 EDT, Height [...]
--- OUTSIDE RECORDS SUMMARY | 2023-06-24 20:50 | XMS_ITS | Continuity of Care Document ---
Author Name Unknown Organization [facility] Address [address] [place] [address]- Care Team Providers Care Advertising Writer Name Role Phone Cristobal ROSARIO, Maribell Weldon Primary Care Physician [phone] [facility] Date[facility]s): 06/11/22 - 08/25/22 [facility] [address] [place], [place] [address] Attending Physician: Maribell Jain MD Allergies, Adverse Reactions, Alerts Substance Reaction Severity Status Nuts Active Watermelon Active Immunizations Given and Recorded Vaccine Date Status Refusal Reason SARS-CoV-2 mRNA (ezsmcqw-omen-mjwst) vax 11/23/21 Recorded SARS-CoV-2 (COVID-19) mRNA BNT-162b2 [...] iven 1Result Comment: [facility] [id number] 2Result Comment: [07/17/2018] givne /out incident ncd: [id number] 3Result Comment: [09/30/2017] [facility] [id number] 4Admin Note: pt declined 5Admin Note: vis given Medications Aspirin Enteric Coated 81 mg oral delayed release tablet 1 tablet, By Mouth, Daily, # 90 tablet, 1 Refills, Maintenance, 04/22/22 9:02:00 EDT, [facility] #1291, Please cancel previous order for 3 [...] Refills, Soft Stop, 05/24/22 14:17:00 EDT, Tablet, [facility]/pharm[facility] #1291, Partial fill upon patient request if [...] each, Refills 0, Route to Pharmacy Electronically, [id number], [facility] STORE 8[facility]26, 165, cm, 09/27/21 19:50:00 EST, Height, 89.9, kg, 09/27/21 19:50:0... Start Date: 02/12/22 Status: Ordered Vitamin D 97333 iu oral capsule 50,000 International_Units, By Mouth, [...] on: 05/09/14 Sex Patient Care team information Personnel Name: Cristobal ROSARIO, Maribell Weldon Address: Address: [address] [place] [address] Adult & Pediatric Med [place], [place] [address]
--- OUTSIDE RECORDS SUMMARY | 2023-06-24 20:50 | XMS_ITS | Continuity of Care Document ---
Author Name Unknown Organization [facility] Address [address] [place] [address]- Care Team Providers Care Oracle Adf Consultant Name Role Phone Cristobal ROSARIO, Maribell Weldon Primary Care Physician [facility] 09/10/22 - 10/10/22 [facility] [address] [place], [place] [address] Allergies, Adverse Reactions, Alerts Substance Reaction Severity Status Nuts Active Watermelon Active Immunizations Given and Recorded Vaccine Date Status Refusal Reason SARS-CoV-2 mRNA (wdcsqng-ghsq-fbhtx) vax 11/23/21 Recorded SARS-CoV-2 (COVID-19) mRNA BNT-162b2 [...] Diphth/Pertussis,Acel/Tetanus (oldterm) 89 G ezeen 1Result Comment: [facility] [id number] 2Result Comment: [07/17/2018] givne /out incident ncd: [id number] 3Result Comment: [09/30/2017] [facility] [id number] 4Admin Note: pt declined 5Admin Note: vis given Medications amLODIPine 5 mg oral tablet 1 tablet = 5 mg, By Mouth, Daily, # 30 tablet, 0 Refills, Maintenance, 09/13/22 9:49:00 EST, Tablet, [facility], in addition to losartan, 165, cm, 09/13/22 9:05:00 EST, Height, 85, kg, 09/12/22 4:32:00 EST, Dry Weight Start Date: 09/13/22 Stop Date: 10/13/22 Status: Ordered Aspirin Enteric Coated 81 mg [...] 1 tablet = 150 mg, By Mouth, Every week, for 4 week(s), # 4 tablet, 0 Refills, Acute 10/11/22 9:44:00 EST, 09/13/22 9:44:00 EST, Tablet, [facility]/pharmacy #1291, Partial fill upon patient request if the prescription is for a schedule II opioid drug., 165,... Start Date: 09/13/22 Stop Date: 10/11/22 Status: Ordered FREESTYLE 28G LANCETS FREESTYLE 28G [...] Refills, Maintenance, 09/13/22 9:47:00 EST, ER Tablet, [facility]/pharmacy #1291, stop synjardy, 165, cm, 09/13/22 [...] each, Refills 0, Route to Pharmacy Electronically, [id number], [facility] STORE 72056, 165, cm, 09/27/21 19:50:00 EST, Height, 89.9, [...] Personnel Name: Cristobal ROSARIO, Maribell Weldon Position: S Primary Care Physician Member Role: PCP Address: Address: [address] [place] [address] Adult [place] [address]- Care Team Related Persons Name: JJ NORMAN Address: home [address] [place] [address] Name: RISHABH CASTELLON Address: [place] [address] Name: YEIMY CASTELLON Address: home [address] [place] [address] Name: DONNA ZELAYA Address: home [address] [place] [address] Name: JOSE RAFAEL VINCENT Address: [place] [address] Name: ABHAY SPAULDING Name: SAMANTHA TINEO Address: home [address] [place] [address]
--- OUTSIDE RECORDS SUMMARY | 2023-06-24 20:50 | XMS_ITS | Continuity of Care Document ---
Author Name Unknown Organization [facility] Address [address] [place] [address]- Care Team Providers Care Spool Sander Name Role Phone Maribell Jain MD Primary Care Physician [phone] En[facility] Date(s): 05/19/20 - 05/26/20 [facility] [address] [place] [address]- [facility] Attending Physician: Maribell Jain MD Allergies, [...] julián 1Result Comment: [facility] [id number] 2Result Comment: [07/17/2018] givne /out incident ncd: [id number] 3Result Comment: [09/30/2017] [facility] [id number] 4Admin Note: pt declined 5Admin Note: vis given Medications albuterol CFC free 90 mcg/inh inhalation aerosol 2, puffs, Inhalation, Every 6 hours, PRN, # 1 each, Refills 0, Tot. Refills 0, Maintenance, 12/19/18 18:17:12 EST, Aerosol, Route to Pharmacy Electronically, [id number], [facility]/pharmacy #1291 Start Date: 12/19/18 Stop Date: 01/18/19 Status: Ordered amLODIPine 5 mg oral tablet 5 mg, 1, tablet, By Mouth, Daily, # 30 tablet, Refills 2, Tot. Refills 2, Maintenance, 12/06/18 14:00:07 EST, Route to Pharmacy Electronically, [id number], [facility]/pharmacy #1291 Start Date: 12/06/18 Status: Ordered aspirin 81 mg oral tablet 1 tablet = 81 mg, By Mouth, Daily, # 90 tablet, 3 Refills, Maintenance, 04/23/20 15:01:00 EDT, [facility]/pharmacy #1291, 165, cm, 04/23/20 14:42:00 EDT, Height, [...] 5 Refills, Maintenance, 01/16/20 9:40:00 EDT, Tablet, [facility]/pharmacy #1291, 165, cm, 12/17/19 8:59:00 EST, Height, 93.5, kg, 07/06/18 23:42:00 EDT, Dry Weight Start Date: 01/16/20 Status: Ordered Problem List Condition Effective Dates Status Health Status Inform ant Asthma(Confirmed) Active Depressive Disorder, Not Els ewhere Classified(Confirmed) 06/17/10 Active Diabetes mellitus(Confirmed) Active Esophageal reflux (GERD)(Confirmed) Active Hypertension(Confirmed) Active Impaired fasting glucose(Confirmed) Active Narcolepsy(Confirmed) Active Obstructive sleep apnea(Confirmed) Active Sickle cell trait(Confirmed) Active Vital Signs Most recent to oldest [Reference Range]: 1 Height 165 cm (05/19/20 3:08 PM) Weight 91.7 kg (05/19/20 3:08 PM) Oxygen Saturation [94-100 %] 97 % (05/19/20 3:08 PM) Pulse Rate [55-90 bpm] 85 bpm (05/19/20 3:08 PM) Body Mass Index [18.5-24.99] 33.68 *>HHI* (05/19/20 3:08 PM) Blood Pressure [90-138/55-84 mm Hg] 118/ 74mm Hg (05/19/20 3:08 PM) Temperature [96.8-100.4 DegF] 97.7 DegF (05/19/20 3:08 PM) Mode of Delivery (Oxygen) Room air (05/19/20 3:08 PM) Blood pressure sites Arm, left (05/19/20 3:08 PM) Temperature Route Temporal (05/19/20 3:08 PM) Weight Obtained Via Standing scale (05/19/20 3:08 PM) Social History Social History Type Response Smoking Status Never smoker; Tobacc o user in household: No entered on: 05/09/14 Sex
--- OUTSIDE RECORDS SUMMARY | 2023-06-24 20:50 | XMS_ITS | Continuity of Care Document ---
Author Name Unknown Organization [facility] Address [address] [place] [address]- Care Team Providers Care Insulation Cupola Operator Name Role Phone Maribell Jain MD Primary Care Physician [place] [facility] [place] 06/09[place]20 - 06/16/20 [facility] [address] [place] [address]- [facility] Attending Physician: Not on Staff, Attending MD Allergies, Adverse Reactions, Alerts Substance Reaction [...] julián 1Result Comment: [facility] [id number] 2Result Comment: [07/17/2018] givne /out incident ncd: [id number] 3Result Comment: [09/30/2017] [facility] [id number] 4Admin Note: pt declined 5Admin Note: vis given Medications albuterol CFC free 90 mcg/inh inhalation aerosol 2, puffs, Inhalation, Every 6 hours, PRN, # 1 each, Refills 0, Tot. Refills 0, Maintenance, 12/19/18 18:17:12 EST, Aerosol, Route to Pharmacy Electronically, [id number], [facility]/pharmacy #1291 Start Date: 12/19/18 Stop Date: 01/18/19 Status: Ordered amLODIPine 5 mg oral tablet 5 mg, 1, tablet, By Mouth, Daily, # 30 tablet, Refills 2, Tot. Refills 2, Maintenance, 12/06/18 14:00:07 EST, Route to Pharmacy Electronically, [id number], [facility]/pharmacy #1291 Start Date: 12/06/18 Status: Ordered aspirin 81 mg oral tablet 1 tablet = 81 mg, By Mouth, Daily, # 90 tablet, 3 Refills, Maintenance, 04/23/20 15:01:00 EDT, [facility]/pharmacy #1291, 165, cm, 04/23/20 14:42:00 EDT, Height, 93.5, kg, 07/06/18 23:42:00 EDT, Dry Weight Start Date: 04/23/20 Stop Date: 04/18/21 Status: Ordered CPAP Machine See Instructions, # 1 each, Maintenance, BiPAP / with heated humidification and compliance data to [...] 5 Refills, Maintenance, 01/16/20 9:40:00 EDT, Tablet, [facility]/pharmacy #1291, 165, cm, 12/17/19 8:59:00 EST, Height, [...]
--- OUTSIDE RECORDS SUMMARY | 2023-06-24 20:50 | XMS_ITS | Continuity of Care Document ---
Author Name Unknown Organization [facility] Address [address] [place] [address]- Care Team Providers Care Lamp Shade Sewer Name Role Phone Maribell Jain MD Primary Care Physician [phone] Encounter [facility] Date(s): 01/06/21 - 01/13/21 [facility] [address] [place] [address]- Encounter Diagnosis Cough(Discharge Diagnosis) - 01/06/21 Attending Physician: Alex Ramirez MD Admitting Physician: Alex Ramirez MD Allergies, Adverse Reactions, Alerts Substance Reaction [...] Diphth/Pertussis,Acel/Tetanus (oldterm) 89 G julián 1Result Comment: [facility] [id number] 2Result Comment: [07/17/2018] givne /out incident ncd: [id number] 3Result Comment: [09/30/2017] [facility] [id number] 4Admin Note: pt declined 5Admin Note: vis given Medications albuterol CFC free 90 mcg/inh inhalation aerosol 2, puffs, Inhalation, Every 6 hours, PRN, # 1 each, Refills 0, Tot. Refills 0, Maintenance, 01/06/21 13:55:00 EDT, Aerosol, Route to Pharmacy Electronically, [id number], [facility]/pharmacy #1291, 165, cm, 06/23/20 13:39:00 EDT, Height Start Date: 01/06/21 Stop Date: 02/05/21 Status: Ordered amLODIPine 5 mg oral tablet 5 mg, 1, tablet, By Mouth, Daily, # 30 tablet, Refills 2, Tot. Refills 2, Maintenance, 12/06/18 14:00:07 EST, Route to Pharmacy Electronically, [id number], [facility] Start Date: 12/06/18 Status: Ordered [...] Refills, Soft Stop, 01/06/21 13:55:00 EDT, Tablet, [facility]/pharmacy #1291, Partial fill upon patient request [...] Diagnosis Diagnosis Type Effective Dates Health Status Clini atul Service Informant Cough Discharge Diagnosis 01/06/21 Social History Social History Type Response Smoking Status Never smoker; Tobacc o user in household: No entered on: 05/09/14 Sex
--- OUTSIDE RECORDS SUMMARY | 2023-06-24 20:50 | XMS_ITS | Continuity of Care Document ---
Author Name Unknown Organization [facility] Address [address] [place] [address]- Care Team Providers Care Mathematics Technician Name Role Phone Cristobal ROSARIO, Maribell Weldon Primary Care Physician [facility]): 08/[facility]/22 - 09/05/22 [facility] [address] [place], [place] [address] Allergies, Adverse Reactions, Alerts Substance Reaction Severity Status Nuts Active Watermelon Active Immunizations Given and Recorded Vaccine Date Status Refusal Reason SARS-CoV-2 mRNA (mktmfer-jfoi-kqnno) vax 11/23/21 Recorded SARS-CoV-2 (COVID-19) mRNA BNT-162b2 [...] Diphth/Pertussis,Acel/Tetanus (oldterm) 89 G iven 1Result Comment: [facility] [id number] 2Result Comment: [07/17/2018] givne /out incident ncd: [id number] 3Result Comment: [09/30/2017] [facility] [id number] 4Admin Note: pt declined 5Admin Note: vis [...] Refills, Soft Stop, 05/24/22 14:17:00 EDT, Tablet, [facility]/pharmacy #1291, Partial fill upon patient [...] each, Refills 0, Route to Pharmacy Electronically, [id number], [facility] STORE 54134, 165, cm, 09/27/21 19:50:00 EST, Height, 89.9, kg, 09/27/21 19:50:0... Start Date: 02/12/22 Status: Ordered Vitamin D 94390 iu oral capsule 50,000 International_Units, By Mouth, [...] Personnel Name: Cristobal ROSARIO, Maribell Weldon Position: [facility] Primary Care Physician Member Role: PCP Address: Address: [address] [place] [address] Adult & [place] [address]- Care Team Related Persons Name: JJ NORMAN Address: home [address] [place] [address] Name: RISHABH CASTELLON Address: [place] [address] Name: YEIMY CASTELLON Address: home [address] [place] [address] Name: DONNA ZELAYA Address: home [address] [place] [address] Name: JOSE RAFAEL VINCENT Address: [place] [address] Name: ABHAY SPAULDING Name: SAMANTHA TINEO Address: home [address] [place] [address]
--- OUTSIDE RECORDS SUMMARY | 2023-06-24 20:50 | XMS_ITS | Continuity of Care Document ---
Author Name Unknown Organization [facility] Address [address] [place] [address]- Care Team Providers Care Swim Instructor Name Role Phone Cristobal ROSARIO, Maribell Weldon Primary Care Physician [phone] [facility]s): 12/16/21 - 01/15/22 [facility] [address] [place], [place] [address] Allergies, Adverse Reactions, Alerts Substance Reaction [...] Diphth/Pertussis,Acel/Tetanus (oldterm) 89 Regan gallego 1Result Comment: [facility] [id number] 2Result Comment: [07/17/2018] givne /out incident ncd: [id number] 3Result Comment: [09/30/2017] [facility] [id number] 4Admin Note: pt declined 5Admin Note: vis given Medications amLODIPine 5 mg oral tablet 5 mg, 1, tablet, By Mouth, Daily, # 30 tablet, Refills 2, Tot. Refills 2, Maintenance, 12/06/18 14:00:07 EST, Route to Pharmacy Electronically, [id number], [facility]/pharmacy #1291 Start Date: 12/06/18 Status: Ordered Aspirin Enteric Coated 81 mg oral delayed release tablet 1 tablet, By Mouth, Daily, # 90 tablet, 3 Refills, Maintenance, 03/25/21 21:47:00 EDT, [facility], 165, cm, 06/23/20 13:39:00 EDT, Height Start [...] Mouth, Daily, # 180 tablet, 0 Refills, [facility] STORE 04777, 165, cm, 09/27/21 19:50:00 EST, Height, 89.9, [...] each, Refills 0, Route to Pharmacy Electronically, [id number], [facility], 165, cm, 09/27/21 19:50:00 EST, Height, 89.9, kg, 09/27/21 19:50:0... Start Date: 01/06/22 Status: Ordered VITAMIN D3 2,000 UNIT TABLET [...]
--- OUTSIDE RECORDS SUMMARY | 2023-06-24 20:50 | XMS_ITS | Continuity of Care Document ---
Author Name Unknown Organization [facility][1] Adult and Ped[facility] Address [address] [place] [address]- Care Team Providers Care Writer Editor Name Role Phone Maribell Jain MD Primary Care Physician [phone] [facility] Date(s): 01/16/23 - 02/15/23 [facility][1] Adult and Ped[facility] [address] [place], [place] [address] Allergies, Adverse Reactions, Alerts Substance Reaction Severity Status Nuts Active Watermelon Active Immunizations Given and Recorded Vaccine Date Status Refusal Reason SARS-CoV-2 mRNA (ictljhg-gsxd-dahju) vax 11/23/21 Recorded SARS-CoV-2 (COVID-19) mRNA BNT-162b2 [...] Diphth/Pertussis,Acel/Tetanus (oldterm) 89 G julián 1Result Comment: [facility] [id number] 2Result Comment: [07/17/2018] givne /out incident ncd: [id number] 3Result Comment: [09/30/2017] [facility] [id number] 4Admin Note: pt declined 5Admin Note: vis given Medications amLODIPine 5 mg oral tablet 1 tablet = 5 mg, By Mouth, Daily, # 90 tablet, 1 Refills, Maintenance, 12/14/22 10:33:00 EST, Tablet, [facility]/pharmacy #1291, in addition to losartan, 165, cm, 12/14/22 10:08:00 EST, Height, 85, kg, 09/12/22 4:32:00 EST, Dry Weight Start Date: 12/14/22 Stop Date: 06/12/23 Status: Ordered Aspirin Enteric Coated 81 mg oral delayed release tablet 1 tablet, By Mouth, Daily, # 90 tablet, 3 Refills, Maintenance, 01/13/23 11:23:00 EDT, [facility]/pharmacy#1291, 165, cm, 01/13/23 10:56:00 EDT, Height, [...] Maintenance, 12/10/22 17:16:00 EST, Tablet, [facility]/pharmacy #1291, Partial fill upon patient request if the prescription is for a schedule II opioid drug., 165, cm, 11/10/22 11:18:00 EST, Height,... Start Date: 12/10/22 Stop Date: 06/08/23 Status: Ordered metFORMIN 500 mg oral tablet, extended release 2 tablet = 1,000 mg, By Mouth, Daily, # 180 tablet, 1 Refills, Maintenance, 12/09/22 12:15:00 EST, ER Tablet, [facility]/pharmacy #1291, stop synjardy, 165, cm, 11/10/22 [...] Refills, Maintenance, 01/14/23 8:57:00 EDT, [facility], 165, cm, 01/13/23 10:56:00 EDT, Height, 88.8, [...] Personnel Name: Cristobal ROSARIO, Maribell Weldon Position: [facility] Primary Care Physician Member Role: PCP Address: Address: [address] [place] [address] Adult & [place] [address]- Care Team Related Persons Name: JJ NORMAN Address: home [address] [place] [address] Name: RISHABH CASTELLON Address: [place] [address] Name: YEIMY CASTELLON Address: home [address] [place] [address] Name: DONNA ZELAYA Address: home [address] [place] [address] Name: JOSE RAFAEL VINCENT Address: [place] [address] Name: ABHAY SPAULDING Name: SAMANTHA TINEO Address: home [address] [place] [address]
--- OUTSIDE RECORDS SUMMARY | 2023-06-24 20:50 | XMS_ITS | Continuity of Care Document ---
Author Name Unknown Organization [facility] Address [address] [place] [address]- Care Team Providers Care Helper Animal Laboratory Name Role Phone Maribell Jain MD Primary Care Physician [phone] Encounter [facility] Date(s): 05/13/23 - 05/20/23 [facility] [address] [place], [place] [address] Attending Physician: Maribell Jain MD Allergies, Adverse Reactions, Alerts Substance Reaction Severity Status Nuts Active Watermelon Active Immunizations Given and Recorded Vaccine Date Status Refusal Reason SARS-CoV-2 mRNA (htstkfz-fgvr-ygewn) vax 11/23/21 Recorded SARS-CoV-2 (COVID-19) mRNA BNT-162b2 [...] Diphth/Pertussis,Acel/Tetanus (oldterm) 89 G julián 1Result Comment: [facility] [id number] 2Result Comment: [07/17/2018] givne /out incident ncd: [id number] 3Result Comment: [09/30/2017] [facility] [id number] 4Admin Note: pt declined 5Admin Note: vis given Medications amLODIPine 5 mg oral tablet 1 tablet, By Mouth, Daily, # 90 tablet, 1 Refills, Maintenance, 05/16/23 23:07:00 EDT, [facility], 165, cm, 05/13/23 16:14:00 EDT, Height, 85.7, kg, 05/04/23 6:01:00 EDT, Dry Weight Start Date: 05/16/23 Status: Ordered Aspirin Enteric Coated 81 mg oral delayed release tablet 1 tablet, By Mouth, Daily, # 90 tablet, 3 Refills, Maintenance, 01/13/23 11:23:00 EDT, [facility]/pharmacy#1291, 165, cm, 01/13/23 10:56:00 EDT, Height, [...] Refills, Maintenance, 05/16/23 23:07:00 EDT, [facility], 165, cm, 05/13/23 16:14:00 EDT, Height, 85.7, [...] oldest [Reference Range]: 1 Height 165 cm (05/13/23 4:14 PM) Weight 85 kg (05/13/23 4:14 PM) Oxygen Saturation [94-100 %] 100 % (05/13/23 4:14 PM) Pulse Rate [55-90 bpm] 70 bpm (05/13/23 4:14 PM) Body Mass Index [18.5-24.99 kg/m2] 31.22 kg/m2 *>HHI* (05/13/23 4:14 PM) Blood Pressure [90-138/55-84 mm Hg] 129/ 87mm Hg (05/13/23 4:14 PM) Mode of Delivery (Oxygen) Room air (05/13/23 4:14 PM) Blood pressure sites Arm, left (05/13/23 4:14 PM) Weight Obtained Via Standing scale (05/13/23 4:14 PM) Social History Social History Type Response Smoking Status Never smoker; Tobacc o user in household: No entered on: 05/09/14 Sex Patient Care team information Care Team Personnel Name: Cristobal ROSARIO, Maribell Weldon Position: [facility] Physician - Primary Care Member Role: PCP Address: Address: [address] [place] [address] [place] [address]- Care Team Related Persons Name: JJ NORMAN Address: home [address] [place] [address] Name: RISHABH CASTELLON Address: [place] [address] Name: YEIMY CASTELLON Address: home [address] [place] [address] Name: DONNA ZELAYA Address: home [address] [place] [address] Name: JOSE RAFAEL VINCENT Address: [place] [address] Name: ABHAY SPAULDING Name: SAMANTHA TINEO Address: home [address] [place] [address]
--- OUTSIDE RECORDS SUMMARY | 2023-06-24 20:50 | XMS_ITS | Continuity of Care Document ---
Author Name Unknown Organization [facility] Address [address] [place] [address]- Care Team Providers Care Bricklayer Apprentice Name Role Phone Maribell Jain MD Primary Care Physician [phone] [facility] Date[facility]): 04/26/20 - 05/26/20 [facility] [address] [place] [address]- [facility] Allergies, Adverse Reactions, Alerts Substance Reaction [...] Diphth/Pertussis,Acel/Tetanus (oldterm) 89 G julián 1Result Comment: [facility] [id number] 2Result Comment: [07/17/2018] givne /out incident ncd: [id number] 3Result Comment: [09/30/2017] [facility] [id number] 4Admin Note: pt declined 5Admin Note: vis given Medications albuterol CFC free 90 mcg/inh inhalation aerosol 2, puffs, Inhalation, Every 6 hours, PRN, # 1 each, Refills 0, Tot. Refills 0, Maintenance, 12/19/18 18:17:12 EST, Aerosol, Route to Pharmacy Electronically, [id number], [facility]/pharmacy #[id number] Start Date: 12/19/18 Stop Date: 01/18/19 Status: Ordered amLODIPine 5 mg oral tablet 5 mg, 1, tablet, By Mouth, Daily, # 30 tablet, Refills 2, Tot. Refills 2, Maintenance, 12/06/18 14:00:07 EST, Route to Pharmacy Electronically, [id number], [facility]/pharmacy #[id number] Start Date: 12/06/18 Status: Ordered aspirin 81 mg oral tablet 1 tablet = 81 mg, By Mouth, Daily, # 90 tablet, 3 Refills, Maintenance, 04/23/20 15:01:00 EDT, [facility]/pharmacy #[id number], 165, cm, 04/23/20 [...]
--- OUTSIDE RECORDS SUMMARY | 2023-06-24 20:50 | XMS_ITS | Continuity of Care Document ---
Author Name Unknown Organization [facility] Address [address] [place] [address]- Care Team Providers Care Collar Setter Name Role Phone Maribell Jain MD Primary Care Physician [phone] [id number] Date(s): 11/10/22 - 11/17/22 [facility] [address] [place] [address]- Attending Physician: Maribell Jain MD Allergies, Adverse Reactions, Alerts Substance Reaction Severity Status Nuts Active Watermelon Active Immunizations Given and Recorded Vaccine Date Status Refusal Reason SARS-CoV-2 mRNA (jzzsraz-hkur-gispf) vax 11/23/21 Recorded SARS-CoV-2 (COVID-19) mRNA BNT-162b2 [...] Diphth/Pertussis,Acel/Tetanus (oldterm) 89 G iven 1Result Comment: [facility] [id number] 2Result Comment: [07/17/2018] givne /out incident ncd: [id number] 3Result Comment: [09/30/2017] [facility] [id number] 4Admin Note: pt declined 5Admin Note: vis [...] Refills, Maintenance, 09/13/22 9:47:00 EST, ER Tablet, [facility]/pharmacy #[id number], stop synjardy, 165, cm, 09/13/22 9:05:00 EST, Height, 85, kg, 09/12/224:32:00 EST, Dry Weight Start Date: 09/13/22 Stop [...] each, Refills 0, Route to Pharmacy Electronically, [id number], [facility], 165, cm, 09/27/21 19:50:00 EST, Height, 89.9, [...] oldest [Reference Range]: 1 Height 165 cm (11/10/22 11:18 AM) Weight 85.9 kg (11/10/22 11:18 AM) Oxygen Saturation [94-100 %] 99 % (11/10/22 11:18 AM) Pulse Rate [55-90 bpm] 91 bpm *H* (11/10/22 11:18 AM) Body Mass Index [18.5-24.99 kg/m2] 31.55 kg/m2 *>HHI* (11/10/22 11:18 AM) Blood Pressure [90-138/55-84 mm Hg] 124/ 74mm Hg (11/10/22 11:18 AM) Mode of Delivery (Oxygen) Room air (11/10/22 11:18 AM) Blood pressure sites Arm, right (11/10/22 11:18 AM) Weight Obtained Via Standing scale (11/10/22 11:18 AM) Social History Social History Type Response Smoking Status Never smoker; Tobacc o user in household: No entered on: 05/09/14 Sex Note * Jacquelin Beckman: PERFORM, SIGN, VERIFY Event Display: Patient Education/Instruction Authored Date: [id number] [facility] *[facility] Clinical Summary Name CAROL REDMAN Age 32 Years 1990 PCP Cristobal ROSARIO, Maribell [place] PCP Visit Date 11/10/2022 11:14:00 Patient Instructions use bipap get sleep routine to regular pattenr first continue medications do fasting blood work before next visit home exercise for neck and back pain Additional Instructions: Scheduled Appointments?? Future Appointments ?*No??[facility] ?[address]??[place],??[place],??[address] ?Phone:??--?Fax:??-- ?Appt. Date:??12/14/2022?9:50 AM ?Scheduled Provider:??Cristobal ROSARIO , Maribell [place] Follow-Up Instructions ?? Diagnosis Body mass index [BMI] 30.0-30.9, adult; Low back pain, unspecified; Cervicalgia Medications: Please continue your medications until treatment is completed or stopped by your provider. Discuss any questions related to medications with your provider. New Medications [id number] [address], [place] [id number], [phone] Diclofenac (diclofenac sodium 50 mg oral delayed release tablet) 1 tab(s) Oral twice a day for 14 Days. with food. Refills: 0. Next Dose: Medications to Continue with No Changes These medications were not printed or sent to your pharmacy Albuterol (ProAir HFA 90 mcg/inh inhalation aerosol with adapter) 2 puff(s) Inhalation every 6 hours as needed. WHEEZING/SHORTNESS OF BREATH.. Refills: 0. Next Dose: Amlodipine (amLODIPine 5 mg oral tablet) 1 tab(s) Oral Daily for 90 Days. Refills: 0. Next Dose: Aspirin (Aspirin Enteric [...] Nuts Medications Given This Visit Future Orders ?Vitamin D 25 Hydroxy Level? Order Date:11/10/22?- Complete on or after?11/10/22 ?Renal Panel? Order Date:11/10/22?- Complete on or after?11/10/22 ?Lyme Disease Ab Screen? Order Date:11/10/22?- Complete on or after?11/10/22 ?RAPHAEL Screen? Order Date:11/10/22?- Complete on or after?11/10/22 ?Rheumatoid Factor Qual? Order Date:11/10/22?- Complete on or after?11/10/22 ?CPK w/ Reflex CKMB? Order Date:11/10/22?- Complete on or after?11/10/22 ?Sedimentation Rate? Order Date:11/10/22?- Complete on or after?11/10/22 Vital Signs Height 165 cm Weight 85.9 kg BMI 31.55 kg/m2 Blood Pressure 124 mm Hg/74 mm Hg Temperature Pulse Rate 91 bpm Respiratory Rate 02 Sat Mode of Delivery 99 %/Room air You can now view a summary of your hospital visit from the comfort of your home through a free online portal called [employer]. [employer] is a website that allows you to securely view your medical information including discharge summary, medications and follow-up visits. ??You can alsosend a secure electronic message to your doctor???s office to request appointments, renew medications or just ask a question. You can enroll at [email or web address] or register during your next office visit. [...] primary care provider, you may find a [facility] provider by calling [facility] [employer] [facility] at [phone]. For information about the plan of care [...] Personnel Name: Cristobal ROSARIO, Maribell [place] Position: [facility] Primary Care Physician Member Role: PCP Address: Address: [address] [place] [address] Adult [place] [address]- Care Team Related Persons Name: JJ NORMAN Address: home [address] [place] [address] Name: RISHABH CASTELLON Address: [place] [address] Name: YEIMY CASTELLON Address: home [address] [place] [address] Name: DONNA ZELAYA Address: home [address] [place] [address] Name: JOSE RAFAEL VINCENT Address: [place] [address] Name: ABHAY SPAULDING Name: SAMANTHA TINEO Address: home [address] [place] [address]
--- OUTSIDE RECORDS SUMMARY | 2023-06-24 20:51 | XMS_ITS | Continuity of Care Document ---
Author Name Unknown Organization [facility] Address [address] [place] [address]- Care Team Providers Care Service And Repair Supervisor Name Role Phone Maribell Jain MD Primary Care Physician [facility] Date[facility]s): 06/14/20 - 07/14/20 [facility] [address] [place] [address]- [facility] Allergies, Adverse Reactions, Alerts Substance Reaction [...] julián 1Result Comment: [facility] [id number] 2Result Comment: [07/17/2018] givne /out incident ncd: [id number] 3Result Comment: [09/30/2017] [facility] [id number] 4Admin Note: pt declined 5Admin Note: vis given Medications albuterol CFC free 90 mcg/inh inhalation aerosol 2, puffs, Inhalation, Every 6 hours, PRN, # 1 each, Refills 0, Tot. Refills 0, Maintenance, 12/19/18 18:17:12 EST, Aerosol, Route to Pharmacy Electronically, [id number], [facility]/pharmacy #[id number] Start Date: 12/19/18 Stop Date: 01/18/19 Status: Ordered amLODIPine 5 mg oral tablet 5 mg, 1, tablet, By Mouth, Daily, # 30 tablet, Refills 2, Tot. Refills 2, Maintenance, 12/06/18 14:00:07 EST, Route to Pharmacy Electronically, [id number], [facility]/pharmacy #1291 Start Date: 12/06/18 Status: Ordered aspirin 81 mg oral tablet 1 tablet = 81 mg, By Mouth, Daily, # 90 tablet, 3 Refills, Maintenance, 04/23/20 15:01:00 EDT, [facility]/pharmacy #1291, 165, cm, 04/23/20 14:42:00 EDT, Height, [...] 5 Refills, Maintenance, 01/16/20 9:40:00 EDT, Tablet, [facility]/pharmacy #1291, 165, cm, 12/17/19 8:59:00 EST, Height, 93.5, kg, 07/06/18 23:42:00 EDT, Dry Weight Start Date: 01/16/20 Status: Ordered metFORMIN 500 mg oral tablet, extended release 1 tablet = 500 mg, By Mouth, Daily, # 30 tablet, 0 Refills, Maintenance, 06/23/20 14:41:00 EDT, ER Tablet, [facility]/pharmacy #1291, metformin caused diarrhea/ bloating, 165, cm, [...]
--- OUTSIDE RECORDS SUMMARY | 2023-06-24 20:51 | XMS_ITS | Continuity of Care Document ---
Author Name Unknown Organization [facility] Address [address] [place] [address]- Care Team Providers Care Realty Specialist Name Role Phone Maribell Jain MD Primary Care Physician [phone] [facility] Date[facility]s): 09/10/21 - 10/10/21 [facility] [address] [address] Allergies, Adverse Reactions, Alerts Substance Reaction Severity [...] G julián 1Result Comment: [facility] [id number] 2Result Comment: [07/17/2018] givne /out incident ncd: [id number] 3Result Comment: [09/30/2017] [facility] [id number] 4Admin Note: pt declined 5Admin Note: vis given Medications albuterol CFC free 90 mcg/inh inhalation aerosol 2, puffs, Inhalation, Every 6 hours, PRN, # 1 each, Refills 0, Tot. Refills 0, Maintenance, 01/06/21 13:55:00 EDT, Aerosol, Route to Pharmacy Electronically, [id number], [facility]/pharmacy #1291, 165, cm, 06/23/20 13:39:00 EDT, Height Start Date: 01/06/21 Stop Date: 02/05/21 Status: Ordered amLODIPine 5 mg oral tablet 5 mg, 1, tablet, By Mouth, Daily, # 30 tablet, Refills 2, Tot. Refills 2, Maintenance, 12/06/18 14:00:07 EST, Route to Pharmacy Electronically, [id number], [facility]/pharmacy #1291 Start Date: 12/06/18 Status: Ordered Aspirin Enteric Coated 81 mg oral delayed release tablet 1 tablet, By Mouth, Daily, # 90 tablet, 3 Refills, Maintenance, 03/25/21 21:47:00 EDT, [facility], 165, cm, 06/23/20 13:39:00 EDT, Height Start [...] Refills, Maintenance, 07/02/21 12:28:00 EDT, ER Tablet, [facility]/pharmacy #1291, metformin ER not covered. patient [...]
--- OUTSIDE RECORDS SUMMARY | 2023-06-24 20:51 | XMS_ITS | Continuity of Care Document ---
Author Name Unknown Organization [facility] Address [address] [place] [address]- Care Team Providers Care Mechanical Maintenance Supervisor Name Role Phone Maribell Jain MD Primary Care Physician Encounter [facility] Date(s): 01/31/23 - 03/02/23 [facility] [address] [place], [place] [address] Allergies, Adverse Reactions, Alerts Substance Reaction Severity Status Nuts Active Watermelon Active Immunizations Given and Recorded Vaccine Date Status Refusal Reason SARS-CoV-2 mRNA (wxoemxk-vwwo-pakcq) vax 11/23/21 Recorded SARS-CoV-2 (COVID-19) mRNA BNT-162b2 [...] 1Result Comment: [facility] [id number] 2Result Comment: [07/17/2018] givne /out incident ncd: [id number] 3Result Comment: [09/30/2017] [facility] [id number] 4Admin Note: pt declined 5Admin Note: vis given Medications amLODIPine 5 mg oral tablet 1 tablet = 5 mg, By Mouth, Daily, # 90 tablet, 1 Refills, Maintenance, 12/14/22 10:33:00 EST, Tablet, [facility]/pharmacy #[id number], in addition to losartan, 165, cm, 12/14/22 10:08:00 EST, Height, 85, kg, 09/12/22 4:32:00 EST, Dry Weight Start Date: 12/14/22 Stop Date: 06/12/23 Status: Ordered Aspirin Enteric Coated 81 mg oral delayed release tablet 1 tablet, By Mouth, Daily, # 90 tablet, 3 Refills, Maintenance, 01/13/23 11:23:00 EDT, [facility]/pharmacy#1291, 165, cm, 01/13/23 10:56:00 EDT, Height, 88.8, [...] 1 Refills, Maintenance, 12/10/22 17:16:00 EST, Tablet, [facility]/pharmacy #1291, Partial fill upon patient request if the prescription is for a schedule II opioid drug., 165, cm, 11/10/22 11:18:00 EST, Height,... Start Date: 12/10/22 Stop Date: 06/08/23 Status: Ordered metFORMIN 500 mg oral tablet, extended release 2 tablet = 1,000 mg, By Mouth, Daily, # 180 tablet, 1 Refills, Maintenance, 12/09/22 12:15:00 EST, ER Tablet, [facility]/pharmacy #1291, stop synjardy, 165, cm, 11/10/22 11:18:00 [...] Refills, Maintenance, 01/14/23 8:57:00 EDT, [facility], 165, cm, 01/13/23 10:56:00 EDT, Height, 88.8, [...] Personnel Name: Cristobal ROSARIO, Maribell [place] Position: [facility] Primary Care Physician Member Role: PCP Address: Address: [address] [place] [address] Adult [place] [address]- Care Team Related Persons Name: CHLOE NORMANCande Address: home [address] [place] [address] Name: RISHABH CASTELLON Address: [place] [address] Name: YEIMY CASTELLON Address: home [address] [place] [address] Name: DONNA ZELAYA Address: home [address] [place] [address] Name: JOSE RAFAEL VINCENT Address: [place] [address] Name: ABHAY SPAULDING Name: SAMANTHA TINEO Address: home [address] [place] [address]
--- OUTSIDE RECORDS SUMMARY | 2023-06-24 20:51 | XMS_ITS | Continuity of Care Document ---
Author Name Unknown Organization [facility] Address [address] [place] [address]- Care Team Providers Care Teletypesetter Monitor Name Role Phone Maribell Jain MD Primary Care Physician Encounter [facility] Date(s): 08/02/22 - 08/02/[address] [address]- Discharge Disposition: A-D/C Home Attending Physician: Ace Finley DO Admitting Physician: Ace Finley DO Referring Physician: Not on Staff, Referring MD Allergies, Adverse Reactions, Alerts Substance Reaction Severity Status Nuts Active Watermelon Active Immunizations Given and Recorded Vaccine Date Status Refusal Reason SARS-CoV-2 mRNA (etdyroi-xvea-mssgf) vax 11/23/21 Recorded SARS-CoV-2 (COVID-19) mRNA BNT-162b2 [...] G julián 1Result Comment: [facility] [id number] 2Result Comment: [07/17/2018] givne /out incident ncd: [id number] 3Result Comment: [09/30/2017] [facility] [id number] 4Admin Note: pt declined 5Admin Note: vis given Medications acetaminophen 325 mg oral tablet 650 mg, 2, tablet, By Mouth, Every 4 hours, PRN, for 5 days, not to exceed 4000 mg/day, # 50 tablet, Refills 0, Tot. Refills 0, Acute 08/07/22 18:04:00 EDT, as needed for pain, 08/02/22 18:04:00 EDT,Route to Pharmacy Electronically, [facility]/pharmacy #129... Start Date: 08/02/22 Stop Date: 08/07/22 Status: Ordered Aspirin Enteric Coated 81 mg oral delayed release tablet 1 tablet, By Mouth, Daily, # 90 tablet, 1 Refills, Maintenance, 04/22/22 9:02:00 EDT, [facility]/pharmacy #1291, Please cancel previous order for 3 [...] Refills, Soft Stop, 05/24/22 14:17:00 EDT, Tablet, [facility]/pharmacy #1291, Partial fill upon patient request if [...] opioid drug. Start Date: 08/04/21 Status: Ordered penicillin V potassium 500 mg oral tablet 1 tablet = 500 mg, By Mouth, 3 times a day, for 10 days, # 30 tablet, 0 Refills, Acute 08/12/22 18:04:00 EDT, 08/02/22 18:04:00 EDT, [facility]/pharmacy #1291, Partial fill upon patient request if the prescription is for a schedule II opioid drug., 166, cm,... Start Date: 08/02/22 Stop Date: 08/12/22 Status: Ordered ProAir HFA 90 mcg/inh inhalation aerosol with adapter 2, puffs, Inhalation, Every 6 hours, PRN, WHEEZING/SHORTNESS OF BREATH., # 8.5 each, Refills 0, Route to Pharmacy Electronically, [id number], [facility], 165, cm, 09/27/21 19:50:00 EST, Height, 89.9, kg, 09/27/21 19:50:0... Start Date: 02/12/22 Status: Ordered Toradol Inj 15 mg, Injection, IV Push Slowly, Once, STAT, 08/02/22 15:57:00 EDT, Stop date 08/02/22 15:57:00 EDT Start Date: 08/02/22 Stop Date: 08/02/22 Status: Completed Vitamin D 88775 iu oral capsule 50,000 International_Units, By Mouth, [...] Active Sickle cell trait Confirmed Active Results Orders for Microbiology Reports Name Date Group A Strep Screen and Culture 2 Microbiology Reports TEST:Group A Strep Screen and Culture STATUS:Unauthenticated BODY SITE: SOURCE:THROAT COLLECTED DATE/TIME:08/02/22 1:33 PM Group A Strep Screen and Culture SPECIMEN DESCRIPTION : THROAT SWAB SPECIAL REQUESTS : NONE DIRECT EXAM : RAPID GROUP A RESULT IS NEGATIVE, REFER TO CULTURE RESULT. REPORT STATUS : PRELIMINARY REPORT Radiology Reports * Exam Date Time Procedure Performing Provider Status 08/02/22 1:42 PM Chest 2 Views Frontal and Lat Wesley Bella; Auth (Verified) Notes: (Chest 2 Views Frontal and Lat) Reason For Exam: Cough RESULT: Chest 2 Views Frontal and Lat Chest 2 Views Frontal and Lat INDICATION/CLINICAL QUESTION: Hx of Present Illness: pt reports sore throat, fever, chills for 2 days. pt has been exposed to COVID; Reason: Cough; Clinical Question(s): Pneumonia / Pneumonia TECHNIQUE: Frontal and lateral views of the chest. COMPARISON: 09/27/2021. FINDINGS: LINES AND TUBES: None. LUNGS AND PLEURA: RIGHT CHEST: The right lung is clear and there is no right effusion. LEFT CHEST: The left lung is clear and there is no left effusion. HEART, MEDIASTINUM AND GRACE: The heart is of normal size. The mediastinum and grace are normal. BONES AND SOFT TISSUES: No acute bony abnormality. IMPRESSION: 1. No active disease in chest. WSN: [id number] Ordering Physician: Denise Parada Dictated By: Jae Esposito MD Dictated Date/Time: 08/02/22 1:50 pm Reviewed By: Jae Esposito MD Signed By: Jae Esposito MD Signed Date/Time: 08/02/22 1:50 pm Transcribed By: TAMMIE Transcribed Date/Time: 08/02/22 1:50 pm Vital Signs Most recent to oldest [Reference Range]: 1 2 3 Height 166 cm (08/02/22 1:30 PM) Weight 83.1 kg (08/02/22 1:30 PM) Oxygen Saturation [94-100 %] 99 % (08/02/22 6:00 PM) 100 % (08/02/22 1:30 PM) Pulse Rate [55-90 bpm] 89 bpm (08/02/22 6:00 PM) 115 bpm *H* (08/02/22 1:30 PM) Blood Pressure [90-138/55-84 mm Hg] 135/79mm Hg (08/02/22 6:00 PM) 126/75mm Hg (08/02/22 1:30 PM) Respiratory Rate [16-30 br/min] 16 br/min (08/02/22 6:00 PM) 16 br/min (08/02/22 5:09 PM) 18 br/min (08/02/22 1:30 PM) Temperature [96.8-100.4 DegF] 98.9 DegF (08/02/22 1:30 PM) Mode of Delivery (Oxygen) Room air (08/02/22 6:00 PM) Temperature Route Oral (08/02/22 1:30 PM) Dry Weight 83.1 kg (08/02/22 1:30 PM) Dry Weight Obtained Via Standing scale (08/02/22 1:30 PM) Social History Social History Type Response Smoking Status Never smoker; Tobacc o user in household: No entered on: 05/09/14 Sex Note * [employer] , CIS S: TRANSCRIBE Jae Esposito MD: VERIFY Event Display: Result: Authored Date: [id number] Chest 2 Views Frontal and Lat INDICATION/CLINICAL QUESTION: Hx of Present Illness: pt reports sore throat, fever, chills for 2 days. pt has been exposed to COVID; Reason: Cough; Clinical Question(s): Pneumonia / Pneumonia TECHNIQUE: Frontal and lateral views of the chest. COMPARISON: 09/27/2021. FINDINGS: LINES AND TUBES: None. LUNGS AND PLEURA: RIGHT CHEST: The right lung is clear and there is no right effusion. LEFT CHEST: The left lung is clear and there is no left effusion. HEART, MEDIASTINUM AND GRACE: The heart is of normal size. The mediastinum and grace are normal. BONES AND SOFT TISSUES: No acute bony abnormality. IMPRESSION: 1. No active disease in chest. WSN: [id number] Ordering Physician: Denise Parada Dictated By: Jae Esposito MD Dictated Date/Time: 08/02/22 1:50 pm Reviewed By: Jae Esposito MD Signed By: Jae Esposito MD Signed Date/Time: 08/02/22 1:50 pm Transcribed By: TAMMIE Transcribed Date/Time: 08/02/22 1:50 pm Patient Care team information Personnel Name: Maribell Jain MD Address: Address: [address] [place] [address] Adult & Pediatric [address]
--- OUTSIDE RECORDS SUMMARY | 2023-06-24 20:51 | XMS_ITS | Continuity of Care Document ---
Author Name Unknown Organization [facility] Address [address] [place] [address]- Care Team Providers Care Preschool Program Director Name Role Phone Maribell Jain MD Primary Care Physician [phone] [facility] Date(s): 04/21/23 - 05/21/23 [facility] [address] [place], [place] [address] Allergies, Adverse Reactions, Alerts Substance Reaction Severity Status Nuts Active Watermelon Active Immunizations Given and Recorded Vaccine Date Status Refusal Reason SARS-CoV-2 mRNA (ndfqaox-mffp-bpfyq) vax 11/23/21 Recorded SARS-CoV-2 (COVID-19) mRNA BNT-162b2 [...] Diphth/Pertussis,Acel/Tetanus (oldterm) 89 G ezeen 1Result Comment: [facility] [id number] 2Result Comment: [07/17/2018] givne /out incident ncd: [id number] 3Result Comment: [09/30/2017] [facility] [id number] 4Admin Note: pt declined 5Admin Note: vis given Medications amLODIPine 5 mg oral tablet 1 tablet, By Mouth, Daily, # 90 tablet, 1 Refills, Maintenance, 05/16/23 23:07:00 EDT, [facility], 165, cm, 05/13/23 16:14:00 EDT, Height, 85.7, kg, 05/04/23 6:01:00 EDT, Dry Weight Start Date: 05/16/23 Status: Ordered Aspirin Enteric Coated 81 mg oral delayed release tablet 1 tablet, By Mouth, Daily, # 90 tablet, 3 Refills, Maintenance, 01/13/23 11:23:00 EDT, [facility]/pharmacy#1291, 165, cm, 01/13/23 10:56:00 EDT, Height, [...] Refills, Maintenance, 05/16/23 23:07:00 EDT, [facility], 165, cm, 05/13/23 16:14:00 EDT, Height, 85.7, [...] Team Personnel Name: Maribell Jain MD Position: [facility] Physician - Primary Care Member Role: PCP Address: Address: [address] [place] [address] Adult [place] [address]- Care Team Related Persons Name: JJ NORMAN Address: home [address] [place] [address] Name: RISHABH CASTELLON Address: [place] [address] Name: YEIMY CASTELLON Address: home [address] [place] [address] Name: DONNA ZELAYA Address: home [address] [place] [address] Name: JOSE RAFAEL VINCENT Address: [place] [address] Name: ABHAY SPAULDING Name: SAMANTHA TINEO Address: home [address] [place] [address]
--- OUTSIDE RECORDS SUMMARY | 2023-06-24 20:51 | XMS_ITS | Continuity of Care Document ---
Author Name Unknown Organization [facility] Address [address] [place] [address]- Care Team Providers Care Supply Tech Name Role Phone Maribell Jain MD Primary Care Physician [facility] Date[facility]): 05/[facility]/20 - 06/11/20 [facility] [address] [place] [address]- [facility] Allergies, Adverse Reactions, Alerts Substance [...] Diphth/Pertussis,Acel/Tetanus (oldterm) 89 G julián 1Result Comment: [facility] [id number] 2Result Comment: [07/17/2018] givne /out incident ncd: [id number] 3Result Comment: [09/30/2017] [facility] [id number] 4Admin Note: pt declined 5Admin Note: vis given Medications albuterol CFC free 90 mcg/inh inhalation aerosol 2, puffs, Inhalation, Every 6 hours, PRN, # 1 each, Refills 0, Tot. Refills 0, Maintenance, 12/19/18 18:17:12 EST, Aerosol, Route to Pharmacy Electronically, [id number], [facility]/pharmacy #1291 Start Date: 12/19/18 Stop Date: 01/18/19 Status: Ordered amLODIPine 5 mg oral tablet 5 mg, 1, tablet, By Mouth, Daily, # 30 tablet, Refills 2, Tot. Refills 2, Maintenance, 12/06/18 14:00:07 EST, Route to Pharmacy Electronically, [id number], [facility]/pharmacy #1291 Start Date: 12/06/18 Status: Ordered aspirin 81 mg oral tablet 1 tablet = 81 mg, By Mouth, Daily, # 90 tablet, 3 Refills, Maintenance, 04/23/20 15:01:00 EDT, [facility]/pharmacy #1291, 165, cm, 04/23/20 14:42:00 [...]
--- OUTSIDE RECORDS SUMMARY | 2023-06-24 20:51 | XMS_ITS | Continuity of Care Document ---
Author Name Unknown Organization [facility] Address [address] [place] [address]- Care Team Providers Care Veneer Repairer Machine Name Role Phone Maribell Jain MD Primary Care Physician [facility] Date[facility]s): 09/15/21 - 02/04/22 [facility] [address] [place], [place] [address] Attending Physician: Maribell Jain MD Allergies, [...] Diphth/Pertussis,Acel/Tetanus (oldterm) 89 G julián 1Result Comment: [facility] [id number] 2Result Comment: [07/17/2018] givne /out incident ncd: [id number] 3Result Comment: [09/30/2017] [facility] [id number] 4Admin Note: pt declined 5Admin Note: vis given Medications amLODIPine 5 mg oral tablet 5 mg, 1, tablet, By Mouth, Daily, # 30 tablet, Refills 2, Tot. Refills 2, Maintenance, 12/06/18 14:00:07 EST, Route to Pharmacy Electronically, [id number], [facility]/pharmacy #1291 Start Date: 12/06/18 Status: Ordered Aspirin Enteric Coated 81 mg oral delayed release tablet 1 tablet, By Mouth, Daily, # 90 tablet, 3 Refills, Maintenance, 03/25/21 21:47:00 EDT, [facility], 165, cm, 06/23/20 13:39:00 EDT, Height Start [...] Mouth, Daily, # 180 tablet, 0 Refills, [facility] ST[facility] 310[facility], 165, cm, 09/27/21 19:50:00 EST, Height, 89.9, [...] each, Refills 0, Route to Pharmacy Electronically, [id number], [facility], 165, cm, 09/27/21 19:50:00 EST, Height, 89.9, [...]
--- OUTSIDE RECORDS SUMMARY | 2023-06-24 20:51 | XMS_ITS | Continuity of Care Document ---
Author Name Unknown Organization [facility] Address [address] [place] [address]- Care Team Providers Care Account Executive Metalworking Name Role Phone Maribell Jain MD Primary Care Physician Encounter [facility] Date(s): 01/18/23 - 02/17/23 [facility] [address] [place] [address] Allergies, Adverse Reactions, Alerts Substance Reaction Severity Status Nuts Active Watermelon Active Immunizations Given and Recorded Vaccine Date Status Refusal Reason SARS-CoV-2 mRNA (hottexv-gfki-ulbgc) vax 11/23/21 Recorded SARS-CoV-2 (COVID-19) mRNA BNT-162b2 [...] Diphth/Pertussis,Acel/Tetanus (oldterm) 89 G julián 1Result Comment: [facility] [id number] 2Result Comment: [07/17/2018] givne /out incident ncd: [id number] 3Result Comment: [09/30/2017] [facility] [id number] 4Admin Note: pt declined 5Admin Note: vis [...] 1 Refills, Maintenance, 12/10/22 17:16:00 EST, Tablet, [facility]/pharmacy #1291, Partial fill upon patient request if the prescription is for a schedule II opioid drug., 165, cm, 11/10/22 11:18:00 EST, Height,... Start Date: 12/10/22 Stop Date: 06/08/23 Status: Ordered metFORMIN 500 mg oral tablet, extended release 2 tablet = 1,000 mg, By Mouth, Daily, # 180 tablet, 1 Refills, Maintenance, 12/09/22 12:15:00 EST, ER Tablet, [facility]/pharmacy #1291, stop synjardy, 165, [...] Refills, Maintenance, 01/14/23 8:57:00 EDT, [facility], 165, cm, 01/13/23 10:56:00 EDT, Height, 88.8, [...] Team Personnel Name: Maribell Jain MD Position: [facility] Primary Care Physician Member Role: PCP Address: Address: [address] [place] [address] Adult [place] [address]- [place] Care Team Related Persons Name: JJ NORMAN Address: [address] [place] [address] Name: RISHABH CASTELLON Address: [place] [address] Name: YEIMY CASTELLON Address: home [address] [place] [address] Name: DONNA ZELAYA Address: home [address] [place] [address] Name: JOSE RAFAEL VINCENT Address: [place] [address] Name: ABHAY SPAULDING Name: SAMANTHA TINEO Address: home [address] [place] [address]
--- OUTSIDE RECORDS SUMMARY | 2023-06-24 20:51 | XMS_ITS | Continuity of Care Document ---
Author Name Unknown Organization [facility] Address [address] [place] [address]- Care Team Providers Care Electrical Lineworker Name Role Phone Cristobal ROSARIO, Maribell Weldon Primary Care Physician [phone] [facility] Date[facility]s): 10/05/21 - 11/04/21 [facility] [address] [place], [place] [address] Allergies, Adverse Reactions, Alerts Substance Reaction [...] G julián 1Result Comment: [facility] [id number] 2Result Comment: [07/17/2018] givne /out incident ncd: [id number] 3Result Comment: [09/30/2017] [facility] [id number] 4Admin Note: pt declined 5Admin Note: vis given Medications albuterol CFC free 90 mcg/inh inhalation aerosol 2, puffs, Inhalation, Every 6 hours, PRN, # 1 each, Refills 0, Tot. Refills 0, Maintenance, 01/06/21 13:55:00 EDT, Aerosol, Route to Pharmacy Electronically, [id number], [facility]/pharmacy #1291, 165, cm, 06/23/20 13:39:00 EDT, Height Start Date: 01/06/21 Stop Date: 02/05/21 Status: Ordered amLODIPine 5 mg oral tablet 5 mg, 1, tablet, By Mouth, Daily, # 30 tablet, Refills 2, Tot. Refills 2, Maintenance, 12/06/18 14:00:07 EST, Route to Pharmacy Electronically, [id number], [facility]/pharmacy #1291 Start Date: 12/06/18 Status: Ordered Aspirin Enteric Coated 81 mg oral delayed release tablet 1 tablet, By Mouth, Daily, # 90 tablet, 3 Refills, Maintenance, 03/25/21 21:47:00 EDT, [facility] STORE 24891, 165, cm, 06/23/20 13:39:00 EDT, Height Start [...] Refills, Maintenance, 07/02/21 12:28:00 EDT, ER Tablet, [facility]/pharmacy #1291, metformin ER not covered. patient cannot [...]
--- OUTSIDE RECORDS SUMMARY | 2023-06-24 20:51 | XMS_ITS | Continuity of Care Document ---
Author Name Unknown Organization [facility] Address [address] [place] [address]- Care Team Providers Care Retail Sales Merchandiser Development Name Role Phone Cristobal ROSARIO, Maribell Weldon Primary Care Physician [phone] [facility] Date[facility]s): 01/05/22 - 02/04/22 [facility] [address] [place], [place] [address] Attending Physician: May Braswell Admitting Physician: May [...] (oldterm) 89 G julián 1Result Comment: [facility] [id number] 2Result Comment: [07/17/2018] givne /out incident ncd: [id number] 3Result Comment: [09/30/2017] [facility] [id number] 4Admin Note: pt declined 5Admin Note: vis given Medications amLODIPine 5 mg oral tablet 5 mg, 1, tablet, By Mouth, Daily, # 30 tablet, Refills 2, Tot. Refills 2, Maintenance, 12/06/18 14:00:07 EST, Route to Pharmacy Electronically, [id number], [facility]/pharmacy #1291 Start Date: 12/06/18 Status: Ordered Aspirin Enteric Coated 81 mg oral delayed release tablet 1 tablet, By Mouth, Daily, # 90 tablet, 3 Refills, Maintenance, 03/25/21 21:47:00 EDT, [facility], 165, cm, 06/23/20 13:39:00 EDT, Height Start [...] Mouth, Daily, # 180 tablet, 0 Refills, [facility], 165, cm, 09/27/21 19:50:00 EST, Height, 89.9, [...] each, Refills 0, Route to Pharmacy Electronically, [id number], [facility], 165, cm, 09/27/21 19:50:00 EST, Height, 89.9, [...]
--- OUTSIDE RECORDS SUMMARY | 2023-06-24 20:51 | XMS_ITS | Continuity of Care Document ---
Author Name Unknown Organization [facility] Address [address] [place] [address]- Care Team Providers Care Microcomputer Technician Name Role Phone Cristobal ROSARIO, Maribell Weldon Primary Care Physician [facility] Date[facility]s): 10/09/20 - 11/08/20 [facility] [address] [place], [place] [address] Allergies, Adverse Reactions, Alerts Substance Reaction Severity [...] Diphth/Pertussis,Acel/Tetanus (oldterm) 89 G julián 1Result Comment: [facility] [id number] 2Result Comment: [07/17/2018] givne /out incident ncd: [id number] 3Result Comment: [09/30/2017] [facility] [id number] 4Admin Note: pt declined 5Admin Note: vis given Medications albuterol CFC free 90 mcg/inh inhalation aerosol 2, puffs, Inhalation, Every 6 hours, PRN, # 1 each, Refills 0, Tot. Refills 0, Maintenance, 12/19/18 18:17:12 EST, Aerosol, Route to Pharmacy Electronically, [id number], [facility] Start Date: 12/19/18 Stop Date: 01/18/19 Status: Ordered amLODIPine 5 mg oral tablet 5 mg, 1, tablet, By Mouth, Daily, # 30 tablet, Refills 2, Tot. Refills 2, Maintenance, 12/06/18 14:00:07 EST, Route to Pharmacy Electronically, [id number], [facility]/pharmacy #1291 Start Date: 12/06/18 Status: Ordered aspirin 81 mg oral tablet 1 tablet = 81 mg, By Mouth, Daily, # 90 tablet, 3 Refills, Maintenance, 04/23/20 15:01:00 EDT, [facility]/pharmacy #1291, 165, cm, 04/23/20 14:42:00 [...]
--- OUTSIDE RECORDS SUMMARY | 2023-06-24 20:51 | XMS_ITS | Continuity of Care Document ---
Author Name Unknown Organization [facility] Address [address] [place] [address]- Care Team Providers Care Director Check Name Role Phone Maribell Jain MD Primary Care Physician [phone] Encounter [facility] Date(s): 03/21/20 - 04/20/20 [facility] [address] [place] [address]- [facility] Attending Physician: aMy Braswell Admitting Physician: AdmMay coker Referring Physician: [...] Diphth/Pertussis,Acel/Tetanus (oldterm) 89 G ezeen 1Result Comment: [facility] [id number] 2Result Comment: [07/17/2018] givne /out incident ncd: [id number] 3Result Comment: [09/30/2017] [facility] [id number] 4Admin Note: pt declined 5Admin Note: vis given Medications albuterol CFC free 90 mcg/inh inhalation aerosol 2, puffs, Inhalation, Every 6 hours, PRN, # 1 each, Refills 0, Tot. Refills 0, Maintenance, 12/19/18 18:17:12 EST, Aerosol, Route to Pharmacy Electronically, [id number], [facility]/pharmacy #1291 Start Date: 12/19/18 Stop Date: 01/18/19 Status: Ordered amLODIPine 5 mg oral tablet 5 mg, 1, tablet, By Mouth, Daily, # 30 tablet, Refills 2, Tot. Refills 2, Maintenance, 12/06/18 14:00:07 EST, Route to Pharmacy Electronically, [id number], [facility]/pharmacy #1291 Start Date: 12/06/18 Status: Ordered aspirin 81 mg oral tablet 1 tablet = 81 mg, By Mouth, Daily, # 30 tablet, 5 Refills, Maintenance, 01/21/20 7:15:00 EDT, [facility]/pharmacy #1291, 165, cm, 12/17/19 8:59:00 EST, Height, 93.5, kg, 07/06/18 23:42:00 EDT, Dry Weight Start Date: 01/21/20 Stop Date: 07/19/20 Status: Ordered CPAP Machine See Instructions, # 1 each, Maintenance, BiPAP 07/03 with heated humidification and compliance data to [...]
--- OUTSIDE RECORDS SUMMARY | 2023-06-24 20:51 | XMS_ITS | Continuity of Care Document ---
Author Name Unknown Organization [facility] Address [address] [place] [address]- Care Team Providers Care Assignment Clerk Name Role Phone Maribell Jain MD [id number] - [facility]22/23 [facility] [address] [place] [address]- Attending Physician: Maribell Jain MD Allergies, Adverse Reactions, Alerts Substance Reaction Severity Status Nuts Active Watermelon Active Immunizations Given and Recorded Vaccine Date Status Refusal Reason SARS-CoV-2 mRNA (bkwxpcp-sdmw-sfaem) vax 11/23/21 Recorded SARS-CoV-2 (COVID-19) mRNA BNT-162b2 [...] Diphth/Pertussis,Acel/Tetanus (oldterm) 89 G iven 1Result Comment: [facility] [id number] 2Result Comment: [07/17/2018] givne /out incident ncd: [id number] 3Result Comment: [09/30/2017] [facility] [id number] 4Admin Note: pt declined 5Admin Note: vis given Medications amLODIPine 5 mg oral tablet 1 tablet = 5 mg, By Mouth, Daily, # 90 tablet, 1 Refills, Maintenance, 12/14/22 10:33:00 EST, Tablet, [facility]/pharmacy #1291, in addition to losartan, 165, cm, 12/14/22 10:08:00 EST, Height, 85, kg, 09/12/22 4:32:00 EST, Dry Weight Start Date: 12/14/22 Stop Date: 06/12/23 Status: Ordered Aspirin Enteric Coated 81 mg oral delayed release tablet 1 tablet, By Mouth, Daily, # 90 tablet, 3 Refills, Maintenance, 01/13/23 11:23:00 EDT, [facility]/pharmacy#1291, 165, cm, 01/13/23 10:56:00 EDT, Height, [...] 1 Refills, Maintenance, 12/10/22 17:16:00 EST, Tablet, [facility]/pharmacy #1291, Partial fill upon patient request if the prescription is for a schedule II opioid drug., 165, cm, 11/10/22 11:18:00 EST, Height,... Start Date: 12/10/22 Stop Date: 06/08/23 Status: Ordered metFORMIN 500 mg oral tablet, extended release 2 tablet = 1,000 mg, By Mouth, Daily, # 180 tablet, 1 Refills, Maintenance, 12/09/22 12:15:00 EST, ER Tablet, [facility]/pharmacy #1291, stop synjardy, 165, cm, 11/10/22 [...] Refills, Maintenance, 01/14/23 8:57:00 EDT, [facility], 165, cm, 01/13/23 10:56:00 EDT, Height, 88.8, kg, 12/28/22 22:36:00 EST, Dry Weight Start Date: 01/14/23 Status: Ordered Problem List Condition Confirmation Course [...] oldest [Reference Range]: 1 Height 165 cm (04/15/23 10:18 AM) Weight 85.4 kg (04/15/23 10:18 AM) Oxygen Saturation [94-100 %] 98 % (04/15/23 10:18 AM) Pulse Rate [55-90 bpm] 87 bpm (04/15/23 10:18 AM) Body Mass Index [18.5-24.99 kg/m2] 31.37 kg/m2 *>HHI* (04/15/23 10:18 AM) Blood Pressure [90-138/55-84 mm Hg] 115/ 75mm Hg (04/15/23 10:18 AM) Mode of Delivery (Oxygen) Room air (04/15/23 10:18 AM) Blood pressure sites Arm, left (04/15/23 10:18 AM) Weight Obtained Via Standing scale (04/15/23 10:18 AM) Social History Social History Type Response Smoking Status Never smoker; Tobacc o user in household: No entered on: 05/09/14 Sex Patient Care team information Care Team Personnel Name: Cristobal ROSARIO, Maribell Weldon Position: S Physician - Primary Care Member Role: PCP Address: Address: [address] [place] [address] Adult & [place] [address]- Care Team Related Persons Name: JJ NORMAN Address: home [address] [place] [address] Name: RISHABH CASTELLON Address: [place] [address] Name: YEIMY CASTELLON Address: home [address] [place] [address] Name: DONNA ZELAYA Address: home [address] [place] [address] Name: JOSE RAFAEL VINCENT Address: [place] [address] Name: ABHAY SPAULDING Name: SAMANTHA TINEO Address: home [address] [place] [address]
--- OUTSIDE RECORDS SUMMARY | 2023-06-24 20:51 | XMS_ITS | Continuity of Care Document ---
Author Name Unknown Organization [facility] Address [address] [place] [address]- Care Team Providers Care Clinical Education Academic Coordinator Name Role Phone Maribell Jain MD Primary Care Physician En[facility] Date(s): 05/21/20 - 05/28/20 [facility] [address] [place] [address]- [facility] Attending Physician: Maribell Jain MD Allergies, Adverse [...] [facility] [id number] 2Result Comment: [07/17/2018] givne /out incident ncd: [id number] 3Result Comment: [09/30/2017] [facility] [id number] 4Admin Note: pt declined 5Admin Note: vis given Medications albuterol CFC free 90 mcg/inh inhalation aerosol 2, puffs, Inhalation, Every 6 hours, PRN, # 1 each, Refills 0, Tot. Refills 0, Maintenance, 12/19/18 18:17:12 EST, Aerosol, Route to Pharmacy Electronically, [id number], [facility]/pharmacy #1291 Start Date: 12/19/18 Stop Date: 01/18/19 Status: Ordered amLODIPine 5 mg oral tablet 5 mg, 1, tablet, By Mouth, Daily, # 30 tablet, Refills 2, Tot. Refills 2, Maintenance, 12/06/18 14:00:07 EST, Route to Pharmacy Electronically, [id number], [facility]/pharmacy #1291 Start Date: 12/06/18 Status: Ordered aspirin 81 mg oral tablet 1 tablet = 81 mg, By Mouth, Daily, # 90 tablet, 3 Refills, Maintenance, 04/23/20 15:01:00 EDT, [facility]/pharmacy #1291, 165, cm, 04/23/20 14:42:00 EDT, [...] 5 Refills, Maintenance, 01/16/20 9:40:00 EDT, Tablet, [facility]/pharmacy #1291, 165, cm, 12/17/19 8:59:00 EST, [...]
--- OUTSIDE RECORDS SUMMARY | 2023-06-24 20:51 | XMS_ITS | Continuity of Care Document ---
Author Name Unknown Organization [facility] Address [address] [place] [address]- Care Team Providers Care Top Dyeing Machine Loader Name Role Phone Maribell Jain MD Primary Care Physician [facility] Date[facility]): [facility]14[facility]22 - 12/21/22 [facility] [address], [place] [address] Attending Physician: Maribell Jain MD Allergies, Adverse Reactions, Alerts Substance Reaction Severity Status Nuts Active Watermelon Active Immunizations Given and Recorded Vaccine Date Status Refusal Reason SARS-CoV-2 mRNA (ubprhux-cbbe-jpozv) vax 11/23/21 Recorded SARS-CoV-2 (COVID-19) mRNA BNT-162b2 [...] Diphth/Pertussis,Acel/Tetanus (oldterm) 89 G ezeen 1Result Comment: [facility] [id number] 2Result Comment: [07/17/2018] givne /out incident ncd: [id number] 3Result Comment: [09/30/2017] [facility] [id number] 4Admin Note: pt declined 5Admin Note: vis given Medications albuterol CFC free 90 mcg/inh inhalation aerosol 2, puffs, Inhalation, Every 6 hours, PRN, # 8.5 Gm, Refills 0, Tot. Refills 0, Maintenance, 12/14/22 10:33:00 EST, Aerosol, Route to Pharmacy Electronically, [id number], [facility]/pharmacy #[id number], 165, cm, 12/14/22 10:08:00 EST, Hei... Start Date: 12/14/22 Status: Ordered amLODIPine 5 mg oral tablet 1 tablet = 5 mg, By Mouth, Daily, # 90 tablet, 1 Refills, Maintenance, 12/14/22 10:33:00 EST, Tablet, [facility]/pharmacy #[id number], in addition to losartan, 165, cm, 12/14/22 10:08:00 EST, Height, 85, kg, 09/12/22 4:32:00 EST, Dry Weight Start Date: 12/14/22 Stop Date: 06/12/23 Status: Ordered Aspirin Enteric Coated 81 mg oral delayed release tablet 1 tablet, By Mouth, Daily, # 90 tablet, 1 Refills, Maintenance, 04/22/22 9:02:00 EDT, [facility]/pharmacy #[id number], Please cancel previous order for [...] Maintenance, 12/10/22 17:16:00 EST, Tablet, [facility]/pharmacy #[id number], Partial fill upon patient request if the prescription is for a schedule II opioid drug., 165, cm, 11/10/22 11:18:00 EST, Height,... Start Date: 12/10/22 Stop Date: 06/08/23 Status: Ordered metFORMIN 500 mg oral tablet, extended release 2 tablet = 1,000 mg, By Mouth, Daily, # 180 tablet, 1 Refills, Maintenance, 12/09/22 12:15:00 EST, ER Tablet, [facility]/pharmacy #[id number], stop synjardy, 165, cm, 11/10/22 [...] oldest [Reference Range]: 1 2 3 Height 165 cm (12/14/22 10:37 AM) 165 cm (12/14/22 10:08 AM) 165 cm (12/14/22 10:06 AM) Weight 86.5 kg (12/14/22 10:06 AM) Oxygen Saturation [94-100 %] 98 % (12/14/22 10:06 AM) Pulse Rate [55-90 bpm] 74 bpm (12/14/22 10:06 AM) Body Mass Index [18.5-24.99 kg/m2] 31.77 kg/m2 *>HHI* (12/14/22 10:06 AM) Blood Pressure [90-138/55-84 mm Hg] 120/80mm Hg (12/14/22 10:37 AM) 122/94mm Hg (12/14/22 10:08 AM) 122/96mm Hg (12/14/22 10:06 AM) Mode of Delivery (Oxygen) Room air (12/14/22 10:06 AM) Blood pressure sites Arm, left (12/14/22 10:08 AM) Arm, left (12/14/22 10:06 AM) Weight Obtained Via Standing scale (12/14/22 10:06 AM) Social History Social History Type Response Smoking Status Never smoker; Tobacc o user in household: No entered on: 05/09/14 Sex Note * Elsa Masters: PERFORM, SIGN, VERIFY Event Display: Patient Education/Instruction Authored Date: [id number] [facility] *No Edge Adult Ped Clinical Summary Name CAROL REDMAN Age 32 Years 1990 PCP Cristobal ROSARIO, Maribell Weldon PCP Visit Date 12/14/2022 09:55:00 Patient Instructions continue current medications see sleep medicine check weight t home once a week and check sugars 2-3 times a week, at different time do blood work before next visit Additional Instructions: Scheduled Appointments?? Future Appointments ?No Future Appointments Scheduled Follow-Up Instructions ?? Diagnosis Medications: Please continue your medications until treatment is completed or stopped by your provider. Discuss any questions related to medications with your provider. New Medications [facility], [address], [place] [id number], [phone] Albuterol (albuterol CFC free 90 mcg/inh inhalation aerosol) 2 puff(s) Inhalation every 6 hours as needed Wheezing/Shortness of Breath. Refills: 0. Next Dose: Medications to Continue with No Changes [id number], [address], [place] [id number], [phone] Amlodipine (amLODIPine 5 mg oral tablet) 1 tab(s) Oral Daily for 90 Days. Refills: 1. Next Dose: Metformin (metFORMIN 500 mg oral tablet, extended release) 2 tab(s) Oral Daily for 90 Days. Refills: 1. Next Dose: These medications were not printed or sent to your pharmacy Aspirin (Aspirin Enteric Coated 81 mg oral [...] for 90 Days. Refills: 1. Next Dose: Miscellaneous Rx (FREESTYLE 28G LANCETS) CHECK SUGARS ONCE DAILY. Refills: 0. Next Dose: Miscellaneous Rx (VITAMIN D3 2,000 UNIT TABLET) Next Dose: Multivitamin Daily. Next Dose: Allergy Info:?? Watermelon; Nuts Medications Given This Visit Future Orders ?Basic Metabolic Panel? Order Date:12/14/22?- Complete on or after?12/14/22 ?Hemoglobin A1C (Monitoring)? Order Date:12/14/22?- Complete on or after?12/14/22 Vital Signs Height 165 cm Weight 86.5 kg BMI 31.77 kg/m2 Blood Pressure 120 mm Hg/80 mm Hg Temperature Pulse Rate 74 bpm Respiratory Rate 02 Sat Mode of Delivery 98 %/Room air You can now view a summary of your hospital visit from the comfort of your home through a free online portal called [employer]. [employer] is a website that allows you to securely view your medical information including discharge summary, medications and follow-up visits. ??You can alsosend a secure electronic message to your doctor???s office to request appointments, renew medications or just ask a question. You can enroll at [email or web address] or register during your next office visit. [...] primary care provider, you may find a [facility] provider by calling [facility] [employer] [facility] at [phone]. For information about the plan of care [...] Personnel Name: Cristobal ROSARIO, Maribell Weldon Position: [facility] Primary Care Physician Member Role: PCP Address: Address: [address] [place] [address] Adult [place] [address]- Care Team Related Persons Name: JJ NORMAN Address: home [address] [place] [address] Name: RISHABH CASTELLON Address: [place] [address] Name: YEIMY CASTELLON Address: home [address] [place] [address] Name: DONNA ZELAYA Address: home [address] [place] [address] Name: JOSE RAFAEL VINCENT Address: [place] [address] Name: ABHAY SPAULDING Name: SAMANTHA TINEO Address: home [address] [place] [address]
--- OUTSIDE RECORDS SUMMARY | 2023-06-24 20:51 | XMS_ITS | Continuity of Care Document ---
Author Name Unknown Organization [facility] Address [address] [place] [address]- Care Team Providers Care Overnight Stocker Name Role Phone Maribell Jain MD Primary Care Physician [facility] Date[facility]): 04/23/20 - 05/23/20 [facility] [address] [place] [address]- [facility] Allergies, Adverse Reactions, Alerts Substance Reaction Severity [...] (oldterm) 89 G julián 1Result Comment: [facility] [id number] 2Result Comment: [07/17/2018] givne /out incident ncd: [id number] 3Result Comment: [09/30/2017] [facility] [id number] 4Admin Note: pt declined 5Admin Note: vis given Medications albuterol CFC free 90 mcg/inh inhalation aerosol 2, puffs, Inhalation, Every 6 hours, PRN, # 1 each, Refills 0, Tot. Refills 0, Maintenance, 12/19/18 18:17:12 EST, Aerosol, Route to Pharmacy Electronically, [id number], [facility]/pharmacy #[id number] Start Date: 12/19/18 Stop Date: 01/18/19 Status: Ordered amLODIPine 5 mg oral tablet 5 mg, 1, tablet, By Mouth, Daily, # 30 tablet, Refills 2, Tot. Refills 2, Maintenance, 12/06/18 14:00:07 EST, Route to Pharmacy Electronically, [id number], [facility]/pharmacy #1291 Start Date: 12/06/18 Status: [...]
--- OUTSIDE RECORDS SUMMARY | 2023-06-24 20:51 | XMS_ITS | Continuity of Care Document ---
Author Name Unknown Organization [facility] Address [address] [place] [address]- Care Team Providers Care Director Of Student Financial Services Name Role Phone Maribell Jain MD Primary Care Physician Encounter [facility] Date(s): 03/21/20 - 03/28/20 [facility] [address] [place] [address] Encounter Diagnosis Diabetes mellitus(Discharge Diagnosis) - 03/21/20 Hypertension(Discharge Diagnosis) - 03/21/20 Narcolepsy(Discharge Diagnosis) - 03/21/20 Obstructive sleep apnea(Discharge Diagnosis) - 03/21/20 Obesity(Discharge Diagnosis) - 03/21/20 Attending Physician: Maribell Jani MD Allergies, Adverse Reactions, Alerts Substance Reaction [...] Diphth/Pertussis,Acel/Tetanus (oldterm) 89 G iven 1Result Comment: [facility] [id number] 2Result Comment: [07/17/2018] givne /out incident ncd: [id number] 3Result Comment: [09/30/2017] [facility] [id number] 4Admin Note: pt declined 5Admin Note: vis given Medications albuterol CFC free 90 mcg/inh inhalation aerosol 2, puffs, Inhalation, Every 6 hours, PRN, # 1 each, Refills 0, Tot. Refills 0, Maintenance, 12/19/18 18:17:12 EST, Aerosol, Route to Pharmacy Electronically, [id number], [facility]/pharmacy #[id number] Start Date: 12/19/18 Stop Date: 01/18/19 Status: Ordered amLODIPine 5 mg oral tablet 5 mg, 1, tablet, By Mouth, Daily, # 30 tablet, Refills 2, Tot. Refills 2, Maintenance, 12/06/18 14:00:07 EST, Route to Pharmacy Electronically, [id number], [facility]/pharmacy #1291 Start Date: 12/06/18 Status: Ordered aspirin 81 mg oral tablet 1 tablet = 81 mg, By Mouth, Daily, # 30 tablet, 5 Refills, Maintenance, 01/21/20 7:15:00 EDT, [facility]/pharmacy #[id number], 165, cm, 12/17/19 8:59:00 EST, Height, 93.5, kg, 07/06/18 23:42:00 EDT, Dry Weight Start Date: 01/21/20 Stop Date: 07/19/20 Status: Ordered CPAP Machine See Instructions, # 1 each, Maintenance, BiPAP 15/5 with heated humidification and compliance [...] Clinical Service Informant Diabetes mellitus Discharge Diagnosis 03/21/20 Hypertension Discharge Diagnosis 03/21/20 Narcolepsy Discharge Diagnosis 03/21/20 Obstructive sleep apnea Discharge Diagnosis 03/21/20 Obesity Discharge Diagnosis 03/21/20 Social History Social History Type Response Smoking Status Never smoker; Tobacc o user in household: No entered on: 05/09/14 Sex
--- OUTSIDE RECORDS SUMMARY | 2023-06-24 20:51 | XMS_ITS | Continuity of Care Document ---
Author Name Unknown Organization [facility] Address [address] [place] [address]- Care Team Providers Care Diamond Sizer And Sorter Name Role Phone Cristobal ROSARIO, Maribell Weldon Primary Care Physician Encounter [facility] Date(s): 10/30/22 - 11/29/22 [facility] [address] [place], [place] [address] Allergies, Adverse Reactions, Alerts Substance Reaction Severity Status Nuts Active Watermelon Active Immunizations Given and Recorded Vaccine Date Status Refusal Reason SARS-CoV-2 mRNA (cspmsqo-mbzg-agirr) vax 11/23/21 Recorded SARS-CoV-2 (COVID-19) mRNA BNT-162b2 [...] Diphth/Pertussis,Acel/Tetanus (oldterm) 89 G julián 1Result Comment: [facility] [id number] 2Result Comment: [07/17/2018] givne /out incident ncd: [id number] 3Result Comment: [09/30/2017] [facility] [id number] 4Admin Note: pt declined 5Admin Note: vis [...] Refills, Maintenance, 09/13/22 9:47:00 EST, ER Tablet, [facility]/pharmacy #1291, stop synjardy, 165, cm, 09/13/22 [...] each, Refills 0, Route to Pharmacy Electronically, [id number], [facility] STORE 01782, 165, cm, 09/27/21 19:50:00 EST, Height, 89.9, [...] Personnel Name: Cristobal ROSARIO, Maribell Weldon Position: [facility] Primary Care Physician Member Role: PCP Address: Address: [address] [place] [address] Adult & [place] [address]- Care Team Related Persons Name: JJ NORMAN Address: home [address] [place] [address] Name: RISHABH CASTELLON Address: [place] [address] Name: YEIMY CASTELLON Address: home [address] [place] [address] Name: DONNA ZELAYA Address: home [address] [place] [address] Name: JOSE RAFAEL VINCENT Address: [place] [address] Name: ABHAY SPAULDING Name: SAMANTHA TINEO Address: home [address] [place] [address]
--- OUTSIDE RECORDS SUMMARY | 2023-06-24 20:51 | XMS_ITS | Continuity of Care Document ---
Author Name Unknown Organization [facility] Address [address] [place] [address]- Care Team Providers Care Orchestra Teacher Name Role Phone Cristobal ROSARIO, Maribell Weldon Primary Care Physician [phone] [facility]counter [facility] Date(s): 08/02/22 - 09/01/22 [facility] [address] [place], [place] [address] Attending Physician: Mya Braswell Admitting Physician: AdmMay coker Referring Physician: Admtr, ArKarthik Allergies, Adverse Reactions, Alerts Substance Reaction Severity Status Nuts Active Watermelon Active Immunizations Given and Recorded Vaccine Date Status Refusal Reason SARS-CoV-2 mRNA (yqznkau-sfpj-gerux) vax 11/23/21 Recorded SARS-CoV-2 (COVID-19) mRNA BNT-162b2 [...] [facility] [id number] 2Result Comment: [07/17/2018] givne /out incident ncd: [id number] 3Result Comment: [09/30/2017] [facility] [id number] 4Admin Note: pt declined 5Admin Note: vis [...] Refills, Soft Stop, 05/24/22 14:17:00 EDT, Tablet, [facility]/pharmacy #1291, Partial fill upon patient request [...] each, Refills 0, Route to Pharmacy Electronically, [id number], [facility] STORE 37409, 165, cm, 09/27/21 19:50:00 EST, Height, 89.9, kg, 09/27/21 19:50:0... Start Date: 02/12/22 Status: Ordered Vitamin D 32371 iu oral capsule 50,000 International_Units, By Mouth, [...] Cardiology Office Note, Non-BH Authored Date: * Cristobal ROSARIO, Maribell Weldon: PERFORM, SIGN, VERIFY Event Display: Patient Education/Instruction Authored Date: [id number] [facility] Adult Ped Clinical Summary Person Information Visit Date 12/06/2018 1:00 PM Name CAROL REDMAN Age 28 Years 1990 12:00 AM PCP Maribell Jain MD PCP Sex Female Race Black Ethnicity Non-/Non- Language Niuean You can now view a summary of your hospital visit from the comfort of your home through a free online portal called [employer]. [employer] is a website that allows you to securely view your medical information including discharge summary, medications and follow-up visits. You can also send a secure electronic message to your doctor???s office to request appointments, renew medicationsor just ask a question. You can enroll at [email or web address] or register during your next office visit. Smoking can increase your chances of developing chronic health problems and can cause harmful effects to other family members in your house. If you smoke, you are strongly encouraged to quit. Please call the [place] Smokers??? Helpline at 3-464-MBZC-NOW (or ) or log on to [email or web address] for more information. The National Suicide Prevention Hotline is available 16/05 if you or someone you know needs to find a reason to keep living. By calling 3-314-439-ngau (0126) you'll be connected to a skilled, trained [...] find a [facility] provider by calling [facility] at [phone]. For information about the plan of care [...] more often than directed. Talk to your veterans service representative regarding the use of this medicine in [...] this medicine? Visit your doctor or health transition of care specialist for regular checks on your progress. Learn [...] should report to your doctor or health transition of care specialist as soon as possible: ??? allergic reactions like skin rash, itching or hives, swelling of the face, lips, or tongue ??? breathing problems ??? feeling faint or lightheaded, falls ??? low blood sugar (ask your doctor or health transition of care specialist for a list of these symptoms) ??? muscle aches or pains ??? slow or irregular heartbeat ??? unusual stomach pain or discomfort ??? unusually tired or weak Side effects that usually do not require medical attention (report to your doctor or health transition of care specialist if they continue or are bothersome): ??? diarrhea ??? headache ??? heartburn ??? metallic taste in mouth ??? nausea ??? stomach gas, upset This list may not describe all possible side effects. Call your doctor for medical advice about side effects. You may report side effects to FDA at 1-026-LMB-2957. Where should I keep my medicine? Keep [...] doctor, pharmacist, or health care provider. Copyright?? 2013 Gold Standard Additional Instructions: * Event Display: Laboratory Result Scanned Authored Date: * Event Display: X-Ray Chest, Non- BH Authored Date: * Event Display: X-Ray Chest, Non- BH Authored Date: * Event Display: X-Ray Chest, Non- BH Authored Date: * Event Display: Laboratory Result Scanned Authored Date: * Balwinder Mcghee: PERFORM Event Display: Radiology Results Scanned Authored Date: [id number] * Cesia Shelton: PERFORM Event Display: Radiology Results Scanned Authored Date: [id number] * Haydee Ovalle: PERFORM Event Display: Radiology Results Scanned Authored Date: [id number] Patient Care team information Care Team Personnel Name: Cristobal ROSARIO, Maribell Weldon Position: S Primary Care Physician Member Role: PCP Address: Address: [address] [place] [address] Adult & [place] [address]- Care Team Related Persons Name: JJ NORMAN Address: home [address] [place] [address] Name: RISHABH CASTELLON Address: [place] [address] Name: YEIMY CASTELLON Address: home [address] [place] [address] Name: DONNA ZELAYA Address: home [address] [place] [address] Name: JOSE RAFAEL VINCENT Address: [place] [address] Name: ABHAY SPAULDING Name: SAMANTHA TINEO Address: [place] [id number]
--- OUTSIDE RECORDS SUMMARY | 2023-06-24 20:51 | XMS_ITS | Continuity of Care Document ---
Author Name Unknown Organization [facility] Address [address] [place] [address]- Care Team Providers Care Public Health Nutritionist Name Role Phone Maribell Jain MD Primary Care Physician Encounter [facility] Date(s): 05/04/23 - 05/04/[address] [address]- Discharge Disposition: A-D/C Home Attending Physician: Joseph Cruz DO Admitting Physician: Joseph Cruz DO Referring Physician: Not on Staff, Referring MD Allergies, Adverse Reactions, Alerts Substance Reaction Severity Status Nuts Active Watermelon Active Immunizations Given and Recorded Vaccine Date Status Refusal Reason SARS-CoV-2 mRNA (hpphvwi-wfqb-gxubj) vax 11/23/21 Recorded SARS-CoV-2 (COVID-19) mRNA BNT-162b2 vac 11/02/21 Recorded pneumococcal 23-valent vaccine 1 09/14/19 Given Influenza Virus Vaccine (oldterm) 08/24/19 Recorde d influenza virus vaccine, inactivated 2 07/17/18 Gi danita influenza virus vaccine, inactivated 3 09/30/17 Gi danita influenza virus vaccine, inactivated 4 11/13/10 Gi dnaita tetanus/diphtheria/pertussis, acel(Tdap) 12/30/16 Given tetanus-diphtheria toxoids (Td) 5 06/19/09 Given Diphth/Pertussis,Acel/Tetanus (oldterm) 89 G iven 1Result Comment: [facility] [facility] [id number] 2Result Comment: [07/17/2018] givne /out incident ncd: [id number] 3Result Comment: [09/30/2017] [facility] [id number] 4Admin Note: pt declined 5Admin Note: vis given Medications amLODIPine 5 mg oral tablet 1 tablet = 5 mg, By Mouth, Daily, # 90 tablet, 1 Refills, Maintenance, 12/14/22 10:33:00 EST, Tablet, [facility]/pharmacy #1291, in addition to losartan, [...] Refills, Maintenance, 12/09/22 12:15:00 EST, ER Tablet, [facility] stop synjardy, 165, cm, 11/10/22 11:18:00 [...] Refills, Maintenance, 01/14/23 8:57:00 EDT, [facility], 165, cm, 01/13/23 10:56:00 EDT, Height, 88.8, [...] Range]: 1 2 3 Height 165 cm (05/04/23 6:01 AM) 165 cm (05/04/23 3:51 AM) 165 cm (05/04/23 12:58 AM) Weight 85.7 kg (05/04/23 6:01 AM) 85.7 kg (05/04/23 3:51 AM) 85.7 kg (05/04/23 12:58 AM) Oxygen Saturation [94-100 %] 100 % (05/04/23 6:01 AM) 97 % (05/04/23 3:51 AM) 100 % (05/04/23 12:58 AM) Pulse Rate [55-90 bpm] 72 bpm (05/04/23 6:01 AM) 67 bpm (05/04/23 3:51 AM) 73 bpm (05/04/23 12:58 AM) Body Mass Index [18.5-24.99 kg/m2] 31.48 kg/m2 *>HHI* (05/04/23 6:01 AM) 31.48 kg/m2 *>HHI* (05/04/23 3:51 AM) Blood Pressure [90-138/55-84 mm Hg] 118/86mm Hg (05/04/23 6:01 AM) 113/83mm Hg (05/04/23 3:51 AM) 129/89mm Hg (05/04/23 12:58 AM) Respiratory Rate [16-30 br/min] 16 br/min (05/04/23 6:01 AM) 16 br/min (05/04/23 3:51 AM) 16 br/min (05/04/23 12:58 AM) Temperature [96.8-100.4 DegF] 98.3 DegF (05/04/23 6:01 AM) 98.1 DegF (05/04/23 3:51 AM) 98.5 DegF (05/04/23 12:58 AM) Mode of Delivery (Oxygen) Room air (05/04/23 6:01 AM) Room air (05/04/23 3:51 AM) Room air (05/04/23 12:58 AM) Blood pressure sites Arm, right (05/04/23 6:01 AM) Arm, left (05/04/23 3:51 AM) Arm, left (05/04/23 12:58 AM) Temperature Route Temporal (05/04/23 6:01 AM) Temporal (05/04/23 3:51 AM) Temporal (05/04/23 12:58 AM) Dry Weight 85.7 kg (05/04/23 6:01 AM) 85.7 kg (05/04/23 3:51 AM) 85.7 kg (05/04/23 12:58 AM) Weight Obtained Via Standing scale (05/04/23 12:58 AM) Dry Weight Obtained Via Standing scale (05/04/23 12:58 AM) Social History Social History Type Response Smoking Status Never smoker; Tobacc o user in household: No entered on: 05/09/14 Sex EKG study * Event Display: ECG 12-Lead Authored Date: Please click on pdf link to open report * Event Display: ECG 12-Lead Authored Date: Ventricular Rate: 74 BPM Atrial Rate: 74 BPM P-R Interval: 154 ms QRS Duration: 82 ms Q-T Interval: 432 ms QTC Calculation(Bazett): 479 ms P Carrington: 72 degrees R Carrington: 32 degrees T Carrington: 31 degrees Normal sinus rhythm Incomplete right bundle branch block Possible Left atrial enlargement Borderline ECG When compared with ECG of 28-DEC-2022 22:53, No significant change was found Confirmed by LAURA ROWELL MD ([id number]) on 05/04/2023 9:37:23 PM [place]: LAURA ROWELL MD Patient Care team information Care Team Personnel Name: Maribell Jain MD Position: [facility] Physician - Primary Care Member Role: PCP Address: Address: [address] [place] [address] Adult & [place] [address]- Name: Bijan Downing Position: [facility] ED TA [facility] Member Role: Patient Care Provider Name: Joseph Cruz DO Position: [facility] ED Medicine MD Member Role: ED Attending Physician Address: Address: [address] [place] [address] [place] [address]- Name: June Dixon RN Position: S ED RN W/OE and Tasks Member Role: Patient Care Provider Care Team Related Persons Name: JJ NORMAN Address: home [address] [place] [address] Name: RISHABH CASTELLON Address: [place] [address] Name: YEIMY CASTELLON Address: home [address] [place] [address] Name: DONNA ZELAYA Address: home [address] [place] [address] Name: JOSE RAFAEL VINCENT Address: [place] [address] Name: ABHAY SPAULDING Name: SAMANTHA TINEO Address: home [address] [place] [address]
--- OUTSIDE RECORDS SUMMARY | 2023-06-24 20:51 | XMS_ITS | Continuity of Care Document ---
Author Name Unknown Organization [facility] Address [address] [place] [address]- Care Team Providers Care Exhaust And Muffler Repairer Name Role Phone Cristobal ROSARIO, Maribell Weldon Primary Care Physician [facility]): 07[facility]16/20 - 08/15/20 [facility] [address] [place] [address]- [facility] Allergies, Adverse Reactions, Alerts Substance Reaction [...] Diphth/Pertussis,Acel/Tetanus (oldterm) 89 G julián 1Result Comment: [facility] [id number] 2Result Comment: [07/17/2018] givne /out incident ncd: [id number] 3Result Comment: [09/30/2017] [facility] [id number] 4Admin Note: pt declined 5Admin Note: vis given Medications albuterol CFC free 90 mcg/inh inhalation aerosol 2, puffs, Inhalation, Every 6 hours, PRN, # 1 each, Refills 0, Tot. Refills 0, Maintenance, 12/19/18 18:17:12 EST, Aerosol, Route to Pharmacy Electronically, [id number], [facility] Start Date: 2/26/19 Stop Date: 01/18/19 Status: Ordered amLODIPine 5 mg oral tablet 5 mg, 1, tablet, By Mouth, Daily, # 30 tablet, Refills 2, Tot. Refills 2, Maintenance, 12/06/18 14:00:07 EST, Route to Pharmacy Electronically, [id number], [facility]/pharmacy #1291 Start Date: 12/06/18 Status: Ordered aspirin 81 mg oral tablet 1 tablet = 81 mg, By Mouth, Daily, # 90 tablet, 3 Refills, Maintenance, 04/23/20 15:01:00 EDT, [facility]/pharmacy #1291, 165, cm, 04/23/20 14:42:00 EDT, [...]
--- OUTSIDE RECORDS SUMMARY | 2023-06-24 20:51 | XMS_ITS | Continuity of Care Document ---
Author Name Unknown Organization [facility] Address [address] [place] [address]- Care Team Providers Care Public Speaking Instructor Name Role Phone Cristobal ROSARIO, Maribell Weldon Primary Care Physician [facility] Date[facility]s): 07/26/22 - 08/25/[address] [address] Allergies, Adverse Reactions, Alerts Substance Reaction Severity Status Nuts Active Watermelon Active Immunizations Given and Recorded Vaccine Date Status Refusal Reason SARS-CoV-2 mRNA (cdixarw-dzsw-zjhel) vax 11/23/21 Recorded SARS-CoV-2 (COVID-19) mRNA BNT-162b2 [...] julián 1Result Comment: [facility] [id number] 2Result Comment: [07/17/2018] givne /out incident ncd: [id number] 3Result Comment: [09/30/2017] [facility] [id number] 4Admin Note: pt declined 5Admin Note: vis [...] Refills, Soft Stop, 05/24/22 14:17:00 EDT, Tablet, [facility], Partial fill upon [...] each, Refills 0, Route to Pharmacy Electronically, [id number], [facility] STORE 40435, 165, cm, 09/27/21 19:50:00 EST, Height, 89.9, kg, 09/27/21 19:50:0... Start Date: 02/12/22 Status: Ordered Vitamin D 35843 iu oral capsule 50,000 International_Units, By Mouth, Daily, Refills 0, Maintenance, 04/09/22 9:36:00 EDT, Partial fill upon patient request if the prescription is for a schedule II opioid drug. Start Date: 6/17/22 Status: Ordered VITAMIN D3 2,000 UNIT TABLET [...] Name: Cristobal ROSARIO, Maribell Weldon Address: Address: [address] [place] [address] Adult & Pediatric [place], [place] [address]
--- OUTSIDE RECORDS SUMMARY | 2023-06-24 20:51 | XMS_ITS | Continuity of Care Document ---
Author Name Unknown Organization [facility] Address [address] [place] [address]- Care Team Providers Care Control Area Operator Name Role Phone Cristobal ROSARIO, Maribell Weldon Primary Care Physician [facility] Date[facility]s): 07/22/20 - 08/21/20 [facility] [address] [place] [address]- [facility] Allergies, Adverse Reactions, Alerts Substance [...] 89 G julián 1Result Comment: [facility] [id number] 2Result Comment: [07/17/2018] givne /out incident ncd: [id number] 3Result Comment: [09/30/2017] [facility] [id number] 4Admin Note: pt declined 5Admin Note: vis given Medications albuterol CFC free 90 mcg/inh inhalation aerosol 2, puffs, Inhalation, Every 6 hours, PRN, # 1 each, Refills 0, Tot. Refills 0, Maintenance, 12/19/18 18:17:12 EST, Aerosol, Route to Pharmacy Electronically, [id number], [facility] Start Date: 2/26/19 Stop Date: 01/18/19 Status: Ordered amLODIPine 5 mg oral tablet 5 mg, 1, tablet, By Mouth, Daily, # 30 tablet, Refills 2, Tot. Refills 2, Maintenance, 12/06/18 14:00:07 EST, Route to Pharmacy Electronically, [id number], [facility]/pharmacy #1291 Start Date: 12/06/18 Status: [...]
--- OUTSIDE RECORDS SUMMARY | 2023-06-24 20:51 | XMS_ITS | Continuity of Care Document ---
Author Name Unknown Organization [facility] Address [address] [place] [address]- Care Team Providers Care Radiological Technician Name Role Phone Maribell Jain MD Primary Care Physician [facility] Date[facility]s): 04/19/23 - 05/19/23 [facility] [address] [place], [place] [address] Allergies, Adverse Reactions, Alerts Substance Reaction Severity Status Nuts Active Watermelon Active Immunizations Given and Recorded Vaccine Date Status Refusal Reason SARS-CoV-2 mRNA (jlpemma-eicy-aiyjo) vax 11/23/21 Recorded SARS-CoV-2 (COVID-19) mRNA BNT-162b2 [...] Diphth/Pertussis,Acel/Tetanus (oldterm) 89 G iven 1Result Comment: [facility] [id number] 2Result Comment: [07/17/2018] givne /out incident ncd: [id number] 3Result Comment: [09/30/2017] [facility] [id number] 4Admin Note: pt declined 5Admin Note: vis given Medications amLODIPine 5 mg oral tablet 1 tablet, By Mouth, Daily, # 90 tablet, 1 Refills, Maintenance, 05/16/23 23:07:00 EDT, [facility] STORE 76140, 165, cm, 05/13/23 16:14:00 EDT, Height, 85.7, kg, 05/04/23 6:01:00 EDT, Dry Weight Start Date: 05/16/23 Status: Ordered Aspirin Enteric Coated 81 mg oral delayed release tablet 1 tablet, By Mouth, Daily, # 90 tablet, 3 Refills, Maintenance, 01/13/23 11:23:00 EDT, [facility]/pharmacy#1291, 165, cm, 01/13/23 10:56:00 EDT, Height, [...] Refills, Maintenance, 05/16/23 23:07:00 EDT, [facility], 165, cm, 05/13/23 16:14:00 EDT, Height, 85.7, [...] Team Personnel Name: Maribell Jain MD Position: [facility] Physician - Primary Care Member Role: PCP Address: Address: [address] [place] [address] Adult [place] [address]- Care Team Related Persons Name: JJ NORMAN Address: home [address] [place] [address] Name: RISHABH CASTELLON Address: [place] [address] Name: YEIMY CASTELLON Address: home [address] [place] [address] Name: DONNA ZELAYA Address: home [address] [place] [address] Name: JOSE RAFAEL VINCENT Address: [place] [address] Name: ABHAY SPAULDING Name: SAMANTHA TINEO Address: home [address] [place] [address]
--- OUTSIDE RECORDS SUMMARY | 2023-06-24 20:52 | XMS_ITS | Continuity of Care Document ---
Author Name Unknown Organization [facility] Address [address] [place] [address]- Care Team Providers Care Utility Locate Technician Name Role Phone Maribell Jain MD Primary Care Physician Encounter [facility] Date(s): 07/14/20 - 08/13/[address] [facility] [address] [address]- [facility] Attending Physician: AdmMay coker Admitting Physician: Admtr, Ar8 Referring Physician: Admtr, [...] Diphth/Pertussis,Acel/Tetanus (oldterm) 89 Regan gallego 1Result Comment: [facility] [id number] 2Result Comment: [07/17/2018] givne /out incident ncd: [id number] 3Result Comment: [09/30/2017] [facility] [id number] 4Admin Note: pt declined 5Admin Note: vis given Medications albuterol CFC free 90 mcg/inh inhalation aerosol 2, puffs, Inhalation, Every 6 hours, PRN, # 1 each, Refills 0, Tot. Refills 0, Maintenance, 12/19/18 18:17:12 EST, Aerosol, Route to Pharmacy Electronically, [id number], [facility]/pharmacy #1291 Start Date: 12/19/18 Stop Date: 01/18/19 Status: Ordered amLODIPine 5 mg oral tablet 5 mg, 1, tablet, By Mouth, Daily, # 30 tablet, Refills 2, Tot. Refills 2, Maintenance, 12/06/18 14:00:07 EST, Route to Pharmacy Electronically, [id number], [facility]/pharmacy #1291 Start Date: 12/06/18 Status: Ordered aspirin 81 mg oral tablet 1 tablet = 81 mg, By Mouth, Daily, # 90 tablet, 3 Refills, Maintenance, 04/23/20 15:01:00 EDT, [facility]/pharmacy #1291, 165, cm, 04/23/20 14:42:00 EDT, [...]
--- OUTSIDE RECORDS SUMMARY | 2023-06-24 20:52 | XMS_ITS | Continuity of Care Document ---
Author Name Unknown Organization [facility] Address [address], [address] [place] [address]- Care Team Providers Care Electric Vehicle Electrician Name Role Phone Maribell Jain MD Primary Care Physician Encounter [facility] Date(s): 06/29/22 - 10/27/22 [facility] [address] [place], [place] [address] Attending Physician: Elizabeth Bobo MD Admitting Physician: Elizabeth Bobo MD Referring Physician: Maribell Jain MD Allergies, Adverse Reactions, Alerts Substance Reaction Severity Status Nuts Active Watermelon Active Immunizations Given and Recorded Vaccine Date Status Refusal Reason SARS-CoV-2 mRNA (sfgqkyu-kkgo-whzol) vax 11/23/21 Recorded SARS-CoV-2 (COVID-19) mRNA BNT-162b2 [...] [facility] [id number] 2Result Comment: [07/17/2018] givne /out incident ncd: [id number] 3Result Comment: [09/30/2017] [facility] [id number] 4Admin Note: pt declined 5Admin Note: vis [...] Refills, Maintenance, 09/13/22 9:47:00 EST, ER Tablet, [facility]/pharmacy #1291, stop synjardy, 165, cm, 09/13/22 9:05:00 [...] each, Refills 0, Route to Pharmacy Electronically, [id number], [facility], 165, cm, 09/27/21 19:50:00 EST, Height, 89.9, [...] Personnel Name: Cristobal ROSARIO, Maribell Weldon Position: [facility] Primary Care Physician Member Role: PCP Address: Address: [address] [place] [address] Adult & [place] [address]- Care Team Related Persons Name: JJ NORMAN Address: home [address] [place] [address] Name: RISHABH CASTELLON Address: [place] [address] Name: YEIMY CASTELLON Address: home [address] [place] [address] Name: DONNA ZELAYA Address: home [address] [place] [address] Name: JOSE RAFAEL VINCENT Address: [place] [address] Name: ABHAY SPAULDING Name: SAMANTHA TINEO Address: home [address] [place] [address]
--- OUTSIDE RECORDS SUMMARY | 2023-06-24 20:52 | XMS_ITS | Continuity of Care Document ---
Author Name Unknown Organization [facility] Address [address] [place] [address]- Care Team Providers Care Dry Color Mixer Name Role Phone Maribell Jain MD Primary Care Physician Encounter [facility] Date(s): 09/13/22 - 09/20/22 [facility] [address] [place], [place] [address] Attending Physician: Maribell Jain MD Allergies, Adverse Reactions, Alerts Substance Reaction Severity Status Nuts Active Watermelon Active Immunizations Given and Recorded Vaccine Date Status Refusal Reason SARS-CoV-2 mRNA (elwstnn-ewkq-avywj) vax 11/23/21 Recorded SARS-CoV-2 (COVID-19) mRNA BNT-162b2 [...] julián 1Result Comment: [facility] [id number] 2Result Comment: [07/17/2018] givne /out incident ncd: [id number] 3Result Comment: [09/30/2017] [facility] [id number] 4Admin Note: pt declined 5Admin Note: vis given Medications amLODIPine 5 mg oral tablet 1 tablet = 5 mg, By Mouth, Daily, # 30 tablet, 0 Refills, Maintenance, 11/21/22 9:49:00 EST, Tablet, [facility], in addition [...] 10/11/22 9:44:00 EST, 09/13/22 9:44:00 EST, Tablet, [facility], Partial fill upon [...] Refills, Maintenance, 09/13/22 9:47:00 EST, ER Tablet, [facility]/pharmacy #1291, stop synjardy, 165, cm, [...] each, Refills 0, Route to Pharmacy Electronically, [id number], [facility] STORE 23287, 165, cm, 09/27/21 19:50:00 EST, Height, 89.9, [...] [Reference Range]: 1 2 Height 165 cm (09/13/22 9:05 AM) 165 cm (09/13/22 9:01 AM) Weight 84.2 kg (09/13/22 9:01 AM) Oxygen Saturation [94-100 %] 99 % (09/13/22 9:01 AM) Pulse Rate [55-90 bpm] 80 bpm (09/13/22 9:01 AM) Body Mass Index [18.5-24.99 kg/m2] 30.93 kg/m2 *>HHI* (09/13/22 9:01 AM) Blood Pressure [90-138/55-84 mm Hg] 150/ 90mm Hg *H* (09/13/22 9:05 AM) 150/90mm Hg *H* (09/13/22 9:01 AM) Mode of Delivery (Oxygen) Room air (09/13/22 9:01 AM) Blood pressure sites Arm, left (09/13/22 9:05 AM) Arm, left (09/13/22 9:01 AM) Weight Obtained Via Standing scale (09/13/22 9:01 AM) Social History Social History Type Response Smoking Status Never smoker; Tobacc o user in household: No entered on: 05/09/14 Sex Note * Jacquelin Beckman: PERFORM, SIGN, VERIFY Event Display: Patient Education/Instruction Authored Date: [facility] *[facility] Clinical Summary Name CAROL REDMAN Age 32 Years 1990 PCP Cristobal ROSRAIO, Maribell Weldon PCP Visit Date 09/13/2022 08:55:00 Patient Instructions IN AM ---> aspirin , metformin 500 mg , losartan IN PM- metformin, amlodipine check sugars once daily at different times diflucan once a week for 4 weeks use bipap machine keep humidifier to avoid dry air Additional Instructions: Scheduled Appointments?? Future Appointments ?*No??[facility]ult[facility] ?[address]??[place],??[place],??[address] ?Phone:??--?Fax:??-- ?Appt. Date:??10/11/2022?11:45 AM ?Scheduled Provider:??Cristobal ROSARIO , Maribell Weldon Follow-Up Instructions ?? Diagnosis Epistaxis; Anemia, unspecified; Obstructive sleep apnea (adult) (pediatric); Candidiasis of vulva and vagina; Other hyperlipidemia; Essential (primary) hypertension; Type 2 diabetes mellitus with hyperglycemia Medications: Please continue your medications until treatment is completed or stopped by your provider. Discuss any questions related to medications with your provider. New Medications [facility], [address], [place] [id number], [phone] Fluconazole (Diflucan 150 mg oral tablet) 1 tab(s) Oral every week for 4 week(s). Refills: 0. Next Dose: Metformin (metFORMIN 500 mg oral tablet, extended release) 2 tab(s) Oral Daily for 90 Days. Refills: 0. Next Dose: Medications to Continue Taking That Have Changed [facility], [address], [place] [id number], [phone] - Amlodipine (amLODIPine 5 mg oral tablet) 1 tab(s) Oral Daily for 30 Days. Refills: 0. Next Dose: These medications were not printed or sent to your pharmacy - Durable Medical Equipment (CPAP Machine) AutoBiPAP max IPAP 15 min EPAP 5, PS 8 with heated humidification and compliance data to be followed. tubing, mask and supplies. Refills: 0. Next Dose: - Durable Medical Equipment (Freestyle Lite Monitor) dx- E11.9 check sugars once daily. Refills: 0. Next Dose: - Durable Medical Equipment (Freestyle Lite Test Strips) dx- E11.9 check sugars once daily. Refills: 3. Next Dose: - Losartan (losartan 50 mg oral tablet) Next Dose: - Miscellaneous Rx (FREESTYLE 28G LANCETS) CHECK SUGARS ONCE DAILY. Refills: 0. Next Dose: - Miscellaneous Rx (VITAMIN D3 2,000 UNIT TABLET) Next Dose: - Multivitamin Daily. Next Dose: Medications to Continue with No Changes These medications were not printed or sent to your pharmacy Albuterol (ProAir HFA 90 mcg/inh inhalation aerosol with adapter) 2 puff(s) Inhalation every 6 hours as needed. WHEEZING/SHORTNESS OF BREATH.. Refills: 0. Next Dose: Aspirin (Aspirin Enteric Coated 81 mg oral delayed release tablet) 1 tab(s) Oral Daily. Refills: 1. Next Dose: No Longer Take the Following Medications empagliflozin-metFORMIN (Synjardy XR 25 mg-1000 mg oral tablet, extended release) Ergocalciferol (Vitamin D 62430 iu oral capsule) 50,000 International Unit Oral Daily. Allergy Info:?? Watermelon; Nuts Medications Given This Visit Future Orders ?No future orders Vital Signs Height 165 cm Weight 84.2 kg BMI 30.93 kg/m2 Blood Pressure 150 mm Hg/90 mm Hg Temperature Pulse Rate 80 bpm Respiratory Rate 02 Sat Mode of Delivery 99 %/Room air You can now view a summary of your hospital visit from the comfort of your home through a free online portal called Atempo. Atempo is a website that allows you to securely view your medical information including discharge summary, medications and follow-up visits. ??You can alsosend a secure electronic message to your doctor???s office to request appointments, renew medications or just ask a question. You can enroll at [email or web address] or register during your next office visit. [...] primary care provider, you may find a [facility] provider by calling [facility] [employer] Link at [phone]. For information about the plan of care including goals and instructions for your diagnosis, please see the patient education orders section of this document. Patient Education Materials?? The content of this educational material or handout may have been modified, supplemented, or adapted from its original content and format to support your individualized medical care. * Jacquelin Beckman: PERFORM, SIGN, VERIFY Event Display: Patient Education/Instruction Authored Date: [id number] [facility] *No [facility] Adult [facility] Clinical Summary Name CAROL REDMAN Age 32 Years 1990 PCP Cristobal ROSARIO, Maribell Weldon PCP Visit Date 09/13/2022 08:55:00 Patient Instructions IN AM ---> aspirin , metformin 500 mg , losartan IN PM- metformin, amlodipine check sugars once daily at different times diflucan once a week for 4 weeks use bipap machine keep humidifier to avoid dry air Additional Instructions: Scheduled Appointments?? Future Appointments ?*No??[facility]Adult??Ped ?[address],??[place],[address] ?Phone:??--?Fax:??-- ?Appt. Date:??10/11/2022?11:45 AM ?Scheduled Provider:??Maribell Jain MD Follow-Up Instructions ?? Diagnosis Epistaxis; Anemia, unspecified; Obstructive sleep apnea (adult) (pediatric); Candidiasis of vulva and vagina; Other hyperlipidemia; Essential (primary) hypertension; Type 2 diabetes mellitus with hyperglycemia Medications: Please continue your medications until treatment is completed or stopped by your provider. Discuss any questions related to medications with your provider. New Medications [facility], [address], [place] [id number], [phone] Fluconazole (Diflucan 150 mg oral tablet) 1 tab(s) Oral every week for 4 week(s). Refills: 0. Next Dose: Metformin (metFORMIN 500 mg oral tablet, extended release) 2 tab(s) Oral Daily for 90 Days. Refills: 0. Next Dose: Medications to Continue Taking That Have Changed [facility], [address], [place] [id number], [phone] - Amlodipine (amLODIPine 5 mg oral tablet) 1 tab(s) Oral Daily for 30 Days. Refills: 0. Next Dose: These medications were not printed or sent to your pharmacy - Durable Medical Equipment (CPAP Machine) AutoBiPAP max IPAP 15 min EPAP 5, PS 8 with heated humidification and compliance data to be followed. tubing, mask and supplies. Refills: 0. Next Dose: - Durable Medical Equipment (Freestyle Lite Monitor) dx- E11.9 check sugars once daily. Refills: 0. Next Dose: - Durable Medical Equipment (Freestyle Lite Test Strips) dx- E11.9 check sugars once daily. Refills: 3. Next Dose: - Losartan (losartan 50 mg oral tablet) Next Dose: - Miscellaneous Rx (FREESTYLE 28G LANCETS) CHECK SUGARS ONCE DAILY. Refills: 0. Next Dose: - Miscellaneous Rx (VITAMIN D3 2,000 UNIT TABLET) Next Dose: - Multivitamin Daily. Next Dose: Medications to Continue with No Changes These medications were not printed or sent to your pharmacy Albuterol (ProAir HFA 90 mcg/inh inhalation aerosol with adapter) 2 puff(s) Inhalation every 6 hours as needed. WHEEZING/SHORTNESS OF BREATH.. Refills: 0. Next Dose: Aspirin (Aspirin Enteric Coated 81 mg oral delayed release tablet) 1 tab(s) Oral Daily. Refills: 1. Next Dose: No Longer Take the Following Medications empagliflozin-metFORMIN (Synjardy XR 25 mg-1000 mg oral tablet, extended release) Ergocalciferol (Vitamin D 28871 iu oral capsule) 50,000 International Unit Oral Daily. Allergy Info:?? Watermelon; Nuts Medications Given This Visit Future Orders ?No future orders Vital Signs Height 165 cm Weight 84.2 kg BMI 30.93 kg/m2 Blood Pressure 150 mm Hg/90 mm Hg Temperature Pulse Rate 80 bpm Respiratory Rate 02 Sat Mode of Delivery 99 %/Room air You can now view a summary of your hospital visit from the comfort of your home through a free online portal called Atempo. Atempo is a website that allows you to securely view your medical information including discharge summary, medications and follow-up visits. ??You can alsosend a secure electronic message to your doctor???s office to request appointments, renew medications or just ask a question. You can enroll at [email or web address] or register during your next office visit. [...] primary care provider, you may find a [facility] provider by calling [facility] [employer] at [phone]. For information about the plan of care [...] Personnel Name: Cristobal ROSARIO, Maribell Weldon Position: [facility] Primary Care Physician Member Role: PCP Address: Address: [facility] [place] [address]- [place] Care Team Related Persons Name: ROSSANAJACSALBADORJJ Address: home [address] [place] [address] Name: RISHABH CASTELLON Address: [place] [address] Name: YEIMY CASTELLON Address: home [address] [place] [address] Name: DONNA ZELAYA Address: home [address] [place] [address] Name: JOSE RAFAEL VINCENT Address: [place] [address] Name: ABHAY SPAULDING Name: SAMANTHA TINEO Address: home [address] [place] [address]
--- OUTSIDE RECORDS SUMMARY | 2023-06-24 20:52 | XMS_ITS | Continuity of Care Document ---
Author Name Unknown Organization [facility] Address [address] [place] [address]- Care Team Providers Care Risk Lead Name Role Phone Cristobal ROSARIO, Maribell Weldon Primary Care Physician [facility] Date[facility]20 - 11/15/20 [facility] [address] [place], [place] [address] Allergies, Adverse Reactions, Alerts [...] G julián 1Result Comment: [facility] [phone] 2Result Comment: [07/17/2018] givne /out incident ncd: [id number] 3Result Comment: [09/30/2017] [facility] [id number] 4Admin Note: pt declined 5Admin Note: vis given Medications albuterol CFC free 90 mcg/inh inhalation aerosol 2, puffs, Inhalation, Every 6 hours, PRN, # 1 each, Refills 0, Tot. Refills 0, Maintenance, 12/19/18 18:17:12 EST, Aerosol, Route to Pharmacy Electronically, [id number], [facility] Start Date: 12/19/18 Stop Date: 01/18/19 Status: Ordered amLODIPine 5 mg oral tablet 5 mg, 1, tablet, By Mouth, Daily, # 30 tablet, Refills 2, Tot. Refills 2, Maintenance, 12/06/18 14:00:07 EST, Route to Pharmacy Electronically, [id number], [facility]/pharmacy #1291 Start Date: 12/06/18 Status: Ordered aspirin 81 mg oral tablet 1 tablet = 81 mg, By Mouth, Daily, # 90 tablet, 3 Refills, Maintenance, 04/23/20 15:01:00 EDT, [facility]/pharmacy #1291, 165, cm, 04/23/20 14:42:00 EDT, Height, [...]
--- OUTSIDE RECORDS SUMMARY | 2023-06-24 20:52 | XMS_ITS | Continuity of Care Document ---
Author Name Unknown Organization [facility] Address [address] [place] [address]- Care Team Providers Care Freight Brake Operator Name Role Phone Cristobal ROSARIO, Maribell Weldon Primary Care Physician [facility]): [facility] - 08/22/20 [facility] [address] [place] [address]- [facility] Attending Physician: May Braswell Admitting Physician: AdmMay [...] (oldterm) 89 G julián 1Result Comment: [facility] [id number] 2Result Comment: [07/17/2018] givne /out incident ncd: [id number] 3Result Comment: [09/30/2017] [facility] [id number] 4Admin Note: pt declined 5Admin Note: vis given Medications albuterol CFC free 90 mcg/inh inhalation aerosol 2, puffs, Inhalation, Every 6 hours, PRN, # 1 each, Refills 0, Tot. Refills 0, Maintenance, 12/19/18 18:17:12 EST, Aerosol, Route to Pharmacy Electronically, [id number], [facility]/pharmacy #1291 Start Date: 12/19/18 Stop Date: 01/18/19 Status: Ordered amLODIPine 5 mg oral tablet 5 mg, 1, tablet, By Mouth, Daily, # 30 tablet, Refills 2, Tot. Refills 2, Maintenance, 12/06/18 14:00:07 EST, Route to Pharmacy Electronically, [id number], [facility]/pharmacy #1291 Start Date: [...]
--- OUTSIDE RECORDS SUMMARY | 2023-06-24 20:52 | XMS_ITS | Continuity of Care Document ---
Author Name Unknown Organization [facility] Address [address] [place] [address]- Care Team Providers Care Fruit Rancher Name Role Phone Maribell Jain MD Primary Care Physician [phone] [facility] 01/16/21 - 02/15/21 [facility] [address] [place], [place] [address] Allergies, Adverse Reactions, Alerts Substance Reaction [...] Diphth/Pertussis,Acel/Tetanus (oldterm) 89 G julián 1Result Comment: [facility] [id number] 2Result Comment: [07/17/2018] givne /out incident ncd: [id number] 3Result Comment: [09/30/2017] [facility] [id number] 4Admin Note: pt declined 5Admin Note: vis given Medications albuterol CFC free 90 mcg/inh inhalation aerosol 2, puffs, Inhalation, Every 6 hours, PRN, # 1 each, Refills 0, Tot. Refills 0, Maintenance, 01/06/21 13:55:00 EDT, Aerosol, Route to Pharmacy Electronically, [id number], [facility]/pharmacy #1291, 165, cm, 06/23/20 13:39:00 EDT, Height Start Date: 01/06/21 Stop Date: 02/05/21 Status: Ordered amLODIPine 5 mg oral tablet 5 mg, 1, tablet, By Mouth, Daily, # 30 tablet, Refills 2, Tot. Refills 2, Maintenance, 12/06/18 14:00:07 EST, Route to Pharmacy Electronically, [id number], [facility]/pharmacy #1291 Start Date: 12/06/18 Status: Ordered aspirin 81 mg oral tablet 1 tablet = 81 mg, By Mouth, Daily, # 90 tablet, 3 Refills, Maintenance, 04/23/20 15:01:00 EDT, [facility]/pharmacy #1291, 165, cm, 04/23/20 14:42:00 EDT, Height, 93.5, kg, 07/06/18 23:42:00 EDT, Dry Weight Start Date: 04/23/20 Stop Date: 04/18/21 Status: Ordered Azithromycin 5 Day Dose Pack 250 mg oral tablet 1 pack/packet, By Mouth, Once, # 6 tablet, 0 Refills, Soft Stop, 01/06/21 13:55:00 EDT, Tablet, [facility]/pharmacy #1291, Partial fill upon patient request [...] tablet, 0 Refills, Maintenance, 12/22/2110:32:00 EST, Tablet, [facility]/pharmacy #1291, 165, cm, 06/23/20 [...] Maintenance, 11/25/20 14:53:00 EST, ER Tablet, [facility]/pharmacy #1291, metformin [...]
--- OUTSIDE RECORDS SUMMARY | 2023-06-24 20:52 | XMS_ITS | Continuity of Care Document ---
Author Name Unknown Organization [facility] Address [address] [place] [address]- Care Team Providers Care News Assignment Editor Name Role Phone Maribell Jain MD Primary Care Physician [phone] [facility]s): 11/27/19 - 11/27/[address] [address]- [facility] Attending Physician: Deb Liang CNM Allergies, Adverse Reactions, Alerts Substance Reaction Severity [...] julián 1Result Comment: [facility] [id number] 2Result Comment: [07/17/2018] givne /out incident ncd: [id number] 3Result Comment: [09/30/2017] [facility] [id number] 4Admin Note: pt declined 5Admin Note: vis given Medications albuterol CFC free 90 mcg/inh inhalation aerosol 2, puffs, Inhalation, Every 6 hours, PRN, # 1 each, Refills 0, Tot. Refills 0, Maintenance, 12/19/18 18:17:12 EST, Aerosol, Route to Pharmacy Electronically, [id number], [facility]/pharmacy #1291 Start Date: 12/19/18 Stop Date: 01/18/19 Status: Ordered amLODIPine 5 mg oral tablet 5 mg, 1, tablet, By Mouth, Daily, # 30 tablet, Refills 2, Tot. Refills 2, Maintenance, 12/06/18 14:00:07 EST, Route to Pharmacy Electronically, [id number], [facility]/pharmacy #1291 Start Date: 12/06/18 Status: [...]
--- OUTSIDE RECORDS SUMMARY | 2023-06-24 20:52 | XMS_ITS | Continuity of Care Document ---
Author Name Unknown Organization [facility] Address [address] [place] [address]- Care Team Providers Care Plate Glass Installer Name Role Phone Maribell Jain MD Primary Care Physician [phone] Encounter [facility] Date(s): 06/11/20 - 06/18/20 [facility] [address] [place] [address]- [facility] Attending Physician: Not on Staff, Attending MD Referring Physician: Maribell Jain MD Allergies, [...] 89 G julián 1Result Comment: [facility] [id number] 2Result Comment: [07/17/2018] givne /out incident ncd: [id number] 3Result Comment: [09/30/2017] [facility] [id number] 4Admin Note: pt declined 5Admin Note: vis given Medications albuterol CFC free 90 mcg/inh inhalation aerosol 2, puffs, Inhalation, Every 6 hours, PRN, # 1 each, Refills 0, Tot. Refills 0, Maintenance, 12/19/18 18:17:12 EST, Aerosol, Route to Pharmacy Electronically, [id number], [facility]/pharmacy #1291 Start Date: 12/19/18 Stop Date: 01/18/19 Status: Ordered amLODIPine 5 mg oral tablet 5 mg, 1, tablet, By Mouth, Daily, # 30 tablet, Refills 2, Tot. Refills 2, Maintenance, 12/06/18 14:00:07 EST, Route to Pharmacy Electronically, [id number], [facility]/pharmacy #1291 Start Date: 12/06/18 Status: Ordered aspirin 81 mg oral tablet 1 tablet = 81 mg, By Mouth, Daily, # 90 tablet, 3 Refills, Maintenance, 04/23/20 15:01:00 EDT, [facility]/pharmacy #1291, 165, cm, 04/23/20 14:42:00 EDT, Height, [...] 5 Refills, Maintenance, 01/16/20 9:40:00 EDT, Tablet, [facility]/pharmacy #1291, 165, cm, 12/17/19 8:59:00 EST, Height, [...]
--- OUTSIDE RECORDS SUMMARY | 2023-06-24 20:52 | XMS_ITS | Continuity of Care Document ---
Author Name Unknown Organization [facility] Address [address] [place] [address]- Care Team Providers Care Physical Anthropologist Name Role Phone Maribell Jain MD Primary Care Physician [facility]s): 12/09/22 - 01/08/23 [facility] [address] [place], [place] [address] Allergies, Adverse Reactions, Alerts Substance Reaction Severity Status Nuts Active Watermelon Active Immunizations Given and Recorded Vaccine Date Status Refusal Reason SARS-CoV-2 mRNA (gffnwsu-upvx-lztmw) vax 11/23/21 Recorded SARS-CoV-2 (COVID-19) mRNA BNT-162b2 [...] Diphth/Pertussis,Acel/Tetanus (oldterm) 89 G ezeen 1Result Comment: [facility] [id number] 2Result Comment: [07/17/2018] givne /out incident ncd: [id number] 3Result Comment: [09/30/2017] [facility] [id number] 4Admin Note: pt declined 5Admin Note: vis given Medications albuterol CFC free 90 mcg/inh inhalation aerosol 2, puffs, Inhalation, Every 6 hours, PRN, # 8.5 Gm, Refills 0, Tot. Refills 0, Maintenance, 12/14/22 10:33:00 EST, Aerosol, Route to Pharmacy Electronically, [id number], [facility]/pharmacy #1291, 165, cm, 12/14/22 10:08:00 EST, Hei... Start Date: 12/14/22 Status: Ordered amLODIPine 5 mg oral tablet 1 tablet = 5 mg, By Mouth, Daily, # 90 tablet, 1 Refills, Maintenance, 12/14/22 10:33:00 EST, Tablet, [facility]/pharmacy #1291, in addition to losartan, 165, cm, [...] 1 Refills, Maintenance, 12/10/22 17:16:00 EST, Tablet, [facility]/pharmacy #1291, Partial fill upon patient request if the prescription is for a schedule II opioid drug., 165, cm, 11/10/22 11:18:00 EST, Height,... Start Date: 12/10/22 Stop Date: 06/08/23 Status: Ordered metFORMIN 500 mg oral tablet, extended release 2 tablet = 1,000 mg, By Mouth, Daily, # 180 tablet, 1 Refills, Maintenance, 12/09/22 12:15:00 EST, ER Tablet, [facility]/pharmacy #1291, stop synjardy, 165, cm, 11/10/22 11:18:00 [...] Personnel Name: Cristobal ROSARIO, Maribell Weldon Position: [facility] Primary Care Physician Member Role: PCP Address: Address: [address] [place] [address] Adult [place] [address]- Care Team Related Persons Name: JJ NORMAN Address: home [address] [place] [address] Name: RISHABH CASTELLON Address: [place] [address] Name: YEIMY CASTELLON Address: home [address] [place] [address] Name: DONNA ZELAYA Address: home [address] [place] [address] Name: JOSE RAFAEL VINCENT Address: [place] [address] Name: ABHAY SPAULDING Name: SAMANTHA TINEO Address: home [address] [place] [address]
--- OUTSIDE RECORDS SUMMARY | 2023-06-24 20:52 | XMS_ITS | Continuity of Care Document ---
Author Name Unknown Organization [facility] Address [address] [place] [address]- Care Team Providers Care Manager Installation Name Role Phone Cristobal ROSARIO, Maribell Weldon Primary Care Physician [phone] [facility]): 12/11/21 - 01/10/22 [facility] [address] [place], [place] [address] Allergies, Adverse Reactions, Alerts [...] Diphth/Pertussis,Acel/Tetanus (oldterm) 89 Regan gallego 1Result Comment: [facility] [id number] 2Result Comment: [07/17/2018] givne /out incident ncd: [id number] 3Result Comment: [09/30/2017] [facility] [id number] 4Admin Note: pt declined 5Admin Note: vis given Medications amLODIPine 5 mg oral tablet 5 mg, 1, tablet, By Mouth, Daily, # 30 tablet, Refills 2, Tot. Refills 2, Maintenance, 12/06/18 14:00:07 EST, Route to Pharmacy Electronically, [id number], [facility]/pharmacy #1291 Start Date: 12/06/18 Status: Ordered Aspirin Enteric Coated 81 mg oral delayed release tablet 1 tablet, By Mouth, Daily, # 90 tablet, 3 Refills, Maintenance, 03/25/21 21:47:00 EDT, [facility], 165, cm, 06/23/20 13:39:00 EDT, Height Start [...] Mouth, Daily, # 180 tablet, 0 Refills, [facility], 165, cm, 09/27/21 19:50:00 EST, Height, 89.9, [...] each, Refills 0, Route to Pharmacy Electronically, [id number], [facility], 165, cm, 09/27/21 19:50:00 EST, Height, 89.9, [...]
--- OUTSIDE RECORDS SUMMARY | 2023-06-24 20:52 | XMS_ITS | Continuity of Care Document ---
Author Name Unknown Organization [facility] Address [address] [place] [address]- Care Team Providers Care Quarter Trimmer Name Role Phone Cristobal ROSARIO, Maribell Weldon Primary Care Physician [phone] [facility]s): 07/09/20 - 08/08/20 [facility] [address] [place] [address]- [facility] Allergies, Adverse Reactions, Alerts Substance [...] julián 1Result Comment: [facility] [id number] 2Result Comment: [07/17/2018] givne /out incident ncd: [id number] 3Result Comment: [09/30/2017] [facility] [id number] 4Admin Note: pt declined 5Admin Note: vis given Medications albuterol CFC free 90 mcg/inh inhalation aerosol 2, puffs, Inhalation, Every 6 hours, PRN, # 1 each, Refills 0, Tot. Refills 0, Maintenance, 12/19/18 18:17:12 EST, Aerosol, Route to Pharmacy Electronically, [id number], [facility] Start Date: 12/19/18 Stop Date: 01/18/19 Status: Ordered amLODIPine 5 mg oral tablet 5 mg, 1, tablet, By Mouth, Daily, # 30 tablet, Refills 2, Tot. Refills 2, Maintenance, 12/06/18 14:00:07 EST, Route to Pharmacy Electronically, [id number], [facility]/pharmacy #1291 Start Date: 12/06/18 Status: Ordered aspirin 81 mg oral tablet 1 tablet = 81 mg, By Mouth, Daily, # 90 tablet, 3 Refills, Maintenance, 04/23/20 15:01:00 EDT, [facility]/pharmacy #1291, 165, cm, 04/23/20 14:42:00 EDT, Height, [...]
--- OUTSIDE RECORDS SUMMARY | 2023-06-24 20:52 | XMS_ITS | Continuity of Care Document ---
Author Name Unknown Organization [facility] Address [address] [place] [address]- Care Team Providers Care Stylist Assistant Name Role Phone Cristobal ROSARIO, Maribell Weldon Primary Care Physician [facility] 01/16/22 - 02/15/22 [facility] [address] [place], [place] [address] Allergies, Adverse Reactions, Alerts [...] Diphth/Pertussis,Acel/Tetanus (oldterm) 89 Regan gallego 1Result Comment: [facility] [id number] 2Result Comment: [07/17/2018] givne /out incident ncd: [id number] 3Result Comment: [09/30/2017] [facility] [id number] 4Admin Note: pt declined 5Admin Note: vis given Medications amLODIPine 5 mg oral tablet 5 mg, 1, tablet, By Mouth, Daily, # 30 tablet, Refills 2, Tot. Refills 2, Maintenance, 12/06/18 14:00:07 EST, Route to Pharmacy Electronically, [id number], [facility] Start Date: 12/06/18 Status: Ordered Aspirin Enteric Coated 81 mg oral delayed release tablet 1 tablet, By Mouth, Daily, # 90 tablet, 3 Refills, Maintenance, 03/25/21 21:47:00 EDT, [facility], 165, cm, 06/23/20 13:39:00 EDT, Height Start [...] Mouth, Daily, # 180 tablet, 0 Refills, [facility], 165, cm, 09/27/21 19:50:00 EST, Height, 89.9, [...] each, Refills 0, Route to Pharmacy Electronically, [id number], [facility], 165, cm, 09/27/21 19:50:00 EST, Height, 89.9, [...]
--- OUTSIDE RECORDS SUMMARY | 2023-06-24 20:52 | XMS_ITS | Continuity of Care Document ---
Author Name Unknown Organization [facility] Address [address] [place] [address]- Care Team Providers Care Maid Housekeeper Name Role Phone Maribell Jain MD Primary Care Physician [phone] [facility]s): 12/17/19 - 12/24/19 [facility] [address] [place] [address]- [facility] Attending Physician: Maribell Jain [...] (oldterm) 89 G julián 1Result Comment: [facility] [id number] 2Result Comment: [07/17/2018] givne /out incident ncd: [id number] 3Result Comment: [09/30/2017] [facility] [id number] 4Admin Note: pt declined 5Admin Note: vis given Medications albuterol CFC free 90 mcg/inh inhalation aerosol 2, puffs, Inhalation, Every 6 hours, PRN, # 1 each, Refills 0, Tot. Refills 0, Maintenance, 12/19/18 18:17:12 EST, Aerosol, Route to Pharmacy Electronically, [id number], [facility]/pharmacy #1291 Start Date: 12/19/18 Stop Date: 01/18/19 Status: Ordered amLODIPine 5 mg oral tablet 5 mg, 1, tablet, By Mouth, Daily, # 30 tablet, Refills 2, Tot. Refills 2, Maintenance, 12/06/18 14:00:07 EST, Route to Pharmacy Electronically, [id number], [facility]/pharmacy #1291 Start Date: 12/06/18 Status: Ordered aspirin [...] oldest [Reference Range]: 1 Height 165 cm (12/17/19 8:59 AM) Weight 89.1 kg (12/17/19 8:59 AM) Oxygen Saturation [94-100 %] 98 % (12/17/19 8:59 AM) Pulse Rate [55-90 bpm] 70 bpm (12/17/19 8:59 AM) Body Mass Index [18.5-24.99] 32.73 *>HHI* (12/17/19 8:59 AM) Blood Pressure [90-138/55-84 mm Hg] 120/ 84mm Hg (12/17/19 8:59 AM) Mode of Delivery (Oxygen) Room air (12/17/19 8:59 AM) Blood pressure sites Arm, left (12/17/19 8:59 AM) Social History Social History Type Response Smoking Status Never smoker; Tobacc o user in household: No entered on: 05/09/14 Sex
--- OUTSIDE RECORDS SUMMARY | 2023-06-24 20:52 | XMS_ITS | Continuity of Care Document ---
Author Name Unknown Organization [facility] Address [address] [place] [address]- Care Team Providers Care Information Systems Security Specialist Name Role Phone Maribell Jain MD Primary Care Physician [phone] [facility](s): 01/09/23 - 02/08/23 [facility] [address] [place], [place] [address] Allergies, Adverse Reactions, Alerts Substance Reaction Severity Status Nuts Active Watermelon Active Immunizations Given and Recorded Vaccine Date Status Refusal Reason SARS-CoV-2 mRNA (xmurnxf-aopv-oorlp) vax 11/23/21 Recorded SARS-CoV-2 (COVID-19) mRNA BNT-162b2 [...] Diphth/Pertussis,Acel/Tetanus (oldterm) 89 G julián 1Result Comment: [facility] [id number] 2Result Comment: [07/17/2018] givne /out incident ncd: [id number] 3Result Comment: [09/30/2017] [facility] [id number] 4Admin Note: pt declined 5Admin Note: vis given Medications amLODIPine 5 mg oral tablet 1 tablet = 5 mg, By Mouth, Daily, # 90 tablet, 1 Refills, Maintenance, 12/14/22 10:33:00 EST, Tablet, [facility]/pharmacy #1291, in addition to losartan, 165, cm, 12/14/22 10:08:00 EST, Height, 85, kg, 09/12/22 4:32:00 EST, Dry Weight Start Date: 12/14/22 Stop Date: 06/12/23 Status: Ordered Aspirin Enteric Coated 81 mg oral delayed release tablet 1 tablet, By Mouth, Daily, # 90 tablet, 3 Refills, Maintenance, 01/13/23 11:23:00 EDT, [facility]/pharmacy#1291, 165, cm, 01/13/23 10:56:00 EDT, Height, 88.8, [...] 1 Refills, Maintenance, 12/10/22 17:16:00 EST, Tablet, [facility]/pharmacy #1291, Partial fill upon patient request if the prescription is for a schedule II opioid drug., 165, cm, 11/10/22 11:18:00 EST, Height,... Start Date: 12/10/22 Stop Date: 06/08/23 Status: Ordered metFORMIN 500 mg oral tablet, extended release 2 tablet = 1,000 mg, By Mouth, Daily, # 180 tablet, 1 Refills, Maintenance, 12/09/22 12:15:00 EST, ER Tablet, [facility]/pharmacy #1291, stop synjardy, 165, cm, 11/10/22 11:18:00 [...] Refills, Maintenance, 01/14/23 8:57:00 EDT, [facility], 165, cm, 01/13/23 10:56:00 EDT, Height, 88.8, [...] Cristobal ROSARIO, Maribell Weldon Position: [facility] Physician - Primary Care Member Role: PCP Address: Address: [address] [place] [address] Adult & [place] [address]- Care Team Related Persons Name: JJ NORMAN Address: home [address] [place] [address] Name: RISHABH CASTELLON Address: [place] [address] Name: YEIMY CASTELLON Address: [address] [place] [address] Name: DONNA ZELAYA Address: home [address] [place] [address] Name: JOSE RAFAEL VINCENT Address: [place] [address] Name: ABHAY SPAULDING Name: SAMANTHA TINEO Address: [address] [place] [address]
--- OUTSIDE RECORDS SUMMARY | 2023-06-24 20:52 | XMS_ITS | Continuity of Care Document ---
Author Name Unknown Organization [facility] Address [address] [place] [address]- Care Team Providers Care Underwriting Clerk Name Role Phone Cristobal ROSARIO, Maribell Weldon Primary Care Physician [facility] 09[facility]12/22 - 10/12/22 [facility] [address] [place], [place] [address] Allergies, Adverse Reactions, Alerts Substance Reaction Severity Status Nuts Active Watermelon Active Immunizations Given and Recorded Vaccine Date Status Refusal Reason SARS-CoV-2 mRNA (dhjejwi-muvx-otspa) vax 11/23/21 Recorded SARS-CoV-2 (COVID-19) mRNA BNT-162b2 [...] Diphth/Pertussis,Acel/Tetanus (oldterm) 89 G ezeen 1Result Comment: [facility] [id number] 2Result Comment: [07/17/2018] givne /out incident ncd: [id number] 3Result Comment: [09/30/2017] [facility] [id number] 4Admin Note: pt declined 5Admin Note: vis [...] tablet, 1 Refills, Maintenance, 04/22/22 9:02:00 EDT, [facility]/pharmacy #1291, Please cancel previous order for 3 [...] Refills, Maintenance, 09/13/22 9:47:00 EST, ER Tablet, [facility]/pharmacy #1291, stop synjardy, 165, cm, 09/13/22 9:05:00 [...] each, Refills 0, Route to Pharmacy Electronically, [id number], [facility], 165, cm, 09/27/21 19:50:00 EST, Height, 89.9, [...] Care Physician Member Role: PCP Address: Address: [facility] Adult & Pediatric [place], [place] [address] Care Team Related Persons Name: JJ NORMAN Address: home [address] [place] [address] Name: RISHABH CASTELLON Address: [place] [address] Name: YEIMY CASTELLON Address: home [address] [place] [address] Name: DONNA ZELAYA Address: home [address] [place] [address] Name: JOSE RAFAEL VINCENT Address: [place] [address] Name: ABHAY SPAULDING Name: SAMANTHA TINEO Address: home [address] [place] [address]
--- OUTSIDE RECORDS SUMMARY | 2023-06-24 20:52 | XMS_ITS | Continuity of Care Document ---
Author Name Unknown Organization [facility] Address [address] [place] [address]- Care Team Providers Care Break And Load Operator Name Role Phone Maribell Jain MD Primary Care Physician [phone] [facility] 05[facility]20 - 06/05/20 [facility] [address] [place] [address]- [facility] Allergies, Adverse Reactions, Alerts Substance Reaction [...] (oldterm) 89 G julián 1Result Comment: [facility] [id number] 2Result Comment: [07/17/2018] givne /out incident ncd: [id number] 3Result Comment: [09/30/2017] [facility] [id number] 4Admin Note: pt declined 5Admin Note: vis given Medications albuterol CFC free 90 mcg/inh inhalation aerosol 2, puffs, Inhalation, Every 6 hours, PRN, # 1 each, Refills 0, Tot. Refills 0, Maintenance, 12/19/18 18:17:12 EST, Aerosol, Route to Pharmacy Electronically, [id number], [facility]/pharmacy #1291 Start Date: 12/19/18 Stop Date: 01/18/19 Status: Ordered amLODIPine 5 mg oral tablet 5 mg, 1, tablet, By Mouth, Daily, # 30 tablet, Refills 2, Tot. Refills 2, Maintenance, 12/06/18 14:00:07 EST, Route to Pharmacy Electronically, [id number], [facility]/pharmacy #1291 Start Date: 12/06/18 Status: Ordered aspirin 81 mg oral tablet 1 tablet = 81 mg, By Mouth, Daily, # 90 tablet, 3 Refills, Maintenance, 04/23/20 15:01:00 EDT, [facility]/pharmacy #1291, 165, cm, 04/23/20 14:42:00 [...]
--- OUTSIDE RECORDS SUMMARY | 2023-06-24 20:52 | XMS_ITS | Continuity of Care Document ---
Author Name Unknown Organization [facility] Address [address] [place] [address]- Care Team Providers Care Vineyardist Name Role Phone Cristobal ROSARIO, Maribell Weldon Primary Care Physician Encounter [facility] Date(s): 07/02/20 - 08/13/20 [facility] [address] [address]- [facility] Attending Physician: Leidy Sinclair MD Admitting Physician: [...] 1Result Comment: [facility] [id number] 2Result Comment: [07/17/2018] givne /out incident ncd: [id number] 3Result Comment: [09/30/2017] [facility] [id number] 4Admin Note: pt declined 5Admin Note: vis given Medications albuterol CFC free 90 mcg/inh inhalation aerosol 2, puffs, Inhalation, Every 6 hours, PRN, # 1 each, Refills 0, Tot. Refills 0, Maintenance, 12/19/18 18:17:12 EST, Aerosol, Route to Pharmacy Electronically, [id number], [facility]/pharmacy #[id number] Start Date: 12/19/18 Stop Date: 01/18/19 Status: Ordered amLODIPine 5 mg oral tablet 5 mg, 1, tablet, By Mouth, Daily, # 30 tablet, Refills 2, Tot. Refills 2, Maintenance, 12/06/18 14:00:07 EST, Route to Pharmacy Electronically, [id number], [facility]/pharmacy #[id number] Start Date: [...]
--- OUTSIDE RECORDS SUMMARY | 2023-06-24 20:52 | XMS_ITS | Continuity of Care Document ---
Author Name Unknown Organization [facility] Address [address] [place] [address]- Care Team Providers Care Tiger Machine Operator Name Role Phone Maribell Jain MD Primary Care Physician En[place] [facility] Date(s): 01/05/23 - 02/04/23 [facility] [address] [place] [address]- [place] Allergies, Adverse Reactions, Alerts Substance Reaction Severity Status Nuts Active Watermelon Active Immunizations Given and Recorded Vaccine Date Status Refusal Reason SARS-CoV-2 mRNA (wnhabcu-vnbw-zztwz) vax 11/23/21 Recorded SARS-CoV-2 (COVID-19) mRNA BNT-162b2 [...] Diphth/Pertussis,Acel/Tetanus (oldterm) 89 G julián 1Result Comment: [facility] [id number] 2Result Comment: [07/17/2018] givne /out incident ncd: [id number] 3Result Comment: [09/30/2017] [facility] [id number] 4Admin Note: pt declined 5Admin Note: vis [...] 1 Refills, Maintenance, 12/10/22 17:16:00 EST, Tablet, [facility]/pharmacy #[id number], Partial fill upon patient request if the prescription is for a schedule II opioid drug., 165, cm, 11/10/22 11:18:00 EST, Height,... Start Date: 12/10/22 Stop Date: 06/08/23 Status: Ordered metFORMIN 500 mg oral tablet, extended release 2 tablet = 1,000 mg, By Mouth, Daily, # 180 tablet, 1 Refills, Maintenance, 12/09/22 12:15:00 EST, ER Tablet, [facility]/pharmacy #[id number], stop synjardy, 165, cm, 11/10/22 11:18:00 [...] Refills, Maintenance, 01/14/23 8:57:00 EDT, [id number], 165, cm, 01/13/23 10:56:00 EDT, Height, 88.8, [...] Team Personnel Name: Maribell Jain MD Position: [facility] Primary Care Physician Member Role: PCP Address: Address: [address] [place] [address] Adult & [place] [address]- [place] Care Team Related Persons Name: JJ NORMAN Address: home [address] [place] [address] Name: RISHABH CASTELLON Address: [place] [address] Name: YEIMY CASTELLON Address: home [address] [place] [address] Name: DONNA ZELAYA Address: home [address] [place] [address] Name: JOSE RAFAEL VINCENT Address: [place] [address] Name: ABHAY SPAULDING Name: SAMANTHA TINEO Address: home [address] [place] [address]
--- OUTSIDE RECORDS SUMMARY | 2023-06-24 20:52 | XMS_ITS | Continuity of Care Document ---
Author Name Unknown Organization [facility] Address [address] [place] [address]- Care Team Providers Care Industrial Pipefitter Journeyman Name Role Phone Maribell Jain MD Primary Care Physician Encounter [facility] Date(s): 06/23/20 - 06/30/20 [facility] [address] [place] [address]- [facility] Attending Physician: Maribell Jain MD Allergies, Adverse [...] Comment: [facility] [id number] 2Result Comment: [07/17/2018] givne /out incident ncd: [id number] 3Result Comment: [09/30/2017] [facility] [id number] 4Admin Note: pt declined 5Admin Note: vis given Medications albuterol CFC free 90 mcg/inh inhalation aerosol 2, puffs, Inhalation, Every 6 hours, PRN, # 1 each, Refills 0, Tot. Refills 0, Maintenance, 12/19/18 18:17:12 EST, Aerosol, Route to Pharmacy Electronically, [id number], [facility]/pharmacy #[id number] Start Date: 12/19/18 Stop Date: 01/18/19 Status: Ordered amLODIPine 5 mg oral tablet 5 mg, 1, tablet, By Mouth, Daily, # 30 tablet, Refills 2, Tot. Refills 2, Maintenance, 12/06/18 14:00:07 EST, Route to Pharmacy Electronically, [id number], [facility]/pharmacy #[id number] Start Date: 12/06/18 Status: Ordered aspirin 81 mg oral tablet 1 tablet = 81 mg, By Mouth, Daily, # 90 tablet, 3 Refills, Maintenance, 04/23/20 15:01:00 EDT, [facility]/pharmacy #[id number], 165, cm, 04/23/20 14:42:00 [...] 5 Refills, Maintenance, 01/16/20 9:40:00 EDT, Tablet, [facility]/pharmacy #[id number], 165, cm, 12/17/19 8:59:00 EST, Height, 93.5, kg, 07/06/18 23:42:00 EDT, Dry Weight Start Date: 01/16/20 Status: Ordered metFORMIN 500 mg oral tablet, extended release 1 tablet = 500 mg, By Mouth, Daily, # 30 tablet, 0 Refills, Maintenance, 06/23/20 14:41:00 EDT, ER Tablet, [facility]/pharmacy #[id number], metformin caused diarrhea/ bloating, [...] oldest [Reference Range]: 1 Height 165 cm (06/23/20 1:39 PM) Weight 90.9 kg (06/23/20 1:39 PM) Oxygen Saturation [94-100 %] 99 % (06/23/20 1:39 PM) Pulse Rate [55-90 bpm] 72 bpm (06/23/20 1:39 PM) Body Mass Index [18.5-24.99] 33.39 *>HHI* (06/23/20 1:39 PM) Blood Pressure [90-138/55-84 mm Hg] 118/ 78mm Hg (06/23/20 1:39 PM) Temperature [96.8-100.4 DegF] 98.5 DegF (06/23/20 1:39 PM) Mode of Delivery (Oxygen) Room air (06/23/20 1:39 PM) Blood pressure sites Arm, left (8/31/20 1:39 PM) Temperature Route Temporal (06/23/20 1:39 PM) Weight Obtained Via Standing scale (06/23/20 1:39 PM) Social History Social History Type Response Smoking Status Never smoker; Tobacc o user in household: No entered on: 05/09/14 Sex
--- OUTSIDE RECORDS SUMMARY | 2023-06-24 20:52 | XMS_ITS | Continuity of Care Document ---
Author Name Unknown Organization [facility] Address [address] [place] [address]- Care Team Providers Care Marketing Graphics Specialist Name Role Phone Maribell Jain MD Primary Care Physician Encounter [facility] [place] Date(s): 10/29/20 - 11/05/[address] [address] Attending Physician: Leidy Sinclair MD Admitting Physician: [...] (oldterm) 89 G julián 1Result Comment: [facility] [id number] 2Result Comment: [07/17/2018] givne /out incident ncd: [id number] 3Result Comment: [09/30/2017] [facility] [id number] 4Admin Note: pt declined 5Admin Note: vis given Medications albuterol CFC free 90 mcg/inh inhalation aerosol 2, puffs, Inhalation, Every 6 hours, PRN, # 1 each, Refills 0, Tot. Refills 0, Maintenance, 12/19/18 18:17:12 EST, Aerosol, Route to Pharmacy Electronically, [id number], [facility]/pharmacy #[id number] Start Date: 12/19/18 Stop Date: 01/18/19 Status: Ordered amLODIPine 5 mg oral tablet 5 mg, 1, tablet, By Mouth, Daily, # 30 tablet, Refills 2, Tot. Refills 2, Maintenance, 12/06/18 14:00:07 EST, Route to Pharmacy Electronically, [id number], [facility]/pharmacy #[id number] Start Date: 12/06/18 Status: Ordered aspirin 81 mg oral tablet 1 tablet = 81 mg, By Mouth, Daily, # 90 tablet, 3 Refills, Maintenance, 04/23/20 15:01:00 EDT, [facility]/pharmacy #1291, 165, cm, 04/23/20 14:42:00 EDT, Height, [...]
--- OUTSIDE RECORDS SUMMARY | 2023-06-24 20:52 | XMS_ITS | Continuity of Care Document ---
Author Name Unknown Organization [facility] Address [address] [place] [address]- Care Team Providers Care Guitar Repairer Name Role Phone Cristobal ROSARIO, Maribell Weldon Primary Care Physician [phone] Encounter [facility] Date(s): 07/30/22 - 08/29/22 [facility] [address] [place], [place] [address] Allergies, Adverse Reactions, Alerts Substance Reaction Severity Status Nuts Active Watermelon Active Immunizations Given and Recorded Vaccine Date Status Refusal Reason SARS-CoV-2 mRNA (tugwjqf-mzlh-izzgg) vax 11/23/21 Recorded SARS-CoV-2 (COVID-19) mRNA BNT-162b2 [...] Diphth/Pertussis,Acel/Tetanus (oldterm) 89 G iven 1Result Comment: [facility] [id number] 2Result Comment: [07/17/2018] givne /out incident ncd: [id number] 3Result Comment: [09/30/2017] [facility] [id number] 4Admin Note: pt declined 5Admin Note: vis [...] Refills, Soft Stop, 05/24/22 14:17:00 EDT, Tablet, [facility]/pharmacy #1291, Partial fill upon [...] each, Refills 0, Route to Pharmacy Electronically, [id number], [facility], 165, cm, 09/27/21 19:50:00 EST, Height, 89.9, kg, 09/27/21 19:50:0... Start Date: 02/12/22 Status: Ordered Vitamin D 40683 iu oral capsule 50,000 International_Units, By Mouth, [...] Name: Cristobal ROSARIO, Maribell Weldon Address: Address: [address] [place] [address] Adult & Pediatric [place], [place] [address]
--- OUTSIDE RECORDS SUMMARY | 2023-06-24 20:52 | XMS_ITS | Continuity of Care Document ---
Author Name Unknown Organization [facility] Address [address] [place] [address]- Care Team Providers Care Chlorinator Operator Name Role Phone Maribell Jain MD Primary Care Physician [phone] Encounter [facility] Date(s): 10/26/19 - 10/26/[address] [address]- [facility] Attending Physician: Maribell Jain MD Allergies, Adverse [...] julián 1Result Comment: [facility] [id number] 2Result Comment: [07/17/2018] givne /out incident ncd: [id number] 3Result Comment: [09/30/2017] [facility] [id number] 4Admin Note: pt declined 5Admin Note: vis given Medications albuterol CFC free 90 mcg/inh inhalation aerosol 2, puffs, Inhalation, Every 6 hours, PRN, # 1 each, Refills 0, Tot. Refills 0, Maintenance, 12/19/18 18:17:12 EST, Aerosol, Route to Pharmacy Electronically, [id number], [id number] Start Date: 12/19/18 Stop Date: 01/18/19 Status: Ordered amLODIPine 5 mg oral tablet 5 mg, 1, tablet, By Mouth, Daily, # 30 tablet, Refills 2, Tot. Refills 2, Maintenance, 12/06/18 14:00:07 EST, Route to Pharmacy Electronically, [id number], [facility]/pharmacy #1291 Start Date: 12/06/18 Status: Ordered aspirin [...]
[2023-06-24 20:54] LABS: Basophils Percent Auto 0.4 % (0-2); Eosinophils Absolute Auto 0.2 X10*3/uL (0.0-0.4); Eosinophils Percent Auto 2.7 % (0-4); Imm Gran Abs Auto 0.02 X10*3/uL (0.00-0.03); Imm Gran Pct Auto 0.3 % (0.0-0.4); Lymphocytes Absolute Auto 2.7 X10*3/uL (1.2-4.9); Lymphocytes Percent Auto 40.6 % (20-40); Mean Corpuscular HGB Conc 34.4 g/dl (31.0-35.0); Mean Corpuscular Hemoglobin 26.3 pg (27.0-33.0); Mean Corpuscular Volume 76.4 fL (80.0-98.0); Mean Platelet Volume 9.2 fL (9.4-12.3); Monocytes Absolute Auto 0.5 X10*3/uL (0.1-1.2); Monocytes Percent Auto 7.1 % (2-11); Neutrophils Absolute Auto 3.3 x10*3/uL (2.0-8.3); Neutrophils Percent Auto 48.9 % (45-73); Platelet Count 334 X10*3/uL (160-400); Red Blood Count 4.19 X10*6/uL (4.20-5.50); Red Cell Distribution Width 13.7 % (11.0-16.0); White Blood Count 6.7 X10*3/uL (4.8-10.8)
[2023-06-24 20:59] LABS: Appearance Urine Clear; Color Urine Yellow; Glucose Urine UA Negative (Negative); Leukocyte Esterase Urine Trace (Negative); Nitrite Urine Negative (Negative); UMIC TRIGGER UACC YES; Urine Blood Moderate (2+) (Negative); Urine Ketones Negative (Negative); Urine Protein Negative (Neg-Trace)
[2023-06-24 21:04] LABS: Bacteria Urine None Seen (None Seen); Hyaline Casts Urine 0-2 /LPF (0-2); Squamous Epithelial Cell Urine 0-2 /HPF (0-2); WBC Urine 0-5 /HPF (0-5)
[2023-06-24 21:07] LABS: Alanine Aminotransferase 18 U/L (0-31); Albumin Level 4.1 g/dL (3.5-5.0); Alkaline Phosphatase 54 U/L (39-117); Anion Gap 16 (12-20); Aspartate Amino Transferase 16 U/L (5-31); Bilirubin Direct 0.2 mg/dL (0.0-0.5); Bilirubin Total 0.5 mg/dL (0.0-1.0); Blood Urea Nitrogen 9 mg/dL (9-16); Calcium 9.7 mg/dL (8.4-10.2); Carbon Dioxide 22 mmol/L (22-29); Chloride 102 mmol/L (96-108); Creatinine Clr Calc Pharmacy 127.4; Estimated Glomerular Filt Rate > 60; Glucose Random 109 mg/dL (60-115); Potassium 3.9 mmol/L (3.3-5.1); Sodium 136 mmol/L (135-145); Total Protein 7.5 g/dL (6.5-8.0)
[2023-06-24 21:15] LABS: Troponin-I High Sensitivity < 2.7 ng/L (<3.5-17.0)
[2023-06-24 22:50] VITALS: BP 131/78; PULSE 70; RESP 16; O2SAT 100
--- NOTE | 2023-06-24 23:47 | PC.NURSE ---
pt assessed at d/c, denies any chest pain, no dizziness when standing
== END 2023-06-24 23:49 | disposition home or self-care (01) ==
PROVIDERS: Physician Assistant Medical; Emergency Provider Emergency Medicine; PCP Internal Medicine
DX: R42 Dizziness and giddiness (principal); I10 Essential (primary) hypertension; H53.8 Other visual disturbances; R07.89 Other chest pain; Z79.899 Other long term (current) drug therapy
CPT/HCPCS: 36415; 80048; 80076; 81001; 84484; 85025; 93005; 99283; 99285

== ENCOUNTER 2023-11-06 11:43 | Emergency (ER) | payer OTHER, SELFPAY ==
--- NOTE | ~2023-11-06 | XR_ITS ---
Examination: X-ray knee bilateral CLINICAL INDICATION: Bilateral knee pain, atraumatic. COMPARISON: None. TECHNIQUE: 4 views of the bilateral knees. FINDINGS: Right knee: No joint effusion. Normal alignment. Well-corticated ossific fragment projecting over the medial femoral condyle may reflect Elo-Stieda lesion which can be seen in the setting of prior MCL injury. Left knee: There is no fracture or dislocation. Joint spaces are preserved. No joint effusion. Soft tissues unremarkable. XR/XR knee RT 4V IMPRESSION: Well-corticated ossific fragment projecting over the right medial femoral condyle may reflect Elo-Stieda lesion which can be seen in the setting of prior MCL injury.
--- NOTE | ~2023-11-06 | XR_ITS ---
Examination: X-ray knee bilateral CLINICAL INDICATION: Bilateral knee pain, atraumatic. COMPARISON: None. TECHNIQUE: 4 views of the bilateral knees. FINDINGS: Right knee: No joint effusion. Normal alignment. Well-corticated ossific fragment projecting over the medial femoral condyle may reflect Elo-Stieda lesion which can be seen in the setting of prior MCL injury. Left knee: There is no fracture or dislocation. Joint spaces are preserved. No joint effusion. Soft tissues unremarkable. XR/XR knee LT 4V IMPRESSION: Well-corticated ossific fragment projecting over the right medial femoral condyle may reflect Elo-Stieda lesion which can be seen in the setting of prior MCL injury.
[2023-11-06 13:52] VITALS: BP 121/85; PULSE 76; RESP 18; TEMP 37.3; O2SAT 99; BMI 28.3
--- NOTE | 2023-11-06 13:52 | ED_ITS ---
HPI - Extremity Injury (Lower) General Chief Complaint: Extremity Injury, Lower Stated Complaint: R knee pain, swelling, no injury Time Seen by Provider: 11/06/23 15:25 Source: patient and RN notes reviewed Mode of arrival: ambulatory Limitations: no limitations History of Present Illness HPI Narrative: This is a 33-year-old female presenting to the emergency department for evaluation of bilateral knee pain x1 month. 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 She denies any recent trauma, injury or falls. She states occasionally her knees will swell up and cause her pain and resolve on its own. She denies any specific movements or activities that worsen her pain. Denies taking any medications at home to treat her current symptoms. Denies any prior injury to her knees. No surgeries to her knees. No calf tenderness. No other complaints or concerns at this time. complaint: other (Atraumatic knee pain) Onset (ago): week(s) Injury: Bilateral: knee Relieving factors: nothing Exacerbating factors: nothing Other symptoms: none Related Data Previous Rx's Medication Instructions Recorded ibuprofen 600 mg tablet 600 mg PO Q6H PRN pain #30 tabs 11/06/23 Allergies Allergy/AdvReac Type Severity Reaction Status Date / Time No Known Allergies Allergy Verified 11/06/23 13:51 [No Known Allergies*] Review of Systems Review of Systems: Yes all other systems are reviewed and are negative Constitutional: Constitutional: Reports as per [facility] Past Medical History Attestation statement: The following information was validated with the patient. Onset Date is defined in the Problem List Problems that require an onset date and time if occurred within 24 hrs of arrival to the ED Aortic Dissection and Rupture; Neurologic impairment; Cardiopulmonary Arrest; Endotracheal Intubation; Insertion or Replacement of Mechanical Circulatory Assist Device Social History Social History Alcohol intake: never Advance Directives: No Advance Directives Information Provided: No Physical Exam Vital Signs: Vital Signs: Last Vital Signs Temp 99.2 F 11/06/23 13:52 Pulse 76 11/06/23 13:52 Resp 18 11/06/23 13:52 BP 121/85 11/06/23 13:52 Pulse Ox 99 11/06/23 13:52 O2 Del Method Room Air 11/06/23 13:52 BMI result Body Mass Index 28.3 Const: General: cooperative, comfortable and no acute distress Orientation/consciousness: patient oriented x3 Limitations: no limitations HEENT: Head: Yes normal to inspection, Yes normocephalic and Yes atraumatic Ears: hearing grossly normal bilaterally General nose exam: Normal external nose present Face and sinus: Yes normal facial exam Mouth: Normal oral and palatal mucosa present, oropharynx normal and moist mucous membranes Throat: Yes posterior oropharynx normal Eyes: General: appearance normal, both eyes and all related structures Eyelids: Yes eyelids normal Conjunctivae: conjunctivae normal Sclerae: sclerae normal Pupils: Equal, round and reactive pupils present EOM: EOMs intact bilaterally Neck: Neck: Yes normal visual inspection, Yes full ROM and Yes no lymphadenopathy Lymphatic: no lymphadenopathy noted Chest: Chest palpation & inspection: normal inspection of the chest Resp: Effort & Inspection: normal respiratory effort and able to speak in complete sentences Auscultation: clear to auscultation bilaterally, no crackles, no rales, no rhonchi and no wheezes Cardio: Rate: regular rate Rhythm: regular rhythm Heart sounds: S1 normal heart sound present and S2 normal heart sound present GI: Inspection: Yes normal to inspection Skin: General skin exam: no rashes or lesions noted Trauma: no lacerations or abrasions Wounds: no wounds Neuro: General: patient oriented x3 and moves all extremities Cranial nerves: Yes Equal, round and reactive pupils present Extrem: General: Yes normal to inspection Right upper extremity: normal to inspection Left upper extremity: normal to inspection Right lower extremity: normal to inspection Left lower extremity: normal to inspection Course Course Course Narrative: This is an RME: Additional HPI, ROS, PE not included below will be deferred to primary provider. This is a 33-year-old female presenting to the emergency department with complaints of bilateral knee pain x3 weeks. No recent trauma or injury. 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 Knees are nontender, unremarkable, requesting bilateral knee x-rays. She likely has patellofemoral syndrome. Plan: X-rays Medical Decision Making Medical Decision Making MDM Narrative: This is a 33-year-old female presenting to the emergency department for evaluation of bilateral knee pain x1 month. Patient has a normal physical exam. On arrival, vital signs within normal limits. No calf tenderness. No chest pain or shortness of breath. Patient is PERC negative. X-rays were obtained, there is a Well-corticated ossific fragment projecting over the right medial femoral condyle may reflect Elo-Stieda lesion which can be seen in the setting of prior MCL injury. I discussed these findings with patient, she is unclear of any injury prior to her knee in the past. Patient has a negative anterior posterior drawer test as well as no pain with varus and valgus strain. Patient is ambulatory with steady gait. No obvious edema, erythema or evidence of infection to the knees. Discussed RICE techniques, and given orthopedic referral for follow-up. Patient understands and agrees with plan. Patient given return precautions. Patient stable for discharge. Differential Diagnosis Differential Diagnoses: The differential diagnosis associated with the presentation includes Knee strain, sprain, contusion, fracture, ligamentous derangement Radiology Impression Discussion of test interpretation with radiology: I have reviewed the radiologist's reading. Radiologist Impression: Examination: X-ray knee bilateral CLINICAL INDICATION: Bilateral knee pain, atraumatic. COMPARISON: None. TECHNIQUE: 4 views of the bilateral knees. FINDINGS: Right knee: No joint effusion. Normal alignment. Well-corticated ossific fragment projecting over the medial femoral condyle may reflect Elo-Stieda lesion which can be seen in the setting of prior MCL injury. Left knee: There is no fracture or dislocation. Joint spaces are preserved. No joint effusion. Soft tissues unremarkable. XR/XR knee LT 4V IMPRESSION: Well-corticated ossific fragment projecting over the right medial femoral condyle may reflect Elo-Stieda lesion which can be seen in the setting of prior MCL injury. Dictated By: Sebas Abreu MD Discharge Plan Discharge Clinical Impression: Bilateral knee pain Patient Disposition: Home, Self-Care Instructions: Knee Pain (ED) Additional Instructions: Your seen in the emergency department due to bilateral knee pain. Your right knee x-ray shows evidence of a prior MCL injury. Your left knee x-ray was normal. I want you to follow-up with Orthopedics, call to make an appointment. Rest, ice, elevating her knees can also help with pain. Ibuprofen as directed as needed for pain and swelling. If any new or worsening symptoms occur including but not limited to inability to bend knee, fevers or chills, chest pain or shortness breast, please return for re-evaluation. Prescriptions: New ibuprofen 600 mg tablet 600 mg PO Q6H PRN (Reason: pain) Qty: 30 0RF Referrals: [facility] Orthopedic Surgeons [Provider Group]
--- OUTSIDE RECORDS SUMMARY | 2023-11-06 15:31 | XMS_ITS | Continuity of Care Document ---
Author Name Unknown Organization [facility] Address [address] [place] [address]- Care Team Providers Care Mold Burner Name Role Phone Maribell Jain MD Primary Care Physician Encounter [facility] Date(s): 06/24/23 - 07/24/23 [facility] [address] [place], [place] [address] Allergies, Adverse Reactions, Alerts Substance Reaction Severity Status Nuts Active Watermelon Active Immunizations Given and Recorded Vaccine Date Status Refusal Reason SARS-CoV-2 mRNA (dedynjx-dbqy-jmlbx) vax 11/23/21 Recorded SARS-CoV-2 (COVID-19) mRNA BNT-162b2 [...] iven 1Result Comment: [facility] [id number] 2Result Comment: [07/17/2018] givne /out incident ncd: [id number] 3Result Comment: [09/30/2017] [facility] [id number] 4Admin Note: pt declined 5Admin Note: vis given Medications albuterol CFC free 90 mcg/inh inhalation aerosol 2, puffs, Inhalation, Every 6 hours, PRN, # 8.5 Gm, Refills 0, Tot. Refills 0, Maintenance, 06/14/23 11:59:00 EDT, Aerosol, Route to Pharmacy Electronically, [id number], [facility]/pharmacy #[id number], 165, cm, 06/14/23 11:27:00 EDT, Hei... Start Date: 06/14/23 Status: Ordered amLODIPine 5 mg oral tablet 1 tablet, By Mouth, Daily, # 90 tablet, 1 Refills, Maintenance, 07/01/23 17:15:00 EDT, [facility]/pharmacy#1291, 165, cm, 07/01/23 16:48:00 EDT, Height, 86.1, kg, 06/07/23 21:13:00 EDT, Dry Weight Start Date: 07/01/23 Status: Ordered Aspirin Enteric Coated 81 mg oral delayed release tablet 1 tablet, By Mouth, Daily, # 90 tablet, 3 Refills, Maintenance, 01/13/23 11:23:00 EDT, [facility]/pharmacy#1291, 165, cm, 01/13/23 10:56:00 EDT, Height, 88.8, kg, 12/28/22 22:36:00 EST, Dry Weight Start Date: 01/13/23 Stop Date: 01/08/24 Status: Ordered CPAP Machine See Instructions, # 1 each, Maintenance, AutoBiPAP max IPAP 15 min EPAP 5, PS 8 with heated humidification and compliance data to be followed. tubing, mask and supplies, 06/18/16 11:56:34 EDT, Compound Start Date: 06/18/16 Status: Ordered Flonase Allergy Relief 50 mcg/inh nasal spray 1 sprays, Nares, Both, 2 times a day, # 16 Gm, 1 Refills, Maintenance, 07/01/23 17:26:00 EDT, [facility]/pharmacy #[id number], Partial fill upon patient request if the prescription is for a schedule II opioid drug., 165, cm, 07/01/23 16:48:00 EDT, Height, 86.1, kg... Start Date: 07/01/23 Stop Date: 08/30/23 Status: Ordered Freestyle Lite Lancets See Instructions, [...] Status: Ordered losartan 50 mg oral tablet 1.5 tablet = 75 mg, By Mouth, Daily, # 135 tablet, 1 Refills, Maintenance, 07/01/23 17:13:00 EDT, Tablet, [facility]/pharmacy #[id number], Partial fill upon patient request if the prescription is for a schedule II opioid drug., 165, cm, 07/01/23 16:48:00 EDT, Lenora... Start Date: 07/01/23 Stop Date: 12/28/23 Status: Ordered MetFORMIN (Eqv-Glucophage XR) 500 mg oral tablet, extended release 2 tablet, By Mouth, Daily, # 180 tablet, 1 Refills, Maintenance, 05/16/23 23:07:00 EDT, [facility], 165, cm, 05/13/23 16:14:00 EDT, Height, 85.7, [...] Personnel Name: Cristobal ROSARIO, Maribell Weldon Position: [facility] Physician - Primary Care Member Role: PCP Address: Address: [address] [place] [address] Adult & [place] [address]- Care Team Related Persons Name: JJ NORMAN Address: home [address] [place] [address] Name: RISHABH CASTELLON Address: [place] [address] Name: YEIMY CASTELLON Address: home [address] [place] [address] Name: DONNA ZELAYA Address: home [address] [place] [address] Name: JOSE RAFAEL VINCENT Address: [place] [address] Name: ABHAY SPAULDING Name: SAMANTHA TINEO Address: home [address] [place] [address]
--- OUTSIDE RECORDS SUMMARY | 2023-11-06 15:31 | XMS_ITS | Continuity of Care Document ---
Author Name Unknown Organization [facility] Address [address] [place] [address]- Care Team Providers Care Creamery Worker Name Role Phone Maribell Jain MD Primary Care Physician [phone] [facility]counter [facility] Date(s): 08/05/23 - 09/04/23 [facility] [address] [place], [place] [address] Allergies, Adverse Reactions, Alerts Substance Reaction Severity Status Nuts Active Watermelon Active Immunizations Given and Recorded Vaccine Date Status Refusal Reason SARS-CoV-2 mRNA (umugedu-lcoe-xffee) vax 11/23/21 Recorded SARS-CoV-2 (COVID-19) mRNA BNT-162b2 [...] Diphth/Pertussis,Acel/Tetanus (oldterm) 89 G ezeen 1Result Comment: [facility] [id number] 2Result Comment: [07/17/2018] givne /out incident ncd: [id number] 3Result Comment: [09/30/2017] [facility] [id number] 4Admin Note: pt declined 5Admin Note: vis given Medications albuterol CFC free 90 mcg/inh inhalation aerosol 2, puffs, Inhalation, Every 6 hours, PRN, # 8.5 Gm, Refills 0, Tot. Refills 0, Maintenance, 06/14/23 11:59:00 EDT, Aerosol, Route to Pharmacy Electronically, [id number], [facility]/pharmacy #[id number], 165, cm, 06/14/23 11:27:00 EDT, Hei... Start Date: 06/14/23 Status: Ordered amLODIPine 5 mg oral tablet 1 tablet, By Mouth, Daily, # 90 tablet, 1 Refills, Maintenance, 07/01/23 17:15:00 EDT, [facility]/pharmacy#1291, 165, cm, 07/01/23 16:48:00 EDT, Height, 86.1, kg, 06/07/23 21:13:00 EDT, Dry Weight Start Date: 07/01/23 Status: Ordered Aspirin Enteric Coated 81 mg oral delayed release tablet 1 tablet, By Mouth, Daily, # 90 tablet, 3 Refills, Maintenance, 01/13/23 11:23:00 EDT, [facility]/pharmacy#1291, 165, cm, 01/13/23 10:56:00 EDT, [...] Gm, 1 Refills, Maintenance, 07/01/23 17:26:00 EDT, [facility]/pharmacy #1291, Partial fill upon patient request if the prescription is for a schedule II opioid drug., 165, cm, 07/01/23 16:48:00 EDT, Height, 86.1, kg... Start Date: 07/01/23 Stop Date: 08/30/23 Status: Ordered Freestyle Lite Lancets See Instructions, # 100 each, Refills 3, Tot. Refills 3, Maintenance, dx- E11.9 check sugars once daily 28 G lancets, 08/05/23 9:26:00 EDT, Compound, 165, cm, 07/01/23 16:48:00 EDT, Height, 86.1, kg,06/07/23 21:13:00 EDT, Dry Weight Start Date: 08/05/23 Status: Ordered Freestyle Lite Monitor See Instructions, [...] 1 Refills, Maintenance, 07/01/23 17:13:00 EDT, Tablet, [facility]/pharmacy #1291, Partial fill upon patient request if the prescription is for a schedule II opioid drug., 165, cm, 07/01/23 16:48:00 EDT, [facility]... Start Date: 07/01/23 Stop Date: 12/28/23 Status: Ordered MetFORMIN (Eqv-Glucophage XR) 500 mg oral tablet, extended release 2 tablet, By Mouth, Daily, # 180 tablet, 1 Refills, Maintenance, 05/16/23 23:07:00 EDT, [facility], 165, cm, 05/13/23 16:14:00 EDT, Height, 85.7, [...] Refills, Maintenance, 05/04/23 5:50:00 EDT, DIS Tablet, [facility]/pharmacy #1291, Partial fill upon patient [...] Confirmed Active Esophageal reflux (GERD) Confirmed Active Strep throat exposure Confirmed Active Hypertension Confirmed Active Narcolepsy Confirmed Active Obese class I Confirmed Active Obstructive sleep apnea Confirmed Active Sickle cell trait Confirmed Active Social History Social History Type Response Smoking Status Never smoker; Tobacc o user in household: No entered on: 05/09/14 Sex Patient Care team information Care Team Personnel Name: Cristobal ROSARIO, Maribell Weldon Position: [facility] Physician - Primary Care Member Role: PCP Address: Address: [address] [place] [address] Adult & [place] [address]- Care Team Related Persons Name: JJ NORMAN Address: home [address] [place] [address] Name: RISHABH CASTELLNO Address: [place] [address] Name: YEIMY CASTELLON Address: home [address] [place] [address] Name: DONNA ZELAYA Address: home [address] [place] [address] Name: JOSE RAFAEL VINCENT Address: [place] [address] Name: ABHAY SPAULDING Name: SAMANTHA TINEO Address: home [address] [place] [id number]
--- OUTSIDE RECORDS SUMMARY | 2023-11-06 15:31 | XMS_ITS | Continuity of Care Document ---
Author Name Unknown Organization [facility] Address [address] [place] [address]- Care Team Providers Care Sew Out Operator Name Role Phone Cristobal ROSARIO, Maribell Weldon Primary Care Physician [phone] Encounter [facility] Date(s): 10/03/23 - 11/02/23 [facility] [address] [place], [place] [address] Allergies, Adverse Reactions, Alerts Substance Reaction Severity Status Nuts Active Watermelon Active Immunizations Given and Recorded Vaccine Date Status Refusal Reason SARS-CoV-2 mRNA (ojckzxg-etak-vzsla) vax 11/23/21 Recorded SARS-CoV-2 (COVID-19) mRNA BNT-162b2 [...] Diphth/Pertussis,Acel/Tetanus (oldterm) 89 G julián 1Result Comment: [facility] [id number] 2Result Comment: [07/17/2018] givne /out incident ncd: [id number] 3Result Comment: [09/30/2017] [facility] [id number] 4Admin Note: pt declined 5Admin Note: vis given Medications amLODIPine 5 mg oral tablet 1 tablet, By Mouth, Daily, # 90 tablet, 1 Refills, Maintenance, 10/28/23 6:16:00 EST, [facility]/pharmacy #[id number], 165, cm, 09/19/23 9:22:00 EST, Height, 86.1, kg, 06/07/23 21:13:00 EDT, Dry Weight Start Date: 10/28/23 Status: Ordered Aspirin Enteric Coated 81 mg oral delayed release tablet 1 tablet, By Mouth, Daily, # 90 tablet, 3 Refills, Maintenance, 01/13/23 11:23:00 EDT, [facility]/pharmacy#1291, 165, cm, 01/13/23 10:56:00 EDT, [...] Gm, 1 Refills, Maintenance, 07/01/23 17:26:00 EDT, [facility]/pharmacy [...] EDT, Height Start Date: 03/30/21 Status: Ordered glucose 4 gm oral tablet, chewable 4 tablet = 16 Gm, Chew, Once, PRN as needed for low blood sugar, may repeat in 15 to 20 minutes if blood sugar still < 60 mg/dL, # 50 tablet, 0 Refills, Soft Stop, 10/21/23 17:02:00 EST, Chew Tablet, [facility]/pharmacy #[id number], Partial fill upon patient reque... Start Date: 10/21/23 Status: Ordered losartan 50 mg oral tablet 1.5 tablet = 75 mg, By Mouth, Daily, for 90 days, # 135 tablet, 1 Refills, Hard Stop 12/28/23 17:13:00 EST, 07/01/23 17:13:00 EDT, Tablet, [facility], Partial fill upon patient request if theprescription is for a schedule II opioid drug., 165... Start Date: 07/01/23 Stop Date: 12/28/23 Status: Ordered losartan 50 mg oral tablet 1.5 tablet = 75 mg, By Mouth, Daily, # 135 tablet, 1 Refills, Maintenance, 12/28/23 17:13:00 EST, Tablet, [facility], Partial fill upon patient request if the prescription is for a schedule II opioid drug., 165, cm, 09/19/23 9:22:00 EST, Heigh... Start Date: 12/28/23 Stop Date: 06/25/24 Status: Ordered MetFORMIN (Eqv-Glucophage XR) 500 mg oral tablet, extended release 2 tablet, By Mouth, Daily, # 180 tablet, 3 Refills, Maintenance, 09/19/23 9:39:00 EST, [facility], 165, cm, 09/19/23 9:22:00 EST, Height, 86.1, kg, 06/07/23 21:13:00 EDT, Dry Weight Start Date: 09/19/23 Status: Ordered Multivitamin Daily, 0 Refills, Maintenance, [...] Active Hypertension Confirmed Active Narcolepsy Confirmed Active Obstructive sleep apnea Confirmed Active Sickle cell trait Confirmed Active Social History Social History Type Response Smoking Status Never smoker; Tobacc o user in household: No entered on: 05/09/14 Sex Patient Care team information Care Team Personnel Name: Cristobal ROSARIO, Maribell Weldon Position: [facility] Physician - Primary Care Member Role: PCP Address: Address: [address] [place] [address] Adult & [place] [address]- Care Team Related Persons Name: JJ NORMAN Address: home [address] [place] [address] Name: RISHABH CASTELLON Address: [place] [address] Name: YEIMY CASTELLON Address: home [address] [place] [address] Name: DONNA ZELAYA Address: home [address] [place] [address] Name: JOSE RAFAEL VINCENT Address: [place] [address] Name: ABHAY SPAULDING Name: SAMANTHA TINEO Address: home [address] [place] [address]
--- OUTSIDE RECORDS SUMMARY | 2023-11-06 15:32 | XMS_ITS | Continuity of Care Document ---
Author Name Unknown Organization [facility] Address [address] [place] [address]- Care Team Providers Care Manager Generation Name Role Phone Cristobal ROSARIO, Maribell Weldon Primary Care Physician [facility]counter [facility] Date(s): 08/24/23 - 09/23/23 [facility] [address] [place], [place] [address] Allergies, Adverse Reactions, Alerts Substance Reaction Severity Status Nuts Active Watermelon Active Immunizations Given and Recorded Vaccine Date Status Refusal Reason SARS-CoV-2 mRNA (fjfigql-hibl-xikww) vax 11/23/21 Recorded SARS-CoV-2 (COVID-19) mRNA BNT-162b2 [...] Diphth/Pertussis,Acel/Tetanus (oldterm) 89 G julián 1Result Comment: [facility] [id number] 2Result Comment: [07/17/2018] givne /out incident ncd: [id number] 3Result Comment: [09/30/2017] [facility] [id number] 4Admin Note: pt declined 5Admin Note: vis given Medications amLODIPine 5 mg oral tablet 1 tablet, By Mouth, Daily, # 90 tablet, 1 Refills, Maintenance, 07/01/23 17:15:00 EDT, [facility]/pharmacy#1291, 165, cm, 07/01/23 16:48:00 EDT, Height, 86.1, kg, 06/07/23 21:13:00 EDT, Dry Weight Start Date: 07/01/23 Status: Ordered Aspirin Enteric Coated 81 mg oral delayed release tablet 1 tablet, By Mouth, Daily, # 90 tablet, 3 Refills, Maintenance, 01/13/23 11:23:00 EDT, [facility]/pharmacy#1291, 165, cm, 01/13/23 10:56:00 EDT, Height, 88.8, [...] Gm, 1 Refills, Maintenance, 07/01/23 17:26:00 EDT, [facility]/pharmacy #1291, Partial fill upon patient [...] 1 Refills, Maintenance, 07/01/23 17:13:00 EDT, Tablet, [facility], Partial fill upon patient request if the prescription is for a schedule II opioid drug., 165, cm, 07/01/23 16:48:00 EDT, Heig... Start Date: 07/01/23 Stop Date: 12/28/23 Status: [...] Personnel Name: Maribell Jain MD Position: S Physician - Primary Care Member Role: PCP Address: Address: [address] [place] [address] Adult & [place] [address]- Care Team Related Persons Name: JJ NORMAN Address: home [address] [place] [address] Name: RISHABH CASTELLON Address: [place] [address] Name: YEIMY CASTELLON Address: home [address] [place] [address] Name: DONNA ZELAYA Address: home [address] [place] [address] Name: JOSE RAFAEL VINCENT Address: [place] [address] Name: ABHAY SPAULDING Name: SAMANTHA TINEO Address: home [address] [place] [address]
--- OUTSIDE RECORDS SUMMARY | 2023-11-06 15:32 | XMS_ITS | Continuity of Care Document ---
Author Name Unknown Organization [facility] Address [address] [place] [address]- Care Team Providers Care Plug Cutting Machine Operator Name Role Phone Maribell Jain MD Primary Care Physician [facility]counter [facility] Date(s): 07/01/23 - 07/31/23 [facility] [address] [place], [place] [address] Attending Physician: Admtr, Ar8 Admitting Physician: Admtr, Ar8 Referring Physician: Admtr, Ar8 Allergies, Adverse Reactions, Alerts Substance Reaction Severity Status Nuts Active Watermelon Active Immunizations Given and Recorded Vaccine Date Status Refusal Reason SARS-CoV-2 mRNA (ktwcxmk-kkqm-tghbl) vax 11/23/21 Recorded SARS-CoV-2 (COVID-19) mRNA BNT-162b2 [...] Diphth/Pertussis,Acel/Tetanus (oldterm) 89 G iven 1Result Comment: [facility] [id number] 2Result Comment: [07/17/2018] givne /out incident ncd: [id number] 3Result Comment: [09/30/2017] [facility] [id number] 4Admin Note: pt declined 5Admin Note: vis given Medications albuterol CFC free 90 mcg/inh inhalation aerosol 2, puffs, Inhalation, Every 6 hours, PRN, # 8.5 Gm, Refills 0, Tot. Refills 0, Maintenance, 06/14/23 11:59:00 EDT, Aerosol, Route to Pharmacy Electronically, [id number], [facility]/pharmacy #1291, 165, cm, 06/14/23 11:27:00 EDT, Hei... Start Date: 06/14/23 Status: Ordered amLODIPine 5 mg oral tablet 1 tablet, By Mouth, Daily, # 90 tablet, 1 Refills, Maintenance, 07/01/23 17:15:00 EDT, [facility]/pharmacy#1291, 165, cm, 07/01/23 16:48:00 EDT, Height, 86.1, kg, 06/07/23 21:13:00 EDT, Dry Weight Start Date: 07/01/23 Status: Ordered Aspirin Enteric Coated 81 mg oral delayed release tablet 1 tablet, By Mouth, Daily, # 90 tablet, 3 Refills, Maintenance, 01/13/23 11:23:00 EDT, [facility]/pharmacy#1291, 165, cm, 01/13/23 10:56:00 [...] Gm, 1 Refills, Maintenance, 07/01/23 17:26:00 EDT, [facility]/pharmacy #1291, Partial fill upon [...] 1 Refills, Maintenance, 07/01/23 17:13:00 EDT, Tablet, [facility]/pharmacy #1291, Partial fill upon patient request if the prescription is for a schedule II opioid drug., 165, cm, 07/01/23 16:48:00 EDT, [facility]. Start Date: 07/01/23 Stop Date: 12/28/23 Status: Ordered MetFORMIN (Eqv-Glucophage XR) 500 mg oral tablet, extended release 2 tablet, By Mouth, Daily, # 180 tablet, 1 Refills, Maintenance, 05/16/23 23:07:00 EDT, [id number], 165, cm, 05/13/23 16:14:00 EDT, Height, 85.7, [...] Refills, Maintenance, 05/04/23 5:50:00 EDT, DIS Tablet, [facility]/pharmacy #1291, Partial fill upon [...] study * Event Display: EKG Authored Date: Laboratory * Event Display: Laboratory Result Scanned Authored Date: * Event Display: Laboratory Result Scanned Authored Date: * Event Display: Laboratory Result Scanned Authored Date: Cardiology * Event Display: Cardiology Office Note, Non-BH Authored Date: Radiology * Event Display: X-Ray Chest, Non- BH Authored Date: * Event Display: X-Ray Chest, Non- BH Authored Date: * Event Display: X-Ray Chest, Non- BH Authored Date: * Balwinder Mcghee: PERFORM Event Display: Radiology Results Scanned Authored Date: [id number] * Cesia Shelton: PERFORM Event Display: Radiology Results Scanned Authored Date: [id number] * Yamile Haydee Marcia: PERFORM Event Display: Radiology Results Scanned Authored Date: [id number] Note * Maribell Jain MD: PERFORM, SIGN, VERIFY Event Display: Patient Education/Instruction Authored Date: [id number] [facility] Clinical Summary Person Information Visit Date 12/06/2018 1:00 PM Name CAROL REDMAN Age 28 Years 1990 12:00 AM PCP Maribell Jain MD PCP Sex Female Race Black Ethnicity Non-/Non- Language Greek You can now view a summary of your hospital visit from the comfort of your home through a free online portal called [employer]. [employer] is a website that allows you to securely view your medical information including discharge summary, medications and follow-up visits. You can also send a secure electronic message to your doctor???s office to request appointments, renew medicationsor just ask a question. You can enroll at [email or web address] or register during your next office visit. Smoking can increase your chances of developing chronic health problems and can cause harmful effects to other family members in your house. If you smoke, you are strongly encouraged to quit. Please call the [place] Smokers??? Helpline at 9-413-LOIXNOW (or ) or log on to [email or web address] for more information. The National Suicide Prevention Hotline is available 16/05 if you or someone you know needs to find a reason to keep living. By calling 9-254-831-ncam (9244) you'll be connected to a skilled, trained [...] care provider, you may find a [facility] provider by calling [facility] [employer] Link at [phone]. For information about the plan of care [...] more often than directed. Talk to your health promotion officer regarding the use of this medicine in [...] this medicine? Visit your doctor or health lawn care technician for regular checks on your progress. Learn [...] should report to your doctor or health lawn care technician as soon as possible: ??? allergic reactions like skin rash, itching or hives, swelling of the face, lips, or tongue ??? breathing problems ??? feeling faint or lightheaded, falls ??? low blood sugar (ask your doctor or health lawn care technician for a list of these symptoms) ??? muscle aches or pains ??? slow or irregular heartbeat ??? unusual stomach pain or discomfort ??? unusually tired or weak Side effects that usually do not require medical attention (report to your doctor or health lawn care technician if they continue or are bothersome): ??? diarrhea ??? headache ??? heartburn ??? metallic taste in mouth ??? nausea ??? stomach gas, upset This list may not describe all possible side effects. Call your doctor for medical advice about side effects. You may report side effects to FDA at 0-018-TNX-3408. Where should I keep my medicine? Keep [...] provider. Copyright?? 2013 Gold Standard Additional Instructions: Patient Care team information Care Team Personnel Name: Cristobal ROSARIO, Maribell Weldon Position: [facility] Physician - Primary Care Member Role: PCP Address: Address: [address] [place] [address] Adult & [place] [address]- Care Team Related Persons Name: ROSSANAINEZ CHLOECande Address: home [address] [place] [address] Name: RISHABH CASTELLON Address: [place] [address] Name: YEIMY CASTELLON Address: home [address] [place] [address] Name: DONNA ZELAYA Address: home [address] [place] [address] Name: JOSE RAFAEL VINCENT Address: [place] [address] Name: ABHAY SPAULDING Name: SAMANTHA TINEO Address: home [address] [place] [address]
--- OUTSIDE RECORDS SUMMARY | 2023-11-06 15:32 | XMS_ITS | Continuity of Care Document ---
Author Name Unknown Organization [facility] Address [address] [place] [address]- Care Team Providers Care Muck Miner Blasting Name Role Phone Cristobal ROSARIO, Maribell Weldon Primary Care Physician [phone] Encounter [facility] Date(s): 08/25/23 - 09/24/23 [facility] [address] [place], [place] [address] Allergies, Adverse Reactions, Alerts Substance Reaction Severity Status Nuts Active Watermelon Active Immunizations Given and Recorded Vaccine Date Status Refusal Reason SARS-CoV-2 mRNA (ervhirl-eakg-mqvwe) vax 11/23/21 Recorded SARS-CoV-2 (COVID-19) mRNA BNT-162b2 [...] Diphth/Pertussis,Acel/Tetanus (oldterm) 89 G ezeen 1Result Comment: [facility] [id number] 2Result Comment: [07/17/2018] givne /out incident ncd: [id number] 3Result Comment: [09/30/2017] [facility] [id number] 4Admin Note: pt declined 5Admin Note: vis given Medications amLODIPine 5 mg oral tablet 1 tablet, By Mouth, Daily, # 90 tablet, 1 Refills, Maintenance, 07/01/23 17:15:00 EDT, [facility]/pharmacy#1291, 165, cm, 07/01/23 16:48:00 EDT, Height, 86.1, kg, 06/07/23 21:13:00 EDT, Dry Weight Start Date: 07/01/23 Status: Ordered Aspirin Enteric Coated 81 mg oral delayed release tablet 1 tablet, By Mouth, Daily, # 90 tablet, 3 Refills, Maintenance, 01/13/23 11:23:00 EDT, [facility]/pharmacy#1291, 165, cm, 01/13/23 10:56:00 EDT, [...] Gm, 1 Refills, Maintenance, 07/01/23 17:26:00 EDT, [facility]/pharmacy #1291, Partial fill upon patient [...] Active Depressive Disorder, Not Elsewhere Classified Confirmed 8/25/10 Active Diabetes mellitus Confirmed Active Esophageal reflux [...] Primary Care Member Role: PCP Address: Address: [address] [place] [address] Adult & [place] [address]- Care Team Related Persons Name: JJ NORMAN Address: home [address] [place] [address] Name: RISHABH CASTELLON Address: [place] [address] Name: YEIMY CASTELLON Address: home [address] [place] [address] Name: DONNA ZELAYA Address: home [address] [place] [address] Name: JOSE RAFAEL VINCENT Address: [place] [address] Name: ABHAY SPAULDING Name: SAMANTHA TINEO Address: home [address] [place] [address]
--- OUTSIDE RECORDS SUMMARY | 2023-11-06 15:32 | XMS_ITS | Continuity of Care Document ---
Author Name Unknown Organization [facility] Address [address] [place] [address]- Care Team Providers Care Turning Lathe Tender Name Role Phone Cristobal ROSARIO, Maribell Weldon Primary Care Physician Encounter [facility] Date(s): 09/02/23 - 10/02/23 [facility] [address] [place], [place] [address] Allergies, Adverse Reactions, Alerts Substance Reaction Severity Status Nuts Active Watermelon Active Immunizations Given and Recorded Vaccine Date Status Refusal Reason SARS-CoV-2 mRNA (tkahcwv-esxp-djyay) vax 11/23/21 Recorded SARS-CoV-2 (COVID-19) mRNA BNT-162b2 [...] (oldterm) 89 G ezeen 1Result Comment: [facility] [id number] 2Result Comment: [07/17/2018] givne /out incident ncd: [id number] 3Result Comment: [09/30/2017] [facility] [id number] 4Admin Note: pt declined 5Admin Note: vis given Medications amLODIPine 5 mg oral tablet 1 tablet, By Mouth, Daily, # 90 tablet, 1 Refills, Maintenance, 07/01/23 17:15:00 EDT, [facility]/pharmacy#1291, 165, cm, 07/01/23 16:48:00 EDT, Height, 86.1, kg, 06/07/23 21:13:00 EDT, Dry Weight Start Date: 07/01/23 Status: Ordered Aspirin Enteric Coated 81 mg oral delayed release tablet 1 tablet, By Mouth, Daily, # 90 tablet, 3 Refills, Maintenance, 01/13/23 11:23:00 EDT, [facility]/pharmacy#1291, 165, cm, 01/13/23 10:56:00 EDT, Height, 88.8, [...] Gm, 1 Refills, Maintenance, 07/01/23 17:26:00 EDT, [facility]/pharmacy #1291, Partial fill upon patient request if [...] Primary Care Member Role: PCP Address: Address: [address] [place] [address] Adult & [place] [address]- Care Team Related Persons Name: JJ NORMAN Address: [address] [place] [address] Name: RISHABH CASTELLON Address: [place] [address] Name: YEIMY CASTELLON Address: home [address] [place] [address] Name: DONNA ZELAYA Address: home [address] [place] [address] Name: JOSE RAFAEL VINCENT Address: [place] [address] Name: ABHAY SPAULDING Name: SAMANTHA TINEO Address: home [address] [place] [address]
--- OUTSIDE RECORDS SUMMARY | 2023-11-06 15:33 | XMS_ITS | Continuity of Care Document ---
Author Name Unknown Organization [facility] Address [address] [place] [address]- Care Team Providers Care Associate Professor Plant Pathology Name Role Phone Maribell Jain MD Primary Care Physician [facility]): [facility]23 - 07/22/23 [facility] [address] [address] Allergies, Adverse Reactions, Alerts Substance Reaction Severity Status Nuts Active Watermelon Active Immunizations Given and Recorded Vaccine Date Status Refusal Reason SARS-CoV-2 mRNA (znifmxz-ywqu-jktuq) vax 11/23/21 Recorded SARS-CoV-2 (COVID-19) mRNA BNT-162b2 [...] G julián 1Result Comment: [facility] [id number] 2Result Comment: [07/17/2018] givne /out incident ncd: [id number] 3Result Comment: [09/30/2017] [facility] [id number] 4Admin Note: pt declined 5Admin Note: vis given Medications albuterol CFC free 90 mcg/inh inhalation aerosol 2, puffs, Inhalation, Every 6 hours, PRN, # 8.5 Gm, Refills 0, Tot. Refills 0, Maintenance, 06/14/23 11:59:00 EDT, Aerosol, Route to Pharmacy Electronically, [id number], [facility]/pharmacy #1291, 165, cm, 06/14/23 11:27:00 EDT, Hei... Start Date: 06/14/23 Status: Ordered amLODIPine 5 mg oral tablet 1 tablet, By Mouth, Daily, # 90 tablet, 1 Refills, Maintenance, 07/01/23 17:15:00 EDT, [facility]/pharmacy#1291, 165, cm, 07/01/23 16:48:00 EDT, Height, 86.1, kg, 06/07/23 21:13:00 EDT, Dry Weight Start Date: 07/01/23 Status: Ordered Aspirin Enteric Coated 81 mg oral delayed release tablet 1 tablet, By Mouth, Daily, # 90 tablet, 3 Refills, Maintenance, 01/13/23 11:23:00 EDT, [facility]/pharmacy#1291, 165, cm, 01/13/23 10:56:00 EDT, [...] Gm, 1 Refills, Maintenance, 07/01/23 17:26:00 EDT, [facility]/pharmacy #1291, Partial fill upon patient [...] 1 Refills, Maintenance, 07/01/23 17:13:00 EDT, Tablet, [facility]/pharmacy #1291, Partial fill upon patient request if the prescription is for a schedule II opioid drug., 165, cm, 07/01/23 16:48:00 EDT, [facility]... Start Date: 07/01/23 Stop Date: 12/28/23 Status: Ordered MetFORMIN (Eqv-Glucophage XR) 500 mg oral tablet, extended release 2 tablet, By Mouth, Daily, # 180 tablet, 1 Refills, Maintenance, 05/16/23 23:07:00 EDT, [facility], 165, cm, 05/13/23 16:14:00 EDT, Height, 85.7, [...] Personnel Name: Cristobal ROSARIO, Maribell Weldon Position: [facility] Physician - Primary Care Member Role: PCP Address: Address: [address] [place] [address] Adult & [place] [address]- [place] Care Team Related Persons Name: JJ NORMAN Address: home [address] [place] [address] Name: RISHABH CASTELLON Address: [place] [address] Name: YEIMY CASTELLON Address: home [address] [place] [address] Name: DONNA ZELAYA Address: home [address] [place] [address] Name: JOSE RAFAEL VINCENT Address: [place] [address] Name: ABHAY SPAULDING Name: SAMANTHA TINEO Address: home [address] [place] [address]
--- OUTSIDE RECORDS SUMMARY | 2023-11-06 15:33 | XMS_ITS | Continuity of Care Document ---
Author Name Unknown Organization [facility] Address [address] [place] [address]- Care Team Providers Care Dirt Bike Mechanic Name Role Phone Maribell Jain MD Primary Care Physician [facility]): [facility]23 - 07/09/23 [facility] [address] [place], [place] [address] Allergies, Adverse Reactions, Alerts Substance Reaction Severity Status Nuts Active Watermelon Active Immunizations Given and Recorded Vaccine Date Status Refusal Reason SARS-CoV-2 mRNA (ypwudms-fftr-yvdgk) vax 11/23/21 Recorded SARS-CoV-2 (COVID-19) mRNA BNT-162b2 [...] (oldterm) 89 G iven 1Result Comment: [facility] [id number] 2Result Comment: [07/17/2018] givne /out incident ncd: [id number] 3Result Comment: [09/30/2017] [facility] 39346-335-42 4Admin Note: pt declined 5Admin Note: vis given Medications albuterol CFC free 90 mcg/inh inhalation aerosol 2, puffs, Inhalation, Every 6 hours, PRN, # 8.5 Gm, Refills 0, Tot. Refills 0, Maintenance, 06/14/23 11:59:00 EDT, Aerosol, Route to Pharmacy Electronically, [id number], [facility]/pharmacy #1291, 165, cm, 06/14/23 11:27:00 EDT, Hei... Start Date: 06/14/23 Status: Ordered amLODIPine 5 mg oral tablet 1 tablet, By Mouth, Daily, # 90 tablet, 1 Refills, Maintenance, 07/01/23 17:15:00 EDT, [facility]/pharmacy#1291, 165, cm, 07/01/23 16:48:00 EDT, Height, 86.1, kg, 06/07/23 21:13:00 EDT, Dry Weight Start Date: 07/01/23 Status: Ordered Aspirin Enteric Coated 81 mg oral delayed release tablet 1 tablet, By Mouth, Daily, # 90 tablet, 3 Refills, Maintenance, 01/13/23 11:23:00 EDT, [facility]/pharmacy#1291, 165, cm, 01/13/23 10:56:00 EDT, Height, [...] Gm, 1 Refills, Maintenance, 07/01/23 17:26:00 EDT, [facility]/pharmacy #1291, Partial fill upon patient request [...] 1 Refills, Maintenance, 07/01/23 17:13:00 EDT, Tablet, [facility]/pharmacy #1291, Partial fill upon patient request if the prescription is for a schedule II opioid drug., 165, cm, 07/01/23 16:48:00 EDT, [facility]... Start Date: 07/01/23 Stop Date: 12/28/23 Status: Ordered MetFORMIN (Eqv-Glucophage XR) 500 mg oral tablet, extended release 2 tablet, By Mouth, Daily, # 180 tablet, 1 Refills, Maintenance, 05/16/23 23:07:00 EDT, [facility], 165, cm, 05/13/23 16:14:00 EDT, Height, 85.7, [...] Personnel Name: Cristobal ROSARIO, Maribell Weldon Position: [facility] Physician - Primary Care Member Role: PCP Address: Address: [address] [place] [address] Adult & [place] [address]- Care Team Related Persons Name: JJ NORMAN Address: home [address] [place] [address] Name: RISHABH CASTELLON Address: [place] [address] Name: YEIMY CASTELLON Address: home [address] [place] [address] Name: DONNA ZELAYA Address: home [address] [place] [address] Name: JOSE RAFAEL VINCENT Address: [place] [address] Name: ABHAY SPAULDING Name: SAMANTHA TINEO Address: home [address] [place] [address]
--- OUTSIDE RECORDS SUMMARY | 2023-11-06 15:33 | XMS_ITS | Continuity of Care Document ---
Author Name Unknown Organization [facility] Address [address] [place] [address]- Care Team Providers Care [place] Program Coordinator Name Role Phone Maribell Jain MD Primary Care Physician [facility]23 - 07/23/23 [facility] [address] [place], [place] [address] Allergies, Adverse Reactions, Alerts Substance Reaction Severity Status Nuts Active Watermelon Active Immunizations Given and Recorded Vaccine Date Status Refusal Reason SARS-CoV-2 mRNA (anidllk-lmli-tbtcz) vax 11/23/21 Recorded SARS-CoV-2 (COVID-19) mRNA BNT-162b2 [...] (oldterm) 89 G iven 1Result Comment: [facility] [id number] 2Result Comment: [07/17/2018] givne /out incident ncd: [id number] 3Result Comment: [09/30/2017] [facility] 79882-046-91 4Admin Note: pt declined 5Admin Note: vis given Medications albuterol CFC free 90 mcg/inh inhalation aerosol 2, puffs, Inhalation, Every 6 hours, PRN, # 8.5 Gm, Refills 0, Tot. Refills 0, Maintenance, 06/14/23 11:59:00 EDT, Aerosol, Route to Pharmacy Electronically, [id number], [facility]/pharmacy #1291, 165, cm, 06/14/23 11:27:00 EDT, Hei... Start Date: 06/14/23 Status: Ordered amLODIPine 5 mg oral tablet 1 tablet, By Mouth, Daily, # 90 tablet, 1 Refills, Maintenance, 07/01/23 17:15:00 EDT, [facility]/pharmacy#1291, 165, cm, 07/01/23 16:48:00 EDT, Height, 86.1, kg, 06/07/23 21:13:00 EDT, Dry Weight Start Date: 07/01/23 Status: Ordered Aspirin Enteric Coated 81 mg oral delayed release tablet 1 tablet, By Mouth, Daily, # 90 tablet, 3 Refills, Maintenance, 01/13/23 11:23:00 EDT, [facility]/pharmacy#1291, 165, cm, 01/13/23 10:56:00 EDT, Height, [...] Gm, 1 Refills, Maintenance, 07/01/23 17:26:00 EDT, [facility]/pharmacy #1291, Partial fill upon patient request [...] 1 Refills, Maintenance, 07/01/23 17:13:00 EDT, Tablet, [facility]/pharmacy #1291, Partial fill upon patient request if the prescription is for a schedule II opioid drug., 165, cm, 07/01/23 16:48:00 EDT, [facility]... Start Date: 07/01/23 Stop Date: 12/28/23 Status: Ordered MetFORMIN (Eqv-Glucophage XR) 500 mg oral tablet, extended release 2 tablet, By Mouth, Daily, # 180 tablet, 1 Refills, Maintenance, 05/16/23 23:07:00 EDT, [facility], 165, cm, 05/13/23 16:14:00 EDT, Height, 85.7, [...] Personnel Name: Cristobal ROSARIO, Maribell Weldon Position: [facility] Physician - Primary Care Member Role: PCP Address: Address: [address] [place] [address] Adult & [place] [address]- Care Team Related Persons Name: JJ NORMAN Address: home [address] [place] [address] Name: RISHABH CASTELLON Address: [place] [address] Name: YEIMY CASTELLON Address: home [address] [place] [address] Name: DONNA ZELAYA Address: home [address] [place] [address] Name: JOSE RAFAEL VINCENT Address: [place] [address] Name: ABHAY SPAULDING Name: SAMANTHA TINEO Address: home [address] [place] [address]
--- OUTSIDE RECORDS SUMMARY | 2023-11-06 15:33 | XMS_ITS | Continuity of Care Document ---
Author Name Unknown Organization [facility] Address [address] [place] [address]- Care Team Providers Care Credit Product Analyst Name Role Phone Cristobal ROSARIO, Maribell Weldon Primary Care Physician Encounter [facility] Date(s): 08/24/23 - 09/23/23 [facility] [address] [place] [address]- Allergies, Adverse Reactions, Alerts Substance Reaction Severity Status Nuts Active Watermelon Active Immunizations Given and Recorded Vaccine Date Status Refusal Reason SARS-CoV-2 mRNA (uudqvfi-pptw-aftio) vax 11/23/21 Recorded SARS-CoV-2 (COVID-19) mRNA BNT-162b2 [...] julián 1Result Comment: [facility] [id number] 2Result Comment: [07/17/2018] givne /out incident ncd: [id number] 3Result Comment: [09/30/2017] [facility] [id number] 4Admin Note: pt declined 5Admin Note: vis given Medications amLODIPine 5 mg oral tablet 1 tablet, By Mouth, Daily, # 90 tablet, 1 Refills, Maintenance, 07/01/23 17:15:00 EDT, [facility]/pharmacy#1291, 165, cm, 07/01/23 16:48:00 EDT, Height, 86.1, kg, 06/07/23 21:13:00 EDT, Dry Weight Start Date: 07/01/23 Status: Ordered Aspirin Enteric Coated 81 mg oral delayed release tablet 1 tablet, By Mouth, Daily, # 90 tablet, 3 Refills, Maintenance, 01/13/23 11:23:00 EDT, [facility]/pharmacy#1291, 165, cm, 01/13/23 10:56:00 EDT, Height, [...] Gm, 1 Refills, Maintenance, 07/01/23 17:26:00 EDT, [facility]/pharmacy #1291, Partial fill upon patient request [...] Team Personnel Name: Maribell Jain MD Position: [facility] Physician - Primary Care Member Role: PCP Address: Address: [address] [place] [address] Adult & [place] [address]- Care Team Related Persons Name: JJ NORMAN Address: home [address] [place] [address] Name: RISHABH CASTELLON Address: [place] [address] Name: YEIMY CASTELLON Address: home [address] [place] [address] Name: DNONA ZELAYA Address: home [address] [place] [address] Name: JOSE RAFAEL VINCENT Address: [place] [address] Name: ABHAY SPAULDING Name: SAMANTHA TINEO Address: home [address] [place] [address]
--- OUTSIDE RECORDS SUMMARY | 2023-11-06 15:34 | XMS_ITS | Continuity of Care Document ---
Author Name Unknown Organization [facility] Address [address] [place] [address]- Care Team Providers Care Paper Pattern Folder Name Role Phone Maribell Jain MD Primary Care Physician [facility] 07[facility]06[facility]23 - 08/05/23 [facility] [address] [place], [place] [address] Allergies, Adverse Reactions, Alerts Substance Reaction Severity Status Nuts Active Watermelon Active Immunizations Given and Recorded Vaccine Date Status Refusal Reason SARS-CoV-2 mRNA (bgjrbxp-tcqo-nmsra) vax 11/23/21 Recorded SARS-CoV-2 (COVID-19) mRNA BNT-162b2 [...] (oldterm) 89 G iven 1Result Comment: [facility] [id number] 2Result Comment: [07/17/2018] givne /out incident ncd: [id number] 3Result Comment: [09/30/2017] [facility] [id number] 4Admin Note: pt declined 5Admin Note: vis given Medications albuterol CFC free 90 mcg/inh inhalation aerosol 2, puffs, Inhalation, Every 6 hours, PRN, # 8.5 Gm, Refills 0, Tot. Refills 0, Maintenance, 06/14/23 11:59:00 EDT, Aerosol, Route to Pharmacy Electronically, [id number], [facility]/pharmacy #1291, 165, cm, 06/14/23 11:27:00 EDT, Hei... Start Date: 06/14/23 Status: Ordered amLODIPine 5 mg oral tablet 1 tablet, By Mouth, Daily, # 90 tablet, 1 Refills, Maintenance, 07/01/23 17:15:00 EDT, [facility]/pharmacy#1291, 165, cm, 07/01/23 16:48:00 EDT, Height, 86.1, kg, 06/07/23 21:13:00 EDT, Dry Weight Start Date: 07/01/23 Status: Ordered Aspirin Enteric Coated 81 mg oral delayed release tablet 1 tablet, By Mouth, Daily, # 90 tablet, 3 Refills, Maintenance, 01/13/23 11:23:00 EDT, [facility]/pharmacy#1291, 165, cm, 01/13/23 10:56:00 EDT, Height, 88.8, [...] Gm, 1 Refills, Maintenance, 07/01/23 17:26:00 EDT, [facility]/pharmacy #1291, Partial fill upon patient request if [...] 1 Refills, Maintenance, 07/01/23 17:13:00 EDT, Tablet, [facility]/pharmacy #1291, Partial fill upon patient request if the prescription is for a schedule II opioid drug., 165, cm, 07/01/23 16:48:00 EDT, Heig... Start Date: 07/01/23 Stop Date: 12/28/23 Status: Ordered MetFORMIN (Eqv-Glucophage XR) 500 mg oral tablet, extended release 2 tablet, By Mouth, Daily, # 180 tablet, 1 Refills, Maintenance, 05/16/23 23:07:00 EDT, [facility], 165, cm, 05/13/23 16:14:00 EDT, Height, 85.7, [...] Personnel Name: Cristobal ROSARIO, Maribell Weldon Position: [facility] Physician - Primary Care Member Role: PCP Address: Address: [address] [place] [address] Adult & [place] [address]- Care Team Related Persons Name: JJ NORMAN Address: home [address] [place] [address] Name: RISHABH CASTELLON Address: [place] [address] Name: YEIMY CASTELLON Address: home [address] [place] [address] Name: DONNA ZELAYA Address: home [address] [place] [address] Name: JOSE RAFAEL VINCENT Address: [place] [address] Name: ABHAY SPAULDING Name: SAMANTHA TINEO Address: home [address] [place] [address]
--- OUTSIDE RECORDS SUMMARY | 2023-11-06 15:34 | XMS_ITS | Continuity of Care Document ---
Author Name Unknown Organization [facility] Address [address] [place] [address]- Care Team Providers Care Notcher Name Role Phone Cristobal ROSARIO, Maribell Weldon Primary Care Physician Encounter [facility] Date(s): 08/30/23 - 09/29/23 [facility] [address] [place], [place] [address] Allergies, Adverse Reactions, Alerts Substance Reaction Severity Status Nuts Active Watermelon Active Immunizations Given and Recorded Vaccine Date Status Refusal Reason SARS-CoV-2 mRNA (qfstmqm-yrba-qkfnb) vax 11/23/21 Recorded SARS-CoV-2 (COVID-19) mRNA BNT-162b2 [...] Diphth/Pertussis,Acel/Tetanus (oldterm) 89 G ezeen 1Result Comment: [facility] [id number] 2Result Comment: [07/17/2018] givne /out incident ncd: [id number] 3Result Comment: [09/30/2017] [facility] 18029-852-03 4Admin Note: pt declined 5Admin Note: vis given Medications amLODIPine 5 mg oral tablet 1 tablet, By Mouth, Daily, # 90 tablet, 1 Refills, Maintenance, 07/01/23 17:15:00 EDT, [facility]/pharmacy#1291, 165, cm, 07/01/23 16:48:00 EDT, Height, 86.1, kg, 06/07/23 21:13:00 EDT, Dry Weight Start Date: 07/01/23 Status: Ordered Aspirin Enteric Coated 81 mg oral delayed release tablet 1 tablet, By Mouth, Daily, # 90 tablet, 3 Refills, Maintenance, 01/13/23 11:23:00 EDT, [facility]/pharmacy#1291, 165, cm, 01/13/23 10:56:00 EDT, Height, 88.8, [...] Gm, 1 Refills, Maintenance, 07/01/23 17:26:00 EDT, [facility]/pharmacy #1291, Partial fill upon patient request if [...] Primary Care Member Role: PCP Address: Address: [address] [place] [address] Adult & [place] [address]- Care Team Related Persons Name: JJ NORMAN Address: home [address] [place] [address] Name: RISHABH CASTELLON Address: [place] [address] Name: YEIMY CASTELLON Address: home [address] [place] [address] Name: DONNA ZELAYA Address: home [address] [place] [address] Name: JOSE RAFAEL VINCENT Address: [place] [address] Name: ABHAY SPAULDING Name: SAMANTHA TINEO Address: home [address] [place] [address]
--- OUTSIDE RECORDS SUMMARY | 2023-11-06 15:34 | XMS_ITS | Continuity of Care Document ---
Author Name Unknown Organization [facility] Address [address] [place] [address]- Care Team Providers Care Blocker And Sewer Name Role Phone Maribell Jain MD Primary Care Physician [phone] [facility]): 06[facility]08[facility]23 - 07/08/23 [facility] [address] [place], [place] [address] Allergies, Adverse Reactions, Alerts Substance Reaction Severity Status Nuts Active Watermelon Active Immunizations Given and Recorded Vaccine Date Status Refusal Reason SARS-CoV-2 mRNA (tdbwppa-kmvm-kptkf) vax 11/23/21 Recorded SARS-CoV-2 (COVID-19) mRNA BNT-162b2 [...] (oldterm) 89 G iven 1Result Comment: [facility] [id number] 2Result Comment: [07/17/2018] givne /out incident ncd: [id number] 3Result Comment: [09/30/2017] [facility] [id number] 4Admin Note: pt declined 5Admin Note: vis given Medications albuterol CFC free 90 mcg/inh inhalation aerosol 2, puffs, Inhalation, Every 6 hours, PRN, # 8.5 Gm, Refills 0, Tot. Refills 0, Maintenance, 06/14/23 11:59:00 EDT, Aerosol, Route to Pharmacy Electronically, [id number], [facility]/pharmacy #1291, 165, cm, 06/14/23 11:27:00 EDT, Hei... Start Date: 06/14/23 Status: Ordered amLODIPine 5 mg oral tablet 1 tablet, By Mouth, Daily, # 90 tablet, 1 Refills, Maintenance, 07/01/23 17:15:00 EDT, [facility]/pharmacy#1291, 165, cm, 07/01/23 16:48:00 EDT, Height, 86.1, kg, 06/07/23 21:13:00 EDT, Dry Weight Start Date: 07/01/23 Status: Ordered Aspirin Enteric Coated 81 mg oral delayed release tablet 1 tablet, By Mouth, Daily, # 90 tablet, 3 Refills, Maintenance, 01/13/23 11:23:00 EDT, [facility]/pharmacy#1291, 165, cm, 01/13/23 10:56:00 EDT, Height, 88.8, [...] Gm, 1 Refills, Maintenance, 07/01/23 17:26:00 EDT, [facility]/pharmacy #1291, Partial fill [...] 1 Refills, Maintenance, 07/01/23 17:13:00 EDT, Tablet, [facility]/pharmacy #1291, Partial fill upon patient request if the prescription is for a schedule II opioid drug., 165, cm, 07/01/23 16:48:00 EDT, [facility]... Start Date: 07/01/23 Stop Date: 12/28/23 Status: Ordered MetFORMIN (Eqv-Glucophage XR) 500 mg oral tablet, extended release 2 tablet, By Mouth, Daily, # 180 tablet, 1 Refills, Maintenance, 05/16/23 23:07:00 EDT, [facility], 165, cm, 05/13/23 16:14:00 EDT, Height, 85.7, [...] to oldest [Reference Range]: 1 2 3 Blood Pressure [90-138/55-84 mm Hg] 118/76mm Hg (06/08/23 5:00 PM) 121/82mm Hg (06/08/23 12:00 PM) 134/72mm Hg (06/05/23 8:00 PM) Blood pressure sites Arm, left (06/08/23 5:00 PM) Arm, left (06/08/23 12:00 PM) Arm, left (06/04/23 7:33 AM) Social History Social History Type Response Smoking Status Never smoker; Tobacc o user in household: No entered on: 05/09/14 Sex Patient Care team information Care Team Personnel Name: Cristobal ROSARIO, Maribell Weldon Position: [facility] Physician - Primary Care Member Role: PCP Address: Address: [address] [place] [address] Adult & [place] [address]- Care Team Related Persons Name: JJ NORMAN Address: home [address] [place] [address] Name: RISHABH CASTELLON Address: [place] [address] Name: YEIMY CASTELLON Address: [address] [place] [address] Name: DONNA ZELAYA Address: home [address] [place] [address] Name: JOSE RAFAEL VINCENT Address: [place] [address] Name: ABHAY SPAULDING Name: SAMANTHA TINEO Address: home [address] [place] [address]
--- OUTSIDE RECORDS SUMMARY | 2023-11-06 15:34 | XMS_ITS | Continuity of Care Document ---
Author Name Unknown Organization [facility] Address [address] [place] [address]- Care Team Providers Care Housekeeping Coordinator Name Role Phone Cristobal ROSARIO, Maribell Weldon Primary Care Physician [phone] Encounter [facility] Date(s): 09/28/23 - 10/28/23 [facility] [address] [place], [place] [address] Allergies, Adverse Reactions, Alerts Substance Reaction Severity Status Nuts Active Watermelon Active Immunizations Given and Recorded Vaccine Date Status Refusal Reason SARS-CoV-2 mRNA (ofrafkx-wrxg-szssl) vax 11/23/21 Recorded SARS-CoV-2 (COVID-19) mRNA BNT-162b2 [...] 1Result Comment: [facility] [id number] 2Result Comment: [07/17/2018] givne /out incident ncd: [id number] 3Result Comment: [09/30/2017] [facility] [id number] 4Admin Note: pt declined 5Admin Note: vis given Medications amLODIPine 5 mg oral tablet 1 tablet, By Mouth, Daily, # 90 tablet, 1 Refills, Maintenance, 10/28/23 6:16:00 EST, [facility]/pharmacy #1291, 165, cm, 09/19/23 9:22:00 EST, Height, 86.1, kg, 06/07/23 21:13:00 EDT, Dry Weight Start Date: 10/28/23 Status: Ordered Aspirin Enteric Coated 81 mg oral delayed release tablet 1 tablet, By Mouth, Daily, # 90 tablet, 3 Refills, Maintenance, 01/13/23 11:23:00 EDT, [facility]/pharmacy#1291, 165, cm, 01/13/23 10:56:00 EDT, Height, 88.8, [...] Refills, Maintenance, 07/01/23 17:26:00 EDT, [facility]/pharmacy #1291, Partial fill upon patient request if [...] Soft Stop, 10/21/23 17:02:00 EST, Chew Tablet, [facility]/pharmacy #1291, Partial fill upon patient reque... Start [...] Personnel Name: Cristobal ROSARIO, Maribell Weldon Position: [facility] Physician - Primary Care Member Role: PCP Address: Address: [address] [place] [address] Adult & [place] [address]- Care Team Related Persons Name: JJ NORMAN Address: home [address] [place] [address] Name: RISHABH CASTELLON Address: [place] [address] Name: YEIMY CASTELLON Address: home [address] [place] [address] Name: DONNA ZELAYA Address: home [address] [place] [address] Name: JOSE RAFAEL VINCENT Address: [place] [address] Name: ABHAY SPAULDING Name: SAMANTHA TINEO Address: [address] [place] [address]
--- OUTSIDE RECORDS SUMMARY | 2023-11-06 15:34 | XMS_ITS | Continuity of Care Document ---
Author Name Unknown Organization [facility] Address [address] [place] [address]- Care Team Providers Care Biology Specimen Technician Name Role Phone Maribell Jain MD Primary Care Physician [facility] Date([facility]): 08/15/23 - 09/14/23 [facility] [address] [place], [place] [address] Allergies, Adverse Reactions, Alerts Substance Reaction Severity Status Nuts Active Watermelon Active Immunizations Given and Recorded Vaccine Date Status Refusal Reason SARS-CoV-2 mRNA (vtywhsy-gvsx-hwsus) vax 11/23/21 Recorded SARS-CoV-2 (COVID-19) mRNA BNT-162b2 [...] ezeen 1Result Comment: [facility] [id number] 2Result Comment: [07/17/2018] givne /out incident ncd: [id number] 3Result Comment: [09/30/2017] [facility] [id number] 4Admin Note: pt declined 5Admin Note: vis given Medications albuterol CFC free 90 mcg/inh inhalation aerosol 2, puffs, Inhalation, Every 6 hours, PRN, # 8.5 Gm, Refills 0, Tot. Refills 0, Maintenance, 06/14/23 11:59:00 EDT, Aerosol, Route to Pharmacy Electronically, [id number], [facility]/pharmacy #[id number], 165, cm, 06/14/23 11:27:00 EDT, Hei... Start Date: 06/14/23 Status: Ordered amLODIPine 5 mg oral tablet 1 tablet, By Mouth, Daily, # 90 tablet, 1 Refills, Maintenance, 07/01/23 17:15:00 EDT, [facility]/pharmacy#1291, 165, cm, 07/01/23 16:48:00 EDT, Height, 86.1, kg, 06/07/23 21:13:00 EDT, Dry Weight Start Date: 07/01/23 Status: Ordered Aspirin Enteric Coated 81 mg oral delayed release tablet 1 tablet, By Mouth, Daily, # 90 tablet, 3 Refills, Maintenance, 01/13/23 11:23:00 EDT, [facility]/pharmacy#1291, 165, cm, 01/13/23 10:56:00 EDT, Height, [...] Gm, 1 Refills, Maintenance, 07/01/23 17:26:00 EDT, [facility]/pharmacy #[id number], Partial fill upon patient request [...] 1 Refills, Maintenance, 07/01/23 17:13:00 EDT, Tablet, [facility]/pharmacy #[id number], Partial fill upon patient request if the prescription is for a schedule II opioid drug., 165, cm, 07/01/23 16:48:00 EDT, Lenora... Start Date: 07/01/23 Stop Date: 12/28/23 Status: Ordered MetFORMIN (Eqv-Glucophage XR) 500 mg oral tablet, extended release 2 tablet, By Mouth, Daily, # 180 tablet, 1 Refills, Maintenance, 05/16/23 23:07:00 EDT, [facility], 165, cm, 05/13/23 16:14:00 EDT, Height, 85.7, [...] Refills, Maintenance, 05/04/23 5:50:00 EDT, DIS Tablet, [facility]/pharmacy #[id number], Partial fill upon patient request [...] Personnel Name: Cristobal ROSARIO, Maribell Weldon Position: [facility] Physician - Primary Care Member Role: PCP Address: Address: [address] [place] [address] Adult [place] [address]- Care Team Related Persons Name: JJ NORMAN Address: home [address] [place] [address] Name: RISHABH CASTELLON Address: [place] [address] Name: YEIMY CASTELLON Address: home [address] [place] [address] Name: DONNA ZELAYA Address: home [address] [place] [address] Name: JOSE RAFAEL VINCENT Address: [place] [address] Name: ABHAY SPAULDING Name: SAMANTHA TINEO Address: home [address] [place] [address]
--- OUTSIDE RECORDS SUMMARY | 2023-11-06 15:35 | XMS_ITS | Continuity of Care Document ---
Author Name Unknown Organization [facility] Address [address] [place] [address]- Care Team Providers Care Promotions Coordinator Name Role Phone Cristobal ROSARIO, Maribell Weldon Primary Care Physician [phone] Encounter [facility] Date(s): 08/16/23 - 08/23/23 [facility] [address] [place], [place] [address] Encounter Diagnosis Strep throat exposure(Discharge Diagnosis) - 08/16/23 Attending Physician: Humaira Arteaga MD, V Allergies, Adverse Reactions, Alerts Substance Reaction Severity Status Nuts Active Watermelon Active Immunizations Given and Recorded Vaccine Date Status Refusal Reason SARS-CoV-2 mRNA (qjuqfbs-ivjc-axznn) vax 11/23/21 Recorded SARS-CoV-2 (COVID-19) mRNA BNT-162b2 [...] Diphth/Pertussis,Acel/Tetanus (oldterm) 89 G iven 1Result Comment: [facility] [id number] 2Result Comment: [07/17/2018] givne /out incident ncd: [id number] 3Result Comment: [09/30/2017] [facility] [id number] 4Admin Note: pt declined 5Admin Note: vis given Medications albuterol CFC free 90 mcg/inh inhalation aerosol 2, puffs, Inhalation, Every 6 hours, PRN, # 8.5 Gm, Refills 0, Tot. Refills 0, Maintenance, 06/14/23 11:59:00 EDT, Aerosol, Route to Pharmacy Electronically, [id number], [facility]/pharmacy #1291, 165, cm, 06/14/23 11:27:00 EDT, Hei... Start Date: 06/14/23 Status: Ordered amLODIPine 5 mg oral tablet 1 tablet, By Mouth, Daily, # 90 tablet, 1 Refills, Maintenance, 07/01/23 17:15:00 EDT, [facility]/pharmacy#1291, 165, cm, 07/01/23 16:48:00 EDT, Height, 86.1, kg, 06/07/23 21:13:00 EDT, Dry Weight Start Date: 07/01/23 Status: Ordered Aspirin Enteric Coated 81 mg oral delayed release tablet 1 tablet, By Mouth, Daily, # 90 tablet, 3 Refills, Maintenance, 01/13/23 11:23:00 EDT, [facility]/pharmacy#1291, 165, cm, 01/13/23 10:56:00 EDT, Height, 88.8, [...] Gm, 1 Refills, Maintenance, 07/01/23 17:26:00 EDT, [facility]/pharmacy #[id number], Partial fill upon patient request if [...] 1 Refills, Maintenance, 07/01/23 17:13:00 EDT, Tablet, [facility]/pharmacy #1291, Partial fill upon patient request if the prescription is for a schedule II opioid drug., 165, cm, 07/01/23 16:48:00 EDT, Lenora... Start Date: 07/01/23 Stop Date: 12/28/23 Status: Ordered MetFORMIN (Eqv-Glucophage XR) 500 mg oral tablet, extended release 2 tablet, By Mouth, Daily, # 180 tablet, 1 Refills, Maintenance, 05/16/23 23:07:00 EDT, [facility], 165, cm, 05/13/23 16:14:00 EDT, Height, 85.7, [...] Refills, Maintenance, 05/04/23 5:50:00 EDT, DIS Tablet, [facility]/pharmacy #1291, Partial fill upon patient request if [...] Effective Dates Health Status inical Service Informant Strep throat exposure Discharge Diagnosis 08/16/23 Vital Signs Most recent to oldest [Reference Range]: 1 Height 165 cm (08/16/23 3:02 PM) Weight 82.5 kg (08/16/23 3:02 PM) Oxygen Saturation [94-100 %] 98 % (08/16/23 3:02 PM) Pulse Rate [55-90 bpm] 73 bpm (08/16/23 3:02 PM) Body Mass Index [18.5-24.99 kg/m2] 30.3 kg/m2 *>HHI* (08/16/23 3:02 PM) Blood Pressure [90-138/55-84 mm Hg] 124/ 87mm Hg (08/16/23 3:02 PM) Mode of Delivery (Oxygen) Room air (08/16/23 3:02 PM) Blood pressure sites Arm, left (08/16/23 3:02 PM) Social History Social History Type Response Smoking Status Never smoker; Tobacc o user in household: No entered on: 05/09/14 Sex Note * Elsa Masters: PERFORM, SIGN, VERIFY Event Display: Patient Education/Instruction Authored Date: [id number] [facility] *No [facility] Clinical Summary Name CAROL REDMAN Age 33 Years 1990 PCP Maribell Jain MD PCP Visit Date 08/16/2023 14:40:00 Additional Instructions: Scheduled Appointments?? Future Appointments ?*No??[facility] ?[address]??[place],??[place],??[address] ?Phone:??--?Fax:??-- ?Appt. Date:??09/19/2023?9:10 AM ?Scheduled Provider:??Mariblel Jain MD Follow-Up Instructions ?? Diagnosis Medications: Please continue your medications until treatment is completed or stopped by your provider. Discuss any questions related to medications with your provider. Medications to Continue with No Changes These medications were not printed or sent to your pharmacy Albuterol (albuterol CFC free 90 mcg/inh inhalation aerosol) 2 puff(s) Inhalation every 6 hours as needed Wheezing/Shortness of Breath. Refills: 0. Next Dose: Albuterol (Ventolin HFA 108 mcg/inh inhalation aerosol with adapter) 2 puff(s) Inhalation every 6 hours as needed NEEDED FOR WHEEZING/SHORTNESS OF BREATH. Refills: 5. Next Dose: Amlodipine (amLODIPine 5 mg oral [...] sugars once daily. Refills: 3. Next Dose: Fluticasone Nasal (Flonase Allergy Relief 50 mcg/inh nasal spray) 1 spray(s) Nares, Both twice a day for 30 Days. Refills: 1. Next Dose: Losartan (losartan 50 mg oral tablet) 1.5 tab(s) Oral Daily for 90 Days. Refills: [...] orders Vital Signs Height 165 cm Weight 82.5 kg BMI 30.3 kg/m2 Blood Pressure 124 mm Hg/87 mm Hg Temperature Pulse Rate 73 bpm Respiratory Rate 02 Sat Mode of Delivery 98 %/Room air You can now view a summary of your hospital visit from the comfort of your home through a free online portal called [employer]. [employer] is a website that allows you to securely view your medical information including discharge summary, medications and follow-up visits. ??You can alsosend a secure electronic message to your doctor???s office to request appointments, renew medications or just ask a question. You can enroll at [email or web address] or register during your next office visit. [...] primary care provider, you may find a [facility] provider by calling [facility] [employer] Link at [phone]. [facility], in keeping with [facility] guidance, no longer requires face masks for staff, patientsor visitors in most situations. Similar to time spent indoors at other locations, there is the chance that you were exposed to respiratory viruses during your time with us (such as flu or COVID-19).? If you develop symptoms concerning for a viral respiratory infection, please seek testing (and treatment if indicated) from your medical provider or home test kit. For information about the plan of care [...] Personnel Name: Cristobal ROSARIO, Maribell Weldon Position: [facility] Physician - Primary Care Member Role: PCP Address: Address: [address] [place] [address] Adult & [place] [address]- [place] Care Team Related Persons Name: JJ NORMAN Address: home [address] [place] [address] Name: RISHABH CASTELLON Address: [place] [address] Name: YEIMY CASTELLON Address: home [address] [place] [address] Name: DONNA ZELAYA Address: home [address] [place] [address] Name: JOSE RAFAEL VINCENT Address: [place] [address] Name: ABHAY SPAULDING Name: SAMANTHA TINEO Address: home [address] [place] [address]
--- OUTSIDE RECORDS SUMMARY | 2023-11-06 15:35 | XMS_ITS | Continuity of Care Document ---
Author Name Unknown Organization [facility] Address [address] [place] [address]- Care Team Providers Care Director Systems Name Role Phone Maribell Jain MD Primary Care Physician [facility] Date(s): 06/24/23 - 07/24/23 [facility] [address] [place], [place] [address] Allergies, Adverse Reactions, Alerts Substance Reaction Severity Status Nuts Active Watermelon Active Immunizations Given and Recorded Vaccine Date Status Refusal Reason SARS-CoV-2 mRNA (xtevyti-vbpl-gikth) vax 11/23/21 Recorded SARS-CoV-2 (COVID-19) mRNA BNT-162b2 [...] G iven 1Result Comment: [facility] [id number] 2Result Comment: [07/17/2018] givne /out incident ncd: [id number] 3Result Comment: [09/30/2017] [facility] 44014-427-12 4Admin Note: pt declined 5Admin Note: vis given Medications albuterol CFC free 90 mcg/inh inhalation aerosol 2, puffs, Inhalation, Every 6 hours, PRN, # 8.5 Gm, Refills 0, Tot. Refills 0, Maintenance, 06/14/23 11:59:00 EDT, Aerosol, Route to Pharmacy Electronically, [id number], [facility]/pharmacy #1291, 165, cm, 06/14/23 11:27:00 EDT, Hei... Start Date: 06/14/23 Status: Ordered amLODIPine 5 mg oral tablet 1 tablet, By Mouth, Daily, # 90 tablet, 1 Refills, Maintenance, 07/01/23 17:15:00 EDT, [facility]/pharmacy#[id number], 165, cm, 07/01/23 16:48:00 EDT, Height, 86.1, kg, 06/07/23 21:13:00 EDT, Dry Weight Start Date: 07/01/23 Status: Ordered Aspirin Enteric Coated 81 mg oral delayed release tablet 1 tablet, By Mouth, Daily, # 90 tablet, 3 Refills, Maintenance, 01/13/23 11:23:00 EDT, [facility]/pharmacy#1291, 165, cm, 01/13/23 10:56:00 EDT, Height, [...] Gm, 1 Refills, Maintenance, 07/01/23 17:26:00 EDT, [facility]/pharmacy #[id number], Partial fill upon patient request [...] 1 Refills, Maintenance, 07/01/23 17:13:00 EDT, Tablet, [facility]/pharmacy #[id number], Partial fill upon patient request if the prescription is for a schedule II opioid drug., 165, cm, 07/01/23 16:48:00 EDT, Lenora... Start Date: 07/01/23 Stop Date: 12/28/23 Status: Ordered MetFORMIN (Eqv-Glucophage XR) 500 mg oral tablet, extended release 2 tablet, By Mouth, Daily, # 180 tablet, 1 Refills, Maintenance, 05/16/23 23:07:00 EDT, [facility], 165, cm, 05/13/23 16:14:00 EDT, Height, 85.7, [...] Primary Care Member Role: PCP Address: Address: [address] [place] [address] Adult & [place] [address]- Care Team Related Persons Name: JJ NORMAN Address: home [address] [place] [address] Name: RISHABH CASTELLON Address: [place] [address] Name: YEIMY CASTELLON Address: home [address] [place] [address] Name: DONNA ZELAYA Address: home [address] [place] [address] Name: JOSE RAFAEL VINCENT Address: [place] [address] Name: ABHAY SPAULDING Name: SAMANTHA TINEO Address: home [address] [place] [address]
--- OUTSIDE RECORDS SUMMARY | 2023-11-06 15:35 | XMS_ITS | Continuity of Care Document ---
Author Name Unknown Organization [facility] Address [address] [place] [address]- Care Team Providers Care Astrophysics Professor Name Role Phone Maribell Jain MD Primary Care Physician Encounter [facility] Date(s): 07/01/23 - 07/08/23 [facility] [address] [place], [place] [address] Encounter Diagnosis Hypertension(Discharge Diagnosis) - 07/01/23 Obstructive sleep apnea(Discharge Diagnosis) - 07/01/23 ETD (eustachian tube dysfunction)(Discharge Diagnosis) - 07/01/23 Attending Physician: Maribell Jain MD Allergies, Adverse Reactions, Alerts Substance Reaction Severity Status Nuts Active Watermelon Active Immunizations Given and Recorded Vaccine Date Status Refusal Reason SARS-CoV-2 mRNA (cmyneyf-edig-qmphy) vax 11/23/21 Recorded SARS-CoV-2 (COVID-19) mRNA BNT-162b2 [...] Diphth/Pertussis,Acel/Tetanus (oldterm) 89 G iven 1Result Comment: [facility] [id number] 2Result Comment: [07/17/2018] givne /out incident ncd: [id number] 3Result Comment: [09/30/2017] [facility] [id number] 4Admin Note: pt declined 5Admin Note: vis given Medications albuterol CFC free 90 mcg/inh inhalation aerosol 2, puffs, Inhalation, Every 6 hours, PRN, # 8.5 Gm, Refills 0, Tot. Refills 0, Maintenance, 06/14/23 11:59:00 EDT, Aerosol, Route to Pharmacy Electronically, [id number], [facility]/pharmacy #1291, 165, cm, 06/14/23 11:27:00 EDT, Hei... Start Date: 06/14/23 Status: Ordered amLODIPine 5 mg oral tablet 1 tablet, By Mouth, Daily, # 90 tablet, 1 Refills, Maintenance, 07/01/23 17:15:00 EDT, [facility], 165, cm, 07/01/23 16:48:00 EDT, Height, 86.1, [...] Gm, 1 Refills, Maintenance, 07/01/23 17:26:00 EDT, [facility], Partial fill upon patient request [...] 1 Refills, Maintenance, 07/01/23 17:13:00 EDT, Tablet, [facility]/pharmacy #1291, Partial fill upon patient request if the prescription is for a schedule II opioid drug., 165, cm, 07/01/23 16:48:00 EDT, Lenora... Start Date: 07/01/23 Stop Date: 12/28/23 Status: Ordered MetFORMIN (Eqv-Glucophage XR) 500 mg oral tablet, extended release 2 tablet, By Mouth, Daily, # 180 tablet, 1 Refills, Maintenance, 05/16/23 23:07:00 EDT, [facility], 165, cm, 05/13/23 16:14:00 EDT, Height, 85.7, [...] Effective Dates Health Status Clinical Service Informant Hypertension Discharge Diagnosis 07/01/23 Obstructive sleep apnea Discharge Diagnosis 07/01/23 ETD (eustachian tube dysfunction) Discharge Diagnosis 07/01/23 Vital Signs Most recent to oldest [Reference Range]: 1 Height 165 cm (07/01/23 4:48 PM) Social History Social History Type Response Smoking Status Never smoker; Tobacc o user in household: No entered on: 05/09/14 Sex Patient Care team information Care Team Personnel Name: Maribell Jain MD Position: [facility] Physician - Primary Care Member Role: PCP Address: Address: [address] [place] [address] Adult & [place] [address]- Care Team Related Persons Name: JJ NORMAN Address: home [address] [place] [address] Name: RISHABH CASTELLON Address: home [place] [id number] Name: YEIMY CASTELLON Address: home [address] [place] [address] Name: DONNA ZELAYA Address: home [address] [place] [address] Name: JOSE RAFAEL VINCENT Address: [place] [address] Name: ABHAY SPAULDING Name: SAMANTHA TINEO Address: home [address] [place] [address]
--- OUTSIDE RECORDS SUMMARY | 2023-11-06 15:36 | XMS_ITS | Continuity of Care Document ---
Author Name Unknown Organization [facility] Address [address] [place] [address]- Care Team Providers Care Research Spec Name Role Phone Maribell Jain MD Primary Care Phys[id number] Date(s[facility] 09/19/23 - 09/26/23 [facility] [address] [place] [address]- Attending Physician: Maribell Jain MD Allergies, Adverse Reactions, Alerts Substance Reaction Severity Status Nuts Active Watermelon Active Immunizations Given and Recorded Vaccine Date Status Refusal Reason SARS-CoV-2 mRNA (eppbstw-yfse-ifxrx) vax 11/23/21 Recorded SARS-CoV-2 (COVID-19) mRNA BNT-162b2 [...] Diphth/Pertussis,Acel/Tetanus (oldterm) 89 G iven 1Result Comment: [facility] [id number] 2Result Comment: [07/17/2018] givne /out incident ncd: [id number] 3Result Comment: [09/30/2017] [facility] [id number] 4Admin Note: pt declined 5Admin Note: vis given Medications amLODIPine 5 mg oral tablet 1 tablet, By Mouth, Daily, # 90 tablet, 1 Refills, Maintenance, 07/01/23 17:15:00 EDT, [facility]/pharmacy#1291, 165, cm, 07/01/23 16:48:00 EDT, Height, 86.1, kg, 06/07/23 21:13:00 EDT, Dry Weight Start Date: 07/01/23 Status: Ordered Aspirin Enteric Coated 81 mg oral delayed release tablet 1 tablet, By Mouth, Daily, # 90 tablet, 3 Refills, Maintenance, 01/13/23 11:23:00 EDT, [facility]/pharmacy#1291, 165, cm, 01/13/23 10:56:00 [...] 1 Refills, Maintenance, 07/01/23 17:26:00 EDT, [facility]/pharmacy #1291, Partial fill upon [...] oldest [Reference Range]: 1 Height 165 cm (09/19/23 9:22 AM) Weight 80.3 kg (09/19/23 9:22 AM) Oxygen Saturation [94-100 %] 99 % (09/19/23 9:22 AM) Pulse Rate [55-90 bpm] 72 bpm (09/19/23 9:22 AM) Body Mass Index [18.5-24.99 kg/m2] 29.49 kg/m2 *H* (09/19/23 9:22 AM) Blood Pressure [90-138/55-84 mm Hg] 137/ 85mm Hg (09/19/23 9:22 AM) Mode of Delivery (Oxygen) Room air (09/19/23 9:22 AM) Blood pressure sites Arm, left (09/19/23 9:22 AM) Weight Obtained Via Standing scale (09/19/23 9:22 AM) Social History Social History Type Response Smoking Status Never smoker; Tobacc o user in household: No entered on: 05/09/14 Sex Patient Care team information Care Team Personnel Name: Cristobal ROSARIO, Maribell Weldon Position: [facility] Physician - Primary Care Member Role: PCP Address: Address: [address] [place] [address] Adult & [place] [address]- Care Team Related Persons Name: JJ NORMAN Address: home [address] [place] [address] Name: RISHABH CASTELLON Address: [place] [address] Name: YEIMY CASTELLON Address: home [address] [place] [address] Name: DONNA ZELAYA Address: home [address] [place] [address] Name: JOSE RAFAEL VINCENT Address: [place] [address] Name: ABHAY SPAULDING Name: SAMANTHA TINEO Address: home [address] [place] [address]
--- OUTSIDE RECORDS SUMMARY | 2023-11-06 15:36 | XMS_ITS | Continuity of Care Document ---
Author Name Unknown Organization [facility] Address [address] [place] [address]- Care Team Providers Care Surgery Specialist Name Role Phone Maribell Jain MD Primary Care Physician [facility] Date[facility]s): 06/24/23 - 07/24/23 [facility] [address] [place], [place] [address] Allergies, Adverse Reactions, Alerts Substance Reaction Severity Status Nuts Active Watermelon Active Immunizations Given and Recorded Vaccine Date Status Refusal Reason SARS-CoV-2 mRNA (rzrrtan-jlba-oomqn) vax 11/23/21 Recorded SARS-CoV-2 (COVID-19) mRNA BNT-162b2 [...] G iven 1Result Comment: [facility] [id number] 2Result Comment: [07/17/2018] givne /out incident ncd: [id number] 3Result Comment: [09/30/2017] [facility] [id number] 4Admin Note: pt declined 5Admin Note: vis given Medications albuterol CFC free 90 mcg/inh inhalation aerosol 2, puffs, Inhalation, Every 6 hours, PRN, # 8.5 Gm, Refills 0, Tot. Refills 0, Maintenance, 06/14/23 11:59:00 EDT, Aerosol, Route to Pharmacy Electronically, [id number], [facility]/pharmacy #1291, 165, cm, 06/14/23 11:27:00 EDT, Hei... Start Date: 06/14/23 Status: Ordered amLODIPine 5 mg oral tablet 1 tablet, By Mouth, Daily, # 90 tablet, 1 Refills, Maintenance, 07/01/23 17:15:00 EDT, [facility]/pharmacy#1291, 165, cm, 07/01/23 16:48:00 EDT, Height, 86.1, kg, 06/07/23 21:13:00 EDT, Dry Weight Start Date: 07/01/23 Status: Ordered Aspirin Enteric Coated 81 mg oral delayed release tablet 1 tablet, By Mouth, Daily, # 90 tablet, 3 Refills, Maintenance, 01/13/23 11:23:00 EDT, [facility]/pharmacy#1291, 165, cm, 01/13/23 10:56:00 EDT, [...] Gm, 1 Refills, Maintenance, 07/01/23 17:26:00 EDT, [facility]/pharmacy #1291, Partial fill upon patient [...] 1 Refills, Maintenance, 07/01/23 17:13:00 EDT, Tablet, [facility]/pharmacy #1291, Partial fill upon patient request if the prescription is for a schedule II opioid drug., 165, cm, 07/01/23 16:48:00 EDT, [facility]... Start Date: 07/01/23 Stop Date: 12/28/23 Status: Ordered MetFORMIN (Eqv-Glucophage XR) 500 mg oral tablet, extended release 2 tablet, By Mouth, Daily, # 180 tablet, 1 Refills, Maintenance, 05/16/23 23:07:00 EDT, [facility], 165, cm, 05/13/23 16:14:00 EDT, Height, 85.7, [...] Personnel Name: Cristobal ROSARIO, Maribell Weldon Position: [facility] Physician - Primary Care Member Role: PCP Address: Address: [address] [place] [address] Adult & [place] [address]- Care Team Related Persons Name: JJ NORMAN Address: home [address] [place] [address] Name: RISHABH CASTELLON Address: [place] [address] Name: YEIMY CASTELLON Address: home [address] [place] [address] Name: DONNA ZELAYA Address: home [address] [place] [address] Name: JOSE RAFAEL VINCENT Address: [place] [address] Name: ABHAY SPAULDING Name: SAMANTHA TINEO Address: home [address] [place] [address]
--- OUTSIDE RECORDS SUMMARY | 2023-11-06 15:36 | XMS_ITS | Continuity of Care Document ---
Author Name Unknown Organization [facility] Address [address] [place] [address]- Care Team Providers Care Icu Rn Name Role Phone Maribell Jain MD Primary Care Physician [phone] [facility] - 07/19/23 [facility] [address] [place], [place] [address] Allergies, Adverse Reactions, Alerts Substance Reaction Severity Status Nuts Active Watermelon Active Immunizations Given and Recorded Vaccine Date Status Refusal Reason SARS-CoV-2 mRNA (flrkgel-akxu-qfmzn) vax 11/23/21 Recorded SARS-CoV-2 (COVID-19) mRNA BNT-162b2 [...] Diphth/Pertussis,Acel/Tetanus (oldterm) 89 G iven 1Result Comment: [facility] [id number] 2Result Comment: [07/17/2018] givne /out incident ncd: [id number] 3Result Comment: [09/30/2017] [facility] [id number] 4Admin Note: pt declined 5Admin Note: vis given Medications albuterol CFC free 90 mcg/inh inhalation aerosol 2, puffs, Inhalation, Every 6 hours, PRN, # 8.5 Gm, Refills 0, Tot. Refills 0, Maintenance, 06/14/23 11:59:00 EDT, Aerosol, Route to Pharmacy Electronically, [id number], [facility]/pharmacy #1291, 165, cm, 06/14/23 11:27:00 EDT, Hei... Start Date: 06/14/23 Status: Ordered amLODIPine 5 mg oral tablet 1 tablet, By Mouth, Daily, # 90 tablet, 1 Refills, Maintenance, 07/01/23 17:15:00 EDT, [facility]/pharmacy#1291, 165, cm, 07/01/23 16:48:00 EDT, Height, 86.1, kg, 06/07/23 21:13:00 EDT, Dry Weight Start Date: 07/01/23 Status: Ordered Aspirin Enteric Coated 81 mg oral delayed release tablet 1 tablet, By Mouth, Daily, # 90 tablet, 3 Refills, Maintenance, 01/13/23 11:23:00 EDT, [facility]/pharmacy#1291, 165, cm, 01/13/23 10:56:00 EDT, Height, 88.8, [...] 1 Refills, Maintenance, 07/01/23 17:26:00 EDT, [facility]/pharmacy #1291, Partial fill upon patient request if [...] Refills, Maintenance, 07/01/23 17:13:00 EDT, Tablet, [facility]/pharmacy #1291, Partial fill upon patient request if the prescription is for a schedule II opioid drug., 165, cm, 07/01/23 16:48:00 EDT, [facility]... Start Date: 07/01/23 Stop Date: 12/28/23 Status: Ordered MetFORMIN (Eqv-Glucophage XR) 500 mg oral tablet, extended release 2 tablet, By Mouth, Daily, # 180 tablet, 1 Refills, Maintenance, 05/16/23 23:07:00 EDT, [facility], 165, cm, 05/13/23 16:14:00 EDT, Height, 85.7, [...] Personnel Name: Cristobal ROSARIO, Maribell Weldon Position: [facility] Physician - Primary Care Member Role: PCP Address: Address: [address] [place] [address] Adult & [place] [address]- Care Team Related Persons Name: JJ NORMAN Address: home [address] [place] [address] Name: RISHABH CASTELLON Address: [place] [address] Name: YEIMY CASTELLON Address: home [address] [place] [address] Name: DONNA ZELAYA Address: home [address] [place] [address] Name: JOSE RAFAEL VINCENT Address: [place] [address] Name: ABHAY SPAULDING Name: SAMANTHA TINEO Address: home [address] [place] [address]
--- OUTSIDE RECORDS SUMMARY | 2023-11-06 15:36 | XMS_ITS | Continuity of Care Document ---
Author Name Unknown Organization [facility] Address [address] [place] [address]- Care Team Providers Care Edging Machine Catcher Name Role Phone Maribell Jain MD Primary Care Physician [phone] [facility] - 08/06/23 [facility] [address] [address] Allergies, Adverse Reactions, Alerts Substance Reaction Severity Status Nuts Active Watermelon Active Immunizations Given and Recorded Vaccine Date Status Refusal Reason SARS-CoV-2 mRNA (hwtcivp-dmvi-optak) vax 11/23/21 Recorded SARS-CoV-2 (COVID-19) mRNA BNT-162b2 [...] Diphth/Pertussis,Acel/Tetanus (oldterm) 89 G julián 1Result Comment: [facility] [id number] 2Result Comment: [07/17/2018] givne /out incident ncd: [id number] 3Result Comment: [09/30/2017] [facility] [id number] 4Admin Note: pt declined 5Admin Note: vis given Medications albuterol CFC free 90 mcg/inh inhalation aerosol 2, puffs, Inhalation, Every 6 hours, PRN, # 8.5 Gm, Refills 0, Tot. Refills 0, Maintenance, 06/14/23 11:59:00 EDT, Aerosol, Route to Pharmacy Electronically, [id number], [facility]/pharmacy #1291, 165, cm, 06/14/23 11:27:00 EDT, Hei... Start Date: 06/14/23 Status: Ordered amLODIPine 5 mg oral tablet 1 tablet, By Mouth, Daily, # 90 tablet, 1 Refills, Maintenance, 07/01/23 17:15:00 EDT, [facility]/pharmacy#1291, 165, cm, 07/01/23 16:48:00 EDT, Height, 86.1, kg, 06/07/23 21:13:00 EDT, Dry Weight Start Date: 07/01/23 Status: Ordered Aspirin Enteric Coated 81 mg oral delayed release tablet 1 tablet, By Mouth, Daily, # 90 tablet, 3 Refills, Maintenance, 01/13/23 11:23:00 EDT, [facility]/pharmacy#1291, 165, cm, 01/13/23 10:56:00 EDT, [...] Gm, 1 Refills, Maintenance, 07/01/23 17:26:00 EDT, [facility]/pharmacy #1291, Partial fill upon patient [...] 1 Refills, Maintenance, 07/01/23 17:13:00 EDT, Tablet, [facility]/pharmacy #1291, Partial fill upon patient request if the prescription is for a schedule II opioid drug., 165, cm, 07/01/23 16:48:00 EDT, [facility]... Start Date: 07/01/23 Stop Date: 12/28/23 Status: Ordered MetFORMIN (Eqv-Glucophage XR) 500 mg oral tablet, extended release 2 tablet, By Mouth, Daily, # 180 tablet, 1 Refills, Maintenance, 05/16/23 23:07:00 EDT, [facility], 165, cm, 05/13/23 16:14:00 EDT, Height, 85.7, [...] Personnel Name: Cristobal ROSARIO, Maribell Weldon Position: [facility] Physician - Primary Care Member Role: PCP Address: Address: [address] [place] [address] Adult & [place] [address]- Care Team Related Persons Name: JJ NORMAN Address: home [address] [place] [address] Name: RISHABH CASTELLON Address: [place] [address] Name: YEIMY CASTELLON Address: home [address] [place] [address] Name: DONNA ZELAYA Address: home [address] [place] [address] Name: JOSE RAFAEL VINCENT Address: [place] [address] Name: ABHAY SPAULDING Name: SAMANTHA TINEO Address: home [address] [place] [address]
--- OUTSIDE RECORDS SUMMARY | 2023-11-06 15:36 | XMS_ITS | Continuity of Care Document ---
Author Name Unknown Organization [facility] Address [address] [place] [address]- Care Team Providers Care Ice Delivery Driver Name Role Phone Maribell Jain MD Primary Care Physician [facility]): [facility]23 - 09/15/23 [facility] [address] [place], [place] [address] Attending Physician: Admtr, May Admitting Physician: Admtr, Ar8 Referring Physician: Admtr, Ar8 Allergies, Adverse Reactions, Alerts Substance Reaction Severity Status Nuts Active Watermelon Active Immunizations Given and Recorded Vaccine Date Status Refusal Reason SARS-CoV-2 mRNA (ggrveea-zczy-pfnyn) vax 11/23/21 Recorded SARS-CoV-2 (COVID-19) mRNA BNT-162b2 [...] (oldterm) 89 G iven 1Result Comment: [facility] [id number] 2Result Comment: [07/17/2018] givne /out incident ncd: [id number] 3Result Comment: [09/30/2017] [facility] [id number] 4Admin Note: pt declined 5Admin Note: vis given Medications albuterol CFC free 90 mcg/inh inhalation aerosol 2, puffs, Inhalation, Every 6 hours, PRN, # 8.5 Gm, Refills 0, Tot. Refills 0, Maintenance, 06/14/23 11:59:00 EDT, Aerosol, Route to Pharmacy Electronically, [id number], [facility]/pharmacy #1291, 165, cm, 06/14/23 11:27:00 EDT, Hei... Start Date: 06/14/23 Status: Ordered amLODIPine 5 mg oral tablet 1 tablet, By Mouth, Daily, # 90 tablet, 1 Refills, Maintenance, 07/01/23 17:15:00 EDT, [facility]/pharmacy#1291, 165, cm, 07/01/23 16:48:00 EDT, Height, 86.1, kg, 06/07/23 21:13:00 EDT, Dry Weight Start Date: 07/01/23 Status: Ordered Aspirin Enteric Coated 81 mg oral delayed release tablet 1 tablet, By Mouth, Daily, # 90 tablet, 3 Refills, Maintenance, 01/13/23 11:23:00 EDT, [facility]/pharmacy#1291, 165, cm, 01/13/23 10:56:00 EDT, [...] Gm, 1 Refills, Maintenance, 07/01/23 17:26:00 EDT, [facility]/pharmacy #1291, Partial fill [...] 1 Refills, Maintenance, 07/01/23 17:13:00 EDT, Tablet, [facility]/pharmacy #1291, Partial fill upon patient request if the prescription is for a schedule II opioid drug., 165, cm, 07/01/23 16:48:00 EDT, .. Start Date: 07/01/23 Stop Date: 12/28/23 Status: Ordered MetFORMIN (Eqv-Glucophage XR) 500 mg oral tablet, extended release 2 tablet, By Mouth, Daily, # 180 tablet, 1 Refills, Maintenance, 05/16/23 23:07:00 EDT, [facility], 165, cm, 05/13/23 16:14:00 EDT, Height, 85.7, [...] Refills, Maintenance, 05/04/23 5:50:00 EDT, DIS Tablet, [facility]/pharmacy #1291, Partial [...] X-Ray Chest, Non- BH Authored Date: * DeBrosse , Lhea: PERFORM Event Display: Radiology Results Scanned Authored Date: [id number] * Cesia Shelton: PERFORM Event Display: Radiology Results Scanned Authored Date: [id number] * Yamile Haydee Marcia: PERFORM Event Display: Radiology Results Scanned Authored Date: [id number] Note * Maribell Jain MD: PERFORM, SIGN, VERIFY Event Display: Patient Education/Instruction Authored Date: [id number] [facility] Clinical Summary Person Information Visit Date 12/06/2018 1:00 PM Name CAROL REDMAN Age 28 Years 1990 12:00 AM PCP Maribell Jain MD PCP Sex Female Race Black Ethnicity Non-/Non- Language Macanese You can now view a summary of your hospital visit from the comfort of your home through a free online portal called [facility]. [facility] is a website that allows you to securely view your medical information including discharge summary, medications and follow-up visits. You can also send a secure electronic message to your doctor???s office to request appointments, renew medicationsor just ask a question. You can enroll at [email or web address] or register during your next office visit. Smoking can increase your chances of developing chronic health problems and can cause harmful effects to other family members in your house. If you smoke, you are strongly encouraged to quit. Please call the [place] Smokers??? Helpline at 7-429-FGYC-NOW (or ) or log on to [email or web address] for more information. The National Suicide Prevention Hotline is available 16/05 if you or someone you know needs to find a reason to keep living. By calling 9-680-858-harc (2332) you'll be connected to a skilled, trained [...] care provider, you may find a [facility] provider by calling [facility] Link at [phone]. For information about the plan of care [...] more often than directed. Talk to your superintendent operating regarding the use of this medicine in [...] this medicine? Visit your doctor or health home health care coordinator for regular checks on your progress. Learn [...] should report to your doctor or health home health care coordinator as soon as possible: ??? allergic reactions like skin rash, itching or hives, swelling of the face, lips, or tongue ??? breathing problems ??? feeling faint or lightheaded, falls ??? low blood sugar (ask your doctor or health home health care coordinator for a list of these symptoms) ??? muscle aches or pains ??? slow or irregular heartbeat ??? unusual stomach pain or discomfort ??? unusually tired or weak Side effects that usually do not require medical attention (report to your doctor or health home health care coordinator if they continue or are bothersome): ??? diarrhea ??? headache ??? heartburn ??? metallic taste in mouth ??? nausea ??? stomach gas, upset This list may not describe all possible side effects. Call your doctor for medical advice about side effects. You may report side effects to FDA at 1-313-TRL-0110. Where should I keep my medicine? Keep [...] Personnel Name: Cristobal ROSARIO, Maribell Weldon Position: [facility] Physician - Primary Care Member Role: PCP Address: Address: [address] [place] [address] Adult [place] [address]- Care Team Related Persons Name: JJ NORMAN Address: home [address] [place] [address] Name: RISHABH CASTELLON Address: [place] [address] Name: YEIMY CASTELLON Address: home [address] [place] [address] Name: DONNA ZELAYA Address: home [address] [place] [address] Name: JOSE RAFAEL VINCENT Address: [place] [address] Name: ABHAY SPAULDING Name: SAMANTHA TINEO Address: home [address] [place] [address]
--- OUTSIDE RECORDS SUMMARY | 2023-11-06 15:36 | XMS_ITS | Continuity of Care Document ---
Author Name Unknown Organization [facility] Address [address] [place] [address]- Care Team Providers Care In House Counsel Name Role Phone Cristobal ROSARIO, Maribell Weldon Primary Care Physician [phone] [facility] 08/25/23 - 09/24/23 [facility] [address] [place], [place] [address] Allergies, Adverse Reactions, Alerts Substance Reaction Severity Status Nuts Active Watermelon Active Immunizations Given and Recorded Vaccine Date Status Refusal Reason SARS-CoV-2 mRNA (ingsyjh-qkih-sbalg) vax 11/23/21 Recorded SARS-CoV-2 (COVID-19) mRNA BNT-162b2 [...] Diphth/Pertussis,Acel/Tetanus (oldterm) 89 G ezeen 1Result Comment: [facility] [id number] 2Result Comment: [07/17/2018] givne /out incident ncd: [id number] 3Result Comment: [09/30/2017] [facility] [id number] 4Admin Note: pt declined 5Admin Note: vis given Medications amLODIPine 5 mg oral tablet 1 tablet, By Mouth, Daily, # 90 tablet, 1 Refills, Maintenance, 07/01/23 17:15:00 EDT, [facility]/pharmacy#1291, 165, cm, 07/01/23 16:48:00 EDT, Height, 86.1, kg, 06/07/23 21:13:00 EDT, Dry Weight Start Date: 07/01/23 Status: Ordered Aspirin Enteric Coated 81 mg oral delayed release tablet 1 tablet, By Mouth, Daily, # 90 tablet, 3 Refills, Maintenance, 01/13/23 11:23:00 EDT, [facility]/pharmacy#1291, 165, cm, 01/13/23 10:56:00 [...] Gm, 1 Refills, Maintenance, 07/01/23 17:26:00 EDT, [facility]/pharmacy #1291, Partial fill upon [...] Primary Care Member Role: PCP Address: Address: [address] [place] [address] Adult [place] [address]- Care Team Related Persons Name: JJ NORMAN Address: home [address] [place] [address] Name: RISHABH CASTELLON Address: [place] [address] Name: YEIMY CASTELLON Address: home [address] [place] [address] Name: DONNA ZELAYA Address: home [address] [place] [address] Name: JOSE RAFAEL VINCENT Address: [place] [address] Name: ABHAY SPAULDING Name: SAMANTHA TINEO Address: home [address] [place] [address]
--- OUTSIDE RECORDS SUMMARY | 2023-11-06 15:37 | XMS_ITS | Continuity of Care Document ---
Author Name Unknown Organization [facility] Address [address] [place] [address]- Care Team Providers Care Hog Stomach Preparer Name Role Phone Maribell Jain MD Primary Care Physician [facility]): 08/[facility]23 - 09/04/23 [facility] [address] [address] Allergies, Adverse Reactions, Alerts Substance Reaction Severity Status Nuts Active Watermelon Active Immunizations Given and Recorded Vaccine Date Status Refusal Reason SARS-CoV-2 mRNA (vihgjyv-tcog-stiqd) vax 11/23/21 Recorded SARS-CoV-2 (COVID-19) mRNA BNT-162b2 [...] Diphth/Pertussis,Acel/Tetanus (oldterm) 89 G julián 1Result Comment: [facility] [id number] 2Result Comment: [07/17/2018] givne /out incident ncd: [id number] 3Result Comment: [09/30/2017] [facility] [id number] 4Admin Note: pt declined 5Admin Note: vis given Medications albuterol CFC free 90 mcg/inh inhalation aerosol 2, puffs, Inhalation, Every 6 hours, PRN, # 8.5 Gm, Refills 0, Tot. Refills 0, Maintenance, 06/14/23 11:59:00 EDT, Aerosol, Route to Pharmacy Electronically, [id number], [facility]/pharmacy #1291, 165, cm, 06/14/23 [...] Refills, Maintenance, 05/16/23 23:07:00 EDT, [facility], 165, cm, 05/13/23 16:14:00 EDT, Height, 85.7, [...] ROSARIO, Maribell Weldon Position: [facility] Physician - Primary Care Member Role: PCP Address: Address: [address] [place] [address] Adult & [place] [address]- Care Team Related Persons Name: JJ NORMAN Address: home [address] [place] [address] Name: RISHABH CASTELLON Address: [place] [address] Name: YEIMY CASTELLON Address: home [address] [place] [address] Name: DONNA ZELAYA Address: home [address] [place] [address] Name: JOSE RAFAEL VINCENT Address: [place] [address] Name: ABHAY SPAULDING Name: SAMANTHA TINEO Address: home [address] [place] [address]
--- OUTSIDE RECORDS SUMMARY | 2023-11-06 15:37 | XMS_ITS | Continuity of Care Document ---
Author Name Unknown Organization [facility] Address [address] [place] [address]- Care Team Providers Care Safety Associate Name Role Phone Cristobal ROSARIO, Maribell Weldon Primary Care Physician Encounter [facility] Date(s): 09/25/23 - 10/25/23 [facility] [address] [place], [place] [address] Allergies, Adverse Reactions, Alerts Substance Reaction Severity Status Nuts Active Watermelon Active Immunizations Given and Recorded Vaccine Date Status Refusal Reason SARS-CoV-2 mRNA (smwlpgm-sqxm-bdsev) vax 11/23/21 Recorded SARS-CoV-2 (COVID-19) mRNA BNT-162b2 [...] Diphth/Pertussis,Acel/Tetanus (oldterm) 89 G julián 1Result Comment: [facility] [id number] 2Result Comment: [07/17/2018] givne /out incident ncd: [id number] 3Result Comment: [09/30/2017] [facility] [id number] 4Admin Note: pt declined 5Admin Note: vis given Medications amLODIPine 5 mg oral tablet 1 tablet, By Mouth, Daily, # 90 tablet, 1 Refills, Maintenance, 07/01/23 17:15:00 EDT, [facility]/pharmacy#1291, 165, cm, 07/01/23 16:48:00 EDT, [...] Refills, Maintenance, 07/01/23 17:26:00 EDT, [facility]/pharmacy #1291, Partial fill upon patient [...] 10/21/23 17:02:00 EST, Chew Tablet, [facility]/pharmacy #1291, Partial fill upon patient reque... Start Date: 10/21/23 Status: Ordered losartan 50 mg oral tablet 1.5 tablet = 75 mg, By Mouth, Daily, # 135 tablet, 1 Refills, Maintenance, 07/01/23 17:13:00 EDT, Tablet, [facility]/pharmacy #1291, Partial fill upon patient request if the prescription is for a schedule II opioid drug., 165, cm, 07/01/23 16:48:00 EDT, [facility]... Start Date: 07/01/23 Stop Date: 12/28/23 Status: Ordered MetFORMIN (Eqv-Glucophage XR) 500 mg oral tablet, extended release 2 tablet, By Mouth, Daily, # 180 tablet, 3 Refills, Maintenance, 09/19/23 9:39:00 EST, [facility]/pharmacy#1291, 165, cm, 09/19/23 9:22:00 EST, Height, 86.1, [...] Cristobal ROSARIO, Maribell Weldon Position: [facility] Physician - Primary Care Member Role: PCP Address: Address: [address] [place] [address] Adult [place] [address]- Care Team Related Persons Name: JJ NORMAN Address: home [address] [place] [address] Name: RISHABH CASTELLON Address: [place] [address] Name: YEIMY CASTELLON Address: home [address] [place] [address] Name: DONNA ZELAYA Address: home [address] [place] [address] Name: JOSE RAFAEL VINCENT Address: [place] [address] Name: ABHAY SPAULDING Name: SAMANTHA TINEO Address: home [address] [place] [address]
== END 2023-11-06 16:04 | disposition home or self-care (01) ==
PROVIDERS: Emergency Provider Emergency Medicine
DX: M25.561 Pain in right knee (principal); M25.562 Pain in left knee
CPT/HCPCS: 73564; 99283

== ENCOUNTER 2024-06-09 17:11 | Emergency (ER) | payer OTHER, SELFPAY ==
--- NOTE | ~2024-06-09 | XR_ITS ---
EXAMINATION: XR ELBOW, LEFT CLINICAL INFORMATION: Pain COMPARISON: None available. TECHNIQUE: Four views of the left elbow. FINDINGS: Small foci of calcification are present at the medial soft tissues near the medial epicondyle, potentially corresponding to sequela of prior epicondylitis or avulsion injuries. No acute fractures. Bone mineralization is normal. Mild soft tissue swelling. No joint effusion. XR/XR elbow LT 2V IMPRESSION: 1. No acute fracture or appreciable effusion. 2. Soft tissue swelling 3. Small foci of calcification at the medial epicondyle, potentially corresponding to sequela of prior epicondylitis or avulsion injuries.
--- NOTE | 2024-06-09 17:40 | ED_ITS ---
HPI - Extremity Injury (Upper) General Chief Complaint: Extremity Injury, Upper Stated Complaint: left elbow pain Time Seen by Provider: 06/09/24 19:00 Source: patient History of Present Illness HPI narrative: 34-year-old right-hand dominant female presents for evaluation of left elbow pain. Patient states symptoms have been going on for approximately 24 hours. She denies any specific or direct injury. 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 She was last feeling well on June 07. When she awoke the following day, she reports pain to the left elbow. It is on the medial aspect and posterior aspect. She denies any direct trauma. She does not specifically endorse any overuse. She denies any history of similar symptoms. She has not tried any medication for this. She occasionally has tingling. Patient is having difficulty with full extension. Related Data Previous Rx's ?Medication ?Instructions ?Recorded methocarbamol 750 mg tablet 750 mg PO TID PRN muscle spasm #20 06/09/24 tabs naproxen 500 mg tablet (Naprosyn) 500 mg PO BID PRN pain #20 tabs 06/09/24 Allergies Allergy/AdvReac Type Severity Reaction Status Date / Time No Known Allergies Allergy Verified 06/09/24 17:51 [No Known Allergies*] Review of Systems Review of Systems: Yes all other systems are reviewed and are negative Musculoskeletal: Musculoskeletal: Reports arthralgias [facility] Past Medical History [facility] Narrative: Denies previous medical history Social History Social History Alcohol intake: never Smoked in Last 30 Days: No Substance Use Type: Marijuana Substance Use Frequency: Socially Advance Directives: No Advance Directives Information Provided: No Do you have a plan to hurt others: No Plan Patient : No Physical Exam Vital Signs: Vital Signs: Last Vital Signs Temp 98.4 F 06/09/24 19:34 Pulse 80 06/09/24 19:34 Resp 19 06/09/24 19:34 BP 148/88 H 06/09/24 19:34 Pulse Ox 98 06/09/24 19:34 O2 Del Method Room Air 06/09/24 19:34 BMI result Body Mass Index 26.6 Const: General: alert and awake Extrem: Other: Carding Utility Tender is 5/5 bilaterally of the upper extremities. Full range of motion of all joints except the left elbow secondary to pain. There is decreased range of motion at the left elbow. There is no soft tissue swelling or erythema. There is point tenderness at the left medial epicondyle. There is slight tenderness in the posterior aspect of the elbow. There is no crepitus. Patient able to pronate and supinate but slowly secondary to pain. Radial pulses are +2 and equal bilaterally. Capillary refills less than 2 seconds. There is mild tenderness and spasm to the left trapezius muscles. Course Course Course Narrative: This is a rapid medical exam. Defer additional HPI, ROS, PE to primary provider. 34-year-old female with history of narcolepsy, diabetes, hypertension who is right-hand dominant presents the ER with complaints of right elbow pain with waking on Tuesday. 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 Will check x-rays. Adelina HERMAN Medical Decision Making Medical Decision Making MDM Narrative: 34-year-old female with 24 hours of pain to the left elbow. There was no traumatic injury, x-ray negative for fracture. Concerning for musculoskeletal injury such as ligamentous, or nervous injury. There are no secondary signs of infection. No other joints are affected. Symptomatic treatment at this time with orthopedic follow-up. Reviewed all discharge instructions including medication use, sling. Patient expresses understanding of all discharge instructions and has no further questions at this time. Differential Diagnosis Differential Diagnoses: The differential diagnosis associated with the presentation includes Fracture Dislocation Epicondylitis Muscle spasm Nerve impingement Radiology Impression Discussion of test interpretation with radiology: I have reviewed the radiologist's reading. Radiologist Impression: [place] [address] XRay Report Signed Patient: Morelia Ulrich MR#: [id number] : 1990 Acct:[id number] Age/Sex: 34 / F ADM Date: 06/09/24 Loc: HO.ED Attending Dr: Ordering Physician: Duyen Bowden NP Date of Service: 06/09/24 Procedure(s): XR elbow LT 2V Accession Number(s): [id number] cc: Physician,Unknown ; Duyen Bowden NP~ EXAMINATION: XR ELBOW, LEFT CLINICAL INFORMATION: Pain COMPARISON: None available. TECHNIQUE: Four views of the left elbow. FINDINGS: Small foci of calcification are present at the medial soft tissues near the medial epicondyle, potentially corresponding to sequela of prior epicondylitis or avulsion injuries. No acute fractures. Bone mineralization is normal. Mild soft tissue swelling. No joint effusion. XR/XR elbow LT 2V IMPRESSION: 1. No acute fracture or appreciable effusion. 2. Soft tissue swelling 3. Small foci of calcification at the medial epicondyle, potentially corresponding to sequela of prior epicondylitis or avulsion injuries. Dictated By: Isaac Egan MD Signed By: <Electronically signed by Isaac Egan MD in OV> 06/09/241844 DD/ 54 TD/TT: Atomic Process Engineer: JOHN Discharge Plan Discharge Clinical Impression: Epicondylitis elbow, medial Qualifiers: Laterality: left Qualified Code(s): M77.02 - Medial epicondylitis, left elbow Patient Disposition: Home, Self-Care Instructions: Elbow Sprain (ED) Additional Instructions: Rest. Avoid strenuous activity. Sling for comfort. Be sure to remove your arm from the sling throughout the day to avoid any worsening of symptoms. Do NOT sleep with the sling. Naproxen as directed for pain and inflammation. Take with food. Robaxin as directed for pain and muscle spasm. Do not drive, operate heavy machinery or drink alcohol while taking this medication as it may make you drowsy. Follow-up with orthopedic referral. Follow-up with your primary care provider. Call this week to schedule a follow- up appointment. Return to the emergency department if you have any worsening of symptoms, or any concerns. Get well soon! Prescriptions: New naproxen [Naprosyn] 500 mg tablet 500 mg PO BID PRN (Reason: pain) Qty: 20 0RF Rx Instructions: Take with food methocarbamol 750 mg tablet 750 mg PO TID PRN (Reason: muscle spasm) Qty: 20 0RF Discontinued ibuprofen 600 mg tablet 600 mg PO Q6H PRN (Reason: pain) Qty: 30 0RF Referrals: Jae Lamb MD [Physician] - 10 days Stand Alone Forms: Work/School Release Interventions: ED Discharge Assessment Last Done: 06/09/24 19:34 Discharge Date/Time: 06/09/24 19:37 Print Language: Irish
[2024-06-09 17:50] VITALS: BP 150/94; PULSE 84; RESP 16; TEMP 36.6; O2SAT 100; BMI 26.6
[2024-06-09 19:23] VITALS: BP 148/88; PULSE 80; RESP 19; TEMP 36.9; O2SAT 98
[2024-06-09 19:34] VITALS: BP 148/88; PULSE 80; RESP 19; TEMP 36.9; O2SAT 98
--- OUTSIDE RECORDS SUMMARY | 2024-06-13 06:58 | XMS_ITS | Continuity of Care Document ---
Author Organization [facility] Address [address] [place] [address]- Care Team Providers Care Film Rental Clerk Name Role Phone Cristobal ROSARIO, Maribell Weldon Primary Care Physician [facility]counter [facility] Date(s): 11/29/23 - 12/06/23 [facility] [address] [place] [address]- Attending Physician: Maribell Jain MD Allergies, Adverse Reactions, Alerts Substance Reaction Severity Status Nuts Active Watermelon Active Immunizations Given and Recorded Vaccine Date Status Refusal Reason SARS-CoV-2 mRNA (qzwdujv-wtfn-sytlq) vax 11/23/21 Recorded SARS-CoV-2 (COVID-19) mRNA BNT-162b2 [...] [facility] [id number] 2Result Comment: [07/17/2018] givne /out incident ncd: [id number] 3Result Comment: [09/30/2017] [facility] [id number] 4Admin Note: pt declined 5Admin Note: vis given Medications amLODIPine 5 mg oral tablet 1 tablet, By Mouth, Daily, # 90 tablet, 1 Refills, Maintenance, 10/28/23 6:16:00 EST, [facility]/pharmacy #[id number], 165, cm, 09/19/23 9:22:00 EST, Height, 86.1, kg, 06/07/23 21:13:00 EDT, Dry Weight Start Date: 10/28/23 Status: Ordered Aspirin Enteric Coated 81 mg oral delayed release tablet 1 tablet, By Mouth, Daily, # 90 tablet, 3 Refills, Maintenance, 01/13/23 11:23:00 EDT, [facility]/pharmacy#[id number], 165, cm, 01/13/23 10:56:00 [...] Gm, 1 Refills, Maintenance, 07/01/23 17:26:00 EDT, [facility]/pharmacy #[id number], Partial fill [...] Soft Stop, 10/21/23 17:02:00 EST, Chew Tablet, [facility]/pharmacy #[id number], Partial fill upon patient reque... Start [...] oldest [Reference Range]: 1 Height 165 cm (11/29/23 11:36 AM) Weight 80.5 kg (11/29/23 11:36 AM) Oxygen Saturation [94-100 %] 100 % (11/29/23 11:36 AM) Pulse Rate [55-90 bpm] 80 bpm (11/29/23 11:36 AM) Body Mass Index [18.5-24.99 kg/m2] 29.57 kg/m2 *H* (11/29/23 11:36 AM) Blood Pressure [90-138/55-84 mm Hg] 136/ 80mm Hg (11/29/23 11:36 AM) Mode of Delivery (Oxygen) Room air (11/29/23 11:36 AM) Blood pressure sites Arm, left (11/29/23 11:36 AM) Dry Weight 80.5 kg (11/29/23 11:36 AM) Weight Obtained Via Standing scale (11/29/23 11:36 AM) Dry Weight Obtained Via Standing scale (11/29/23 11:36 AM) Social History Social History Type Response Smoking Status Never smoker; Tobacc o user in household: No entered on: 05/09/14 Sex Patient Care team information Care Team Personnel Name: Cristobal ROSARIO, Maribell Weldon Position: [facility] Physician - Primary Care Member Role: PCP Address: Address: [address] [place] [address] Adult [place] [address]- Care Team Related Persons Name: JJ NORMAN Address: home [address] [place] [address] Name: RISHABH CASTELLON Address: [place] [address] Name: YEIMY CASTELLON Address: home [address] [place] [address] Name: DONNA ZELAYA Address: home [address] [place] [address] Name: JOSE RAFAEL VINCENT Address: [place] [address] Name: ABHAY SPAULDING Name: SAMANTHA TINEO Address: home [address] [place] [address]
--- OUTSIDE RECORDS SUMMARY | 2024-06-13 06:59 | XMS_ITS | Continuity of Care Document ---
Author Organization [facility] Address [address] [place] [address]- Care Team Providers Care Field Clerk Name Role Phone Cristobal ROSARIO, Maribell Weldon Primary Care Physician [facility] [place](s): 12/29/23 - 01/28/24 [facility] [address] [place], [place] [address] Allergies, Adverse Reactions, Alerts Substance Reaction Severity Status Nuts Active Watermelon Active Immunizations Given and Recorded Vaccine Date Status Refusal Reason SARS-CoV-2 mRNA (olvtqpv-uxqy-lafxn) vax 11/23/21 Recorded SARS-CoV-2 (COVID-19) mRNA BNT-162b2 [...] Diphth/Pertussis,Acel/Tetanus (oldterm) 89 G julián 1Result Comment: [facility] [id number] 2Result Comment: [07/17/2018] givne /out incident ncd: [id number] 3Result Comment: [09/30/2017] [facility] [id number] 4Admin Note: pt declined 5Admin Note: vis given Medications amLODIPine 5 mg oral tablet 1 tablet, By Mouth, Daily, # 90 tablet, 1 Refills, Maintenance, 10/28/23 6:16:00 EST, [facility]/pharmacy #[id number], 165, cm, 09/19/23 9:22:00 EST, Height, 86.1, kg, 06/07/23 21:13:00 EDT, Dry Weight Start Date: 10/28/23 Status: Ordered Aspirin Enteric Coated 81 mg oral delayed release tablet 1 tablet, By Mouth, Daily, # 90 tablet, 1 Refills, Maintenance, 01/08/24 11:23:00 EDT, [facility]/pharmacy#1291, 165, cm, 11/29/23 11:36:00 EST, Height, 80.5, kg, 11/29/23 11:36:00 EST, Dry Weight Start Date: 01/08/24 Stop Date: 07/06/24 Status: Ordered CPAP Machine See Instructions, # [...] Gm, 1 Refills, Maintenance, 07/01/23 17:26:00 EDT, [facility]/pharmacy #[id number], Partial fill upon patient [...] Soft Stop, 10/21/23 17:02:00 EST, Chew Tablet, [facility]/pharmacy #[id number], Partial fill upon patient reque... Start Date: 10/21/23 Status: Ordered losartan 50 mg oral tablet 1.5 tablet = 75 mg, By Mouth, Daily, # 135 tablet, 1 Refills, Maintenance, 12/28/23 17:13:00 EST, Tablet, [facility]/pharmacy #[id number], Partial fill upon patient [...] Primary Care Member Role: PCP Address: Address: [address] [place] [address] Adult [place] [address]- Care Team Related Persons Name: JJ NORMAN Address: home [address] [place] [address] Name: RISHABH CASTELLON Address: [place] [address] Name: YEIMY CASTELLON Address: home [address] [place] [address] Name: DONNA ZELAYA Address: home [address] [place] [address] Name: JOSE RAFAEL VINCENT Address: [place] [address] Name: ABHAY SPAULDING Name: SAMANTHA TINEO Address: home [address] [place] [address]
--- OUTSIDE RECORDS SUMMARY | 2024-06-13 06:59 | XMS_ITS | Continuity of Care Document ---
Author Organization [facility] Address [address] [place] [address]- Care Team Providers Care Para Operator Name Role Phone Cristobal ROSARIO, Maribell Weldon Primary Care Physician [phone] Encounter [facility] Date(s): 11/29/23 - 12/29/23 [facility] [address] [place], [place] [address] Attending Physician: May Braswell Admitting Physician: AdmMay coker Referring Physician: AdmtrMay Allergies, Adverse Reactions, Alerts Substance Reaction Severity Status Nuts Active Watermelon Active Immunizations Given and Recorded Vaccine Date Status Refusal Reason SARS-CoV-2 mRNA (uvavfuh-yhuf-esxwo) vax 11/23/21 Recorded SARS-CoV-2 (COVID-19) mRNA BNT-162b2 [...] Diphth/Pertussis,Acel/Tetanus (oldterm) 89 G iven 1Result Comment: formerly named [facility] [id number] 2Result Comment: [07/17/2018] givne /out incident ncd: [id number] 3Result Comment: [09/30/2017] formerly named [facility] [id number] 4Admin Note: pt declined 5Admin Note: vis given Medications amLODIPine 5 mg oral tablet 1 tablet, By Mouth, Daily, # 90 tablet, 1 Refills, Maintenance, 10/28/23 6:16:00 EST, [facility]/pharmacy #[id number], 165, cm, 09/19/23 9:22:00 EST, Height, 86.1, kg, 06/07/23 21:13:00 EDT, Dry Weight Start Date: 10/28/23 Status: Ordered Aspirin Enteric Coated 81 mg oral delayed release tablet 1 tablet, By Mouth, Daily, for 90 days, # 90 tablet, 3 Refills, Hard Stop 01/08/24 11:23:00 EDT, 01/13/23 11:23:00 EDT, [id number], 165, cm, 01/13/23 10:56:00 EDT, Height, 88.8, kg, 12/28/22 22:36:00 EST, Dry Weight Start Date: 01/13/23 Stop Date: 01/08/24 Status: Ordered Aspirin Enteric Coated 81 mg oral delayed release tablet 1 tablet, By Mouth, Daily, # 90 tablet, 1 Refills, Maintenance, 01/08/24 11:23:00 EDT, [facility], 165, cm, 11/29/23 11:36:00 EST, Height, 80.5, [...] Soft Stop, 10/21/23 17:02:00 EST, Chew Tablet, [facility]/pharmacy #[id number], Partial fill upon patient reque... Start Date: 10/21/23 Status: Ordered losartan 50 mg oral tablet 1.5 tablet = 75 mg, By Mouth, Daily, # 135 tablet, 1 Refills, Maintenance, 12/28/23 17:13:00 EST, Tablet, [facility]/pharmacy #[id number], Partial fill upon patient [...] Event Display: Radiology Results Scanned Authored Date: [id number] * Toma Sheltonty: PERFORM Event Display: Radiology Results Scanned Authored Date: [id number] * Haydee Ovalle: PERFORM Event Display: Radiology Results Scanned Authored Date: [id number] Note * Maribell Jain MD: PERFORM, SIGN, VERIFY Event Display: Patient Education/Instruction Authored Date: [id number] [facility] Clinical Summary Person Information Visit Date 12/06/2018 1:00 PM Name CAROL REDMAN Age 28 Years 1990 12:00 AM PCP Maribell Jain MD PCP Sex Female Race Black Ethnicity Non-/Non- Language Lao You can now view a summary of your hospital visit from the comfort of your home through a free online portal called [employer]. [employer] is a website that allows you to securely view your medical information including discharge summary, medications and follow-up visits. You can also send a secure electronic message to your doctor???s office to request appointments, renew medicationsor just ask a question. You can enroll at [email or web address] or register during your next office visit. Smoking can increase your chances of developing chronic health problems and can cause harmful effects to other family members in your house. If you smoke, you are strongly encouraged to quit. Please call the [place] Smokers??? Helpline at 6-791-UADMNOW (or ) or log on to [email or web address] for more information. The National Suicide Prevention Hotline is available 16/05 if you or someone you know needs to find a reason to keep living. By calling 3-402-318-waia (6668) you'll be connected to a skilled, trained [...] primary care provider, you may find a [facility] provider by calling [facility] Link at [phone]. For information about the plan of care [...] more often than directed. Talk to your soaking tank worker regarding the use of this medicine in [...] this medicine? Visit your doctor or health care partner for regular checks on your progress. Learn [...] should report to your doctor or health care partner as soon as possible: ??? allergic reactions like skin rash, itching or hives, swelling of the face, lips, or tongue ??? breathing problems ??? feeling faint or lightheaded, falls ??? low blood sugar (ask your doctor or health care partner for a list of these symptoms) ??? muscle aches or pains ??? slow or irregular heartbeat ??? unusual stomach pain or discomfort ??? unusually tired or weak Side effects that usually do not require medical attention (report to your doctor or health care partner if they continue or are bothersome): ??? diarrhea ??? headache ??? heartburn ??? metallic taste in mouth ??? nausea ??? stomach gas, upset This list may not describe all possible side effects. Call your doctor for medical advice about side effects. You may report side effects to FDA at 5-930-SQH-4263. Where should I keep my medicine? Keep [...] Team Personnel Name: Maribell Jain MD Position: [facility] Physician - Primary Care Member Role: PCP Address: Address: [address] [place] [address] Adult [place] [address]- Care Team Related Persons Name: JJ NORMAN Address: home [address] [place] [address] Name: RISHABH CASTELLON Address: [place] [address] Name: YEIMY CASTELLON Address: home [address] [place] [address] Name: DONNA ZELAYA Address: home [address] [place] [address] Name: JOSE RAFAEL VINCENT Address: [place] [address] Name: ABHAY SPAULDING Name: SAMANTHA TINEO Address: home [address] [place] [address]
--- OUTSIDE RECORDS SUMMARY | 2024-06-13 06:59 | XMS_ITS | Continuity of Care Document ---
Author Organization [facility] Address [address] [place] [address]- Care Team Providers Care Packing Room Inspector Name Role Phone Cristobal ROSARIO, Maribell Weldon Primary Care Physician [facility]counter [facility] Date(s): 11/02/23 - 12/02/23 [facility] [address] [place], [place] [address] Allergies, Adverse Reactions, Alerts Substance Reaction Severity Status Nuts Active Watermelon Active Immunizations Given and Recorded Vaccine Date Status Refusal Reason SARS-CoV-2 mRNA (oiwhken-ccet-ewlse) vax 11/23/21 Recorded SARS-CoV-2 (COVID-19) mRNA BNT-162b2 [...] Diphth/Pertussis,Acel/Tetanus (oldterm) 89 G julián 1Result Comment: [facility] [id number] 2Result Comment: [07/17/2018] givne /out incident ncd: [id number] 3Result Comment: [09/30/2017] [facility] [id number] 4Admin Note: pt declined 5Admin Note: vis given Medications amLODIPine 5 mg oral tablet 1 tablet, By Mouth, Daily, # 90 tablet, 1 Refills, Maintenance, 10/28/23 6:16:00 EST, [facility]/pharmacy #[id number], 165, cm, 09/19/23 9:22:00 EST, Height, 86.1, kg, 06/07/23 21:13:00 EDT, Dry Weight Start Date: 10/28/23 Status: Ordered Aspirin Enteric Coated 81 mg oral delayed release tablet 1 tablet, By Mouth, Daily, # 90 tablet, 3 Refills, Maintenance, 01/13/23 11:23:00 EDT, [facility]/pharmacy#1291, 165, cm, 01/13/23 10:56:00 EDT, Height, 88.8, [...] 1 Refills, Maintenance, 07/01/23 17:26:00 EDT, [facility]/pharmacy #1291, Partial fill upon patient request if [...] Soft Stop, 10/21/23 17:02:00 EST, Chew Tablet, [facility]/pharmacy #1291, Partial fill upon patient reque... Start [...] 1 Refills, Maintenance, 12/28/23 17:13:00 EST, Tablet, [facility]/pharmacy #1291, Partial fill upon patient request if [...] Personnel Name: Cristobal ROSARIO, Maribell Weldon Position: [facility] Physician - Primary Care Member Role: PCP Address: Address: [address] [place] [address] Adult [place] [address]- Care Team Related Persons Name: JJ NORMAN Address: home [address] [place] [address] Name: RISHABH CASTELLON Address: [place] [address] Name: YEIMY CASTELLON Address: home [address] [place] [address] Name: DONNA ZELAYA Address: home [address] [place] [address] Name: JOSE RAFAEL VINCENT Address: [place] [address] Name: ABHAY SPAULDING Name: SAMANTHA TINEO Address: home [address] [place] [address]
--- OUTSIDE RECORDS SUMMARY | 2024-06-13 07:00 | XMS_ITS | Continuity of Care Document ---
Author Organization [facility] Address [address] [place] [address]- Care Team Providers Care Communication Lecturer Name Role Phone Cristobal ROSARIO, Maribell Weldon Primary Care Physician [place] [facility] [place] - 03/25/24 [facility] [address] [place], [place] [address] Allergies, Adverse Reactions, Alerts Substance Reaction Severity Status Nuts Active Watermelon Active Immunizations Given and Recorded Vaccine Date Status Refusal Reason SARS-CoV-2 mRNA (dgzmeot-wjko-qzfcu) vax 11/23/21 Recorded SARS-CoV-2 (COVID-19) mRNA BNT-162b2 [...] Diphth/Pertussis,Acel/Tetanus (oldterm) 89 G iven 1Result Comment: [facility] [id number] 2Result Comment: [07/17/2018] givne /out incident ncd: [id number] 3Result Comment: [09/30/2017] [facility] 02629-501-27 4Admin Note: pt declined 5Admin Note: vis given Medications amLODIPine 5 mg oral tablet 1 tablet, By Mouth, Daily, # 90 tablet, 1 Refills, Maintenance, 10/28/23 6:16:00 EST, [facility]/pharmacy #[id number], 165, cm, 09/19/23 9:22:00 EST, Height, 86.1, kg, 06/07/23 21:13:00 EDT, Dry Weight Start Date: 10/28/23 Status: Ordered Aspirin Enteric Coated 81 mg oral delayed release tablet 1 tablet, By Mouth, Daily, # 90 tablet, 1 Refills, Maintenance, 01/08/24 11:23:00 EDT, [facility]/pharmacy#[id number], 165, cm, 11/29/23 11:36:00 EST, Height, 80.5, [...] 2 times a day, # 16 Gm, 3 Refills, Maintenance, 02/09/24 16:44:00 EDT, [facility]/pharmacy #[id number], Partial fill upon patient request if the prescription is for a schedule II opioid drug., 165, cm, 11/29/23 11:36:00 EST, Height, 80.5, kg... Start Date: 02/09/24 Stop Date: 06/08/24 Status: Ordered Freestyle Lite Lancets See Instructions, [...] Soft Stop, 10/21/23 17:02:00 EST, Chew Tablet, [facility]/pharmacy #[id number], Partial fill upon patient reque... Start Date: 10/21/23 Status: Ordered losartan 50 mg oral tablet 1.5 tablet = 75 mg, By Mouth, Daily, # 135 tablet, 1 Refills, Maintenance, 12/28/23 17:13:00 EST, Tablet, [facility]/pharmacy #[id number], Partial fill upon patient request if the prescription is for a schedule II opioid drug., 165, cm, 09/19/23 9:22:00 EST, Heigh... Start Date: 12/28/23 Stop Date: 06/25/24 Status: Ordered MetFORMIN (Eqv-Glucophage XR) 500 mg oral tablet, extended release 2 tablet, By Mouth, Daily, # 180 tablet, 3 Refills, Maintenance, 09/19/23 9:39:00 EST, [facility]/pharmacy#[id number], 165, cm, 09/19/23 9:22:00 EST, Height, 86.1, [...] Personnel Name: Cristobal ROSARIO, Maribell Weldon Position: [facility] Physician - Primary Care Member Role: PCP Address: Address: [address] [place] [address] Adult [place] [address]- Care Team Related Persons Name: JJ NORMAN Address: home [address] [place] [address] Name: RISHABH CASTELLON Address: [place] [address] Name: YEIMY CASTELLON Address: home [address] [place] [address] Name: DONNA ZELAYA Address: home [address] [place] [address] Name: JOSE RAFAEL VINCENT Address: [place] [address] Name: ABHAY SPAULDING Name: SAMANTHA TINEO Address: home [address] [place] [address]
--- OUTSIDE RECORDS SUMMARY | 2024-06-13 07:00 | XMS_ITS | Continuity of Care Document ---
Author Organization [facility] Address [address] [place] [address]- Care Team Providers Care Linotyper Name Role Phone Cristobal ROSARIO, Maribell Weldon Primary Care Physician Encounter [facility] Date(s): 11/15/23 - 12/15/23 [facility] [address] [place], [place] [address] Allergies, Adverse Reactions, Alerts Substance Reaction Severity Status Nuts Active Watermelon Active Immunizations Given and Recorded Vaccine Date Status Refusal Reason SARS-CoV-2 mRNA (lbjrgat-webl-lyoeo) vax 11/23/21 Recorded SARS-CoV-2 (COVID-19) mRNA BNT-162b2 [...] (oldterm) 89 G julián 1Result Comment: [facility] [id number] 2Result Comment: [07/17/2018] givne /out incident ncd: [id number] 3Result Comment: [09/30/2017] [facility] [id number] 4Admin Note: pt declined 5Admin Note: vis given Medications amLODIPine 5 mg oral tablet 1 tablet, By Mouth, Daily, # 90 tablet, 1 Refills, Maintenance, 10/28/23 6:16:00 EST, [facility]/pharmacy #[id number], 165, cm, 09/19/23 9:22:00 EST, Height, 86.1, kg, 06/07/23 21:13:00 EDT, Dry Weight Start Date: 10/28/23 Status: Ordered Aspirin Enteric Coated 81 mg oral delayed release tablet 1 tablet, By Mouth, Daily, # 90 tablet, 3 Refills, Maintenance, 01/13/23 11:23:00 EDT, [facility]/pharmacy#[id number], 165, cm, 01/13/23 10:56:00 EDT, Height, [...] 1 Refills, Maintenance, 07/01/23 17:26:00 EDT, [facility]/pharmacy #[id number], Partial fill upon patient [...] Stop, 10/21/23 17:02:00 EST, Chew Tablet, [facility]/pharmacy #[id number], Partial fill upon patient reque... [...] Refills, Maintenance, 12/28/23 17:13:00 EST, Tablet, [facility]/pharmacy #[id number], Partial fill upon patient [...] Cristobal ROSARIO, Maribell Weldon Position: [facility] Physician - Primary Care Member Role: PCP Address: Address: [address] [place] [address] Adult & [place] [address]- Care Team Related Persons Name: JJ NORMAN Address: home [address] [place] [address] Name: RISHABH CASTELLON Address: [place] [address] Name: YEIMY CASTELLON Address: home [address] [place] [address] Name: DONNA ZELAYA Address: home [address] [place] [address] Name: JOSE RAFAEL VINCENT Address: [place] [address] Name: ABHAY SPAULDING Name: SAMANTHA TINEO Address: home [address] [place] [address]
--- OUTSIDE RECORDS SUMMARY | 2024-06-13 07:00 | XMS_ITS | Continuity of Care Document ---
Author Organization [facility] Address [address] [place] [address]- Care Team Providers Care Skirt Trimmer Name Role Phone Maribell Jain MD Primary Care Physician [place] [facility] [place](s): 11/22/23 - 03/21/24 [facility] [address] [place], [place] [address] Attending Physician: Maribell Jain MD Allergies, Adverse Reactions, Alerts Substance Reaction Severity Status Nuts Active Watermelon Active Immunizations Given and Recorded Vaccine Date Status Refusal Reason SARS-CoV-2 mRNA (ozkkdse-vsgq-fegdj) vax 11/23/21 Recorded SARS-CoV-2 (COVID-19) mRNA BNT-162b2 vac 11/02/21 Recorded pneumococcal 23-valent vaccine 1 09/14/19 Given Influenza Virus Vaccine (oldterm) 08/24/19 Recorde d influenza virus vaccine, inactivated 2 07/17/18 Gi danita influenza virus vaccine, inactivated 3 09/30/17 Gi danita influenza virus vaccine, inactivated 4 11/13/10 Gi adnita tetanus/diphtheria/pertussis, acel(Tdap) 12/30/16 Given tetanus-diphtheria toxoids (Td) 5 06/19/09 Given Diphth/Pertussis,Acel/Tetanus (oldterm) 89 G iven 1Result Comment: [facility] [id number] 2Result Comment: [07/17/2018] givne /out incident ncd: [id number] 3Result Comment: [09/30/2017] [facility] [id number] 4Admin Note: pt declined 5Admin Note: vis [...] Gm, 3 Refills, Maintenance, 02/09/24 16:44:00 EDT, [facility]/pharmacy #[id number], Partial fill upon patient request if [...] Soft Stop, 10/21/23 17:02:00 EST, Chew Tablet, [facility]/pharmacy [id number], Partial fill upon patient reque... Start [...] Personnel Name: Cristobal ROSARIO, Maribell Weldon Position: [facility] Physician - Primary Care Member Role: PCP Address: Address: [address] [place] [address] Adult & [place] [address]- Care Team Related Persons Name: JJ NORMAN Address: home [address] [place] [address] Name: RISHABH CASTELLON Address: [place] [address] Name: YEIMY CASTELLON Address: home [address] [place] [address] Name: DONNA ZELAYA Address: home [address] [place] [address] Name: JOSE RAFAEL VINCENT Address: [place] [address] Name: ABHAY SPAULDING Name: SAMANTHA TINEO Address: home [address] [place] [address]
--- OUTSIDE RECORDS SUMMARY | 2024-06-13 07:01 | XMS_ITS | Continuity of Care Document ---
Author Organization [facility] Address [address] [place] [address]- Care Team Providers Care Shot Blaster Name Role Phone Cristobal ROSARIO, Maribell Weldon Primary Care Physician En[place] [facility] [place] Date(s): 10/28/23 - 11/27/23 [facility] [address] [place], [place] [address] Allergies, Adverse Reactions, Alerts Substance Reaction Severity Status Nuts Active Watermelon Active Immunizations Given and Recorded Vaccine Date Status Refusal Reason SARS-CoV-2 mRNA (pxyaysy-jkmb-gpffd) vax 11/23/21 Recorded SARS-CoV-2 (COVID-19) mRNA BNT-162b2 [...] 1Result Comment: [facility] [id number] 2Result Comment: [07/17/2018] givne /out incident ncd: [id number] 3Result Comment: [09/30/2017] [facility] [id number] 4Admin Note: pt declined 5Admin Note: vis given Medications amLODIPine 5 mg oral tablet 1 tablet, By Mouth, Daily, # 90 tablet, 1 Refills, Maintenance, 10/28/23 6:16:00 EST, [facility]/pharmacy #[id number], 165, cm, 09/19/23 9:22:00 EST, Height, 86.1, kg, 06/07/23 21:13:00 EDT, Dry Weight Start Date: 10/28/23 Status: Ordered Aspirin Enteric Coated 81 mg oral delayed release tablet 1 tablet, By Mouth, Daily, # 90 tablet, 3 Refills, Maintenance, 01/13/23 11:23:00 EDT, [facility]/pharmacy#1291, 165, cm, 01/13/23 10:56:00 EDT, [...] Gm, 1 Refills, Maintenance, 07/01/23 17:26:00 EDT, [facility]/pharmacy #[id number], Partial fill upon patient request [...] Soft Stop, 10/21/23 17:02:00 EST, Chew Tablet, [facility]/pharmacy #[id number], Partial fill upon patient reque... Start Date: 10/21/23 Status: Ordered losartan 50 mg oral tablet 1.5 tablet = 75 mg, By Mouth, Daily, for 90 days, # 135 tablet, 1 Refills, Hard Stop 12/28/23 17:13:00 EST, 07/01/23 17:13:00 EDT, Tablet, [facility]/pharmacy #[id number], Partial fill upon patient request if theprescription is for a schedule II opioid drug., 165... Start Date: 07/01/23 Stop Date: 12/28/23 Status: Ordered losartan 50 mg oral tablet 1.5 tablet = 75 mg, By Mouth, Daily, # 135 tablet, 1 Refills, Maintenance, 12/28/23 17:13:00 EST, Tablet, [facility]/pharmacy #[id number], Partial fill upon patient request [...] Primary Care Member Role: PCP Address: Address: [address] [place] [address] Adult & [place] [address]- Care Team Related Persons Name: JJ NORMAN Address: home [address] [place] [address] Name: RISHABH CASTELLON Address: [place] [address] Name: YEIMY CASTELLON Address: home [address] [place] [address] Name: DONNA ZELAYA Address: home [address] [place] [address] Name: JOSE RAFAEL VINCENT Address: [place] [address] Name: ABHAY SPAULDING Name: SAMANTHA TINEO Address: home [address] [place] [address]
--- OUTSIDE RECORDS SUMMARY | 2024-06-13 07:01 | XMS_ITS | Continuity of Care Document ---
Author Organization [facility] Address [address] [place] [address]- Care Team Providers Care Classifier Tender Name Role Phone Cristobal ROSARIO, Maribell Weldon Primary Care Physician [place] [facility] [place] 10/25/23 - 11/24/23 [facility] [address] [place], [place] [address] Allergies, Adverse Reactions, Alerts Substance Reaction Severity Status Nuts Active Watermelon Active Immunizations Given and Recorded Vaccine Date Status Refusal Reason SARS-CoV-2 mRNA (lmhzdib-abmg-popsv) vax 11/23/21 Recorded SARS-CoV-2 (COVID-19) mRNA BNT-162b2 [...] julián 1Result Comment: [facility] [id number] 2Result Comment: [07/17/2018] givne /out incident ncd: [id number] 3Result Comment: [09/30/2017] [facility] 22138-952-85 4Admin Note: pt declined 5Admin Note: vis given Medications amLODIPine 5 mg oral tablet 1 tablet, By Mouth, Daily, # 90 tablet, 1 Refills, Maintenance, 10/28/23 6:16:00 EST, [facility]/pharmacy #[id number], 165, cm, 09/19/23 9:22:00 EST, Height, 86.1, kg, 06/07/23 21:13:00 EDT, Dry Weight Start Date: 10/28/23 Status: Ordered Aspirin Enteric Coated 81 mg oral delayed release tablet 1 tablet, By Mouth, Daily, # 90 tablet, 3 Refills, Maintenance, 01/13/23 11:23:00 EDT, [facility]/pharmacy#1291, 165, cm, 01/13/23 10:56:00 EDT, Height, [...] Gm, 1 Refills, Maintenance, 07/01/23 17:26:00 EDT, [facility]/pharmacy #[id number], Partial fill upon patient request [...] Soft Stop, 10/21/23 17:02:00 EST, Chew Tablet, [facility]/pharmacy #[id number], Partial fill upon patient reque... [...] Personnel Name: Cristobal ROSARIO, Maribell Weldon Position: [facility] Physician - Primary Care Member Role: PCP Address: Address: [address] [place] [address] Adult & [place] [address]- Care Team Related Persons Name: JJ NORMAN Address: home [address] [place] [address] Name: RISHABH CASTELLON Address: [place] [address] Name: YEIMY CASTELLON Address: home [address] [place] [address] Name: DONNA ZELAYA Address: home [address] [place] [address] Name: JOSE RAFAEL VINCENT Address: [place] [address] Name: ABHAY SPAULDING Name: SAMANTHA TINEO Address: home [address] [place] [address]
--- OUTSIDE RECORDS SUMMARY | 2024-06-13 07:01 | XMS_ITS | Continuity of Care Document ---
Author Organization [facility] Address [address] [place] [address]- Care Team Providers Care Project Administrative Assistant Name Role Phone Cristobal ROSARIO, Maribell Weldon Primary Care Physician Encounter [facility] [place] Date(s): 04/23/24 - 05/23/24 [facility] [address] [place], [place] [address] Allergies, Adverse Reactions, Alerts Substance Reaction Severity Status Nuts Active Watermelon Active Immunizations Given and Recorded Vaccine Date Status Refusal Reason SARS-CoV-2 mRNA (qmesgtb-tipl-bqgjk) vax 11/23/21 Recorded SARS-CoV-2 (COVID-19) mRNA BNT-162b2 [...] Diphth/Pertussis,Acel/Tetanus (oldterm) 89 G iven 1Result Comment: [facility][note 3] [id number] 2Result Comment: [07/17/2018] givne /out incident ncd: [id number] 3Result Comment: [09/30/2017] [facility][note 3] 12693-152-92 4Admin Note: pt declined 5Admin Note: vis given Medications amLODIPine 5 mg oral tablet 1 tablet, By Mouth, Daily, # 90 tablet, 1 Refills, Maintenance, 10/28/23 6:16:00 EST, [facility]/pharmacy #1291, 165, cm, 09/19/23 9:22:00 EST, Height, 86.1, kg, 06/07/23 21:13:00 EDT, Dry Weight Start Date: 10/28/23 Status: Ordered Aspirin Enteric Coated 81 mg oral delayed release tablet 1 tablet, By Mouth, Daily, # 90 tablet, 1 Refills, Maintenance, 01/08/24 11:23:00 EDT, [facility]/pharmacy#1291, 165, cm, 11/29/23 11:36:00 EST, Height, 80.5, kg, 11/29/23 11:36:00 EST, Dry Weight Start Date: 01/08/24 Stop Date: 07/06/24 Status: Ordered CPAP Machine See Instructions, # 1 each, Maintenance, AutoBiPAP max IPAP 15 min EPAP 5, PS 8 with heated humidification and compliance data to be followed. tubing, mask and supplies, 06/18/16 11:56:34 EDT, Compound Start Date: 06/18/16 Status: Ordered fluticasone 50 mcg/inh nasal spray See Instructions, SPRAY 1 SPRAY INTO EACH NOSTRIL TWICE A DAY, # 48 mL, 1 Refills, Maintenance, 05/07/24 16:07:00 EDT, [facility] STORE [id number], 90, SPRAY 1 SPRAY INTO EACH NOSTRIL TWICE A DAY, 165, cm, 11/29/23 11:36:00 EST, Height, 80.5, kg, 11/29/23 11:36:0... Start Date: 05/07/24 Status: Ordered Freestyle Lite Lancets See Instructions, [...] Soft Stop, 10/21/23 17:02:00 EST, Chew Tablet, [facility]/pharmacy #1291, Partial fill upon patient reque... Start Date: 10/21/23 Status: Ordered losartan 50 mg oral tablet 1.5 tablet = 75 mg, By Mouth, Daily, # 135 tablet, 1 Refills, Maintenance, 12/28/23 17:13:00 EST, Tablet, [facility]/pharmacy #1291, Partial fill upon patient request if the prescription is for a schedule II opioid drug., 165, cm, 09/19/23 9:22:00 EST, Heigh... Start Date: 12/28/23 Stop Date: 06/25/24 Status: Ordered MetFORMIN (Eqv-Glucophage XR) 500 mg oral tablet, extended release 2 tablet, By Mouth, Daily, # 180 tablet, 3 Refills, Maintenance, 09/19/23 9:39:00 EST, [facility]/pharmacy#1291, 165, cm, 09/19/23 9:22:00 EST, Height, [...] Name: Cristobal ROSARIO, Maribell Weldon Position: [facility] Physician - Primary Care Member Role: PCP Address: Address: [address] [place] [address] Adult & [place] [address]- Care Team Related Persons Name: JJ NORMAN Address: home [address] [place] [address] Name: RISHABH CASTELLON Address: [place] [address] Name: YEIMY CASTELLON Address: home [address] [place] [address] Name: DONNA ZELAYA Address: home [address] [place] [address] Name: JOSE RAFAEL VINCENT Address: [place] [address] Name: ABHAY SPAULDING Name: SAMANTHA TINEO Address: home [address] [place] [address]
--- OUTSIDE RECORDS SUMMARY | 2024-06-13 07:02 | XMS_ITS | Continuity of Care Document ---
Author Organization [facility] Address [address] [place] [address]- Care Team Providers Care Front Office Java Developer Name Role Phone Cristobal ROSARIO, Maribell Weldon Primary Care Physician En[place] [facility] [place] Date(s): 01/22/24 - 02/21/24 [facility] [address] [place], [place] [address] Allergies, Adverse Reactions, Alerts Substance Reaction Severity Status Nuts Active Watermelon Active Immunizations Given and Recorded Vaccine Date Status Refusal Reason SARS-CoV-2 mRNA (lhsesas-fafs-lqqyd) vax 11/23/21 Recorded SARS-CoV-2 (COVID-19) mRNA BNT-162b2 [...] Comment: [facility] [id number] 2Result Comment: [07/17/2018] givne /out incident ncd: [id number] 3Result Comment: [09/30/2017] [facility] 19300-413-76 4Admin Note: pt declined 5Admin Note: vis given Medications amLODIPine 5 mg oral tablet 1 tablet, By Mouth, Daily, # 90 tablet, 1 Refills, Maintenance, 10/28/23 6:16:00 EST, [facility]/pharmacy #1291, 165, cm, 09/19/23 9:22:00 EST, Height, 86.1, kg, 06/07/23 21:13:00 EDT, Dry Weight Start Date: 10/28/23 Status: Ordered Aspirin Enteric Coated 81 mg oral delayed release tablet 1 tablet, By Mouth, Daily, # 90 tablet, 1 Refills, Maintenance, 01/08/24 11:23:00 EDT, [facility]/pharmacy#1291, 165, cm, 11/29/23 11:36:00 EST, Height, [...] Gm, 3 Refills, Maintenance, 02/09/24 16:44:00 EDT, [facility]/pharmacy #1291, Partial fill upon patient request [...] Soft Stop, 10/21/23 17:02:00 EST, Chew Tablet, [facility]/pharmacy #1291, Partial fill upon patient reque... [...] Personnel Name: Cristobal ROSARIO, Maribell Weldon Position: [facility] Physician - Primary Care Member Role: PCP Address: Address: [address] [place] [address] Adult & [place] [address]- Care Team Related Persons Name: JJ NORMAN Address: [address] [place] [address] Name: RISHABH CASTELLON Address: [place] [address] Name: YEIMY CASTELLON Address: home [address] [place] [address] Name: DONNA ZELAYA Address: home [address] [place] [address] Name: JOSE RAFAEL VINCENT Address: [place] [address] Name: ABHAY SPAULDING Name: SAMANTHA TINEO Address: home [address] [place] [address]
--- OUTSIDE RECORDS SUMMARY | 2024-06-13 07:02 | XMS_ITS | Continuity of Care Document ---
Author Organization [facility] Address [address] [place] [address]- Care Team Providers Care Clinical Care Manager Name Role Phone Cristobal ROSARIO, Maribell Weldon Primary Care Physician Encounter [facility] [place] Date(s): 12/26/23 - 01/25/24 [facility] [address] [place], [place] [address] Allergies, Adverse Reactions, Alerts Substance Reaction Severity Status Nuts Active Watermelon Active Immunizations Given and Recorded Vaccine Date Status Refusal Reason SARS-CoV-2 mRNA (dczjblr-wdqp-liywo) vax 11/23/21 Recorded SARS-CoV-2 (COVID-19) mRNA BNT-162b2 [...] Diphth/Pertussis,Acel/Tetanus (oldterm) 89 G julián 1Result Comment: [facility] [id number] 2Result Comment: [07/17/2018] givne /out incident ncd: [id number] 3Result Comment: [09/30/2017] [facility] 85114-667-13 4Admin Note: pt declined 5Admin Note: vis given Medications amLODIPine 5 mg oral tablet 1 tablet, By Mouth, Daily, # 90 tablet, 1 Refills, Maintenance, 10/28/23 6:16:00 EST, [facility]/pharmacy #1291, 165, cm, 09/19/23 9:22:00 EST, Height, 86.1, kg, 06/07/23 21:13:00 EDT, Dry Weight Start Date: 10/28/23 Status: Ordered Aspirin Enteric Coated 81 mg oral delayed release tablet 1 tablet, By Mouth, Daily, # 90 tablet, 1 Refills, Maintenance, 01/08/24 11:23:00 EDT, [facility]/pharmacy#1291, 165, cm, 11/29/23 11:36:00 EST, Height, [...] Gm, 1 Refills, Maintenance, 07/01/23 17:26:00 EDT, [facility]/pharmacy #1291, Partial fill upon [...] Soft Stop, 10/21/23 17:02:00 EST, Chew Tablet, [facility]/pharmacy #1291, Partial fill upon patient reque... Start Date: 10/21/23 Status: Ordered losartan 50 mg oral tablet 1.5 tablet = 75 mg, By Mouth, Daily, # 135 tablet, 1 Refills, Maintenance, 12/28/23 17:13:00 EST, Tablet, [facility]/pharmacy #1291, Partial fill upon [...] Personnel Name: Cristobal ROSARIO, Maribell Weldon Position: [facility] Physician - Primary Care Member Role: PCP Address: Address: [address] [place] [address] Adult & [place] [address]- Care Team Related Persons Name: JJ NORMAN Address: home [address] [place] [address] Name: RISHABH CASTELLON Address: [place] [address] Name: YEIMY CASTELLON Address: home [address] [place] [address] Name: DONNA ZELAYA Address: home [address] [place] [address] Name: JOSE RAFAEL VINCENT Address: [place] [address] Name: ABHAY SPAULDING Name: SAMANTHA TINEO Address: home [address] [place] [address]
--- OUTSIDE RECORDS SUMMARY | 2024-06-13 07:03 | XMS_ITS | Continuity of Care Document ---
Author Organization [facility] Address [address] [place] [address]- Care Team Providers Care Sales Development Representative Name Role Phone Cristobal ROSARIO, Maribell Weldon Primary Care Physician [place] [facility] [place](s): 10/28/23 - 11/27/23 [facility] [address] [place], [place] [address] Allergies, Adverse Reactions, Alerts Substance Reaction Severity Status Nuts Active Watermelon Active Immunizations Given and Recorded Vaccine Date Status Refusal Reason SARS-CoV-2 mRNA (ayfhovu-pnqk-cirty) vax 11/23/21 Recorded SARS-CoV-2 (COVID-19) mRNA BNT-162b2 [...] Diphth/Pertussis,Acel/Tetanus (oldterm) 89 G julián 1Result Comment: [facility] [place] 2] [id number] 2Result Comment: [07/17/2018] givne /out incident ncd: [id number] 3Result Comment: [09/30/2017] [facility] [place] 2] [id number] 4Admin Note: pt declined 5Admin Note: vis [...] Gm, 1 Refills, Maintenance, 07/01/23 17:26:00 EDT, [facility]/pharmacy #[id number], Partial fill [...] 12/28/23 17:13:00 EST, 07/01/23 17:13:00 EDT, Tablet, [facility]/pharmacy #[id number], Partial fill upon patient request if theprescription is for a schedule II opioid drug., 165... Start Date: 07/01/23 Stop Date: 12/28/23 Status: Ordered losartan 50 mg oral tablet 1.5 tablet = 75 mg, By Mouth, Daily, # 135 tablet, 1 Refills, Maintenance, 12/28/23 17:13:00 EST, Tablet, [facility]/pharmacy #[id number], Partial fill [...] Primary Care Member Role: PCP Address: Address: [address] [place] [address] Adult & [place] [address]- Care Team Related Persons Name: JJ NORMAN Address: home [address] [place] [address] Name: RISHABH CASTELLON Address: [place] [address] Name: YEIMY CASTELLON Address: home [address] [place] [address] Name: DONNA ZELAYA Address: home [address] [place] [address] Name: JOSE RAFAEL VINCENT Address: [place] [address] Name: ABHAY SPAULDING Name: SAMANTHA TINEO Address: home [address] [place] [address]
--- OUTSIDE RECORDS SUMMARY | 2024-06-13 07:03 | XMS_ITS | Continuity of Care Document ---
Author Organization [facility] Address [address] [place] [address]- Care Team Providers Care Dental Laboratory Technician Name Role Phone Cristobal ROSARIO, Maribell Weldon Primary Care Physician Encounter [facility] [place] Date(s): 04/27/24 - 05/27/24 [facility] [address] [place], [place] [address] Allergies, Adverse Reactions, Alerts Substance Reaction Severity Status Nuts Active Watermelon Active Immunizations Given and Recorded Vaccine Date Status Refusal Reason SARS-CoV-2 mRNA ([id number]-dvjg-xxcjo) vax 11/23/21 Recorded SARS-CoV-2 (COVID-19) mRNA BNT-162b2 [...] 1Result Comment: [facility] [id number] 2Result Comment: [07/17/2018] givne /out incident ncd: [id number] 3Result Comment: [09/30/2017] [facility] [id number] 4Admin Note: pt declined 5Admin Note: vis given Medications amLODIPine 5 mg oral tablet 1 tablet, By Mouth, Daily, # 90 tablet, 1 Refills, Maintenance, 10/28/23 6:16:00 EST, [facility]/pharmacy #[id number], 165, cm, 09/19/23 9:22:00 EST, Height, 86.1, kg, 06/07/23 21:13:00 EDT, Dry Weight Start Date: 10/28/23 Status: Ordered Aspirin Enteric Coated 81 mg oral delayed release tablet 1 tablet, By Mouth, Daily, # 90 tablet, 1 Refills, Maintenance, 01/08/24 11:23:00 EDT, [facility]/pharmacy#[id number], 165, cm, 11/29/23 11:36:00 EST, Height, [...] mL, 1 Refills, Maintenance, 05/07/24 16:07:00 EDT, [facility] STORE [id number], 90, SPRAY 1 SPRAY INTO EACH NOSTRIL [...] Soft Stop, 10/21/23 17:02:00 EST, Chew Tablet, [facility]/pharmacy #[id number], Partial fill upon patient reque... Start Date: 10/21/23 Status: Ordered losartan 50 mg oral tablet 1.5 tablet = 75 mg, By Mouth, Daily, # 135 tablet, 1 Refills, Maintenance, 12/28/23 17:13:00 EST, Tablet, [facility]/pharmacy #[id number], Partial fill upon patient request if the prescription is for a schedule II opioid drug., 165, cm, 09/19/23 9:22:00 EST, Heigh... Start Date: 12/28/23 Stop Date: 06/25/24 Status: Ordered MetFORMIN (Eqv-Glucophage XR) 500 mg oral tablet, extended release 2 tablet, By Mouth, Daily, # 180 tablet, 3 Refills, Maintenance, 09/19/23 9:39:00 EST, [facility]/pharmacy#[id number], 165, cm, 09/19/23 9:22:00 EST, Height, [...] Weldon Position: [facility] Physician - Primary Care Member Role: PCP Address: Address: [address] [place] [address] Adult & [place] [address]- Care Team Related Persons Name: JJ NORMAN Address: home [address] [place] [address] Name: RISHABH CASTELLON Address: [place] [address] Name: YEIMY CASTELLON Address: home [address] [place] [address] Name: DONNA ZELAYA Address: home [address] [place] [address] Name: JOSE RAFAEL VINCENT Address: [place] [address] Name: ABHAY SPAULDING Name: SAMANTHA TINEO Address: home [address] [place] [address]
--- OUTSIDE RECORDS SUMMARY | 2024-06-13 07:03 | XMS_ITS | Continuity of Care Document ---
Author Organization [facility] Address [address] [place] [address]- Care Team Providers Care Jaw Skinner Name Role Phone Cristobal ROSARIO, Maribell Weldon Primary Care Physician [phone] [place] [facility] [place]17[place]23 [place] 01/16/24 [facility] [address] [place], [place] [address] Allergies, Adverse Reactions, Alerts Substance Reaction Severity Status Nuts Active Watermelon Active Immunizations Given and Recorded Vaccine Date Status Refusal Reason SARS-CoV-2 mRNA (oisqkge-mksw-iczow) vax 11/23/21 Recorded SARS-CoV-2 (COVID-19) mRNA BNT-162b2 [...] Diphth/Pertussis,Acel/Tetanus (oldterm) 89 G julián 1Result Comment: [facility] [id number] 2Result Comment: [07/17/2018] givne /out incident ncd: [id number] 3Result Comment: [09/30/2017] [facility] [id number] 4Admin Note: pt declined 5Admin Note: vis given Medications amLODIPine 5 mg oral tablet 1 tablet, By Mouth, Daily, # 90 tablet, 1 Refills, Maintenance, 10/28/23 6:16:00 EST, [facility]/pharmacy #[id number], 165, cm, 09/19/23 9:22:00 EST, Height, 86.1, kg, 06/07/23 21:13:00 EDT, Dry Weight Start Date: 10/28/23 Status: Ordered Aspirin Enteric Coated 81 mg oral delayed release tablet 1 tablet, By Mouth, Daily, # 90 tablet, 1 Refills, Maintenance, 01/08/24 11:23:00 EDT, [facility]/pharmacy#[id number], 165, cm, 11/29/23 11:36:00 [...] Soft Stop, 10/21/23 17:02:00 EST, Chew Tablet, [facility]/pharmacy #[id number], Partial fill upon patient reque... Start Date: 10/21/23 Status: Ordered losartan 50 mg oral tablet 1.5 tablet = 75 mg, By Mouth, Daily, # 135 tablet, 1 Refills, Maintenance, 12/28/23 17:13:00 EST, Tablet, [facility]/pharmacy #[id number], Partial [...] Personnel Name: Cristobal ROSARIO, Maribell Weldon [facility] Physician - Primary Care Member Role: PCP Address: Address: [address] [place] [address] Adult [place] [address]- Care Team Related Persons Name: JJ NORMAN Address: home [address] [place] [address] Name: RISHABH CASTELLON Address: [place] [address] Name: YEIMY CASTELLON Address: home [address] [place] [address] Name: DONNA ZELAYA Address: home [address] [place] [address] Name: JOSE RAFAEL VINCENT Address: [place] [address] Name: ABHAY SPAULDING Name: SAMANTHA TINEO Address: home [address] [place] [address]
--- OUTSIDE RECORDS SUMMARY | 2024-06-13 07:03 | XMS_ITS | Continuity of Care Document ---
Author Organization [facility] Address [address] [place] [address]- Care Team Providers Care Transportation Maintenance Supervisor Name Role Phone Cristobal ROSARIO, Maribell Weldon Primary Care Physician [phone] Encounter [facility] Date(s): 10/21/23 - 11/20/23 [facility] [address] [place], [place] [address] [place] Allergies, Adverse Reactions, Alerts Substance Reaction Severity Status Nuts Active Watermelon Active Immunizations Given and Recorded Vaccine Date Status Refusal Reason SARS-CoV-2 mRNA (iuqttsu-kzrk-rkwnb) vax 11/23/21 Recorded SARS-CoV-2 (COVID-19) mRNA BNT-162b2 [...] Diphth/Pertussis,Acel/Tetanus (oldterm) 89 G iven 1Result Comment: [facility] [id number] 2Result Comment: [07/17/2018] givne /out incident ncd: [id number] 3Result Comment: [09/30/2017] [facility] [id number] 4Admin Note: pt declined 5Admin Note: vis given Medications amLODIPine 5 mg oral tablet 1 tablet, By Mouth, Daily, # 90 tablet, 1 Refills, Maintenance, 10/28/23 6:16:00 EST, [facility]/pharmacy #[id number], 165, cm, 09/19/23 9:22:00 EST, Height, 86.1, kg, 06/07/23 21:13:00 EDT, Dry Weight Start Date: 10/28/23 Status: Ordered Aspirin Enteric Coated 81 mg oral delayed release tablet 1 tablet, By Mouth, Daily, # 90 tablet, 3 Refills, Maintenance, 01/13/23 11:23:00 EDT, [facility]/pharmacy#1291, 165, cm, 01/13/23 10:56:00 EDT, [...] Gm, 1 Refills, Maintenance, 07/01/23 17:26:00 EDT, [facility]/pharmacy #[id number], Partial fill upon patient [...] Soft Stop, 10/21/23 17:02:00 EST, Chew Tablet, [facility]/pharmacy #[id number], Partial fill upon patient [...] Personnel Name: Cristobal ROSARIO, Maribell Weldon Position: [facility] Physician - Primary Care Member Role: PCP Address: Address: [address] [place] [address] Adult & [place] [address]- Care Team Related Persons Name: JJ NORMAN Address: home [address] [place] [address] Name: RISHABH CASTELLON Address: [place] [address] Name: YEIMY CASTELLON Address: home [address] [place] [address] Name: DONNA ZELAYA Address: home [address] [place] [address] Name: JOSE RAFAEL VINCENT Address: [place] [address] Name: ABHAY SPAULDING Name: SAMANTHA TINEO Address: home [address] [place] [id number]
--- OUTSIDE RECORDS SUMMARY | 2024-06-13 07:04 | XMS_ITS | Continuity of Care Document ---
Author Organization [facility] Address [address] [place] [address]- Care Team Providers Care Accounts Collector Name Role Phone Cristobal ROSARIO, Maribell Weldon Primary Care Physician [place] [facility] [place] 03/09/24 [facility] [address] [place], [place] [address] Allergies, Adverse Reactions, Alerts Substance Reaction Severity Status Nuts Active Watermelon Active Immunizations Given and Recorded Vaccine Date Status Refusal Reason SARS-CoV-2 mRNA (bnwrhco-wvpu-wcyik) vax 11/23/21 Recorded SARS-CoV-2 (COVID-19) mRNA BNT-162b2 [...] Diphth/Pertussis,Acel/Tetanus (oldterm) 89 G iven 1Result Comment: [facility] [id number] 2Result Comment: [07/17/2018] givne /out incident ncd: [id number] 3Result Comment: [09/30/2017] [facility] [id number] 4Admin Note: pt declined 5Admin Note: vis given Medications amLODIPine 5 mg oral tablet 1 tablet, By Mouth, Daily, # 90 tablet, 1 Refills, Maintenance, 10/28/23 6:16:00 EST, [facility]/pharmacy #[id number], 165, cm, 09/19/23 9:22:00 EST, Height, 86.1, kg, 06/07/23 21:13:00 EDT, Dry Weight Start Date: 10/28/23 Status: Ordered Aspirin Enteric Coated 81 mg oral delayed release tablet 1 tablet, By Mouth, Daily, # 90 tablet, 1 Refills, Maintenance, 01/08/24 11:23:00 EDT, [facility]/pharmacy#1291, 165, cm, 11/29/23 11:36:00 [...] Gm, 3 Refills, Maintenance, 02/09/24 16:44:00 EDT, [facility]/pharmacy #[id number], Partial fill upon [...] Soft Stop, 10/21/23 17:02:00 EST, Chew Tablet, [facility]/pharmacy #[id number], Partial fill upon patient reque... Start Date: 10/21/23 Status: Ordered losartan 50 mg oral tablet 1.5 tablet = 75 mg, By Mouth, Daily, # 135 tablet, 1 Refills, Maintenance, 12/28/23 17:13:00 EST, Tablet, [facility]/pharmacy #[id number], Partial fill upon patient request if the prescription is for a schedule II opioid drug., 165, cm, 09/19/23 9:22:00 EST, Heigh... Start Date: 12/28/23 Stop Date: 06/25/24 Status: Ordered MetFORMIN (Eqv-Glucophage XR) 500 mg oral tablet, extended release 2 tablet, By Mouth, Daily, # 180 tablet, 3 Refills, Maintenance, 09/19/23 9:39:00 EST, [facility]/pharmacy#1291, 165, cm, 09/19/23 9:22:00 EST, Height, [...] Personnel Name: Cristobal ROSARIO, Maribell Weldon Position: [facility] Physician - Primary Care Member Role: PCP Address: Address: [address] [place] [address] Adult & [place] [address]- Care Team Related Persons Name: JJ NORMAN Address: home [address] [place] [address] Name: RISHABH CASTELLON Address: [place] [address] Name: YEIMY CASTELLON Address: home [address] [place] [address] Name: DONNA ZELAYA Address: home [address] [place] [address] Name: JOSE RAFAEL VINCENT Address: [place] [address] Name: ABHAY SPAULDING Name: SAMANTHA TINEO Address: home [address] [place] [address]
== END 2024-06-09 19:37 | disposition home or self-care (01) ==
PROVIDERS: Emergency Provider Emergency Medicine; PCP Internal Medicine
DX: M77.02 Medial epicondylitis, left elbow (principal); M25.522 Pain in left elbow
CPT/HCPCS: 73070; 99283; 99284